=== PATIENT | female | born 1970 | race Caucasian/White ===

== ENCOUNTER → 2017-02-03 | Outpatient (CLI) | payer BC ==
--- NOTE | 2017-02-03 12:14 | XR ---
EXAMINATION TYPE: XR wrist complete RT DATE OF EXAM: 02/03/2017 12:10 PM COMPARISON: NONE HISTORY: Pain TECHNIQUE: Four views submitted. FINDINGS: The osseous structures are intact. Arthropathy of the first carpal metacarpal and first MCP joints no marianna.. IMPRESSION: 1. No definite acute fracture or dislocation if symptoms persist, follow-up study in 7 to 10 days wo uld be suggested. 2. Arthropathy as discussed above.
== END | disposition home or self-care (01) ==
LOC: RADXRMAIN 11:49
PROVIDERS: ATTEND Family Medicine
DX: M12.89 Other specific arthropathies, not elsewhere classified, multiple sites (principal)

== ENCOUNTER → 2017-02-03 | Outpatient (CLI) | payer BC ==
--- NOTE | 2017-02-03 08:19 | CT ---
EXAMINATION TYPE: CT brain wo con DATE OF EXAM: 02/03/2017 7:47 AM COMPARISON: NONE INDICATION: confusion and change of memory DLP: 1076 mGycm, Automated exposure control for dose reduction was used. CONTRAST: None CT of the brain is performed utilizing 3 mm thick sections through the posterior fossa and 3 mm thick sections through the remaining calvarium. Study is performed within 24 hours of arrival to the hosp [facility]. No abnormal hyperdensity is present to suggest an acute intracranial hemorrhage. No mass lesion is evident. No acute infarcts are evident. Ventricles and sulci are appropriate for the patient age. Paranasal sinuses and mastoid air cells within the [id number] are clear. IMPRESSIONS: 1. Normal CT Brain
== END | disposition home or self-care (01) ==
LOC: RADCTMAIN 07:24
PROVIDERS: ATTEND Family Medicine
DX: R41.3 Other amnesia (principal)
CPT/HCPCS: 70450

== ENCOUNTER → 2017-09-20 | Outpatient (CLI) | payer BC ==
--- NOTE | 2017-09-21 08:48 | MM ---
Reason for exam: additional evaluation requested from prior study. Last mammogram was performed 1 year and 1 month ago. History: Patient is postmenopausal. Family history of breast cancer in maternal grandmother at age 35. Benign US RT VAD breast biopsy of the right breast, January 16, 2014. Benign US LT VAD breast biopsy of the left breast, January 16, 2014. Benign US LT VAD breast biopsy of the left breast, January 16, 2014. Benign left US cyst aspiration of the left breast, September 15, 2005. Benign US left CoreBiopsy of the left breast, September 15, 2005. Benign stereotactic core biopsy of the right breast, January 22, 2000. Benign ultrasound-guided core biopsy of the right breast, January 18, 2000. Excisional biopsy of the left breast, 1997. Excisional biopsy of the right breast. Took hormonal contraceptives for 3 years. Taking estrogen for 8 years beginning at age 31. Took unspecified hormones for 38 years. Physical Findings: Nurse did not find any significant physical abnormalities on exam. MG 3D Diag Mammo W/Cad LOLLY Bilateral CC and MLO view(s) were taken. Prior study comparison: August 26, 2016, bilateral MG 3d diag mammo w/cad LOLLY. February 23, 2016, bilateral MG 3d diag mammo w/cad LOLLY. The breast tissue is heterogeneously dense. This may lower the sensitivity of mammography. Stable benign calcifications. There is chronic nodularity bilaterally. There is no dominant lesion. No significant new findings when compared with previous films. These results were verbally communicated with the patient and result sheet given to the patient on 09/20/17. ASSESSMENT: Incomplete: need additional imaging evaluation, BI-RAD 0 RECOMMENDATION: Ultrasound of the right breast.
--- NOTE | 2017-09-21 08:50 | USB ---
Reason for exam: additional evaluation requested from abnormal screening. History: Patient is postmenopausal. Family history of breast cancer in maternal grandmother at age 35. Benign US RT VAD breast biopsy of the right breast, January 16, 2014. Benign US LT VAD breast biopsy of the left breast, January 16, 2014. Benign US LT VAD breast biopsy of the left breast, January 16, 2014. Benign left US cyst aspiration of the left breast, September 15, 2005. Benign US left CoreBiopsy of the left breast, September 15, 2005. Benign stereotactic core biopsy of the right breast, January 22, 2000. Benign ultrasound-guided core biopsy of the right breast, January 18, 2000. Excisional biopsy of the left breast, 1997. Excisional biopsy of the right breast. Took hormonal contraceptives for 3 years. Taking estrogen for 8 years beginning at age 31. Took unspecified hormones for 38 years. US Breast RT Right breast ultrasound includes all four quadrants, the retroareolar region and axilla. Finding demonstrates a 0.4 x 0.3cm cystic lesion at 2 o'clock versus calcification, a 0.4cm calcification at 7 o'clock and a 0.8 x 0.8 x 0.5cm cystic lesion at 9 o'clock. These results were verbally communicated with the patient and result sheet given to the patient on 09/20/17. ASSESSMENT: Benign, BI-RAD 2 RECOMMENDATION: Routine screening mammogram of both breasts in 1 year.
== END | disposition home or self-care (01) ==
LOC: RADMAMWWP 14:44
PROVIDERS: ATTEND Family Medicine
DX: R92.8 Other abnormal and inconclusive findings on diagnostic imaging of breast (principal)
CPT/HCPCS: 76641; G0204; G0279

== ENCOUNTER 2018-01-27 17:01 | Inpatient (IN) | payer BC ==
[2018-01-27] MEDS ORDERED: methylPREDNISolone SOD SUCCI 125 MG/2 ML VIAL IV STA (17:22)
[2018-01-27] MEDS ORDERED: IPRATROPIUM-ALBUTEROL 3 ML NEB INHALATION STA (17:22)
[2018-01-27] MEDS ORDERED: SODIUM CHLORIDE 0.9% 500 ML IV STA (17:22)
--- NOTE | 2018-01-27 17:28 | ED ---
SOB HPI - General Chief Complaint: Shortness of Breath Stated Complaint: Difficulty Breathing Time Seen by Provider: 01/27/18 17:16 Source: patient, RN notes reviewed Mode of arrival: ambulatory Limitations: no limitations - History of Present Illness Initial Comments: 48-year-old female presents emergency Department chief complaint shortness of breath. Patient states she's been sick for over the last week did see Dr. Chau her primary care physician on Tuesday who gave her breathing treatment, as shot of steroids and Levaquin. She states that she's getting worse she's having difficult breathing and noticed increased wheezing. She has no history of asthma or COPD. Patient states that she was now placed on steroids because she has a diabetic on an insulin pump. Patient states she is a nonsmoker. She does have a history of A. fib/POTS. Patient denies any nausea vomiting. Patient states she's had subjective fevers. - Related Data Home Medications Medication Instructions Recorded Confirmed ALPRAZolam [Xanax] 0.25 mg PO BID 01/27/18 01/27/18 Acyclovir 400 mg PO DAILY 01/27/18 01/27/18 Amitriptyline HCl [Elavil] 75 mg PO HS 01/27/18 01/27/18 Cyclobenzaprine [Flexeril] 10 mg PO HS 01/27/18 01/27/18 Digoxin [Lanoxin] 250 mcg PO DAILY 01/27/18 01/27/18 Estrogens, Conjugated [Premarin] 0.625 mg PO DAILY 01/27/18 01/27/18 Fenofibrate [Lofibra] 160 mg PO DAILY 01/27/18 01/27/18 Gabapentin [Neurontin] 400 mg PO TID 01/27/18 01/27/18 Hyoscyamine Sulfate [Levbid] 0.375 mg PO BID 01/27/18 01/27/18 Insulin Aspart (For Pump) [NovoLOG 0.01 unit SQ-PUMP CONTINUOUS 01/27/18 (For Pump)] Levofloxacin [Levaquin] 500 mg PO DAILY 01/27/18 01/27/18 Levothyroxine Sodium [Synthroid] 50 mcg PO Q48H 01/27/18 01/27/18 Levothyroxine Sodium [Synthroid] 75 mcg PO Q48H 01/27/18 01/27/18 Lisinopril [Zestril] 5 mg PO DAILY 01/27/18 01/27/18 Nadolol 40 mg PO DAILY 01/27/18 01/27/18 Pravastatin Sodium [Pravachol] 80 mg PO HS 01/27/18 01/27/18 Sertraline [Zoloft] 50 mg PO TID 01/27/18 01/27/18 traZODone HCL 100 mg PO HS 01/27/18 01/27/18 Allergies Allergy/AdvReac Type Severity Reaction Status Date / Time No Known Allergies Allergy Verified 01/27/18 17:56 Review of Systems ROS Statement: Those systems with pertinent positive or pertinent negative responses have been documented in the HPI. ROS Other: All systems not noted in ROS Statement are negative. Past Medical History Past Medical History: Chest Pain / Angina, Diabetes Mellitus, Hypertension, Thyroid Disorder History of Any Multi-Drug Resistant Organisms: None Reported Past Surgical History: No Surgical Hx Reported Past Psychological History: No Psychological Hx Reported Smoking Status: Never smoker Past Alcohol Use History: None Reported Past Drug Use History: None Reported General Exam Limitations: no limitations General appearance: alert, in no apparent distress Head exam: Present: atraumatic, normocephalic, normal inspection Eye exam: Present: normal appearance, PERRL, EOMI. Absent: scleral icterus, conjunctival injection, periorbital swelling ENT exam: Present: normal exam, normal oropharynx, mucous membranes moist Neck exam: Present: normal inspection. Absent: tenderness, meningismus, lymphadenopathy Respiratory exam: Present: respiratory distress (mild to moderate), wheezes. Absent: normal lung sounds bilaterally, rales, rhonchi, stridor Cardiovascular Exam: Present: regular rate, normal rhythm, normal heart sounds. Absent: systolic murmur, diastolic murmur, rubs, gallop, clicks GI/Abdominal exam: Present: soft, normal bowel sounds. Absent: distended, tenderness, guarding, rebound, rigid Skin exam: Present: warm, dry, intact, normal color. Absent: rash Course Vital Signs 01/27/18 01/27/18 01/27/18 17:03 17:31 17:41 Temperature 97.4 F L Pulse Rate 84 82 84 Respiratory 26 H 20 20 Rate Blood Pressure 189/80 O2 Sat by Pulse 97 Oximetry 01/27/18 19:46 Temperature Pulse Rate 75 Respiratory 20 Rate Blood Pressure 139/63 O2 Sat by Pulse 91 L Oximetry Medical Decision Making - Lab Data Result diagrams: 01/27/18 18:00 01/27/18 18:00 Lab Results 01/27/18 01/27/18 01/27/18 Range/Units 18:00 18:00 18:00 WBC 8.7 (3.8-10.6) k/uL RBC 3.88 (3.80-5.40) m/uL Hgb 11.0 L (11.4-16.0) gm/dL Hct 32.5 L (34.0-46.0) % MCV 83.7 (80.0-100.0) fL MCH 28.2 (25.0-35.0) pg MCHC 33.7 (31.0-37.0) g/dL RDW 13.9 (11.5-15.5) % Plt Count 270 (150-450) k/uL Neutrophils % 70 % Lymphocytes % 24 % Monocytes % 3 % Eosinophils % 2 % Basophils % 1 % Neutrophils # 6.1 (1.3-7.7) k/uL Lymphocytes # 2.1 (1.0-4.8) k/uL Monocytes # 0.3 (0-1.0) k/uL Eosinophils # 0.1 (0-0.7) k/uL Basophils # 0.0 (0-0.2) k/uL PT (9.0-12.0) sec INR (<1.2) APTT (22.0-30.0) sec Sodium 141 (137-145) mmol/L Potassium 3.9 (3.5-5.1) mmol/L Chloride 105 (98-107) mmol/L Carbon Dioxide 25 (22-30) mmol/L Anion Gap 11 mmol/L BUN 11 (7-17) mg/dL Creatinine 0.59 (0.52-1.04) mg/dL Est GFR (CKD-EPI)AfAm >90 (>60 ml/min/1.73 sqM) Est GFR (CKD-EPI)NonAf >90 (>60 ml/min/1.73 sqM) Glucose 124 H (74-99) mg/dL POC Glucose (mg/dL) (75-99) mg/dL POC Glu Metal Stamper ID Calcium 9.2 (8.4-10.2) mg/dL Magnesium 1.5 L (1.6-2.3) mg/dL Total Bilirubin 0.4 (0.2-1.3) mg/dL AST 60 H (14-36) U/L ALT 45 (9-52) U/L Alkaline Phosphatase 82 (38-126) U/L Total Creatine Kinase 127 (30-135) U/L CK-MB (CK-2) 0.6 (0.0-2.4) ng/mL CK-MB (CK-2) Rel Index 0.5 Troponin I <0.012 (0.000-0.034) ng/mL NT-Pro-B Natriuret Pep pg/mL Total Protein 6.3 (6.3-8.2) g/dL Albumin 3.2 L (3.5-5.0) g/dL Influenza Type A RNA (Not Detectd) Influenza Type B (PCR) (Not Detectd) 01/27/18 01/27/18 01/27/18 Range/Units 18:00 18:00 18:00 WBC (3.8-10.6) k/uL RBC (3.80-5.40) m/uL Hgb (11.4-16.0) gm/dL Hct (34.0-46.0) % MCV (80.0-100.0) fL MCH (25.0-35.0) pg MCHC (31.0-37.0) g/dL RDW (11.5-15.5) % Plt Count (150-450) k/uL Neutrophils % % Lymphocytes % % Monocytes % % Eosinophils % % Basophils % % Neutrophils # (1.3-7.7) k/uL Lymphocytes # (1.0-4.8) k/uL Monocytes # (0-1.0) k/uL Eosinophils # (0-0.7) k/uL Basophils # (0-0.2) k/uL PT 13.6 H (9.0-12.0) sec INR 1.5 H (<1.2) APTT 22.4 (22.0-30.0) sec Sodium (137-145) mmol/L Potassium (3.5-5.1) mmol/L Chloride (98-107) mmol/L Carbon Dioxide (22-30) mmol/L Anion Gap mmol/L BUN (7-17) mg/dL Creatinine (0.52-1.04) mg/dL Est GFR (CKD-EPI)AfAm (>60 ml/min/1.73 sqM) Est GFR (CKD-EPI)NonAf (>60 ml/min/1.73 sqM) Glucose (74-99) mg/dL POC Glucose (mg/dL) (75-99) mg/dL POC Glu Metal Stamper ID Calcium (8.4-10.2) mg/dL Magnesium (1.6-2.3) mg/dL Total Bilirubin (0.2-1.3) mg/dL AST (14-36) U/L ALT (9-52) U/L Alkaline Phosphatase (38-126) U/L Total Creatine Kinase (30-135) U/L CK-MB (CK-2) (0.0-2.4) ng/mL CK-MB (CK-2) Rel Index Troponin I (0.000-0.034) ng/mL NT-Pro-B Natriuret Pep 159 pg/mL Total Protein (6.3-8.2) g/dL Albumin (3.5-5.0) g/dL Influenza Type A RNA Not Detected (Not Detectd) Influenza Type B (PCR) Not Detected (Not Detectd) 01/27/18 Range/Units 19:44 WBC (3.8-10.6) k/uL RBC (3.80-5.40) m/uL Hgb (11.4-16.0) gm/dL Hct (34.0-46.0) % MCV (80.0-100.0) fL MCH (25.0-35.0) pg MCHC (31.0-37.0) g/dL RDW (11.5-15.5) % Plt Count (150-450) k/uL Neutrophils % % Lymphocytes % % Monocytes % % Eosinophils % % Basophils % % Neutrophils # (1.3-7.7) k/uL Lymphocytes # (1.0-4.8) k/uL Monocytes # (0-1.0) k/uL Eosinophils # (0-0.7) k/uL Basophils # (0-0.2) k/uL PT (9.0-12.0) sec INR (<1.2) APTT (22.0-30.0) sec Sodium (137-145) mmol/L Potassium (3.5-5.1) mmol/L Chloride (98-107) mmol/L Carbon Dioxide (22-30) mmol/L Anion Gap mmol/L BUN (7-17) mg/dL Creatinine (0.52-1.04) mg/dL Est GFR (CKD-EPI)AfAm (>60 ml/min/1.73 sqM) Est GFR (CKD-EPI)NonAf (>60 ml/min/1.73 sqM) Glucose (74-99) mg/dL POC Glucose (mg/dL) 104 H (75-99) mg/dL POC Glu Metal Stamper ID Kiana Tejeda Calcium (8.4-10.2) mg/dL Magnesium (1.6-2.3) mg/dL Total Bilirubin (0.2-1.3) mg/dL AST (14-36) U/L ALT (9-52) U/L Alkaline Phosphatase (38-126) U/L Total Creatine Kinase (30-135) U/L CK-MB (CK-2) (0.0-2.4) ng/mL CK-MB (CK-2) Rel Index Troponin I (0.000-0.034) ng/mL NT-Pro-B Natriuret Pep pg/mL Total Protein (6.3-8.2) g/dL Albumin (3.5-5.0) g/dL Influenza Type A RNA (Not Detectd) Influenza Type B (PCR) (Not Detectd) Disposition Clinical Impression: Pulmonary edema, Hypoxic, Dyspnea Disposition: ADMITTED IP TO THIS HOSP Condition: Fair Referrals: Alber Chau MD [Primary Care Provider] - 1-2 days
[2018-01-27] MEDS ORDERED: LORazepam 2 MG/ML INJ IV STA (17:50)
[2018-01-27 18:17] LABS: Basophils % (A) 1 %; Eosinophils # (A) 0.1 k/uL (0-0.7); Eosinophils % (A) 2 %; HCT 32.5 % (34.0-46.0); Lymphocytes # (A) 2.1 k/uL (1.0-4.8); Lymphocytes % (A) 24 %; MCH 28.2 pg (25.0-35.0); MCHC 33.7 g/dL (31.0-37.0); MCV 83.7 fL (80.0-100.0); Mean Platelet Volume 7.5; Monocytes # (A) 0.3 k/uL (0-1.0); Monocytes % (A) 3 %; Neutrophils # (A) 6.1 k/uL (1.3-7.7); Neutrophils % (A) 70 %; Platelet Count 270 k/uL (150-450); RBC 3.88 m/uL (3.80-5.40); RDW 13.9 % (11.5-15.5); WBC 8.7 k/uL (3.8-10.6)
[2018-01-27 18:22] LABS: INR 1.5 (<1.2); Partial Thromboplastin Time 22.4 sec (22.0-30.0); Prothrombin Time 13.6 sec (9.0-12.0)
[2018-01-27 18:28] LABS: ALT 45 U/L (9-52); AST 60 U/L (14-36); Albumin 3.2 g/dL (3.5-5.0); Alkaline Phosphatase 82 U/L (38-126); Anion Gap 11 mmol/L; Blood Urea Nitrogen 11 mg/dL (7-17); Calcium 9.2 mg/dL (8.4-10.2); Carbon Dioxide 25 mmol/L (22-30); Chloride 105 mmol/L (98-107); Glucose 124 mg/dL (74-99); Magnesium 1.5 mg/dL (1.6-2.3); Potassium 3.9 mmol/L (3.5-5.1); Sodium 141 mmol/L (137-145); Total Bilirubin 0.4 mg/dL (0.2-1.3); Total Protein 6.3 g/dL (6.3-8.2)
[2018-01-27 18:32] LABS: Creatine Kinase 127 U/L (30-135)
--- NOTE | 2018-01-27 18:42 | XR ---
EXAMINATION: XR chest 2V DATE AND TIME: 01/27/2018 6:30 PM ORDERING PROVIDER: Coleman Harry CLINICAL INDICATION: difficulty breathing TECHNIQUE: PA and lateral COMPARISON: None. DESCRIPTION: There is a fine reticular pattern of increased density throughout the lungs bilaterally and symmetrically with several septal lines seen at the periphery bilaterally. This pattern markedly silhouettes of the pulmonary vasculature arborization bilaterally. Pleural spaces are negative. Cardiac silhouette is unremarkable, as are the bones and soft tissues.. IMPRESSION: ADVANCED INTERSTITIAL PHASE PULMONARY EDEMA PATTERN, WITH CARDIOGENIC VERSUS NONCARDIOGENIC ETIOLOGY INDETERMINATE RADIOGRAPHICALLY.
[2018-01-27 18:45] LABS: Creatine Kinase MB 0.6 ng/mL (0.0-2.4); Troponin I <0.012 ng/mL (0.000-0.034)
[2018-01-27 19:49] LABS: Glucose,Whole Blood 104 mg/dL (75-99)
[2018-01-27] MEDS ORDERED: HYDROcodone/APAP 5-325MG 1 EACH TAB PO STA (19:55)
[2018-01-27] MEDS ORDERED: FUROSEMIDE 10 MG/ML 2 ML VIAL IV STA (19:55)
[2018-01-27] MEDS ORDERED: ONDANSETRON 4 MG/2 ML VIAL IVP PRN (19:56)
[2018-01-27] MEDS ORDERED: Insulin Aspart (For Pump) 100 UNIT/ML VIAL SQ-PUMP SCH (20:00)
[2018-01-27 21:06] LABS: Glucose,Whole Blood 143 mg/dL (75-99)
[2018-01-27 21:23] VITALS: BMI 34.3
[2018-01-27] MEDS: SERTRALINE 100 MG TAB PO SCH (21:55)
[2018-01-27] MEDS: GABAPENTIN 400 MG CAP PO SCH (21:55)
[2018-01-27] MEDS: PRAVASTATIN SODIUM 80 MG TAB PO SCH (21:55)
[2018-01-27] MEDS: ALPRAZolam 0.25 MG TAB PO SCH (21:55)
[2018-01-27] MEDS: traZODone HCL 100 MG TAB PO SCH (21:56)
[2018-01-27] MEDS: CYCLOBENZAPRINE 10 MG TAB PO SCH (21:56)
[2018-01-27] MEDS: AMITRIPTYLINE HCL 25 MG TAB PO SCH (21:56)
[2018-01-27] MEDS: HYOSCYAMINE SULFATE 0.375 MG TAB.ER.12H PO SCH (21:58)
[2018-01-27] MEDS ORDERED: GABAPENTIN 400 MG CAP PO SCH (22:00)
[2018-01-27] MEDS ORDERED: SERTRALINE 50 MG TAB PO SCH (22:00)
[2018-01-27] MEDS ORDERED: INSULIN PUMP BASAL RATES 1 EACH MISC MISCELLANE PRN (22:04)
[2018-01-28 05:01] LABS: Glucose,Whole Blood 275 mg/dL (75-99)
[2018-01-28] MEDS ORDERED: Magnesium Replacement Protocol 1 EACH MISC MISCELLANE PRN (06:18)
[2018-01-28 06:36] LABS: Glucose,Whole Blood 248 mg/dL (75-99)
[2018-01-28] MEDS: INSPUCOR MISCELLANE PRN ×2 (06:46→20:42)
[2018-01-28] MEDS: MAGNESIUM SULFATE-D5W PMX 1 GM in DEXTROSE/WATER 1 100ML.BAG IVPB SCH ×2 (07:05→08:15)
[2018-01-28] MEDS: INSULIN PUMP MEAL BOLUS 1 UNIT MISC MISCELLANE SCH ×6 (07:42→20:40)
[2018-01-28] MEDS: ESTROGENS, CONJUGATED 0.625 MG TAB PO SCH (07:47)
[2018-01-28] MEDS: LEVOFLOXACIN 500 MG TAB PO SCH (07:47)
[2018-01-28] MEDS: NADOLOL 20 MG TAB PO SCH (07:47)
[2018-01-28] MEDS: LEVOTHYROXINE 75 MCG TAB PO SCH (07:48)
[2018-01-28] MEDS: LISINOPRIL 5 MG TAB PO SCH (07:48)
[2018-01-28] MEDS: DIGOXIN 250 MCG TAB PO SCH ×2 (07:48→07:57)
[2018-01-28] MEDS: HYOSCYAMINE SULFATE 0.375 MG TAB.ER.12H PO SCH ×2 (07:49→20:36)
[2018-01-28] MEDS: LEVOTHYROXINE 50 MCG TAB PO SCH (07:51)
[2018-01-28] MEDS: FENOFIBRATE 160 MG TAB PO SCH (07:51)
[2018-01-28] MEDS: ACYCLOVIR 200 MG CAP PO SCH (07:51)
[2018-01-28] MEDS: ALPRAZolam 0.25 MG TAB PO SCH ×2 (07:52→20:35)
[2018-01-28] MEDS: SERTRALINE 50 MG TAB PO SCH (07:52)
[2018-01-28] MEDS: GABAPENTIN 400 MG CAP PO SCH ×2 (07:52→20:36)
--- NOTE | 2018-01-28 08:24 | P.CRDCN ---
History of Present Illness Consult date: 01/28/18 Chief complaint: Shortness of breath History of present illness: This is a pleasant 48-year-old female patient with a past medical history significant for diabetes currently she is on insulin, hypertension, dyslipidemia, and possibly chronic lung disease, presented to the hospital complaining of shortness of breath. The patient initially presented to Dr. Chau office and she was not feeling well and she was having some shortness of breath. In his office, she was given a breathing treatment and she felt slightly better for the following 2 days. On the third day she started experiencing shortness of breath Which was getting worse and it was associated with cough seems to be dry and without any sputum. She felt low-grade temperature and she stated that she did have some chills. Beside the exertional dyspnea she was experiencing she was having also some orthopnea and bilateral lower extremities edema. The chest x-ray showed findings consistent with pulmonary vascular congestion. The BNP came in to be within normal limits. The EKG showed sinus rhythm without any significant ST or T-wave abnormalities. One set of troponin came in to be unremarkable. The d-dimer came in to be slightly abnormal. The patient is not aware of any prior history of coronary artery disease nor congestive heart failure nor any cardiac arrhythmia. Currently she is on antibiotic as well as she is on steroids. She received a dose of Lasix in the emergency room and she felt better after that. On physical examination she does have diminished breathing sounds but I could not hear any crackles and also she does have mild bilateral pedal edema. Past Medical History Past Medical History: Chest Pain / Angina, Diabetes Mellitus, Hyperlipidemia, Hypertension, Thyroid Disorder Additional Past Medical History / Comment(s): Postural orthostatic tachycardia, gastroparesis, neuropathy History of Any Multi-Drug Resistant Organisms: None Reported Past Surgical History: Appendectomy, Section, Cholecystectomy, Hysterectomy Additional Past Surgical History / Comment(s): left elbow repair, benign adenoma left breast, breast biopsies Past Anesthesia/Blood Transfusion Reactions: Previous Problems w/ Anesthesia, Postoperative Nausea & Vomiting (PONV) Past Psychological History: Anxiety, Depression Smoking Status: Former smoker Past Alcohol Use History: None Reported Additional Past Alcohol Use History / Comment(s): quit years ago Past Drug Use History: None Reported - Past Family History Father Family Medical History: Cancer, CVA/TIA, Hypertension Mother Family Medical History: Congestive Heart Failure (CHF), Myocardial Infarction ( [place]) Additional Family Medical History / Comment(s): from [place] Brother(s) Family Medical History: Congestive Heart Failure (CHF) Additional Family Medical History / Comment(s): brother from CHF Medications and Allergies Home Medications Medication Instructions Recorded Confirmed Type ALPRAZolam [Xanax] 0.25 mg PO BID 01/27/18 01/27/18 History Acyclovir 400 mg PO DAILY 01/27/18 01/27/18 History Amitriptyline HCl [Elavil] 75 mg PO HS 01/27/18 01/27/18 History Cyclobenzaprine [Flexeril] 10 mg PO HS 01/27/18 01/27/18 History Digoxin [Lanoxin] 250 mcg PO DAILY 01/27/18 01/27/18 History Estrogens, Conjugated [Premarin] 0.625 mg PO DAILY 01/27/18 01/27/18 History Fenofibrate [Lofibra] 160 mg PO DAILY 01/27/18 01/27/18 History Gabapentin [Neurontin] 400 mg PO DAILY 01/27/18 01/27/18 History Gabapentin [Neurontin] 800 mg PO HS 01/27/18 01/27/18 History Hyoscyamine Sulfate [Levbid] 0.375 mg PO BID 01/27/18 01/27/18 History Insulin Aspart (For Pump) [NovoLOG 0.01 unit SQ-PUMP CONTINUOUS 01/27/18 History (For Pump)] Levofloxacin [Levaquin] 500 mg PO DAILY 01/27/18 01/27/18 History Levothyroxine Sodium [Synthroid] 50 mcg PO Q48H 01/27/18 01/27/18 History Levothyroxine Sodium [Synthroid] 75 mcg PO Q48H 01/27/18 01/27/18 History Lisinopril [Zestril] 5 mg PO DAILY 01/27/18 01/27/18 History Nadolol 40 mg PO DAILY 01/27/18 01/27/18 History Pravastatin Sodium [Pravachol] 80 mg PO HS 01/27/18 01/27/18 History Sertraline [Zoloft] 50 mg PO DAILY 01/27/18 01/27/18 History Sertraline [Zoloft] 100 mg PO HS 01/27/18 01/27/18 History traZODone HCL 100 mg PO HS 01/27/18 01/27/18 History Allergies Allergy/AdvReac Type Severity Reaction Status Date / Time No Known Allergies Allergy Verified 01/27/18 17:56 Physical Exam Vitals: Vital Signs Temp Pulse Pulse Resp BP BP Pulse Ox 01/28/18 04:00 97.1 F L 88 18 136/67 93 L 01/27/18 22:00 89 22 139/66 91 L 01/27/18 20:57 97.0 F L 80 20 139/89 91 L 01/27/18 20:18 97.6 F 85 20 149/68 91 L 01/27/18 19:46 75 20 139/63 91 L 01/27/18 17:41 84 20 01/27/18 17:31 82 20 01/27/18 17:03 97.4 F L 84 26 H 189/80 97 Intake and Output 01/27/18 01/28/18 01/28/18 22:59 06:59 14:59 Other: Voiding Method Toilet # Voids 2 Weight 90.7 kg 91.2 kg - Constitutional General appearance: no acute distress - Respiratory Respiratory: bilateral: diminished - Cardiovascular Rhythm: regular Heart sounds: normal: S1, S2 Results 01/27/18 18:00 01/27/18 18:00 Cardiac Enzymes 01/27/18 01/27/18 Range/Units 18:00 18:00 AST 60 H (14-36) U/L CK-MB (CK-2) 0.6 (0.0-2.4) ng/mL Troponin I <0.012 (0.000-0.034) ng/mL Coagulation 01/27/18 Range/Units 18:00 PT 13.6 H (9.0-12.0) sec APTT 22.4 (22.0-30.0) sec CBC 01/27/18 Range/Units 18:00 WBC 8.7 (3.8-10.6) k/uL RBC 3.88 (3.80-5.40) m/uL Hgb 11.0 L (11.4-16.0) gm/dL Hct 32.5 L (34.0-46.0) % Plt Count 270 (150-450) k/uL Comprehensive Metabolic Panel 01/27/18 Range/Units 18:00 Sodium 141 (137-145) mmol/L Potassium 3.9 (3.5-5.1) mmol/L Chloride 105 (98-107) mmol/L Carbon Dioxide 25 (22-30) mmol/L BUN 11 (7-17) mg/dL Creatinine 0.59 (0.52-1.04) mg/dL Glucose 124 H (74-99) mg/dL Calcium 9.2 (8.4-10.2) mg/dL AST 60 H (14-36) U/L ALT 45 (9-52) U/L Alkaline Phosphatase 82 (38-126) U/L Total Protein 6.3 (6.3-8.2) g/dL Albumin 3.2 L (3.5-5.0) g/dL Current Medications Generic Name Dose Route Start Last Admin Trade Name Freq PRN Reason Stop Dose Admin Acyclovir 400 mg 01/28/18 09:00 01/28/18 07:51 Zovirax PO 400 mg DAILY BROOKE Administration Albuterol/Ipratropium 3 ml 01/27/18 19:57 Duoneb 0.5 Mg-3 Mg/3 Ml Soln INHALATION RT-QID PRN Shortness Of Breath Or Wheezing Alprazolam 0.25 mg 01/27/18 21:00 01/28/18 07:52 Xanax PO 0.25 mg BID BROOKE Administration Amitriptyline HCl 75 mg 01/27/18 21:00 01/27/18 21:56 Elavil PO 75 mg HS BROOKE Administration Cyclobenzaprine HCl 10 mg 01/27/18 21:00 01/27/18 21:56 Flexeril PO 10 mg HS BROOKE Administration Digoxin 250 mcg 01/28/18 09:00 01/28/18 07:57 Lanoxin PO Not Given DAILY BROOKE Estrogens Conjugated 0.625 mg 01/28/18 09:00 01/28/18 07:47 Premarin PO 0.625 mg DAILY BROOKE Administration Fenofibrate 160 mg 01/28/18 09:00 01/28/18 07:51 Lofibra PO 160 mg DAILY BROOKE Administration Gabapentin 800 mg 01/27/18 21:30 01/27/18 21:55 Neurontin PO 800 mg HS BROOKE Administration Gabapentin 400 mg 01/28/18 09:00 01/28/18 07:52 Neurontin PO 400 mg DAILY BROOKE Administration Hyoscyamine 0.375 mg 01/27/18 21:00 01/28/18 07:49 Levbid PO 0.375 mg BID BROOKE Administration Magnesium Sulfate/Dextrose 1 100 mls @ 100 mls/hr 01/28/18 06:30 01/28/18 08: 15 gm/ IV Solution IVPB 01/28/18 08:29 100 mls/hr Q1H BROOKE Administration Levofloxacin 500 mg 01/28/18 09:00 01/28/18 07:47 Levaquin PO 01/29/18 23:59 500 mg DAILY BROOKE Administration Levothyroxine Sodium 50 mcg 01/28/18 06:30 01/28/18 07:51 Synthroid PO 50 mcg Q48H BROOKE Administration Levothyroxine Sodium 75 mcg 01/29/18 06:30 Synthroid PO Q48H BROOKE Lisinopril 5 mg 01/28/18 09:00 01/28/18 07:48 Zestril PO 5 mg DAILY BROOKE Administration Miscellaneous Information 1 each 01/27/18 22:04 Insulin Pump Basal Rates MISCELLANE Q6HR PRN Blood Sugar - High Protocol Miscellaneous Information 0 unit 01/27/18 22:04 01/28/18 06:46 Insulin Pump Correction Bolus MISCELLANE 2.7 unit ACHS PRN Administration Blood Sugar - High Protocol Miscellaneous Information 0 unit 01/28/18 07:30 01/28/18 07:42 Insulin Pump Meal Bolus MISCELLANE 2.7 unit ACHS BROOKE Administration Protocol Miscellaneous Information 1 each 01/28/18 06:18 Magnesium Per Protocol MISCELLANE DAILY PRN Per Protocol Protocol Nadolol 40 mg 01/28/18 09:00 01/28/18 07:47 Corgard PO 40 mg DAILY BROOKE Administration Ondansetron HCl 4 mg 01/27/18 19:56 Zofran IVP Q8HR PRN Nausea And Vomiting Pravastatin Sodium 80 mg 01/27/18 21:00 01/27/18 21:55 Pravachol PO 80 mg HS BROOKE Administration Sertraline HCl 50 mg 01/28/18 09:00 01/28/18 07:52 Zoloft PO 50 mg DAILY BROOKE Administration Sertraline HCl 100 mg 01/27/18 21:30 01/27/18 21:55 Zoloft PO 100 mg HS BROOKE Administration Trazodone HCl 100 mg 01/27/18 21:00 01/27/18 21:56 Desyrel PO 100 mg HS BROOKE Administration Intake and Output 01/27/18 01/28/18 01/28/18 22:59 06:59 14:59 Other: Voiding Method Toilet # Voids 2 Weight 90.7 kg 91.2 kg 01/27/18 18:00 01/27/18 18:00 Assessment and Plan Assessment: Assessment #1 acute respiratory failure. The etiology is cardiac versus noncardiac. #2 possible bronchitis/pneumonia #3 mild congestive heart failure exacerbation. And known if it's too to systolic or diastole dysfunction #4 diabetes currently on insulin #5 hypertension #6 dyslipidemia Plan #1 currently the patient is getting treated for chronic lung disease as well as pneumonia #2 I am going to add Lasix to the current medical treatment with continue monitor the kidney function and electrolytes #3 obtain an echocardiogram was Doppler to assess the LV function #4 rule out acute coronary event. I will obtain 2 more sets of serial cardiac enzymes #5 follow-up with the patient. Thank you for allowing us participate in her care and we'll continue following up with the patient
[2018-01-28] MEDS: IPRATROPIUM-ALBUTEROL 3 ML NEB INHALATION PRN ×2 (08:46→12:06)
[2018-01-28] MEDS ORDERED: FUROSEMIDE 10 MG/ML 4 ML VIAL IV SCH (09:00)
[2018-01-28] MEDS: KETOROLAC 30 MG/ML 1 ML VIAL IVP SCH ×3 (10:22→23:49)
[2018-01-28] MEDS ORDERED: RX INFO: IV CONTRAST WAS GIVEN 1 EACH MISC MISCELLANE PRN (12:04)
[2018-01-28 12:19] LABS: Glucose,Whole Blood 331 mg/dL (75-99)
[2018-01-28 12:33] LABS: Anion Gap 15 mmol/L; Blood Urea Nitrogen 11 mg/dL (7-17); Calcium 9.4 mg/dL (8.4-10.2); Carbon Dioxide 23 mmol/L (22-30); Chloride 103 mmol/L (98-107); Glucose 322 mg/dL (74-99); Potassium 4.5 mmol/L (3.5-5.1); Sodium 141 mmol/L (137-145)
--- NOTE | 2018-01-28 12:33 | P.CNPUL ---
History of Present Illness Consult date: 01/28/18 Requesting physician: Sosa Perez Reason for consult: dyspnea, abnormal CXR/CT Chief complaint: Shortness of breath, cough, congestion History of present illness: This is a very pleasant 48-year-old female patient who follows with Dr. Chau as her primary care physician. She has a history of obesity, diabetes mellitus , hypertension, hypothyroidism, anxiety/depression, hyperlipidemia, gastroesophageal reflux disease. She does have a 20 year pack per day smoking history however quit several years ago. No previous history of asthma, emphysema, pneumonias. Approximately 9 days ago the patient developed increasing shortness of breath, cough and congestion. She was seen by her PCP who started her on antibiotics and steroids. She really did not improve much. Yesterday she developed chest tightness increasing shortness of breath with minimal exertion and presented here to the emergency room for the same. Her chest x-ray showed fine reticular pattern of increased density throughout the lungs bilaterally suspicious for advanced interstitial pulmonary edema. Cardiac versus noncardiogenic. Did have trace peripheral edema. BNP within normal limits. Troponins negative. Echocardiogram pending. Influenza screen negative. No leukocytosis. No fever since admission. She is found to be hypoxic requiring 2 L/m per nasal cannula to maintain O2 saturations in the 90s. She drops into the 80s on 3 L. She does have some chest wall tenderness. Rib pain from coughing. Her cough has been mainly nonproductive. No hemoptysis. White count 8.7. Hemoglobin 11.0. Creatinine 0.59. Review of Systems Constitutional: Reports fatigue, Reports weakness Eyes: denies blurred vision, denies decreased vision Ears: deny: decreased hearing Ears, nose, mouth and throat: Reports nasal congestion, Reports sinus pressure Cardiovascular: Reports chest pain, Reports dyspnea on exertion, Reports orthopnea, Reports shortness of breath Respiratory: Reports congestion, Reports cough, Reports dyspnea, Reports respiratory infections, Reports wheezing Gastrointestinal: Reports heartburn Genitourinary: Denies dysuria, Denies hematuria Musculoskeletal: Denies myalgias Integumentary: Denies pruritus, Denies rash Neurological: Denies numbness, Denies weakness Psychiatric: Reports anxiety Endocrine: Denies fatigue, Denies weight change Past Medical History Past Medical History: Chest Pain / Angina, Diabetes Mellitus, Hyperlipidemia, Hypertension, Thyroid Disorder Additional Past Medical History / Comment(s): Postural orthostatic tachycardia, gastroparesis, neuropathy History of Any Multi-Drug Resistant Organisms: None Reported Past Surgical History: Appendectomy, Section, Cholecystectomy, Hysterectomy Additional Past Surgical History / Comment(s): left elbow repair, benign adenoma left breast, breast biopsies Past Anesthesia/Blood Transfusion Reactions: Previous Problems w/ Anesthesia, Postoperative Nausea & Vomiting (PONV) Past Psychological History: Anxiety, Depression Smoking Status: Former smoker Past Alcohol Use History: None Reported Additional Past Alcohol Use History / Comment(s): quit years ago Past Drug Use History: None Reported - Past Family History Father Family Medical History: Cancer, CVA/TIA, Hypertension Mother Family Medical History: Congestive Heart Failure (CHF), Myocardial Infarction ( [place]) Additional Family Medical History / Comment(s): from [place] Brother(s) Family Medical History: Congestive Heart Failure (CHF) Additional Family Medical History / Comment(s): brother from [place] Medications and Allergies Home Medications Medication Instructions Recorded Confirmed Type ALPRAZolam [Xanax] 0.25 mg PO BID 01/27/18 01/27/18 History Acyclovir 400 mg PO DAILY 01/27/18 01/27/18 History Amitriptyline HCl [Elavil] 75 mg PO HS 01/27/18 01/27/18 History Cyclobenzaprine [Flexeril] 10 mg PO HS 01/27/18 01/27/18 History Digoxin [Lanoxin] 250 mcg PO DAILY 01/27/18 01/27/18 History Estrogens, Conjugated [Premarin] 0.625 mg PO DAILY 01/27/18 01/27/18 History Fenofibrate [Lofibra] 160 mg PO DAILY 01/27/18 01/27/18 History Gabapentin [Neurontin] 400 mg PO DAILY 01/27/18 01/27/18 History Gabapentin [Neurontin] 800 mg PO HS 01/27/18 01/27/18 History Hyoscyamine Sulfate [Levbid] 0.375 mg PO BID 01/27/18 01/27/18 History Insulin Aspart (For Pump) [NovoLOG 0.01 unit SQ-PUMP CONTINUOUS 01/27/18 History (For Pump)] Levofloxacin [Levaquin] 500 mg PO DAILY 01/27/18 01/27/18 History Levothyroxine Sodium [Synthroid] 50 mcg PO Q48H 01/27/18 01/27/18 History Levothyroxine Sodium [Synthroid] 75 mcg PO Q48H 01/27/18 01/27/18 History Lisinopril [Zestril] 5 mg PO DAILY 01/27/18 01/27/18 History Nadolol 40 mg PO DAILY 01/27/18 01/27/18 History Pravastatin Sodium [Pravachol] 80 mg PO HS 01/27/18 01/27/18 History Sertraline [Zoloft] 50 mg PO DAILY 01/27/18 01/27/18 History Sertraline [Zoloft] 100 mg PO HS 01/27/18 01/27/18 History traZODone HCL 100 mg PO HS 01/27/18 01/27/18 History Allergies Allergy/AdvReac Type Severity Reaction Status Date / Time No Known Allergies Allergy Verified 01/27/18 17:56 Physical Exam Vitals: Vital Signs Temp Pulse Pulse Resp BP BP Pulse Ox 01/28/18 12:15 88 01/28/18 12:08 92 01/28/18 09:02 86 01/28/18 08:50 88 95 01/28/18 08:00 97.1 F L 90 20 124/61 91 L 01/28/18 04:00 97.1 F L 88 18 136/67 93 L 01/27/18 22:00 89 22 139/66 91 L 01/27/18 20:57 97.0 F L 80 20 139/89 91 L 01/27/18 20:18 97.6 F 85 20 149/68 91 L 01/27/18 19:46 75 20 139/63 91 L 01/27/18 17:41 84 20 01/27/18 17:31 82 20 01/27/18 17:03 97.4 F L 84 26 H 189/80 97 Intake and Output 01/27/18 01/28/18 01/28/18 22:59 06:59 14:59 Intake Total 440 Output Total 300 Balance 140 Intake: Intake, IV Titration 200 Amount Magnesium Sulfate-D5w Pmx 200 1 gm In Dextrose/Water 1 100ml.bag @ 100 mls/hr IVPB Q1H [facility] Rx#: [id number] Oral 240 Output: Urine 300 Other: Voiding Method Toilet # Voids 2 1 Weight 90.7 kg 91.2 kg GENERAL EXAM: Obese. Anxious. HEAD: Normocephalic. EYES: Normal reaction of pupils, equal size. NOSE: Clear with pink turbinates. THROAT: No erythema or exudates. NECK: No masses, no JVD. CHEST: No chest wall deformity. LUNGS: Equal air entry with faint end expiratory wheeze. Few scattered rhonchi. CVS: S1 and S2 normal with no audible murmur, regular rhythm. ABDOMEN: No hepatosplenomegaly, normal bowel sounds, no guarding or rigidity. SPINE: No scoliosis or deformity SKIN: No rashes CENTRAL NERVOUS SYSTEM: No focal deficits, tone is normal in all 4 extremities. EXTREMITIES: There is trace peripheral edema. No clubbing, no cyanosis. Peripheral pulses are intact. Results - Laboratory Findings CBC and BMP: 01/27/18 18:00 01/27/18 18:00 PT/INR, D-dimer PT 13.6 sec (9.0-12.0) H 01/27/18 18:00 INR 1.5 (<1.2) H 01/27/18 18:00 D-Dimer 0.86 mg/L FEU (<0.60) H 01/27/18 23:15 Abnormal lab findings: Abnormal Labs 01/27/18 01/27/18 01/27/18 18:00 18:00 18:00 Hgb 11.0 L Hct 32.5 L PT 13.6 H INR 1.5 H D-Dimer Glucose 124 H POC Glucose (mg/dL) Magnesium 1.5 L AST 60 H Albumin 3.2 L 01/27/18 01/27/18 01/27/18 19:44 21:04 23:15 Hgb Hct PT INR D-Dimer 0.86 H Glucose POC Glucose (mg/dL) 104 H 143 H Magnesium AST Albumin 01/28/18 01/28/18 04:49 06:35 Hgb Hct PT INR D-Dimer Glucose POC Glucose (mg/dL) 275 H 248 H Magnesium AST Albumin - Diagnostic Findings Chest x-ray: image reviewed Assessment and Plan Assessment: Impression: #1 Acute hypoxic respiratory failure secondary to suspected acute exacerbation of chronic obstructive pulmonary disease, acute upper respiratory infection with tracheobronchitis, less likely fluid volume overload or CHF. Failed outpatient treatment. We will obtain a CT angiogram of the chest to rule out pulmonary embolism or other multifocal areas of edema/infiltrate. #2 20+ years pack per day smoking history however quit several years ago. #3 History esophageal reflux disease requiring daily PPIs. #4 Diabetes Nick, type II. #5 Obesity. #6 Hypothyroidism. #7 Anxiety/depression. #8 Hypertension. #9 Hyperlipidemia. Plan: The patient was seen and evaluated by Dr. May. Chest x-ray and labs were reviewed. We'll go ahead and treat her for suspected COPD exacerbation, complicated by purulent tracheobronchitis. DuoNeb inhalations 4 times a day and when necessary, Pulmicort inhalations twice a day, IV Solu-Medrol, antibiotics in the form of Levaquin. We'll obtain a CT angiogram to rule out pulmonary embolism and to further investigate the interstitial findings on x- ray. We will continue to follow and make further recommendations based on her clinical status. I, the cosigning physician, performed a history & physical examination of the patient. Lungs sounds with bilateral wheezing, scattered rhonchi.. Maintaining good O2 saturations in the 90s on 4 L/m per nasal cannula. I discussed the assessment and plan of care with my nurse practitioner, Racheal Hunter. I attest to the above note as dictated by her. Time with Patient: Greater than 30
[2018-01-28] MEDS ORDERED: IPRATROPIUM-ALBUTEROL 3 ML NEB INHALATION PRN (12:35)
--- NOTE | 2018-01-28 12:41 | P.HPIM ---
History of Present Illness 48-year-old female patient who follows with Dr. Chau as her primary care physician. She has a history of obesity, diabetes mellitus, hypertension, hypothyroidism, anxiety/depression, hyperlipidemia, gastroesophageal reflux disease. She does have a 20 year pack per day smoking history however quit several years ago. No previous history of asthma, emphysema, pneumonias. Approximately 9 days ago the patient developed increasing shortness of breath, cough and congestion. She was seen by her PCP who started her on antibiotics and steroids. She really did not improve much. Yesterday she developed chest tightness increasing shortness of breath with minimal exertion and presented here to the emergency room for the same. Her chest x-ray showed fine reticular pattern of increased density throughout the lungs bilaterally suspicious for advanced interstitial pulmonary edema. BNP is within normal limits patient does not have any JVD patient in for response and presently patient is not wheezing patient may have had COPD which improved and the exacerbation may have improved by now because of which we are not hearing any wheezing is of that reason I'll try to get rid of oxygen via not able to get up eyes and it's reasonable to get a CAT scan of the chest rule out any pulmonary embolism along with the looking for some interstitial lung disease along with ABG . Patient is also complaining of chest pressure-like sensation and left sided rib cage pain whenever she coughs Review of Systems REVIEW OF SYSTEMS: CONSTITUTIONAL: No fever, no malaise, no fatigue. HEENT: No recent visual problems or hearing problems. Denied any sore throat. CARDIOVASCULAR: No chest pain, orthopnea, PND, no palpitations, no syncope. PULMONARY: As mentioned in HPI GASTROINTESTINAL: No diarrhea, no nausea, no vomiting, no abdominal pain. Normoactive bowel sounds. NEUROLOGICAL: No headaches, no weakness, no numbness. HEMATOLOGICAL: Denies any bleeding or petechiae. GENITOURINARY: Denies any burning micturition, frequency, or urgency. MUSCULOSKELETAL/RHEUMATOLOGICAL: Denies any joint pain, swelling, or any muscle pain. ENDOCRINE: Denies any polyuria or polydipsia. The rest of the 14-point review of systems is negative. Past Medical History Past Medical History: Chest Pain / Angina, Diabetes Mellitus, Hyperlipidemia, Hypertension, Thyroid Disorder Additional Past Medical History / Comment(s): Postural orthostatic tachycardia, gastroparesis, neuropathy History of Any Multi-Drug Resistant Organisms: None Reported Past Surgical History: Appendectomy, Section, Cholecystectomy, Hysterectomy Additional Past Surgical History / Comment(s): left elbow repair, benign adenoma left breast, breast biopsies Past Anesthesia/Blood Transfusion Reactions: Previous Problems w/ Anesthesia, Postoperative Nausea & Vomiting (PONV) Past Psychological History: Anxiety, Depression Smoking Status: Former smoker Past Alcohol Use History: None Reported Additional Past Alcohol Use History / Comment(s): quit years ago Past Drug Use History: None Reported - Past Family History Father Family Medical History: Cancer, CVA/TIA, Hypertension Mother Family Medical History: Congestive Heart Failure (CHF), Myocardial Infarction ( [place]) Additional Family Medical History / Comment(s): from [place] Brother(s) Family Medical History: Congestive Heart Failure (CHF) Additional Family Medical History / Comment(s): brother from [place] Medications and Allergies Home Medications Medication Instructions Recorded Confirmed Type ALPRAZolam [Xanax] 0.25 mg PO BID 01/27/18 01/27/18 History Acyclovir 400 mg PO DAILY 01/27/18 01/27/18 History Amitriptyline HCl [Elavil] 75 mg PO HS 01/27/18 01/27/18 History Cyclobenzaprine [Flexeril] 10 mg PO HS 01/27/18 01/27/18 History Digoxin [Lanoxin] 250 mcg PO DAILY 01/27/18 01/27/18 History Estrogens, Conjugated [Premarin] 0.625 mg PO DAILY 01/27/18 01/27/18 History Fenofibrate [Lofibra] 160 mg PO DAILY 01/27/18 01/27/18 History Gabapentin [Neurontin] 400 mg PO DAILY 01/27/18 01/27/18 History Gabapentin [Neurontin] 800 mg PO HS 01/27/18 01/27/18 History Hyoscyamine Sulfate [Levbid] 0.375 mg PO BID 01/27/18 01/27/18 History Insulin Aspart (For Pump) [NovoLOG 0.01 unit SQ-PUMP CONTINUOUS 01/27/18 History (For Pump)] Levofloxacin [Levaquin] 500 mg PO DAILY 01/27/18 01/27/18 History Levothyroxine Sodium [Synthroid] 50 mcg PO Q48H 01/27/18 01/27/18 History Levothyroxine Sodium [Synthroid] 75 mcg PO Q48H 01/27/18 01/27/18 History Lisinopril [Zestril] 5 mg PO DAILY 01/27/18 01/27/18 History Nadolol 40 mg PO DAILY 01/27/18 01/27/18 History Pravastatin Sodium [Pravachol] 80 mg PO HS 01/27/18 01/27/18 History Sertraline [Zoloft] 50 mg PO DAILY 01/27/18 01/27/18 History Sertraline [Zoloft] 100 mg PO HS 01/27/18 01/27/18 History traZODone HCL 100 mg PO HS 01/27/18 01/27/18 History Allergies Allergy/AdvReac Type Severity Reaction Status Date / Time No Known Allergies Allergy Verified 01/27/18 17:56 Physical Exam Vitals: Vital Signs Temp Pulse Pulse Resp BP BP Pulse Ox 01/28/18 12:15 88 01/28/18 12:08 92 01/28/18 12:00 97.8 F 88 20 132/62 92 L 01/28/18 09:02 86 01/28/18 08:50 88 95 01/28/18 08:00 97.1 F L 90 20 124/61 91 L 01/28/18 04:00 97.1 F L 88 18 136/67 93 L 01/27/18 22:00 89 22 139/66 91 L 01/27/18 20:57 97.0 F L 80 20 139/89 91 L 01/27/18 20:18 97.6 F 85 20 149/68 91 L 01/27/18 19:46 75 20 139/63 91 L 01/27/18 17:41 84 20 01/27/18 17:31 82 20 01/27/18 17:03 97.4 F L 84 26 H 189/80 97 Intake and Output 01/27/18 01/28/18 01/28/18 22:59 06:59 14:59 Intake Total 440 Output Total 300 Balance 140 Intake: Intake, IV Titration 200 Amount Magnesium Sulfate-D5w Pmx 200 1 gm In Dextrose/Water 1 100ml.bag @ 100 mls/hr IVPB Q1H [facility] Rx#: [id number] Oral 240 Output: Urine 300 Other: Voiding Method Toilet # Voids 2 1 Weight 90.7 kg 91.2 kg PHYSICAL EXAMINATION: GENERAL: The patient is alert and oriented x3, not in any acute distress. Well developed, well nourished. HEENT: Pupils are round and equally reacting to light. EOMI. No scleral icterus. No conjunctival pallor. Normocephalic, atraumatic. No pharyngeal erythema. No thyromegaly. Appears to have some Bernadette condition CARDIOVASCULAR: S1 and S2 present. No murmurs, rubs, or gallops. PULMONARY: Chest is clear to auscultation, no wheezing or crackles. ABDOMEN: Soft, nontender, nondistended, normoactive bowel sounds. No palpable organomegaly. MUSCULOSKELETAL: No joint swelling or deformity. EXTREMITIES: No cyanosis, clubbing, or pedal edema. NEUROLOGICAL: Gross neurological examination did not reveal any focal deficits. SKIN: No rashes. Results CBC & Chem 7: 01/27/18 18:00 01/28/18 09:52 Labs: Abnormal Lab Results - Last 24 Hours (Table) 01/27/18 01/27/18 01/27/18 Range/Units 18:00 18:00 18:00 Hgb 11.0 L (11.4-16.0) gm/dL Hct 32.5 L (34.0-46.0) % PT 13.6 H (9.0-12.0) sec INR 1.5 H (<1.2) D-Dimer (<0.60) mg/L FEU Glucose 124 H (74-99) mg/dL POC Glucose (mg/dL) (75-99) mg/dL Magnesium 1.5 L (1.6-2.3) mg/dL AST 60 H (14-36) U/L Albumin 3.2 L (3.5-5.0) g/dL 01/27/18 01/27/18 01/27/18 Range/Units 19:44 21:04 23:15 Hgb (11.4-16.0) gm/dL Hct (34.0-46.0) % PT (9.0-12.0) sec INR (<1.2) D-Dimer 0.86 H (<0.60) mg/L FEU Glucose (74-99) mg/dL POC Glucose (mg/dL) 104 H 143 H (75-99) mg/dL Magnesium (1.6-2.3) mg/dL AST (14-36) U/L Albumin (3.5-5.0) g/dL 01/28/18 01/28/18 01/28/18 Range/Units 04:49 06:35 09:52 Hgb (11.4-16.0) gm/dL Hct (34.0-46.0) % PT (9.0-12.0) sec INR (<1.2) D-Dimer (<0.60) mg/L FEU Glucose 322 H (74-99) mg/dL POC Glucose (mg/dL) 275 H 248 H (75-99) mg/dL Magnesium (1.6-2.3) mg/dL AST (14-36) U/L Albumin (3.5-5.0) g/dL 01/28/18 Range/Units 11:37 Hgb (11.4-16.0) gm/dL Hct (34.0-46.0) % PT (9.0-12.0) sec INR (<1.2) D-Dimer (<0.60) mg/L FEU Glucose (74-99) mg/dL POC Glucose (mg/dL) 331 H (75-99) mg/dL Magnesium (1.6-2.3) mg/dL AST (14-36) U/L Albumin (3.5-5.0) g/dL Thrombosis Risk Factor Assmnt - Choose All That Apply Any of the Below Risk Factors Present?: Yes Each Factor Represents 1 point: Age 41-60 years, Obesity (BMI >25) Thrombosis Risk Factor Assessment Total Risk Factor Score: 2 Thrombosis Risk Factor Assessment Level: Low Risk Assessment and Plan Plan: Shortness of breath and possible hypoxic respiratory failure: Patient may have had COPD exacerbation which improved now. Patient is still in hypoxic respiratory failure, etiology is unclear patient may need a CT angios the chest rule out pulmonary embolism and also looking for some interstitial lung disease. Patient is presently on systemic steroids as well as IV Lasix as ordered by pulmonology and cardiology respectively -Gastroesophageal reflux disease Type 2 diabetes mellitus -Hypothyroidism -Obesity -Hyperlipidemia -Hypertension For above-mentioned chronic problems patient will be resumed and continued on appropriate home medications.
--- NOTE | 2018-01-28 13:01 | ECHOF ---
Referral Reason:chf MEASUREMENTS -------- HEIGHT: 162.6 cm WEIGHT: 91.2 kg BP: 136/67 RVIDd: 2.5 cm (< 3.3) IVSd: 0.9 cm (0.6 - 1.1) LVIDd: 4.7 cm (3.9 - 5.3) LVPWd: 1.0 cm (0.6 - 1.1) IVSs: 1.3 cm LVIDs: 3.2 cm LVPWs: 1.4 cm Ao Diam: 2.6 cm (2.0 - 3.7) AV Cusp: 1.6 cm (1.5 - 2.6) LA Diam: 3.1 cm (2.7 - 3.8) MV EXCURSION: 12.842 mm (> 18.000) MV EF SLOPE: 53 mm/s (70 - 150) EPSS: 0.7 cm MV E Jose Angel: 1.23 m/s MV DecT: 234 ms MV A Jose Angel: 0.98 m/s MV E/A Ratio: 1.25 RAP: 5.00 mmHg RVSP: 26.47 mmHg FINDINGS -------- Sinus rhythm. This was a technically good study. The left ventricular size is normal. Left ventricular wall thickness is normal. Overall left vent ricular systolic function is normal with, an EF between 55 - 60 %. The right ventricle is normal in size and function. The left atrium is normal in size. The right atrium is normal in size. The aortic valve is trileaflet, and appears structurally normal. No aortic stenosis or regurgitation. The mitral valve leaflets are mildly thickened. There is trace mitral regurgitation. Trace tricuspid regurgitation present. The right ventricular systolic pressure, as measured by Dopp ler, is 26.47mmHg. The pulmonic valve is normal. The aortic root size is normal. Normal inferior vena cava with normal inspiratory collapse consistent with estimated right atrial pre ssure of 5 mmHg. There is a trivial pericardial effusion present. CONCLUSIONS -------- 1. Sinus rhythm. 2. This was a technically good study. 3. The left ventricular size is normal. 4. Left ventricular wall thickness is normal. 5. Overall left ventricular systolic function is normal with, an EF between 55 - 60 %. 6. The right ventricle is normal in size and function. 7. The left atrium is normal in size. 8. The right atrium is normal in size. 9. The aortic valve is trileaflet, and appears structurally normal. No aortic stenosis or regurgitati on. 10. The mitral valve leaflets are mildly thickened. 11. There is trace mitral regurgitation. 12. Trace tricuspid regurgitation present. 13. The right ventricular systolic pressure, as measured by Doppler, is 26.47mmHg. 14. The pulmonic valve is normal. 15. The aortic root size is normal. 16. Normal inferior vena cava with normal inspiratory collapse consistent with estimated right atrial pressure of 5 mmHg. 17. There is a trivial pericardial effusion present. SECTION CUTTER: Shakira Mcneill RDCS
--- NOTE | 2018-01-28 13:56 | CT ---
EXAMINATION TYPE: CT angio chest DATE OF EXAM: 01/28/2018 1:43 PM COMPARISON: NONE HISTORY: Difficulty breathing, cough CT DLP: 534.4 mGycm Automated exposure control for dose reduction was used. CONTRAST: CTA scan of the thorax is performed with IV Contrast, patient injected with 100 mL of Isovue 370, pul monary embolism protocol. . FINDINGS: There are patchy groundglass opacities throughout both lungs. There is more confluent conso lidation at the lung bases bilaterally. There is no significant axillary or internal mammary adenopathy. There is some shotty mediastinal and right hilar adenopathy. The contrast bolus is suboptimal. There are no large pulmonary emboli. The aorta is normal in caliber without dissection. There is no pleural or pericardial fluid. The heart is upper limits of normal in size. Within the abdomen, there is a splenule within the splenic hilum and a second splenule near the poste rior tip of the spleen. The gallbladder has been removed. There is mild hypertrophic spondylosis within the spine. IMPRESSION: 1. THIS EXAMINATION IS NEGATIVE FOR PULMONARY EMBOLUS. 2. PATCHY GROUNDGLASS OPACITIES THROUGHOUT BOTH LUNGS LIKELY REFLECT ALVEOLITIS OR EARLY PNEUMONITIS. MORE CONFLUENT OPACIFICATION OF THE LUNG BASES MAY REFLECT ATELECTASIS OR DEVELOPING PNEUMONIA. 3. SHOTTY MEDIASTINAL AND RIGHT HILAR ADENOPATHY.
[2018-01-28] MEDS: methylPREDNISolone SOD SUCCI 125 MG/2 ML VIAL IV SCH ×3 (14:19→23:49)
[2018-01-28] MEDS ORDERED: HYDROcodone/APAP 5-325MG 1 EACH TAB PO PRN (14:35)
[2018-01-28] MEDS: IPRATROPIUM-ALBUTEROL 3 ML NEB INHALATION SCH ×2 (15:30→20:08)
[2018-01-28 17:05] LABS: Glucose,Whole Blood 280 mg/dL (75-99)
[2018-01-28] MEDS: BUDESONIDE 1 MG/2 ML NEBU INHALATION SCH (20:06)
[2018-01-28] MEDS: FORMOTEROL FUMARATE 20 MCG/2 ML NEBU INHALATION SCH (20:06)
[2018-01-28] MEDS: PRAVASTATIN SODIUM 80 MG TAB PO SCH (20:35)
[2018-01-28] MEDS: AMITRIPTYLINE HCL 25 MG TAB PO SCH (20:36)
[2018-01-28] MEDS: CYCLOBENZAPRINE 10 MG TAB PO SCH (20:36)
[2018-01-28] MEDS: traZODone HCL 100 MG TAB PO SCH (20:36)
[2018-01-28] MEDS: SERTRALINE 100 MG TAB PO SCH (20:36)
[2018-01-28 20:41] LABS: Glucose,Whole Blood 361 mg/dL (75-99)
[2018-01-29 06:13] LABS: Glucose,Whole Blood 294 mg/dL (75-99)
[2018-01-29] MEDS: KETOROLAC 30 MG/ML 1 ML VIAL IVP SCH ×4 (06:46→23:33)
[2018-01-29] MEDS: methylPREDNISolone SOD SUCCI 125 MG/2 ML VIAL IV SCH ×4 (06:47→23:33)
[2018-01-29] MEDS: INSPUCOR MISCELLANE PRN ×2 (06:48→21:22)
[2018-01-29 07:05] LABS: HCT 32.2 % (34.0-46.0); HGB 10.9 gm/dL (11.4-16.0); MCHC 33.8 g/dL (31.0-37.0); MCV 85.6 fL (80.0-100.0); Mean Platelet Volume 7.2; Platelet Count 316 k/uL (150-450); RBC 3.76 m/uL (3.80-5.40); RDW 13.8 % (11.5-15.5); WBC 13.8 k/uL (3.8-10.6)
[2018-01-29 07:14] LABS: Anion Gap 10 mmol/L; Blood Urea Nitrogen 24 mg/dL (7-17); Calcium 9.2 mg/dL (8.4-10.2); Carbon Dioxide 25 mmol/L (22-30); Chloride 104 mmol/L (98-107); Glucose 288 mg/dL (74-99); Magnesium 2.2 mg/dL (1.6-2.3); Potassium 4.7 mmol/L (3.5-5.1); Sodium 139 mmol/L (137-145)
[2018-01-29] MEDS: FORMOTEROL FUMARATE 20 MCG/2 ML NEBU INHALATION SCH ×2 (08:06→19:41)
[2018-01-29] MEDS: BUDESONIDE 1 MG/2 ML NEBU INHALATION SCH ×2 (08:06→19:41)
[2018-01-29] MEDS: IPRATROPIUM-ALBUTEROL 3 ML NEB INHALATION SCH ×4 (08:06→19:41)
[2018-01-29] MEDS: ESTROGENS, CONJUGATED 0.625 MG TAB PO SCH (08:12)
[2018-01-29] MEDS: ACYCLOVIR 200 MG CAP PO SCH (08:12)
[2018-01-29] MEDS: GABAPENTIN 400 MG CAP PO SCH ×2 (08:13→21:20)
[2018-01-29] MEDS: ALPRAZolam 0.25 MG TAB PO SCH ×2 (08:13→21:19)
[2018-01-29] MEDS: FENOFIBRATE 160 MG TAB PO SCH (08:13)
[2018-01-29] MEDS: FUROSEMIDE 10 MG/ML 4 ML VIAL IV SCH (08:13)
[2018-01-29] MEDS: HYOSCYAMINE SULFATE 0.375 MG TAB.ER.12H PO SCH ×2 (08:14→21:20)
[2018-01-29] MEDS: LEVOTHYROXINE 75 MCG TAB PO SCH (08:15)
[2018-01-29] MEDS: LEVOFLOXACIN 500 MG TAB PO SCH (08:15)
[2018-01-29] MEDS: LISINOPRIL 5 MG TAB PO SCH (08:15)
[2018-01-29] MEDS: NADOLOL 20 MG TAB PO SCH (08:16)
[2018-01-29] MEDS: SERTRALINE 50 MG TAB PO SCH (08:16)
[2018-01-29] MEDS: DIGOXIN 250 MCG TAB PO SCH (08:45)
[2018-01-29] MEDS: INSULIN PUMP MEAL BOLUS 1 UNIT MISC MISCELLANE SCH ×6 (09:05→23:40)
[2018-01-29 11:22] LABS: Glucose,Whole Blood 413 mg/dL (75-99)
--- NOTE | 2018-01-29 11:47 | P.PN ---
Subjective Progress Note Date: 01/29/18 Principal diagnosis: Acute community-acquired pneumonia This is a very pleasant 48-year-old female patient who follows with Dr. Chau as her primary care physician. She has a history of obesity, diabetes mellitus , hypertension, hypothyroidism, anxiety/depression, hyperlipidemia, gastroesophageal reflux disease. She does have a 20 year pack per day smoking history however quit several years ago. No previous history of asthma, emphysema, pneumonias. Approximately 9 days ago the patient developed increasing shortness of breath, cough and congestion. She was seen by her PCP who started her on antibiotics and steroids. She really did not improve much. Yesterday she developed chest tightness increasing shortness of breath with minimal exertion and presented here to the emergency room for the same. Her chest x-ray showed fine reticular pattern of increased density throughout the lungs bilaterally suspicious for advanced interstitial pulmonary edema. Cardiac versus noncardiogenic. Did have trace peripheral edema. BNP within normal limits. Troponins negative. Echocardiogram pending. Influenza screen negative. No leukocytosis. No fever since admission. She is found to be hypoxic requiring 2 L/m per nasal cannula to maintain O2 saturations in the 90s. She drops into the 80s on 3 L. She does have some chest wall tenderness. Rib pain from coughing. Her cough has been mainly nonproductive. No hemoptysis. White count 8.7. Hemoglobin 11.0. Creatinine 0.59. Patient was reevaluated today on 01/29/2018, feeling much better, breathing a lot easier. CT angiogram of the chest showed no evidence of pulmonary embolism, it did show however patchy groundglass opacities in both lungs reflecting pneumonia /alveolitis. Patient is feeling clinically much better today, breathing a lot easier, hardly any cough, no wheezing, no fever, no chills, no hemoptysis, no chest pain. Her blood sugar keeps running high, however the rest of the labs were unremarkable. WBC count is 13.8 renal profile is normal. Objective - Vital Signs Vital signs: Vital Signs Temp 98.2 F 01/29/18 11:35 Pulse 84 01/29/18 11:35 Resp 18 01/29/18 11:35 BP 133/62 01/29/18 11:35 Pulse Ox 92 L 01/29/18 11:35 Intake & Output 01/28/18 01/29/18 01/29/18 18:59 06:59 18:59 Intake Total 900 360 Output Total 800 350 Balance 100 10 Weight 91 kg Intake: Intake, IV Titration 200 Amount Magnesium Sulfate-D5w Pmx 200 1 gm In Dextrose/Water 1 100ml.bag @ 100 mls/hr IVPB Q1H [facility] Rx#: [id number] Oral 700 360 Output: Urine 800 350 Other: # Voids 1 1 1 - Exam GENERAL EXAM: Obese. Anxious. HEAD: Normocephalic. EYES: Normal reaction of pupils, equal size. NOSE: Clear with pink turbinates. THROAT: No erythema or exudates. NECK: No masses, no JVD. CHEST: No chest wall deformity. LUNGS: Equal air entry, no crackles or rhonchi or wheezes noted today. CVS: S1 and S2 normal with no audible murmur, regular rhythm. ABDOMEN: No hepatosplenomegaly, normal bowel sounds, no guarding or rigidity. SPINE: No scoliosis or deformity SKIN: No rashes CENTRAL NERVOUS SYSTEM: No focal deficits, tone is normal in all 4 extremities. EXTREMITIES: There is trace peripheral edema. No clubbing, no cyanosis. Peripheral pulses are intact. - Labs CBC & Chem 7: 01/29/18 06:16 01/29/18 06:16 Labs: Abnormal Lab Results - Last 24 Hours (Table) 01/28/18 01/28/18 01/28/18 Range/Units 09:52 11:37 16:38 WBC (3.8-10.6) k/uL RBC (3.80-5.40) m/uL Hgb (11.4-16.0) gm/dL Hct (34.0-46.0) % BUN (7-17) mg/dL Glucose 322 H (74-99) mg/dL POC Glucose (mg/dL) 331 H 280 H (75-99) mg/dL 01/28/18 01/29/18 01/29/18 Range/Units 20:40 06:12 06:16 WBC (3.8-10.6) k/uL RBC (3.80-5.40) m/uL Hgb (11.4-16.0) gm/dL Hct (34.0-46.0) % BUN 24 H (7-17) mg/dL Glucose 288 H (74-99) mg/dL POC Glucose (mg/dL) 361 H 294 H (75-99) mg/dL 01/29/18 01/29/18 Range/Units 06:16 11:18 WBC 13.8 H (3.8-10.6) k/uL RBC 3.76 L (3.80-5.40) m/uL Hgb 10.9 L (11.4-16.0) gm/dL Hct 32.2 L (34.0-46.0) % BUN (7-17) mg/dL Glucose (74-99) mg/dL POC Glucose (mg/dL) 413 H (75-99) mg/dL Microbiology - Last 24 Hours (Table) 01/28/18 13:50 Gram Stain - Preliminary Sputum Assessment and Plan Assessment: #1 Acute hypoxic respiratory failure secondary to suspected acute exacerbation of chronic obstructive pulmonary disease, and acute community-acquired pneumonia as noted on the CT of the chest. #2 20+ years pack per day smoking history however quit several years ago. #3 History esophageal reflux disease requiring daily PPIs. #4 Diabetes Nick, type II. #5 Obesity. #6 Hypothyroidism. #7 Anxiety/depression. #8 Hypertension. #9 Hyperlipidemia. Recommendation: Continue present course of antibiotics, bronchodilators, steroids, repeat chest x-ray in a.m., consider discharge planning in the next 24 -48 hours. Time with Patient: Less than 30
--- NOTE | 2018-01-29 12:16 | P.PN ---
Subjective Progress Note Date: 01/29/18 Principal diagnosis: Shortness of breath This is a pleasant 48-year-old female with history of diabetes, hypertension, hyperlipidemia, obesity, who presented to the hospital with symptoms of shortness of breath. Initial chest x-ray revealed findings consistent with pulmonary vascular congestion. BNP came back normal. EKG showed sinus rhythm without any significant ST-T wave abnormalities. D-dimer came back to be slightly abnormal. CT of the chest did not reveal any evidence of a pulmonary embolism, suggested possible pneumonitis with patchy groundglass a pacer disease noted throughout. Patient diuresed well through the night on IV Lasix, her weight is down today. Echocardiogram with Doppler study was performed which revealed an ejection fraction of 55-60%. White blood cell count 13.8, hemoglobin 10.9, platelet count 316. Sodium 139, potassium 4.7, BUN 24, creatinine 0.6, magnesium 2.2. The patient continues to be on IV Lasix which we will continue for another 24 hours. Objective - Vital Signs Vital signs: Vital Signs Temp 98.2 F 01/29/18 11:35 Pulse 84 01/29/18 12:08 Resp 18 01/29/18 11:35 BP 133/62 01/29/18 11:35 Pulse Ox 92 L 01/29/18 11:35 Intake & Output 01/28/18 01/29/18 01/29/18 18:59 06:59 18:59 Intake Total 900 360 Output Total 800 350 Balance 100 10 Weight 91 kg Intake: Intake, IV Titration 200 Amount Magnesium Sulfate-D5w Pmx 200 1 gm In Dextrose/Water 1 100ml.bag @ 100 mls/hr IVPB Q1H [facility] Rx#: [id number] Oral 700 360 Output: Urine 800 350 Other: # Voids 1 1 1 - Exam PHYSICAL EXAMINATION: HEENT: Head is atraumatic, normocephalic. Pupils equal, round. Neck is supple. There is no elevated jugular venous pressure. HEART EXAMINATION: Heart S1, S2 normal. No murmur or gallop heard. CHEST EXAMINATION: Lungs reveal mild decrease in air exchange, no audible wheezes or rales ABDOMEN: Soft, nontender. Bowel sounds are heard. No organomegaly noted. EXTREMITIES: 2+ peripheral pulses with no evidence of peripheral edema and no calf tenderness noted. NEUROLOGIC patient is awake, alert and oriented -3. . - Labs CBC & Chem 7: 01/29/18 06:16 01/29/18 06:16 Labs: Abnormal Lab Results - Last 24 Hours (Table) 01/28/18 01/28/18 01/28/18 Range/Units 09:52 11:37 16:38 WBC (3.8-10.6) k/uL RBC (3.80-5.40) m/uL Hgb (11.4-16.0) gm/dL Hct (34.0-46.0) % BUN (7-17) mg/dL Glucose 322 H (74-99) mg/dL POC Glucose (mg/dL) 331 H 280 H (75-99) mg/dL 01/28/18 01/29/18 01/29/18 Range/Units 20:40 06:12 06:16 WBC (3.8-10.6) k/uL RBC (3.80-5.40) m/uL Hgb (11.4-16.0) gm/dL Hct (34.0-46.0) % BUN 24 H (7-17) mg/dL Glucose 288 H (74-99) mg/dL POC Glucose (mg/dL) 361 H 294 H (75-99) mg/dL 01/29/18 01/29/18 Range/Units 06:16 11:18 WBC 13.8 H (3.8-10.6) k/uL RBC 3.76 L (3.80-5.40) m/uL Hgb 10.9 L (11.4-16.0) gm/dL Hct 32.2 L (34.0-46.0) % BUN (7-17) mg/dL Glucose (74-99) mg/dL POC Glucose (mg/dL) 413 H (75-99) mg/dL Microbiology - Last 24 Hours (Table) 01/28/18 13:50 Gram Stain - Preliminary Sputum Assessment and Plan Plan: Assessment and plan #1 acute hypoxic respiratory failure secondary to possible COPD, possible pneumonia. PE ruled out by CT. Mild congestive cardiac failure, diastolic, acute on chronic. #2 prior history of smoking #3 diabetes #4 hypertension # 5 hyperlipidemia #6 obesity #7 anxiety and depression Plan Cardiology's perspective we will continue IV Lasix for 24 hours, discontinue in the morning. Plan for possible discharge home in 24-48 hours if stable. DNP note has been reviewed, I agree with a documented findings and plan of care. Patient was seen and examined.
[2018-01-29] MEDS: HYDROcodone/APAP 5-325MG 1 EACH TAB PO PRN (13:46)
--- NOTE | 2018-01-29 15:01 | P.PN ---
Subjective Patient given his shortness of breath underwent extensive evaluation as etiology of shortness of breath was not clear patient appears to have pneumonia may be atypical and resulting inflammatory noncardiac pulmonary edema. Patient is presently on Lasix as well as systemic steroids for inflammation and antibiotics for possible pneumonia. She had diffuse ground glass of pastries. Patient is presently on 2 L of oxygen which is being tapered down patient may have a competent of COPD exacerbation as well. Patient is feeling much better today Constitutional: Denied any fatigue denied any fever. Cardio vascular: denied any chest pain, palpitations Gastrointestinal denied any nausea vomiting Pulmonary: As mentioned in HPI Neurologic denied any new focal deficits Objective - Vital Signs Vital signs: Vital Signs Temp 98.2 F 01/29/18 11:35 Pulse 84 01/29/18 12:23 Resp 18 01/29/18 11:35 BP 133/62 01/29/18 11:35 Pulse Ox 92 L 01/29/18 11:35 Intake & Output 01/28/18 01/29/18 01/29/18 18:59 06:59 18:59 Intake Total 900 582 Output Total 800 350 Balance 100 232 Weight 91 kg Intake: Intake, IV Titration 200 Amount Magnesium Sulfate-D5w Pmx 200 1 gm In Dextrose/Water 1 100ml.bag @ 100 mls/hr IVPB Q1H [facility] Rx#: [id number] Oral 700 582 Output: Urine 800 350 Other: # Voids 1 1 1 - Exam PHYSICAL EXAMINATION: GENERAL: The patient is alert and oriented x3, not in any acute distress. Well developed, well nourished. HEENT: Pupils are round and equally reacting to light. EOMI. No scleral icterus. No conjunctival pallor. Normocephalic, atraumatic. No pharyngeal erythema. No thyromegaly. CARDIOVASCULAR: S1 and S2 present. No murmurs, rubs, or gallops. PULMONARY: Chest is clear to auscultation, no wheezing or crackles. ABDOMEN: Soft, nontender, nondistended, normoactive bowel sounds. No palpable organomegaly. MUSCULOSKELETAL: No joint swelling or deformity. EXTREMITIES: No cyanosis, clubbing, or pedal edema. NEUROLOGICAL: Gross neurological examination did not reveal any focal deficits. SKIN: No rashes. - Labs CBC & Chem 7: 01/29/18 06:16 01/29/18 06:16 Labs: Abnormal Lab Results - Last 24 Hours (Table) 01/28/18 01/28/18 01/29/18 Range/Units 16:38 20:40 06:12 WBC (3.8-10.6) k/uL RBC (3.80-5.40) m/uL Hgb (11.4-16.0) gm/dL Hct (34.0-46.0) % BUN (7-17) mg/dL Glucose (74-99) mg/dL POC Glucose (mg/dL) 280 H 361 H 294 H (75-99) mg/dL 01/29/18 01/29/18 01/29/18 Range/Units 06:16 06:16 11:18 WBC 13.8 H (3.8-10.6) k/uL RBC 3.76 L (3.80-5.40) m/uL Hgb 10.9 L (11.4-16.0) gm/dL Hct 32.2 L (34.0-46.0) % BUN 24 H (7-17) mg/dL Glucose 288 H (74-99) mg/dL POC Glucose (mg/dL) 413 H (75-99) mg/dL Microbiology - Last 24 Hours (Table) 01/28/18 13:50 Gram Stain - Preliminary Sputum Assessment and Plan Plan: Shortness of breath and acute hypoxic respiratory failure: Groundglass appearance disease on the CAT scan probably related to noncardiogenic pulmonary edema from inflammation post pneumonia patient may have atypical pneumonia as well along with some COPD exacerbation -Gastroesophageal reflux disease Type 2 diabetes mellitus -Hypothyroidism -Obesity -Hyperlipidemia -Hypertension For above-mentioned chronic problems patient will be resumed and continued on appropriate home medications.
[2018-01-29 16:24] LABS: Glucose,Whole Blood 341 mg/dL (75-99)
[2018-01-29 21:05] LABS: Glucose,Whole Blood 300 mg/dL (75-99)
[2018-01-29] MEDS: INSULIN DETEMIR 100 UNIT/ML 10 ML VIAL SQ SCH (21:19)
[2018-01-29] MEDS: SERTRALINE 100 MG TAB PO SCH (21:20)
[2018-01-29] MEDS: AMITRIPTYLINE HCL 25 MG TAB PO SCH (21:20)
[2018-01-29] MEDS: PRAVASTATIN SODIUM 80 MG TAB PO SCH (21:20)
[2018-01-29] MEDS: CYCLOBENZAPRINE 10 MG TAB PO SCH (21:21)
[2018-01-29] MEDS: traZODone HCL 100 MG TAB PO SCH (21:21)
[2018-01-30 04:24] LABS: Glucose,Whole Blood 250 mg/dL (75-99)
[2018-01-30 06:01] LABS: Glucose,Whole Blood 207 mg/dL (75-99)
[2018-01-30] MEDS: methylPREDNISolone SOD SUCCI 125 MG/2 ML VIAL IV SCH ×2 (06:31→12:10)
[2018-01-30] MEDS: KETOROLAC 30 MG/ML 1 ML VIAL IVP SCH ×4 (06:32→23:19)
[2018-01-30] MEDS: INSPUCOR MISCELLANE PRN (06:32)
--- NOTE | 2018-01-30 07:39 | P.PN ---
Subjective Progress Note Date: 01/30/18 Principal diagnosis: Continuing care/pulmonary edema. This is a continue present 48-year-old white female essentially admitted for pneumonia with pulmonary edema. IV Lasix has been improving her situation. However, she says tends to be oxygen dependent. She is nonsmoker. No voiding symptoms. Appreciate pulmonology and cardiology input. Objective - Vital Signs Vital signs: Vital Signs Temp 97.3 F L 01/30/18 04:00 Pulse 78 01/30/18 04:00 Resp 18 01/30/18 04:00 BP 134/68 01/30/18 04:00 Pulse Ox 95 01/30/18 04:00 Intake & Output 01/29/18 01/30/18 01/30/18 18:59 06:59 18:59 Intake Total 924 Output Total 700 Balance 224 Weight 91.6 kg Intake: Oral 924 Output: Urine 700 Other: # Voids 1 1 - Constitutional General appearance: Present: obese - EENT Eyes: Absent: abnormal pupil - Respiratory Respiratory: bilateral: diminished - Cardiovascular Rhythm: regular Heart sounds: normal: S1, S2 Abnormal Heart Sounds: Absent: S3 Gallop - Gastrointestinal General gastrointestinal: Present: soft. Absent: tenderness - Integumentary Integumentary: Present: rash - Neurologic Neurologic: Present: CNII-XII intact. Absent: focal deficits - Labs CBC & Chem 7: 01/29/18 06:16 01/29/18 06:16 Labs: Abnormal Lab Results - Last 24 Hours (Table) 01/29/18 01/29/18 01/29/18 Range/Units 11:18 16:15 21:03 POC Glucose (mg/dL) 413 H 341 H 300 H (75-99) mg/dL 01/30/18 01/30/18 Range/Units 04:12 05:59 POC Glucose (mg/dL) 250 H 207 H (75-99) mg/dL Assessment and Plan (1) Uncontrolled diabetes mellitus Current Visit: Yes Status: Acute Code(s): E11.65 - TYPE 2 DIABETES MELLITUS WITH HYPERGLYCEMIA SNOMED Code(s): 695665114 (2) Dyspnea Current Visit: Yes Status: Acute Code(s): R06.00 - DYSPNEA, UNSPECIFIED SNOMED Code(s): 403265133 (3) Pulmonary edema Current Visit: Yes Status: Acute Code(s): J81.1 - CHRONIC PULMONARY EDEMA SNOMED Code(s): 18006822 Plan: Continue current regimen of diuresis. Check CMP in a.m. I would like to see her off oxygen before she goes home to have appropriate saturation. Continue pulmonary toilet. See orders otherwise. Anticipate discharge in next 24-48 hours. Time with Patient: Less than 30
[2018-01-30 08:11] LABS: Basophils % (A) 0 %; Eosinophils % (A) 0 %; HGB 10.5 gm/dL (11.4-16.0); Lymphocytes # (A) 0.9 k/uL (1.0-4.8); Lymphocytes % (A) 7 %; MCH 28.3 pg (25.0-35.0); MCV 85.8 fL (80.0-100.0); Mean Platelet Volume 7.4; Monocytes # (A) 0.4 k/uL (0-1.0); Monocytes % (A) 3 %; Neutrophils # (A) 10.9 k/uL (1.3-7.7); Neutrophils % (A) 90 %; Platelet Count 286 k/uL (150-450); RBC 3.73 m/uL (3.80-5.40); RDW 13.9 % (11.5-15.5); WBC 12.2 k/uL (3.8-10.6)
[2018-01-30] MEDS: LEVOTHYROXINE 50 MCG TAB PO SCH (08:31)
[2018-01-30] MEDS: HYOSCYAMINE SULFATE 0.375 MG TAB.ER.12H PO SCH ×2 (08:38→21:19)
[2018-01-30] MEDS: SERTRALINE 50 MG TAB PO SCH (08:38)
[2018-01-30] MEDS: FENOFIBRATE 160 MG TAB PO SCH (08:38)
[2018-01-30] MEDS: FUROSEMIDE 10 MG/ML 4 ML VIAL IV SCH (08:38)
[2018-01-30] MEDS: GABAPENTIN 400 MG CAP PO SCH ×2 (08:38→21:19)
[2018-01-30] MEDS: IPRATROPIUM-ALBUTEROL 3 ML NEB INHALATION SCH ×4 (08:39→20:38)
[2018-01-30] MEDS: NADOLOL 20 MG TAB PO SCH (08:39)
[2018-01-30] MEDS: BUDESONIDE 1 MG/2 ML NEBU INHALATION SCH ×2 (08:39→20:38)
[2018-01-30] MEDS: FORMOTEROL FUMARATE 20 MCG/2 ML NEBU INHALATION SCH ×2 (08:39→20:38)
[2018-01-30] MEDS: ACYCLOVIR 200 MG CAP PO SCH (08:39)
[2018-01-30] MEDS: DIGOXIN 250 MCG TAB PO SCH (08:39)
[2018-01-30] MEDS: LISINOPRIL 5 MG TAB PO SCH (08:39)
[2018-01-30] MEDS: ESTROGENS, CONJUGATED 0.625 MG TAB PO SCH (08:40)
[2018-01-30] MEDS: INSULIN PUMP MEAL BOLUS 1 UNIT MISC MISCELLANE SCH ×4 (08:43→21:20)
[2018-01-30] MEDS: ALPRAZolam 0.25 MG TAB PO SCH ×2 (08:43→21:19)
--- NOTE | 2018-01-30 08:48 | XR ---
EXAMINATION TYPE: XR chest 2V DATE OF EXAM: 01/30/2018 COMPARISON: 01/28/2018 TECHNIQUE: PA and lateral views submitted. HISTORY: Shortness of breath FINDINGS: Interstitial pattern seen with bilateral infiltrate and small effusion. There is a nodule measuring 1 cm in the right upper lobe. Heart size is stable. No pneumothorax. IMPRESSION: 1. Bilateral infiltrate and small effusion correlate for mild CHF. 2. There is a 1 cm right upper lobe pulmonary nodule
[2018-01-30] MEDS ORDERED: INSULIN PUMP TARGET GLUCOSE 1 EACH MISC MISCELLANE PRN (09:50)
[2018-01-30] MEDS ORDERED: INSULIN ASPART 100 UNIT/ML 1 ML 10 ML VIAL SQ PRN (09:50)
[2018-01-30] MEDS ORDERED: INSULIN PUMP ACTIVE INSULIN 1 EACH MISC MISCELLANE PRN (09:50)
[2018-01-30 10:35] LABS: Anion Gap 11 mmol/L; Blood Urea Nitrogen 30 mg/dL (7-17); Calcium 9.1 mg/dL (8.4-10.2); Carbon Dioxide 29 mmol/L (22-30); Chloride 100 mmol/L (98-107); Glucose 233 mg/dL (74-99); Potassium 4.6 mmol/L (3.5-5.1); Sodium 140 mmol/L (137-145)
[2018-01-30 11:45] LABS: Glucose,Whole Blood 243 mg/dL (75-99)
--- NOTE | 2018-01-30 12:28 | P.PN ---
Subjective Progress Note Date: 01/30/18 Principal diagnosis: Shortness of breath This is a pleasant 48-year-old female with history of diabetes, hypertension, hyperlipidemia, obesity, who presented to the hospital with symptoms of shortness of breath. Initial chest x-ray revealed findings consistent with pulmonary vascular congestion. BNP came back normal. EKG showed sinus rhythm without any significant ST-T wave abnormalities. D-dimer came back to be slightly abnormal. CT of the chest did not reveal any evidence of a pulmonary embolism, suggested possible pneumonitis with patchy groundglass a pacer disease noted throughout. Patient diuresed well through the night on IV Lasix, her weight is down today. Echocardiogram with Doppler study was performed which revealed an ejection fraction of 55-60%. White blood cell count 13.8, hemoglobin 10.9, platelet count 316. Sodium 139, potassium 4.7, BUN 24, creatinine 0.6, magnesium 2.2. The patient continues to be on IV Lasix which we will continue for another 24 hours. 01/30/2018 Patient seen and examined this morning, complaining of some shortness of breath , she states she feels a little worse than yesterday, she is coughing up dark today, yesterday it was green in color. Temperature 97.8. Blood pressure 117/ 60, heart rate in the 70s. Repeat chest x-ray performed today revealed bilateral infiltrates and small effusions. 1 cm right upper lobe pulmonary nodule. Objective - Vital Signs Vital signs: Vital Signs Temp 97.4 F L 01/30/18 07:59 Pulse 88 01/30/18 09:00 Resp 18 01/30/18 07:59 BP 134/61 01/30/18 07:59 Pulse Ox 93 L 01/30/18 07:59 Intake & Output 01/29/18 01/30/18 01/30/18 18:59 06:59 18:59 Intake Total 924 240 Output Total 700 Balance 224 240 Weight 91.6 kg Intake: Oral 924 240 Output: Urine 700 Other: Voiding Method Toilet # Voids 1 1 2 - Exam PHYSICAL EXAMINATION: HEENT: Head is atraumatic, normocephalic. Pupils equal, round. Neck is supple. There is no elevated jugular venous pressure. HEART EXAMINATION: Heart S1, S2 normal. No murmur or gallop heard. CHEST EXAMINATION: Lungs reveal mild decrease in air exchange, no audible wheezes or rales ABDOMEN: Soft, nontender. Bowel sounds are heard. No organomegaly noted. EXTREMITIES: 2+ peripheral pulses with no evidence of peripheral edema and no calf tenderness noted. NEUROLOGIC patient is awake, alert and oriented -3. . - Labs CBC & Chem 7: 01/30/18 07:48 01/30/18 07:48 Labs: Abnormal Lab Results - Last 24 Hours (Table) 01/29/18 01/29/18 01/30/18 Range/Units 16:15 21:03 04:12 WBC (3.8-10.6) k/uL RBC (3.80-5.40) m/uL Hgb (11.4-16.0) gm/dL Hct (34.0-46.0) % Neutrophils # (1.3-7.7) k/uL Lymphocytes # (1.0-4.8) k/uL BUN (7-17) mg/dL Glucose (74-99) mg/dL POC Glucose (mg/dL) 341 H 300 H 250 H (75-99) mg/dL 01/30/18 01/30/18 01/30/18 Range/Units 05:59 07:48 07:48 WBC 12.2 H (3.8-10.6) k/uL RBC 3.73 L (3.80-5.40) m/uL Hgb 10.5 L (11.4-16.0) gm/dL Hct 32.0 L (34.0-46.0) % Neutrophils # 10.9 H (1.3-7.7) k/uL Lymphocytes # 0.9 L (1.0-4.8) k/uL BUN 30 H (7-17) mg/dL Glucose 233 H (74-99) mg/dL POC Glucose (mg/dL) 207 H (75-99) mg/dL 01/30/18 Range/Units 11:36 WBC (3.8-10.6) k/uL RBC (3.80-5.40) m/uL Hgb (11.4-16.0) gm/dL Hct (34.0-46.0) % Neutrophils # (1.3-7.7) k/uL Lymphocytes # (1.0-4.8) k/uL BUN (7-17) mg/dL Glucose (74-99) mg/dL POC Glucose (mg/dL) 243 H (75-99) mg/dL Microbiology - Last 24 Hours (Table) 01/28/18 13:50 Gram Stain - Final Sputum Sputum Culture - Final Assessment and Plan Plan: Assessment and plan #1 acute hypoxic respiratory failure secondary to possible COPD/ pneumonia. PE ruled out by CT. Mild congestive cardiac failure, diastolic, acute on chronic. #2 prior history of smoking #3 diabetes #4 hypertension # 5 hyperlipidemia #6 obesity #7 anxiety and depression Plan Cardiology's perspective we will discontinue IV Lasix . Plan for possible discharge home in 24-48 hours if stable. DNP note has been reviewed, I agree with a documented findings and plan of care. Patient was seen and examined.
[2018-01-30] MEDS: HYDROcodone/APAP 5-325MG 1 EACH TAB PO PRN ×2 (12:57→20:16)
--- NOTE | 2018-01-30 14:53 | P.PN ---
Subjective Progress Note Date: 01/30/18 Principal diagnosis: Acute community acquired pneumonia This is a very pleasant 48-year-old female patient who follows with Dr. Chau as her primary care physician. She has a history of obesity, diabetes mellitus , hypertension, hypothyroidism, anxiety/depression, hyperlipidemia, gastroesophageal reflux disease. She does have a 20 year pack per day smoking history however quit several years ago. No previous history of asthma, emphysema, pneumonias. Approximately 9 days ago the patient developed increasing shortness of breath, cough and congestion. She was seen by her PCP who started her on antibiotics and steroids. She really did not improve much. Yesterday she developed chest tightness increasing shortness of breath with minimal exertion and presented here to the emergency room for the same. Her chest x-ray showed fine reticular pattern of increased density throughout the lungs bilaterally suspicious for advanced interstitial pulmonary edema. Cardiac versus noncardiogenic. Did have trace peripheral edema. BNP within normal limits. Troponins negative. Echocardiogram pending. Influenza screen negative. No leukocytosis. No fever since admission. She is found to be hypoxic requiring 2 L/m per nasal cannula to maintain O2 saturations in the 90s. She drops into the 80s on 3 L. She does have some chest wall tenderness. Rib pain from coughing. Her cough has been mainly nonproductive. No hemoptysis. White count 8.7. Hemoglobin 11.0. Creatinine 0.59. Patient was reevaluated today on 01/29/2018, feeling much better, breathing a lot easier. CT angiogram of the chest showed no evidence of pulmonary embolism, it did show however patchy groundglass opacities in both lungs reflecting pneumonia /alveolitis. Patient is feeling clinically much better today, breathing a lot easier, hardly any cough, no wheezing, no fever, no chills, no hemoptysis, no chest pain. Her blood sugar keeps running high, however the rest of the labs were unremarkable. WBC count is 13.8 renal profile is normal. On 01/30/2018 patient is seen in follow-up. States she is feeling better today , less chest tightness, less dyspnea. Chest x-ray shows bilateral infiltrates and small effusion, a small 1 cm nodule in the right upper lobe. Today's blood work shows WBC of 12.2, hemoglobin of 10.5, electrodes are within normal limits , BUN is 30, creatinine is 0.69. Patient is afebrile, remains on 1 L per nasal cannula with O2 sat at 93%. Hemodynamically stable. Lung sounds are very diminished sounds at bilateral bases, no rhonchi, no wheezes or rales noted. Sputum culture is negative to date. Objective - Vital Signs Vital signs: Vital Signs Temp 97.8 F 01/30/18 12:00 Pulse 90 01/30/18 13:14 Resp 17 01/30/18 12:00 BP 117/61 01/30/18 12:00 Pulse Ox 93 L 01/30/18 12:00 Intake & Output 01/29/18 01/30/18 01/30/18 18:59 06:59 18:59 Intake Total 924 360 Output Total 700 Balance 224 360 Weight 91.6 kg Intake: Oral 924 360 Output: Urine 700 Other: Voiding Method Toilet # Voids 1 1 1 - Exam GENERAL EXAM: Obese. Anxious. HEAD: Normocephalic. EYES: Normal reaction of pupils, equal size. NOSE: Clear with pink turbinates. THROAT: No erythema or exudates. NECK: No masses, no JVD. CHEST: No chest wall deformity. LUNGS: Equal air entry, no crackles or rhonchi or wheezes noted today. CVS: S1 and S2 normal with no audible murmur, regular rhythm. ABDOMEN: No hepatosplenomegaly, normal bowel sounds, no guarding or rigidity. SPINE: No scoliosis or deformity SKIN: No rashes CENTRAL NERVOUS SYSTEM: No focal deficits, tone is normal in all 4 extremities. EXTREMITIES: There is trace peripheral edema. No clubbing, no cyanosis. Peripheral pulses are intact. - Labs CBC & Chem 7: 01/30/18 07:48 01/30/18 07:48 Labs: Abnormal Lab Results - Last 24 Hours (Table) 01/29/18 01/29/18 01/30/18 Range/Units 16:15 21:03 04:12 WBC (3.8-10.6) k/uL RBC (3.80-5.40) m/uL Hgb (11.4-16.0) gm/dL Hct (34.0-46.0) % Neutrophils # (1.3-7.7) k/uL Lymphocytes # (1.0-4.8) k/uL BUN (7-17) mg/dL Glucose (74-99) mg/dL POC Glucose (mg/dL) 341 H 300 H 250 H (75-99) mg/dL 01/30/18 01/30/18 01/30/18 Range/Units 05:59 07:48 07:48 WBC 12.2 H (3.8-10.6) k/uL RBC 3.73 L (3.80-5.40) m/uL Hgb 10.5 L (11.4-16.0) gm/dL Hct 32.0 L (34.0-46.0) % Neutrophils # 10.9 H (1.3-7.7) k/uL Lymphocytes # 0.9 L (1.0-4.8) k/uL BUN 30 H (7-17) mg/dL Glucose 233 H (74-99) mg/dL POC Glucose (mg/dL) 207 H (75-99) mg/dL 01/30/18 Range/Units 11:36 WBC (3.8-10.6) k/uL RBC (3.80-5.40) m/uL Hgb (11.4-16.0) gm/dL Hct (34.0-46.0) % Neutrophils # (1.3-7.7) k/uL Lymphocytes # (1.0-4.8) k/uL BUN (7-17) mg/dL Glucose (74-99) mg/dL POC Glucose (mg/dL) 243 H (75-99) mg/dL Microbiology - Last 24 Hours (Table) 01/28/18 13:50 Gram Stain - Final Sputum Sputum Culture - Final Assessment and Plan Plan: Assessment: #1 Acute hypoxic respiratory failure secondary to suspected acute exacerbation of chronic obstructive pulmonary disease, and acute community-acquired pneumonia as noted on the CT of the chest. #2 20+ years pack per day smoking history however quit several years ago. #3 History esophageal reflux disease requiring daily PPIs. #4 Diabetes Nick, type II. #5 Obesity. #6 Hypothyroidism. #7 Anxiety/depression. #8 Hypertension. #9 Hyperlipidemia. Plan: Continue with current antibiotic coverage, Levaquin 500 mg daily, we will decrease the Solu-Medrol down to 40 mg every 8 hours continue with nebulized treatments. Sputum culture remains negative to date. Weaning FiO2, increase activity as tolerated. I performed a history & physical examination of the patient and discussed their management with my nurse practitioner, Vanda Bettencourt. I reviewed the nurse practitioner's note and agree with the documented findings and plan of care. Lung sounds are diminished breath sounds bilaterally, no rhonchi, no wheezes or rales noted. The findings and the impression was discussed with the patient. I attest to the documentation by the nurse practitioner. Time with Patient: Less than 30
[2018-01-30] MEDS ORDERED: LEVOFLOXACIN 500 MG TAB PO SCH (15:00)
[2018-01-30 16:49] LABS: Glucose,Whole Blood 364 mg/dL (75-99)
[2018-01-30 20:55] LABS: Glucose,Whole Blood 322 mg/dL (75-99)
[2018-01-30] MEDS: methylPREDNISolone SOD SUCCI 40 MG/ML 1 ML VIAL IV SCH (21:18)
[2018-01-30] MEDS: CYCLOBENZAPRINE 10 MG TAB PO SCH (21:19)
[2018-01-30] MEDS: AMITRIPTYLINE HCL 25 MG TAB PO SCH (21:19)
[2018-01-30] MEDS: INSULIN DETEMIR 100 UNIT/ML 10 ML VIAL SQ SCH (21:19)
[2018-01-30] MEDS: PRAVASTATIN SODIUM 80 MG TAB PO SCH (21:20)
[2018-01-30] MEDS: SERTRALINE 100 MG TAB PO SCH (21:21)
[2018-01-30] MEDS: traZODone HCL 100 MG TAB PO SCH (21:21)
[2018-01-31] MEDS: methylPREDNISolone SOD SUCCI 40 MG/ML 1 ML VIAL IV SCH ×2 (05:44→11:13)
[2018-01-31] MEDS: LEVOTHYROXINE 75 MCG TAB PO SCH (05:46)
[2018-01-31] MEDS: KETOROLAC 30 MG/ML 1 ML VIAL IVP SCH ×2 (05:47→11:14)
[2018-01-31 05:59] LABS: Anion Gap 9 mmol/L; Blood Urea Nitrogen 37 mg/dL (7-17); Calcium 9.1 mg/dL (8.4-10.2); Carbon Dioxide 29 mmol/L (22-30); Chloride 101 mmol/L (98-107); Glucose 202 mg/dL (74-99); Potassium 4.5 mmol/L (3.5-5.1); Sodium 139 mmol/L (137-145)
[2018-01-31 06:12] LABS: Glucose,Whole Blood 199 mg/dL (75-99)
[2018-01-31] MEDS: INSULIN PUMP MEAL BOLUS 1 UNIT MISC MISCELLANE SCH (06:26)
[2018-01-31 06:30] LABS: Basophils % (A) 0 %; Eosinophils % (A) 0 %; HCT 32.4 % (34.0-46.0); HGB 10.6 gm/dL (11.4-16.0); Lymphocytes % (A) 8 %; MCH 27.9 pg (25.0-35.0); MCHC 32.7 g/dL (31.0-37.0); MCV 85.6 fL (80.0-100.0); Mean Platelet Volume 7.7; Monocytes # (A) 0.6 k/uL (0-1.0); Monocytes % (A) 5 %; Neutrophils % (A) 86 %; Platelet Count 283 k/uL (150-450); RBC 3.79 m/uL (3.80-5.40); RDW 13.5 % (11.5-15.5); WBC 11.6 k/uL (3.8-10.6)
[2018-01-31 07:58] VITALS: BP 146/77; RESP 18; TEMP 97.5
[2018-01-31] MEDS: FENOFIBRATE 160 MG TAB PO SCH (08:00)
[2018-01-31] MEDS: ACYCLOVIR 200 MG CAP PO SCH (08:00)
[2018-01-31] MEDS: DIGOXIN 250 MCG TAB PO SCH (08:00)
[2018-01-31] MEDS: HYOSCYAMINE SULFATE 0.375 MG TAB.ER.12H PO SCH (08:01)
[2018-01-31] MEDS: ESTROGENS, CONJUGATED 0.625 MG TAB PO SCH (08:01)
[2018-01-31] MEDS: GABAPENTIN 400 MG CAP PO SCH (08:01)
[2018-01-31] MEDS: LISINOPRIL 5 MG TAB PO SCH (08:02)
[2018-01-31] MEDS: SERTRALINE 50 MG TAB PO SCH (08:02)
[2018-01-31] MEDS: NADOLOL 20 MG TAB PO SCH (08:02)
[2018-01-31] MEDS: ALPRAZolam 0.25 MG TAB PO SCH (08:03)
[2018-01-31] MEDS: FORMOTEROL FUMARATE 20 MCG/2 ML NEBU INHALATION SCH (08:40)
[2018-01-31] MEDS: BUDESONIDE 1 MG/2 ML NEBU INHALATION SCH (08:40)
[2018-01-31] MEDS: IPRATROPIUM-ALBUTEROL 3 ML NEB INHALATION SCH ×2 (08:40→11:47)
[2018-01-31 09:01] VITALS: PULSE 96
[2018-01-31] MEDS: HYDROcodone/APAP 5-325MG 1 EACH TAB PO PRN (10:14)
[2018-01-31 12:04] LABS: Glucose,Whole Blood 330 mg/dL (75-99)
--- NOTE | 2018-01-31 12:09 | P.PN ---
Subjective Progress Note Date: 01/31/18 Principal diagnosis: Shortness of breath This is a pleasant 48-year-old female with history of diabetes, hypertension, hyperlipidemia, obesity, who presented to the hospital with symptoms of shortness of breath. Initial chest x-ray revealed findings consistent with pulmonary vascular congestion. BNP came back normal. EKG showed sinus rhythm without any significant ST-T wave abnormalities. D-dimer came back to be slightly abnormal. CT of the chest did not reveal any evidence of a pulmonary embolism, suggested possible pneumonitis with patchy groundglass a pacer disease noted throughout. Patient diuresed well through the night on IV Lasix, her weight is down today. Echocardiogram with Doppler study was performed which revealed an ejection fraction of 55-60%. White blood cell count 13.8, hemoglobin 10.9, platelet count 316. Sodium 139, potassium 4.7, BUN 24, creatinine 0.6, magnesium 2.2. The patient continues to be on IV Lasix which we will continue for another 24 hours. 01/30/2018 Patient seen and examined this morning, complaining of some shortness of breath , she states she feels a little worse than yesterday, she is coughing up dark today, yesterday it was green in color. Temperature 97.8. Blood pressure 117/ 60, heart rate in the 70s. Repeat chest x-ray performed today revealed bilateral infiltrates and small effusions. 1 cm right upper lobe pulmonary nodule. 01/31/2018 Patient seen and examined this morning, overall breathing significantly better today. Continues to have mild wheezing. Hemodynamically stable. Objective - Vital Signs Vital signs: Vital Signs Temp 97.5 F L 01/31/18 07:55 Pulse 96 01/31/18 12:04 Resp 18 01/31/18 11:51 BP 146/77 01/31/18 07:55 Pulse Ox 96 01/31/18 08:40 Intake & Output 01/30/18 01/31/18 01/31/18 18:59 06:59 18:59 Intake Total 1080 20 240 Balance 1080 20 240 Weight 91 kg Intake: IV 20 0.9 20 Oral 1080 240 Other: Voiding Method Toilet # Voids 1 1 - Exam PHYSICAL EXAMINATION: HEENT: Head is atraumatic, normocephalic. Pupils equal, round. Neck is supple. There is no elevated jugular venous pressure. HEART EXAMINATION: Heart S1, S2 normal. No murmur or gallop heard. CHEST EXAMINATION: Lungs reveal mild decrease in air exchange, fine scattered wheezes ABDOMEN: Soft, nontender. Bowel sounds are heard. No organomegaly noted. EXTREMITIES: 2+ peripheral pulses with no evidence of peripheral edema and no calf tenderness noted. NEUROLOGIC patient is awake, alert and oriented -3. . - Labs CBC & Chem 7: 01/31/18 03:56 01/31/18 03:56 Labs: Abnormal Lab Results - Last 24 Hours (Table) 01/30/18 01/30/18 01/31/18 Range/Units 16:40 20:54 03:56 WBC (3.8-10.6) k/uL RBC (3.80-5.40) m/uL Hgb (11.4-16.0) gm/dL Hct (34.0-46.0) % Neutrophils # (1.3-7.7) k/uL BUN 37 H (7-17) mg/dL Glucose 202 H (74-99) mg/dL POC Glucose (mg/dL) 364 H 322 H (75-99) mg/dL 01/31/18 01/31/18 01/31/18 Range/Units 03:56 06:11 11:44 WBC 11.6 H (3.8-10.6) k/uL RBC 3.79 L (3.80-5.40) m/uL Hgb 10.6 L (11.4-16.0) gm/dL Hct 32.4 L (34.0-46.0) % Neutrophils # 10.0 H (1.3-7.7) k/uL BUN (7-17) mg/dL Glucose (74-99) mg/dL POC Glucose (mg/dL) 199 H 330 H (75-99) mg/dL Microbiology - Last 24 Hours (Table) 01/28/18 13:50 Gram Stain - Final Sputum Sputum Culture - Final Assessment and Plan Plan: Assessment and plan #1 acute hypoxic respiratory failure secondary to possible COPD/ pneumonia. PE ruled out by CT. Mild congestive cardiac failure, diastolic, acute on chronic. #2 prior history of smoking #3 diabetes #4 hypertension # 5 hyperlipidemia #6 obesity #7 anxiety and depression #8 pots syndrome Plan Cardiology's perspective would recommend to continue the patient on her current medications. She may be able to be discharged once cleared by pulmonary and primary. We will make her a follow-up appointment to see Dr. Ignacio in the office post discharge. DNP note has been reviewed, I agree with a documented findings and plan of care. Patient was seen and examined.
--- NOTE | 2018-01-31 13:28 | P.PN ---
Subjective Progress Note Date: 01/31/18 Principal diagnosis: Acute exacerbation of chronic obstructive pulmonary disease, complicated by acute community-acquired pneumonia. This is a very pleasant 48-year-old female patient who follows with Dr. Chau as her primary care physician. She has a history of obesity, diabetes mellitus , hypertension, hypothyroidism, anxiety/depression, hyperlipidemia, gastroesophageal reflux disease. She does have a 20 year pack per day smoking history however quit several years ago. No previous history of asthma, emphysema, pneumonias. Approximately 9 days ago the patient developed increasing shortness of breath, cough and congestion. She was seen by her PCP who started her on antibiotics and steroids. She really did not improve much. Yesterday she developed chest tightness increasing shortness of breath with minimal exertion and presented here to the emergency room for the same. Her chest x-ray showed fine reticular pattern of increased density throughout the lungs bilaterally suspicious for advanced interstitial pulmonary edema. Cardiac versus noncardiogenic. Did have trace peripheral edema. BNP within normal limits. Troponins negative. Echocardiogram pending. Influenza screen negative. No leukocytosis. No fever since admission. She is found to be hypoxic requiring 2 L/m per nasal cannula to maintain O2 saturations in the 90s. She drops into the 80s on 3 L. She does have some chest wall tenderness. Rib pain from coughing. Her cough has been mainly nonproductive. No hemoptysis. White count 8.7. Hemoglobin 11.0. Creatinine 0.59. Patient was reevaluated today on 01/29/2018, feeling much better, breathing a lot easier. CT angiogram of the chest showed no evidence of pulmonary embolism, it did show however patchy groundglass opacities in both lungs reflecting pneumonia /alveolitis. Patient is feeling clinically much better today, breathing a lot easier, hardly any cough, no wheezing, no fever, no chills, no hemoptysis, no chest pain. Her blood sugar keeps running high, however the rest of the labs were unremarkable. WBC count is 13.8 renal profile is normal. On 01/30/2018 patient is seen in follow-up. States she is feeling better today , less chest tightness, less dyspnea. Chest x-ray shows bilateral infiltrates and small effusion, a small 1 cm nodule in the right upper lobe. Today's blood work shows WBC of 12.2, hemoglobin of 10.5, electrodes are within normal limits , BUN is 30, creatinine is 0.69. Patient is afebrile, remains on 1 L per nasal cannula with O2 sat at 93%. Hemodynamically stable. Lung sounds are very diminished sounds at bilateral bases, no rhonchi, no wheezes or rales noted. Sputum culture is negative to date. The patient is seen again today 01/31/2018 in follow-up on the selective care unit. She is currently maintaining good O2 saturations in the 90s on 2 L/m per nasal cannula. She does qualify for home oxygen. White count 11.6. Hemoglobin 10.6. Creatinine 0.72. Sputum culture revealed no significant findings. Objective - Vital Signs Vital signs: Vital Signs Temp 97.5 F L 01/31/18 07:55 Pulse 96 01/31/18 12:04 Resp 18 01/31/18 11:51 BP 146/77 01/31/18 07:55 Pulse Ox 96 01/31/18 08:40 Intake & Output 01/30/18 01/31/18 01/31/18 18:59 06:59 18:59 Intake Total 1080 20 240 Balance 1080 20 240 Weight 91 kg Intake: IV 20 0.9 20 Oral 1080 240 Other: Voiding Method Toilet # Voids 1 1 - Exam GENERAL EXAM: Obese. Anxious. HEAD: Normocephalic. EYES: Normal reaction of pupils, equal size. NOSE: Clear with pink turbinates. THROAT: No erythema or exudates. NECK: No masses, no JVD. CHEST: No chest wall deformity. LUNGS: Equal air entry with faint end expiratory wheeze. Few scattered rhonchi. CVS: S1 and S2 normal with no audible murmur, regular rhythm. ABDOMEN: No hepatosplenomegaly, normal bowel sounds, no guarding or rigidity. SPINE: No scoliosis or deformity SKIN: No rashes CENTRAL NERVOUS SYSTEM: No focal deficits, tone is normal in all 4 extremities. EXTREMITIES: There is trace peripheral edema. No clubbing, no cyanosis. Peripheral pulses are intact. - Labs CBC & Chem 7: 01/31/18 03:56 01/31/18 03:56 Labs: Abnormal Lab Results - Last 24 Hours (Table) 01/30/18 01/30/18 01/31/18 Range/Units 16:40 20:54 03:56 WBC (3.8-10.6) k/uL RBC (3.80-5.40) m/uL Hgb (11.4-16.0) gm/dL Hct (34.0-46.0) % Neutrophils # (1.3-7.7) k/uL BUN 37 H (7-17) mg/dL Glucose 202 H (74-99) mg/dL POC Glucose (mg/dL) 364 H 322 H (75-99) mg/dL 01/31/18 01/31/18 01/31/18 Range/Units 03:56 06:11 11:44 WBC 11.6 H (3.8-10.6) k/uL RBC 3.79 L (3.80-5.40) m/uL Hgb 10.6 L (11.4-16.0) gm/dL Hct 32.4 L (34.0-46.0) % Neutrophils # 10.0 H (1.3-7.7) k/uL BUN (7-17) mg/dL Glucose (74-99) mg/dL POC Glucose (mg/dL) 199 H 330 H (75-99) mg/dL Microbiology - Last 24 Hours (Table) 01/28/18 13:50 Gram Stain - Final Sputum Sputum Culture - Final Assessment and Plan Assessment: Impression: #1 Acute hypoxic respiratory failure secondary to suspected acute exacerbation of chronic obstructive pulmonary disease, acute upper respiratory infection with tracheobronchitis, less likely fluid volume overload or CHF. Failed outpatient treatment. We will obtain a CT angiogram of the chest to rule out pulmonary embolism or other multifocal areas of edema/infiltrate. #2 20+ years pack per day smoking history however quit several years ago. #3 History esophageal reflux disease requiring daily PPIs. #4 Diabetes Nick, type II. #5 Obesity. #6 Hypothyroidism. #7 Anxiety/depression. #8 Hypertension. #9 Hyperlipidemia. Plan: The patient was seen and evaluated by Dr. Bazan. She is cleared for discharge from the pulmonary standpoint. Continue with DuoNeb inhalations. Continue prednisone taper. Continue antibiotics. Follow-up in our office in 1 week. She may require home oxygen. She'll be set up for nebulizer. She and her are both encouraged to call sooner with any recurrence of symptoms or other questions or concerns. I, the cosigning physician, performed a history & physical examination of the patient. Lungs sounds with bilateral wheezing, scattered rhonchi.. Maintaining good O2 saturations in the 90s on 1 L/m per nasal cannula. I discussed the assessment and plan of care with my nurse practitioner, Racheal Hunter. I attest to the above note as dictated by her.
--- NOTE | 2018-02-01 21:27 | CDI ---
Last Revision, September 2017 Documentation Clarification Form Date: 02/01/18 From: Jayne Renae Phone: If you have a question regarding this query, please contact Amrita Taylor at [phone] between 8am and 5pm Admit Date: 01/27/2018 7:49:00 PM Patient Name: Kait Castillo Visit Number: [id number] Discharge Date: 01/31/18 ATTENTION: The Clinical Documentation Specialists (CDI) and [facility] Coding Staff appreciate your assistance in clarifying documentation. Please respond to the clarification below the line at the bottom and electronically sign. The CDI & [facility] Coding staff will review the response and follow-up if needed. Please note: Queries are made part of the Legal Health Record. If you have any questions, please contact the author of this message via ITS. Dr. Alber Chau The patient has type II diabetes that is uncontrolled as indicated in your progress note. History/Risk Factors: Patient has a history of diabetic gastroparesis, diabetic neuropathy and is on an insulin pump. Clinical Indicators: Glucose levels: 01/27 124, 01/28 322, 01/29 288, 01/30 233 and 202 POC glucose levels ran from 104 to 364 Treatment: Levemir 20 units SQ, Insulin pum meal bolus and insulin pump correction bolus In order to capture the severity of Illness and necessary documentation specificity, please clarify how the diabetes was uncontrolled: Hyperglycemia Hypoglycemia Other, please specify Unable to Determine MTDD
--- NOTE | 2018-02-26 21:12 | P.PN ---
Subjective Progress Note Date: 01/31/18 Principal diagnosis: Continuing care/pulmonary edema. This is a continue present 48-year-old white female essentially admitted for pneumonia with pulmonary edema. IV Lasix has been improving her situation. However, she says tends to be oxygen dependent. She is nonsmoker. No voiding symptoms. Appreciate pulmonology and cardiology input. Objective - Vital Signs Vital signs: Vital Signs Temp 97.5 F L 01/31/18 07:55 Pulse 96 01/31/18 12:04 Resp 18 01/31/18 11:51 BP 146/77 01/31/18 07:55 Pulse Ox 96 01/31/18 08:40 - Constitutional General appearance: Present: obese - EENT Eyes: Absent: abnormal pupil - Respiratory Respiratory: bilateral: diminished, rhonchi - Cardiovascular Rhythm: regular Heart sounds: normal: S1, S2 Abnormal Heart Sounds: Absent: S3 Gallop - Gastrointestinal General gastrointestinal: Present: soft. Absent: tenderness - Labs CBC & Chem 7: 01/31/18 03:56 01/31/18 03:56 Assessment and Plan (1) Uncontrolled diabetes mellitus Status: Acute Code(s): E11.65 - TYPE 2 DIABETES MELLITUS WITH HYPERGLYCEMIA SNOMED Code(s): 819440768 (2) Dyspnea Status: Acute Code(s): R06.00 - DYSPNEA, UNSPECIFIED SNOMED Code(s): 502976089 (3) Pulmonary edema Status: Acute Code(s): J81.1 - CHRONIC PULMONARY EDEMA SNOMED Code(s): 39004032 Plan: Continue current regimen of treatment. The patient is slowly improving but still has significant dyspnea on exertion. I will defer to pulmonology. Check CBC and CMP in a.m. Prognosis is improving.
--- NOTE | 2018-02-26 21:14 | P.DS ---
Providers Date of admission: 01/27/18 19:49 Expected date of discharge: 02/01/18 Attending physician: Sosa Perez Consults: 01/27/18 19:56 Consult Physician Stat Consulting Provider: Pantera May Consult Reason/Comments: Pulmonary edema, dyspnea Do you want consulting provider notified?: Yes Consult Physician Urgent Consulting Provider: [facility] Consult Reason/Comments: Pulmonary edema Do you want consulting provider notified?: Yes Primary care physician: Alber Chau - Discharge Diagnosis(es) (1) Uncontrolled diabetes mellitus Status: Acute (2) Dyspnea Status: Acute (3) Pulmonary edema Status: Acute Hospital Course: The patient was admitted secondary to significant shortness of breath and AUBREY. Cardiopulmonary status was evaluated by appropriate cardiology and pulmonology. The patient after breathing treatments and appropriate treatment From the medical team including cardiology. She has an underlying multiplecomorbid conditions with insulin dependent diabetic immune dysfunction. The patient was sdication and after tolerating diet and ambulating appropriately was discharged with oxygen dependency. The patient is to follow- up with me in 7 days. Patient Condition at Discharge: Stable Plan - Discharge Summary Discharge Rx Participant: Yes New Discharge Prescriptions: New Gabapentin [Neurontin] 400 mg PO DAILY cap predniSONE 40 mg PO DIRECTED #15 tab Ipratropium-Albuterol Nebulize [Duoneb 0.5 mg-3 mg/3 ml Soln] 3 ml INHALATION QID PRN #120 neb PRN Reason: Shortness Of Breath Levofloxacin [Levaquin] 500 mg PO DAILY #5 tab Continue Insulin Aspart (For Pump) [NovoLOG (For Pump)] 0.01 unit SQ-PUMP CONTINUOUS traZODone HCL 100 mg PO HS Pravastatin Sodium [Pravachol] 80 mg PO HS Estrogens, Conjugated [Premarin] 0.625 mg PO DAILY Cyclobenzaprine [Flexeril] 10 mg PO HS Amitriptyline HCl [Elavil] 75 mg PO HS ALPRAZolam [Xanax] 0.25 mg PO BID Nadolol 40 mg PO DAILY Hyoscyamine Sulfate [Levbid] 0.375 mg PO BID Gabapentin [Neurontin] 400 mg PO DAILY Fenofibrate [Lofibra] 160 mg PO DAILY Sertraline [Zoloft] 50 mg PO DAILY Digoxin [Lanoxin] 250 mcg PO DAILY Acyclovir 400 mg PO DAILY Lisinopril [Zestril] 5 mg PO DAILY Levothyroxine Sodium [Synthroid] 50 mcg PO Q48H Levothyroxine Sodium [Synthroid] 75 mcg PO Q48H Levofloxacin [Levaquin] 500 mg PO DAILY Sertraline [Zoloft] 100 mg PO HS Gabapentin [Neurontin] 800 mg PO HS No Action Cephalexin [Keflex] 500 mg PO Q12HR #19 cap Discharge Medication List ALPRAZolam [Xanax] 0.25 mg PO BID 01/27/18 [History] Acyclovir 400 mg PO DAILY 01/27/18 [History] Amitriptyline HCl [Elavil] 75 mg PO HS 01/27/18 [History] Cyclobenzaprine [Flexeril] 10 mg PO HS 01/27/18 [History] Digoxin [Lanoxin] 250 mcg PO DAILY 01/27/18 [History] Estrogens, Conjugated [Premarin] 0.625 mg PO DAILY 01/27/18 [History] Fenofibrate [Lofibra] 160 mg PO DAILY 01/27/18 [History] Gabapentin [Neurontin] 400 mg PO DAILY 01/27/18 [History] Gabapentin [Neurontin] 800 mg PO HS 01/27/18 [History] Hyoscyamine Sulfate [Levbid] 0.375 mg PO BID 01/27/18 [History] Insulin Aspart (For Pump) [NovoLOG (For Pump)] 0.01 unit SQ-PUMP CONTINUOUS 04/10 [History] Levofloxacin [Levaquin] 500 mg PO DAILY 01/27/18 [History] Levothyroxine Sodium [Synthroid] 50 mcg PO Q48H 01/27/18 [History] Levothyroxine Sodium [Synthroid] 75 mcg PO Q48H 01/27/18 [History] Lisinopril [Zestril] 5 mg PO DAILY 01/27/18 [History] Nadolol 40 mg PO DAILY 01/27/18 [History] Pravastatin Sodium [Pravachol] 80 mg PO HS 01/27/18 [History] Sertraline [Zoloft] 50 mg PO DAILY 01/27/18 [History] Sertraline [Zoloft] 100 mg PO HS 01/27/18 [History] traZODone HCL 100 mg PO HS 01/27/18 [History] Gabapentin [Neurontin] 400 mg PO DAILY cap 01/31/18 [Rx] Ipratropium-Albuterol Nebulize [Duoneb 0.5 mg-3 mg/3 ml Soln] 3 ml INHALATION QID PRN #120 neb 01/31/18 [Rx] Levofloxacin [Levaquin] 500 mg PO DAILY #5 tab 01/31/18 [Rx] predniSONE 40 mg PO DIRECTED #15 tab 01/31/18 [Rx] Cephalexin [Keflex] 500 mg PO Q12HR #19 cap 02/23/18 [Rx] Follow up Appointment(s)/Referral(s): Pantera May MD [STAFF PHYSICIAN] - 02/08/18 9:30 am (Pulmonary function test to follow on later appointment. Respiratory therapist out of office at this time.) Collins Ignacio MD [STAFF PHYSICIAN] - 1 Week (Office will call with follow up appointment.) Alber Chau MD [Primary Care Provider] - 02/06/18 10:00 am Patient Instructions/Handouts: Pulmonary Edema (DC), How to Stop Smoking (DC), Pneumonia (DC) Activity/Diet/Wound Care/Special Instructions: Oxygen and nebulizer ordered through [facility]: #[phone] Duo-neb solution sent to pharmacy. Discharge Disposition: HOME SELF-CARE
== END 2018-01-31 13:50 | disposition home or self-care (01) | DRG 190 ==
LOC: EC 17:01 → 6SEL 19:49
PROVIDERS: ADMIT Internal Medicine; ATTEND Internal Medicine
DX: J44.1 Chronic obstructive pulmonary disease with (acute) exacerbation (principal); J96.01 Acute respiratory failure with hypoxia; I50.33 Acute on chronic diastolic (congestive) heart failure; J18.9 Pneumonia, unspecified organism; E03.9 Hypothyroidism, unspecified; J44.0 Chronic obstructive pulmonary disease with (acute) lower respiratory infection; K31.84 Gastroparesis; E11.40 Type 2 diabetes mellitus with diabetic neuropathy, unspecified; E11.43 Type 2 diabetes mellitus with diabetic autonomic (poly)neuropathy; E66.9 Obesity, unspecified; E78.5 Hyperlipidemia, unspecified; F32.9 Major depressive disorder, single episode, unspecified; F41.9 Anxiety disorder, unspecified; K21.9 Gastro-esophageal reflux disease without esophagitis; R91.1 Solitary pulmonary nodule; I11.0 Hypertensive heart disease with heart failure; I95.1 Orthostatic hypotension; Z96.41 Presence of insulin pump (external) (internal); Z79.4 Long term (current) use of insulin; Z79.899 Other long term (current) drug therapy; Z90.710 Acquired absence of both cervix and uterus; Z90.49 Acquired absence of other specified parts of digestive tract; Z82.49 Family history of ischemic heart disease and other diseases of the circulatory system; Z80.9 Family history of malignant neoplasm, unspecified; Z82.3 Family history of stroke; Z68.34 Body mass index [BMI] 34.0-34.9, adult; E11.65 Type 2 diabetes mellitus with hyperglycemia; Z99.81 Dependence on supplemental oxygen
CPT/HCPCS: 36415; 71046; 71275; 80048; 80053; 82550; 82553; 83735; 83880; 84484; 85025; 85027; 85379; 85610; 85730; 87070; 87205; 87502; 93005; 93306; 94640; 94760; 96361; 96374; 96375; 99285

== ENCOUNTER 2018-02-23 19:39 | Emergency (ER) | payer BC ==
[2018-02-23 19:46] VITALS: BP 127/62; PULSE 101; RESP 20; TEMP 97.6
--- NOTE | 2018-02-23 20:25 | ED ---
Extremity Problem HPI - General Chief complaint: Extremity Problem,Nontraumatic Stated complaint: foot pain/swelling Time Seen by Provider: 02/23/18 20:14 Source: patient, family, RN notes reviewed Mode of arrival: wheelchair - History of Present Illness Initial comments: This is a 48-year-old female who presents to the emergency department with chief complaint of left foot pain and swelling. Patient states that one week ago she developed redness and bruising to the top of her left foot. She denies any specific injuries or trauma. She states that since that time her whole left foot has become swollen and she has pain with ambulation. She states that prior to arrival there was a red patch that she was concerned was cellulitis but this has since dissipated. Patient states that she was hospitalized at the beginning of last month with pneumonia and does take oral hormone replacement. She denies calf pain, fevers or chills, chest pain or shortness of breath, abdominal pain, nausea or vomiting. - Related Data Home Medications Medication Instructions Recorded Confirmed ALPRAZolam [Xanax] 0.25 mg PO BID 01/27/18 01/27/18 Acyclovir 400 mg PO DAILY 01/27/18 01/27/18 Amitriptyline HCl [Elavil] 75 mg PO HS 01/27/18 01/27/18 Cyclobenzaprine [Flexeril] 10 mg PO HS 01/27/18 01/27/18 Digoxin [Lanoxin] 250 mcg PO DAILY 01/27/18 01/27/18 Estrogens, Conjugated [Premarin] 0.625 mg PO DAILY 01/27/18 01/27/18 Fenofibrate [Lofibra] 160 mg PO DAILY 01/27/18 01/27/18 Gabapentin [Neurontin] 400 mg PO DAILY 01/27/18 01/27/18 Gabapentin [Neurontin] 800 mg PO HS 01/27/18 01/27/18 Hyoscyamine Sulfate [Levbid] 0.375 mg PO BID 01/27/18 01/27/18 Insulin Aspart (For Pump) [NovoLOG 0.01 unit SQ-PUMP CONTINUOUS 01/27/18 (For Pump)] Levofloxacin [Levaquin] 500 mg PO DAILY 01/27/18 01/27/18 Levothyroxine Sodium [Synthroid] 50 mcg PO Q48H 01/27/18 01/27/18 Levothyroxine Sodium [Synthroid] 75 mcg PO Q48H 01/27/18 01/27/18 Lisinopril [Zestril] 5 mg PO DAILY 01/27/18 01/27/18 Nadolol 40 mg PO DAILY 01/27/18 01/27/18 Pravastatin Sodium [Pravachol] 80 mg PO HS 01/27/18 01/27/18 Sertraline [Zoloft] 50 mg PO DAILY 01/27/18 01/27/18 Sertraline [Zoloft] 100 mg PO HS 01/27/18 01/27/18 traZODone HCL 100 mg PO HS 01/27/18 01/27/18 Previous Rx's Medication Instructions Recorded Gabapentin [Neurontin] 400 mg PO DAILY cap 01/31/18 Ipratropium-Albuterol Nebulize 3 ml INHALATION QID PRN #120 neb 01/31/18 [Duoneb 0.5 mg-3 mg/3 ml Soln] Levofloxacin [Levaquin] 500 mg PO DAILY #5 tab 01/31/18 predniSONE 40 mg PO DIRECTED #15 tab 01/31/18 Cephalexin [Keflex] 500 mg PO Q12HR #19 cap 02/23/18 Allergies Allergy/AdvReac Type Severity Reaction Status Date / Time adhesive tape Allergy Rash/Hives Verified 02/23/18 19:46 Review of Systems ROS Statement: Those systems with pertinent positive or pertinent negative responses have been documented in the HPI. ROS Other: All systems not noted in ROS Statement are negative. Past Medical History Past Medical History: Asthma, Chest Pain / Angina, COPD, Diabetes Mellitus, Hyperlipidemia, Hypertension, Thyroid Disorder Additional Past Medical History / Comment(s): Postural orthostatic tachycardia, gastroparesis, neuropathy History of Any Multi-Drug Resistant Organisms: None Reported Past Surgical History: Appendectomy, Section, Cholecystectomy, Hysterectomy Additional Past Surgical History / Comment(s): left elbow repair, benign adenoma left breast, breast biopsies Past Anesthesia/Blood Transfusion Reactions: Previous Problems w/ Anesthesia, Postoperative Nausea & Vomiting (PONV) Past Psychological History: Anxiety, Depression Smoking Status: Former smoker Past Alcohol Use History: None Reported Past Drug Use History: None Reported - Past Family History Father Family Medical History: Cancer, CVA/TIA, Hypertension Mother Family Medical History: Congestive Heart Failure (CHF), Myocardial Infarction ( ID) Additional Family Medical History / Comment(s): from ID Brother(s) Family Medical History: Congestive Heart Failure (CHF) Additional Family Medical History / Comment(s): brother from CHF General Exam - General Exam Comments Initial Comments: General: Awake and alert, well-developed; in no apparent distress. is at bedside. HEENT: Head atraumatic, normocephalic. Pupils are equal, round and reactive to light. Extraocular movements intact. Oropharynx moist without erythema or exudate. Neck: Supple. Normal ROM. Cardiovascular: Regular rate and rhythm. No murmurs, rubs or gallops. Chest symmetrical. Respiratory: Lungs clear to auscultation bilaterally. No wheezes, rales or rhonchi. Normal respiratory effort with no use of accessory muscles. Musculoskeletal: Normal ROM of the left ankle and foot. There is generalized tenderness, erythema and 1+ pitting edema of the left foot. Sensation is intact. Pedal pulses are 2+ equal and palpable bilaterally. No calf tenderness. Skin: [place], warm and dry without rashes or lesions. Neurological: Alert and oriented x3. CN II-XII grossly intact. Speech is fluent and answers are appropriate. No focal neuro deficits. Psychiatric: Normal mood and affect. No overt signs of depression or anxiety noted. Course Vital Signs 02/23/18 19:42 Temperature 97.6 F Pulse Rate 101 H Respiratory 20 Rate Blood Pressure 127/62 O2 Sat by Pulse 97 Oximetry Medical Decision Making - Medical Decision Making This is a 48-year-old female who presents to the emergency department with chief complaint of left foot swelling and pain. Patient states this developed one week ago. On physical examination, there is generalized pitting edema and tenderness to the dorsal aspect of the left foot. Pedal pulses are palpable. Patient denied any specific injury or trauma, but did state she was concerned because she did have a stress fracture in the left foot years ago. An x-ray was obtained and was negative for any acute fractures or dislocations. According to Well's criteria, patient is high risk for DVT. She was hospitalized and bedridden within the last 4 weeks and does have pitting edema to the left lower extremity. Ultrasound venous Doppler was obtained. This revealed no evidence for a DVT in the left lower extremity. Patient was concerned for cellulitis because prior to arrival she noticed a patchy area of redness where the foot was most tender. Patient did show me a photograph of her foot and there was an obvious marked erythematous area. This no longer is present but there is mild generalized erythema of the foot. Patient denies any fevers or chills. She will be started on Keflex to cover possible infectious process. She is to follow-up with her primary care provider within 1-2 days. Return parameters were discussed. She is in no acute distress and will be discharged home at this time. All questions answered. - Radiology Data Radiology results: report reviewed X-ray left foot impression: There is no acute fracture or dislocation the left foot. Ultrasound venous Doppler duplex left lower extremity impression: No sonographic evidence of deep venous thrombosis within the left lower extremity. Disposition Clinical Impression: Lower extremity edema Disposition: HOME SELF-CARE Condition: Good Instructions: Swollen Joint (ED) Additional Instructions: Please take medications as prescribed. Please follow up with primary care provider within 1-2 days. Return to emergency department if symptoms should worsen or any concerns arise. Prescriptions: Cephalexin [Keflex] 500 mg PO Q12HR #19 cap Is patient prescribed a controlled substance at d/c from ED?: No Referrals: Alber Chau MD [Primary Care Provider] - 1-2 days Time of Disposition: 22:20
[2018-02-23] MEDS ORDERED: KETOROLAC 30 MG/ML 1 ML VIAL IM STA (20:54)
--- NOTE | 2018-02-23 20:55 | XR ---
EXAMINATION TYPE: XR foot complete LT DATE OF EXAM: 02/23/2018 CLINICAL HISTORY: Third through fifth metatarsal injury with left foot pain and bruising. TECHNIQUE: Frontal, lateral, and oblique images of the left foot are obtained. COMPARISON: 06/17/2013 FINDINGS: There is no acute fracture/dislocation evident in the left foot. The joint spaces in the left foot appear within normal limits. Small Achilles enthesophyte is identified. Mild degenerative c hanges of the talonavicular joint are seen. The overlying soft tissue appears unremarkable. IMPRESSION: There is no acute fracture or dislocation in the left foot.
--- NOTE | 2018-02-23 22:02 | US ---
EXAMINATION TYPE: US venous doppler duplex LE LT DATE OF EXAM: 02/23/2018 9:56 PM COMPARISON: NONE CLINICAL HISTORY: Pain and swelling. Redness SIDE PERFORMED: Left TECHNIQUE: The lower extremity deep venous system is examined utilizing real time linear array sonog kiel with graded compression, doppler sonography and color-flow sonography. VESSELS IMAGED: External Iliac Vein (EIV) Common Femoral Vein Deep Femoral Vein Greater Saphenous Vein * Femoral Vein Popliteal Vein Small Saphenous Vein * Proximal Calf Veins (* superficial vessels) Grayscale, color doppler, spectral doppler imaging performed of the deep veins of the left lower extr emity. There is normal flow, compressibility, vascular waveforms. Left Leg: Negative for DVT No evidence of DVT left leg. IMPRESSION: No sonographic evidence of deep venous thrombosis within the left lower extremity.
[2018-02-23] MEDS ORDERED: CEPHALEXIN 500 MG CAP PO STA (22:19)
== END 2018-02-23 22:26 | disposition home or self-care (01) ==
LOC: EC 19:39
DX: R60.0 Localized edema (principal); E78.5 Hyperlipidemia, unspecified; I10 Essential (primary) hypertension; E07.9 Disorder of thyroid, unspecified; E11.40 Type 2 diabetes mellitus with diabetic neuropathy, unspecified; F32.9 Major depressive disorder, single episode, unspecified; F41.9 Anxiety disorder, unspecified; Z87.891 Personal history of nicotine dependence; Z79.4 Long term (current) use of insulin; Z79.899 Other long term (current) drug therapy; Z91.048 Other nonmedicinal substance allergy status
CPT/HCPCS: 73630; 93971; 99284; 96372; J1885

== ENCOUNTER → 2018-04-21 | Outpatient (CLI) | payer BC ==
[2018-04-21 09:20] LABS: T4, Free (Free Thyroxine) 1.37 ng/dL (0.78-2.19)
[2018-04-21 19:30] LABS: Hemoglobin A1C 7.5 % (4.0-6.0)
== END | disposition home or self-care (01) ==
LOC: LABWHC1 07:38
PROVIDERS: ATTEND Internal Medicine
DX: E11.65 Type 2 diabetes mellitus with hyperglycemia (principal); E03.9 Hypothyroidism, unspecified
CPT/HCPCS: 36415; 80061; 82043; 82570; 83036; 84439; 84443

== ENCOUNTER → 2018-05-15 | Outpatient (CLI) | payer BC ==
--- NOTE | 2018-05-15 12:24 | US ---
EXAMINATION TYPE: US thyroid st tissue head/neck DATE OF EXAM: 05/15/2018 COMPARISON: NONE CLINICAL HISTORY: 48-year-old female hypothyroidism E03.9. TECHNIQUE: Multiple sonographic images of the thyroid gland are obtained. FINDINGS: GLAND SIZE: Right Lobe: 5.1 x 1.2 x 1.9 cm Overall Parenchyma: homogenous Left Lobe: 5.2 x 1.3 x 1.6 cm Overall Parenchyma: homogeneous Isthmus Thickness: 0.3 cm NODULES RIGHT: # of nodules measured on right: 1 1. 1.2 X 0.7 x 1.0 cm hypoechoic solid nodule at the mid pole with well-defined margins; . This no dule is wider than tall and shows intranodular vascularity. Prior size: no prior imaging. LEFT: # of nodules measured on left: 0 ISTHMUS: # of nodules measured in the isthmus: 0 Bilateral neck scanned, no evidence of lymphadenopathy. Radiation Therapist notes: Solitary nodule as described. IMPRESSION: Borderline thyromegaly with a solitary 1.2 cm right midpole nodule. Consideration can be given to FNA .
== END | disposition home or self-care (01) ==
LOC: RADUSWWP 07:46
PROVIDERS: ATTEND Internal Medicine
DX: E04.1 Nontoxic single thyroid nodule (principal); E03.9 Hypothyroidism, unspecified
CPT/HCPCS: 76536

== ENCOUNTER → 2018-05-29 | Outpatient (CLI) | payer BC ==
[2018-05-29 16:29] LABS: T4, Free (Free Thyroxine) 1.4 ng/dL (0.78-2.19)
== END | disposition home or self-care (01) ==
LOC: LABWHC1 15:05
PROVIDERS: ATTEND Internal Medicine
DX: E03.9 Hypothyroidism, unspecified (principal)
CPT/HCPCS: 36415; 84439; 84443

== ENCOUNTER → 2018-06-07 | Outpatient (CLI) | payer BC ==
[2018-06-07 13:18] LABS: HCT 36.5 % (34.0-46.0); HGB 12.3 gm/dL (11.4-16.0); MCH 28.7 pg (25.0-35.0); MCHC 33.8 g/dL (31.0-37.0); MCV 84.9 fL (80.0-100.0); Mean Platelet Volume 7.2; Platelet Count 350 k/uL (150-450); RBC 4.31 m/uL (3.80-5.40); RDW 13.5 % (11.5-15.5); WBC 11.7 k/uL (3.8-10.6)
[2018-06-07 13:26] LABS: Anion Gap 9 mmol/L; Blood Urea Nitrogen 9 mg/dL (7-17); Carbon Dioxide 29 mmol/L (22-30); Chloride 99 mmol/L (98-107); Potassium 4.5 mmol/L (3.5-5.1); Sodium 137 mmol/L (137-145)
== END | disposition home or self-care (01) ==
LOC: LABPAT 12:43
PROVIDERS: ATTEND Internal Medicine Cardiovascular Disease
DX: Z01.812 Encounter for preprocedural laboratory examination (principal); R94.39 Abnormal result of other cardiovascular function study
CPT/HCPCS: 36415; 80051; 82565; 84520; 85027

== ENCOUNTER 2018-06-14 06:03 | Day surgery (SDC) | payer BC ==
[2018-06-13 13:38] VITALS: BMI 33.3
[~2018-06-14 06:03] MED LIST: ALPRAZolam 0.25 MG TAB PO PRN; ASPIRIN 325 MG TAB PO ONE; NITROGLYCERIN SL TABS 0.4 MG TAB SUBLINGUAL PRN; SODIUM CHLORIDE 0.9% 1,000 ML in EMPTY BAG 1 BAG IV ONE
[2018-06-14 07:15] VITALS: RESP 16; TEMP 98.4
[2018-06-14] MEDS ORDERED: VERAPAMIL 2.5 MG/ML 2 ML AMP ONE ×2 (07:45→07:48)
[2018-06-14] MEDS ORDERED: fentaNYL (PF) 50 MCG/ML 2 ML AMP ONE (07:45)
[2018-06-14] MEDS ORDERED: MIDAZOLAM 2 MG/2 ML VIAL ONE (07:45)
[2018-06-14] MEDS ORDERED: fentaNYL (PF) 50 MCG/ML 2 ML AMP IV ONE (07:46)
[2018-06-14] MEDS ORDERED: MIDAZOLAM 2 MG/2 ML VIAL IV ONE (07:47)
[2018-06-14] MEDS ORDERED: LIDOCAINE 2% INJ 20 MG/ML SQ ONE (07:48)
[2018-06-14] MEDS ORDERED: HEPARIN SODIUM 1,000 UN/ML (10ML VL) ONE (07:52)
[2018-06-14] MEDS ORDERED: HEPARIN SODIUM 1,000 UN/ML (10ML VL) IV ONE (07:55)
[2018-06-14] MEDS ORDERED: VERAPAMIL SYRINGE (5 MG/10 ML) INTRAARTER ONE (07:55)
[2018-06-14] MEDS ORDERED: IOPAMIDOL-370 125ML BTL INJ ONE (08:10)
[2018-06-14] MEDS ORDERED: RX INFO: IV CONTRAST WAS GIVEN 1 EACH MISC MISCELLANE PRN (08:28)
[2018-06-14] MEDS ORDERED: SODIUM CHLORIDE 0.9% 1,000 ML IV SCH (08:30)
--- NOTE | 2018-06-14 08:37 | P.CARDCATH ---
Date of Procedure: 06/14/18 Preoperative Diagnosis: Abnormal stress echo. Rule out coronary artery disease Postoperative Diagnosis: Normal coronary arteries. Mildly elevated end-diastolic pressure Procedure(s) Performed: Left heart catheterization without left ventriculography Description of Procedure: HISTORY: This is a 48-year-old female with history of hypertension, diabetes and hyperlipidemia who had a stress echocardiogram prior to upcoming surgery. This was reported as showing possible ischemia involving the inferior wall. Patient is advised to have cardiac catheterization for definitive diagnosis. CONSENT:I have discussed the risks, benefits and alternative therapies for the above-mentioned procedure and for both sedation/analgesia as well as necessary blood product administration, if indicated, as they pertain to this patient. The patient has indicated understanding and acceptance of the risks and procedures discussed. PROCEDURE: Patient was brought to the lab in a fasting state. Patient was given some IV sedation. The right wrist is infiltrated with lidocaine and right radial artery was entered using Seldinger technique. A 6-Chinese catheter was left in place and selective coronary arteriography was performed. Patient tolerated the procedure well. TR band was applied for hemostasis No immediate complications were noted and patient was transferred to [facility] in a stable condition Conscious Sedation: Versed 1mg Fentanyl 25 g Duration 29 minutes HEMODYNAMICS: The aortic pressure is about 100/70. Left ankle end-diastolic pressure is about 10-15 SELECTIVE CORONARY ARTERIOGRAPHY: LEFT MAIN: Normal length and free of any occlusive disease THE LEFT ANTERIOR DESCENDING CORONARY ARTERY:. Good caliber vessel giving rise to small septal and good-sized diagonal branch. Free of any significant occlusive disease THE LEFT CIRCUMFLEX AND IS CORONARY ARTERY:. This is a moderate caliber vessel free of any occlusive disease THE RIGHT CORONARY ARTERY: Dominant vessel giving rise good-sized PDA and PLV. Free of any obstructive disease LEFT VENTRICULOGRAPHY: Not performed FINAL IMPRESSION : Normal coronary arteries. Mildly elevated end-diastolic pressure PLAN:. Continue medical therapy and risk factor modification PROGNOSIS: Fair
[2018-06-14 11:45] VITALS: BP 113/72; PULSE 72
== END 2018-06-14 13:13 | disposition home or self-care (01) ==
LOC: CATHCVL 06:03
PROVIDERS: ATTEND Internal Medicine Cardiovascular Disease
DX: R94.31 Abnormal electrocardiogram [ECG] [EKG] (principal); R06.02 Shortness of breath; I10 Essential (primary) hypertension; E78.5 Hyperlipidemia, unspecified; Z79.82 Long term (current) use of aspirin; E78.00 Pure hypercholesterolemia, unspecified; E10.8 Type 1 diabetes mellitus with unspecified complications; Z79.899 Other long term (current) drug therapy; Z88.5 Allergy status to narcotic agent; Z91.09 Other allergy status, other than to drugs and biological substances; Z79.890 Hormone replacement therapy; Z79.4 Long term (current) use of insulin; Z79.51 Long term (current) use of inhaled steroids
CPT/HCPCS: 93458; C1894; C1769; J2001; J2250; J3010; J1644; Q9967

== ENCOUNTER → 2018-07-11 | Outpatient (CLI) | payer BC ==
[2018-07-11 10:54] LABS: T4, Free (Free Thyroxine) 1.36 ng/dL (0.78-2.19)
[2018-07-11 19:57] LABS: Hemoglobin A1C 8.1 % (4.0-6.0)
== END | disposition home or self-care (01) ==
LOC: LABWHC1 09:17
PROVIDERS: ATTEND Internal Medicine
DX: E03.9 Hypothyroidism, unspecified (principal); E11.65 Type 2 diabetes mellitus with hyperglycemia
CPT/HCPCS: 36415; 83036; 84439; 84443

== ENCOUNTER → 2018-11-04 | Outpatient (CLI) | payer BC ==
[2018-11-04 17:18] LABS: T4, Free (Free Thyroxine) 1.4 ng/dL (0.80-1.80)
[2018-11-04 19:56] LABS: Hemoglobin A1C 7.6 % (4.0-6.0)
== END ==
LOC: LABWHC1 10:48
PROVIDERS: ATTEND Internal Medicine
DX: E03.9 Hypothyroidism, unspecified (principal); E11.65 Type 2 diabetes mellitus with hyperglycemia
CPT/HCPCS: 36415; 82043; 82570; 83036; 84439; 84443

== ENCOUNTER 2019-02-08 00:49 | Observation (INO) | payer BC ==
[2019-02-08] MEDS ORDERED: ASPIRIN 81 MG PO STA (01:11)
[2019-02-08] MEDS ORDERED: NITROGLYCERIN SL TABS 0.4 MG TAB SUBLINGUAL STA (01:12)
--- NOTE | 2019-02-08 01:16 | ED ---
General Adult HPI - General Source: patient, RN notes reviewed Mode of arrival: wheelchair Limitations: no limitations <Coleman Harry - Last Filed: 02/08/19 02:48> <Ramo Rees - Last Filed: 02/08/19 03:54> - General Chief complaint: Shortness of Breath Stated complaint: AUBREY Time Seen by Provider: 02/08/19 00:56 - History of Present Illness Initial comments: This a 49-year-old female presents emergency Department chief complaint shortness breath, chest pressure. Patient states started for 24 hours ago. Roscoe ochoa states that she feels pressure in her anterior chest that radiates from her back. Patient states that it hurts when she takes deep breath. Patient states that she has a history of asthma, COPD. Patient states she tried inhalers with no relief. Patient has had a cardiac cath in the past was no acute findings though she states that they feel that something cardiac is wrong. Patient has no history of PE or DVT. Patient does have a history of CHF had slight weight gain including 4 pounds, mild leg swelling. Patient denies fever, chills or productive cough. (Coleman Harry) - Related Data Home Medications Medication Instructions Recorded Confirmed ALPRAZolam [Xanax] 0.25 mg PO BID 01/27/18 06/14/18 Acyclovir 400 mg PO DAILY 01/27/18 06/14/18 Amitriptyline HCl [Elavil] 75 mg PO HS 01/27/18 06/14/18 Cyclobenzaprine [Flexeril] 10 mg PO HS 01/27/18 06/14/18 Estrogens, Conjugated [Premarin] 0.625 mg PO DAILY 01/27/18 06/14/18 Fenofibrate [Lofibra] 160 mg PO DAILY 01/27/18 06/14/18 Gabapentin [Neurontin] 400 mg PO TID 01/27/18 06/14/18 Hyoscyamine Sulfate [Levbid] 0.375 mg PO BID 01/27/18 06/14/18 Insulin Aspart (For Pump) [NovoLOG 0.01 unit SQ-PUMP CONTINUOUS 01/27/18 06/14/18 (For Pump)] Lisinopril [Zestril] 5 mg PO DAILY 01/27/18 06/14/18 Nadolol 40 mg PO DAILY 01/27/18 06/14/18 Pravastatin Sodium [Pravachol] 80 mg PO HS 01/27/18 06/14/18 Sertraline [Zoloft] 50 mg PO TID 01/27/18 06/14/18 Albuterol Inhaler [Ventolin Hfa 1 - 2 puff INHALATION RT-Q6H PRN 06/13/18 06/13/18 Inhaler] Fluticasone/Vilanterol [Breo 1 inhalation PO Q24HR 06/13/18 06/14/18 Ellipta 100-25 Mcg Inhaler] Lipitor(Unknown Dose) 1 tab PO DAILY 06/13/18 metFORMIN HCL [Glucophage] 1,000 mg PO BID 06/13/18 06/13/18 Previous Rx's Medication Instructions Recorded Ipratropium-Albuterol Nebulize 3 ml INHALATION QID PRN #120 neb 01/31/18 [Duoneb 0.5 mg-3 mg/3 ml Soln] Allergies Allergy/AdvReac Type Severity Reaction Status Date / Time adhesive tape Allergy blisters Verified 02/08/19 00:54 skin Review of Systems ROS Other: All systems not noted in ROS Statement are negative. <Coleman Harry - Last Filed: 02/08/19 02:48> ROS Other: All systems not noted in ROS Statement are negative. <Ramo Rees - Last Filed: 02/08/19 03:54> ROS Statement: Those systems with pertinent positive or pertinent negative responses have been documented in the HPI. Past Medical History Past Medical History: Asthma, Chest Pain / Angina, COPD, Diabetes Mellitus, Hyperlipidemia, Hypertension, Thyroid Disorder Additional Past Medical History / Comment(s): Postural orthostatic tachycardia, gastroparesis, neuropathy History of Any Multi-Drug Resistant Organisms: None Reported Past Surgical History: Appendectomy, Section, Cholecystectomy, Hysterectomy Additional Past Surgical History / Comment(s): left elbow repair, benign adenoma left breast, breast biopsies Past Anesthesia/Blood Transfusion Reactions: Previous Problems w/ Anesthesia, Postoperative Nausea & Vomiting (PONV) Past Psychological History: Anxiety, Depression Smoking Status: Former smoker Past Alcohol Use History: None Reported Past Drug Use History: None Reported - Past Family History Father Family Medical History: Cancer, CVA/TIA, Hypertension Mother Family Medical History: Congestive Heart Failure (CHF), Myocardial Infarction ([place]) Additional Family Medical History / Comment(s): from [place] Brother(s) Family Medical History: Congestive Heart Failure (CHF) Additional Family Medical History / Comment(s): brother from CHF <ShanColeman peacock M - Last Filed: 02/08/19 02:48> General Exam Limitations: no limitations General appearance: alert, in no apparent distress Head exam: Present: atraumatic, normocephalic, normal inspection Eye exam: Present: normal appearance, PERRL, EOMI. Absent: scleral icterus, conjunctival injection, periorbital swelling ENT exam: Present: normal exam, normal oropharynx, mucous membranes moist Neck exam: Present: normal inspection, full ROM. Absent: tenderness, meningismus, lymphadenopathy Respiratory exam: Present: normal lung sounds bilaterally. Absent: respiratory distress, wheezes, rales, rhonchi, stridor Cardiovascular Exam: Present: regular rate, normal rhythm, normal heart sounds. Absent: systolic murmur, diastolic murmur, rubs, gallop, clicks GI/Abdominal exam: Present: soft, normal bowel sounds. Absent: distended, tenderness, guarding, rebound, rigid Neurological exam: Present: alert Skin exam: Present: warm, dry, intact, normal color. Absent: rash <KamrynColeman M - Last Filed: 02/08/19 02:48> Course Vital Signs 02/08/19 02/08/19 02/08/19 00:50 01:17 01:20 Temperature 97.5 F L Pulse Rate 92 89 91 Respiratory 18 Rate Blood Pressure 136/76 141/76 O2 Sat by Pulse 99 96 95 Oximetry 02/08/19 02/08/19 02/08/19 02:21 02:40 03:00 Temperature Pulse Rate 86 88 87 Respiratory Rate Blood Pressure 115/64 122/68 122/68 O2 Sat by Pulse 97 96 99 Oximetry 02/08/19 02/08/19 02/08/19 03:10 03:30 03:40 Temperature Pulse Rate 84 85 Respiratory 16 Rate Blood Pressure 119/64 130/71 119/60 O2 Sat by Pulse 95 96 Oximetry 02/08/19 03:51 Temperature 97.8 F Pulse Rate Respiratory Rate Blood Pressure O2 Sat by Pulse Oximetry EKG Findings - EKG Comments: EKG Findings:: EKG performed at 1:113 normal sinus rhythm rate of 86 [place] 164 QRS 88 QT/QTC 38/464 <Coleman Harry - Last Filed: 02/08/19 02:48> Medical Decision Making - Lab Data Result diagrams: 02/08/19 01:31 02/08/19 01:31 <Coleman Harry - Last Filed: 02/08/19 02:48> - Lab Data Result diagrams: 02/08/19 01:31 02/08/19 01:31 <Ramo Rees - Last Filed: 02/08/19 03:54> - Medical Decision Making 49-year-old female presented to the ER for chest pain, chest pressure or shortn ess of breath. Patient labwork EKG, chest x-ray chest x-ray shows evidence of pulmonary edema, BNP is mildly elevated from her baseline in which she has been told she has CHF in the past. Patient be admitted for chest pain rule out, CHF. (Coleman Harry) I saw this patient in conjunction with the physician escrow assistant. I performed independent history and physical exam. Agree with case management. (Ramo Rees) - Lab Data Lab Results 02/08/19 02/08/19 02/08/19 Range/Units 01:31 01:31 01:31 WBC 9.9 (3.8-10.6) k/uL RBC 4.06 (3.80-5.40) m/uL Hgb 11.1 L (11.4-16.0) gm/dL Hct 34.0 (34.0-46.0) % MCV 83.6 (80.0-100.0) fL MCH 27.3 (25.0-35.0) pg MCHC 32.7 (31.0-37.0) g/dL RDW 13.7 (11.5-15.5) % Plt Count 352 (150-450) k/uL Neutrophils % 58 % Lymphocytes % 35 % Monocytes % 3 % Eosinophils % 2 % Basophils % 1 % Neutrophils # 5.8 (1.3-7.7) k/uL Lymphocytes # 3.4 (1.0-4.8) k/uL Monocytes # 0.3 (0-1.0) k/uL Eosinophils # 0.2 (0-0.7) k/uL Basophils # 0.1 (0-0.2) k/uL PT 13.6 H (9.0-12.0) sec INR 1.3 H (<1.2) APTT 22.7 (22.0-30.0) sec D-Dimer 0.43 (<0.60) mg/L FEU Sodium 139 (137-145) mmol/L Potassium 4.2 (3.5-5.1) mmol/L Chloride 107 (98-107) mmol/L Carbon Dioxide 22 (22-30) mmol/L Anion Gap 10 mmol/L BUN 8 (7-17) mg/dL Creatinine 0.49 L (0.52-1.04) mg/dL Est GFR (CKD-EPI)AfAm >90 (>60 ml/min/1.73 sqM) Est GFR (CKD-EPI)NonAf >90 (>60 ml/min/1.73 sqM) Glucose 181 H (74-99) mg/dL Calcium 9.1 (8.4-10.2) mg/dL Magnesium 1.4 L (1.6-2.3) mg/dL Total Bilirubin 0.3 (0.2-1.3) mg/dL AST 22 (14-36) U/L ALT 20 (9-52) U/L Alkaline Phosphatase 65 (38-126) U/L Troponin I (0.000-0.034) ng/mL NT-Pro-B Natriuret Pep pg/mL Total Protein 6.3 (6.3-8.2) g/dL Albumin 3.5 (3.5-5.0) g/dL 02/08/19 02/08/19 Range/Units 01:31 01:31 WBC (3.8-10.6) k/uL RBC (3.80-5.40) m/uL Hgb (11.4-16.0) gm/dL Hct (34.0-46.0) % MCV (80.0-100.0) fL MCH (25.0-35.0) pg MCHC (31.0-37.0) g/dL RDW (11.5-15.5) % Plt Count (150-450) k/uL Neutrophils % % Lymphocytes % % Monocytes % % Eosinophils % % Basophils % % Neutrophils # (1.3-7.7) k/uL Lymphocytes # (1.0-4.8) k/uL Monocytes # (0-1.0) k/uL Eosinophils # (0-0.7) k/uL Basophils # (0-0.2) k/uL PT (9.0-12.0) sec INR (<1.2) APTT (22.0-30.0) sec D-Dimer (<0.60) mg/L FEU Sodium (137-145) mmol/L Potassium (3.5-5.1) mmol/L Chloride (98-107) mmol/L Carbon Dioxide (22-30) mmol/L Anion Gap mmol/L BUN (7-17) mg/dL Creatinine (0.52-1.04) mg/dL Est GFR (CKD-EPI)AfAm (>60 ml/min/1.73 sqM) Est GFR (CKD-EPI)NonAf (>60 ml/min/1.73 sqM) Glucose (74-99) mg/dL Calcium (8.4-10.2) mg/dL Magnesium (1.6-2.3) mg/dL Total Bilirubin (0.2-1.3) mg/dL AST (14-36) U/L ALT (9-52) U/L Alkaline Phosphatase (38-126) U/L Troponin I <0.012 (0.000-0.034) ng/mL NT-Pro-B Natriuret Pep 861 pg/mL Total Protein (6.3-8.2) g/dL Albumin (3.5-5.0) g/dL Disposition <Coleman Harry - Last Filed: 02/08/19 02:48> <Ramo Rees - Last Filed: 02/08/19 03:54> Clinical Impression: Pulmonary edema, Congestive heart failure, Chest pain Disposition: ADMITTED IP TO THIS HOSP Condition: Fair Referrals: Alber Chau MD [Primary Care Provider] - 1-2 days
--- NOTE | 2019-02-08 01:45 | XR ---
EXAM: XR Chest, 2 Views CLINICAL HISTORY: ITS.REASON XR Reason: difficulty breathing TECHNIQUE: Frontal and lateral views of the chest. COMPARISON: 02/08/18 chest x-ray. IMPRESSION: Unchanged heart size. Mildly increased interstitial opacities throughout the lungs, possibly representing mild pulmonary edema. No consolidation or pleural effusion.
[2019-02-08 01:46] LABS: Basophils # (A) 0.1 k/uL (0-0.2); Basophils % (A) 1 %; Eosinophils # (A) 0.2 k/uL (0-0.7); Eosinophils % (A) 2 %; HGB 11.1 gm/dL (11.4-16.0); Lymphocytes # (A) 3.4 k/uL (1.0-4.8); Lymphocytes % (A) 35 %; MCH 27.3 pg (25.0-35.0); MCHC 32.7 g/dL (31.0-37.0); MCV 83.6 fL (80.0-100.0); Mean Platelet Volume 7.2; Monocytes # (A) 0.3 k/uL (0-1.0); Monocytes % (A) 3 %; Neutrophils # (A) 5.8 k/uL (1.3-7.7); Neutrophils % (A) 58 %; Platelet Count 352 k/uL (150-450); RBC 4.06 m/uL (3.80-5.40); RDW 13.7 % (11.5-15.5); WBC 9.9 k/uL (3.8-10.6)
[2019-02-08 02:01] LABS: D-Dimer 0.43 mg/L FEU (<0.60); INR 1.3 (<1.2); Partial Thromboplastin Time 22.7 sec (22.0-30.0); Prothrombin Time 13.6 sec (9.0-12.0)
[2019-02-08 02:39] LABS: ALT 20 U/L (9-52); AST 22 U/L (14-36); Albumin 3.5 g/dL (3.5-5.0); Alkaline Phosphatase 65 U/L (38-126); Anion Gap 10 mmol/L; Blood Urea Nitrogen 8 mg/dL (7-17); Calcium 9.1 mg/dL (8.4-10.2); Carbon Dioxide 22 mmol/L (22-30); Chloride 107 mmol/L (98-107); Glucose 181 mg/dL (74-99); Magnesium 1.4 mg/dL (1.6-2.3); Potassium 4.2 mmol/L (3.5-5.1); Sodium 139 mmol/L (137-145); Total Bilirubin 0.3 mg/dL (0.2-1.3); Total Protein 6.3 g/dL (6.3-8.2)
[2019-02-08] MEDS ORDERED: FUROSEMIDE 10 MG/ML 4 ML VIAL IV STA (02:47)
[2019-02-08] MEDS ORDERED: LORazepam 2 MG/ML INJ IV STA (02:47)
[2019-02-08] MEDS ORDERED: MAGNESIUM OXIDE 400 MG TAB PO STA (02:48)
[2019-02-08] MEDS ORDERED: NITROGLYCERIN SL TABS 0.4 MG TAB SUBLINGUAL PRN (02:49)
[2019-02-08] MEDS ORDERED: HEPARIN SODIUM,PORCINE 5,000 UNIT/ML 1 ML VIAL IV ONE (02:49)
[2019-02-08] MEDS ORDERED: ACETAMINOPHEN TAB 325 MG TAB PO STA (02:56)
[2019-02-08] MEDS ORDERED: HEPARIN SOD,PORK IN 0.45% NACL 25,000 UNIT in 0.45% NACL 1 250ML.BAG IV SCH (03:00)
[2019-02-08 03:59] LABS: Mean Platelet Volume 7.1; Platelet Count 377 k/uL (150-450)
[2019-02-08] MEDS ORDERED: ACETAMINOPHEN TAB 325 MG TAB PO PRN (04:35)
[2019-02-08] MEDS: GABAPENTIN 400 MG CAP PO SCH ×2 (04:59→08:48)
[2019-02-08] MEDS: CYCLOBENZAPRINE 10 MG TAB PO SCH ×2 (05:00→05:12)
[2019-02-08 06:42] LABS: Glucose,Whole Blood 137 mg/dL (75-99)
[2019-02-08] MEDS ORDERED: Insulin Aspart (For Pump) 100 UNIT/ML VIAL SQ-PUMP SCH (07:30)
[2019-02-08] MEDS ORDERED: traMADol 50 MG TAB PO PRN (07:37)
--- NOTE | 2019-02-08 07:42 | P.HPIM ---
History of Present Illness H&P Date: 02/08/19 Chief Complaint: Shortness of breath. This is a history of physical 49-year-old insulin dependent diabetic with history of asthma who for the last several days has been complaining of shortness of breath which has been refractory to nebulizer treatments. She came in and had relative edema pulmonary wagoner and was appropriately admitted because of elevated BNP. No overt chest pressure until 2 days ago. No overt diaphoresis. No significant nausea stated. No previous anginal equivalent stated. Otherwise no voiding difficulties. Review of Systems Constitutional: Denies chills, Denies fever Eyes: denies blurred vision, denies pain Ears, nose, mouth and throat: Denies headache, Denies sore throat Cardiovascular: Reports chest pain, Reports dyspnea on exertion, Denies leg edema Respiratory: Denies cough Gastrointestinal: Denies abdominal pain, Denies diarrhea, Denies nausea, Denies vomiting Genitourinary: Denies dysuria, Denies hematuria Musculoskeletal: Denies myalgias Integumentary: Denies pruritus, Denies rash Neurological: Denies numbness, Denies weakness Past Medical History Past Medical History: Asthma, Chest Pain / Angina, COPD, Diabetes Mellitus, Hyperlipidemia, Hypertension, Pneumonia, Thyroid Disorder Additional Past Medical History / Comment(s): Postural orthostatic tachycardia, gastroparesis, neuropathy History of Any Multi-Drug Resistant Organisms: None Reported Past Surgical History: Appendectomy, Section, Cholecystectomy, Hysterectomy Additional Past Surgical History / Comment(s): left elbow repair, benign adenoma left breast, breast biopsies Past Anesthesia/Blood Transfusion Reactions: Previous Problems w/ Anesthesia, Postoperative Nausea & Vomiting (PONV) Past Psychological History: Anxiety, Depression Smoking Status: Former smoker Past Alcohol Use History: None Reported Additional Past Alcohol Use History / Comment(s): quit years ago Past Drug Use History: None Reported - Past Family History Father Family Medical History: Cancer, CVA/TIA, Hypertension Mother Family Medical History: Congestive Heart Failure (CHF), Myocardial Infarction ([place]) Additional Family Medical History / Comment(s): from [place] Brother(s) Family Medical History: Congestive Heart Failure (CHF) Additional Family Medical History / Comment(s): brother from CHF Medications and Allergies Home Medications Medication Instructions Recorded Confirmed Type ALPRAZolam [Xanax] 0.25 mg PO BID 01/27/18 02/08/19 History Acyclovir 400 mg PO DAILY 01/27/18 02/08/19 History Amitriptyline HCl [Elavil] 75 mg PO HS 01/27/18 06/14/18 History Cyclobenzaprine [Flexeril] 10 mg PO HS 01/27/18 02/08/19 History Estrogens, Conjugated [Premarin] 0.625 mg PO DAILY 01/27/18 02/08/19 History Fenofibrate [Lofibra] 160 mg PO DAILY 01/27/18 02/08/19 History Gabapentin [Neurontin] 400 mg PO TID 01/27/18 02/08/19 History Hyoscyamine Sulfate [Levbid] 0.375 mg PO BID 01/27/18 06/14/18 History Insulin Aspart (For Pump) [NovoLOG 0.01 unit SQ-PUMP CONTINUOUS 01/27/18 02/08/19 History (For Pump)] Lisinopril [Zestril] 5 mg PO DAILY 01/27/18 02/08/19 History Nadolol 40 mg PO DAILY 01/27/18 02/08/19 History Sertraline [Zoloft] 50 mg PO TID 01/27/18 02/08/19 History Ipratropium-Albuterol Nebulize 3 ml INHALATION QID PRN #120 neb 01/31/18 02/08/19 Rx [Duoneb 0.5 mg-3 mg/3 ml Soln] Albuterol Inhaler [Ventolin Hfa 1 - 2 puff INHALATION RT-Q6H PRN 06/13/18 02/08/19 History Inhaler] Lipitor(Unknown Dose) 80 mg PO DAILY 06/13/18 02/08/19 History metFORMIN HCL [Glucophage] 1,000 mg PO BID 06/13/18 02/08/19 History Fluticasone/Vilanterol [Breo 1 puff INHALATION BID 02/08/19 02/08/19 History Ellipta 200-25 Mcg INH] Hyoscyamine Sulfate [Levsin] 0.375 mg PO DAILY 02/08/19 02/08/19 History Pioglitazone [Actos] 1 tab PO DAILY 02/08/19 02/08/19 History Allergies Allergy/AdvReac Type Severity Reaction Status Date / Time adhesive tape Allergy blisters Verified 02/08/19 00:54 skin Physical Exam Vitals: Vital Signs Temp Pulse Pulse Resp BP BP Pulse Ox 02/08/19 04:00 98.4 F 86 16 130/75 97 02/08/19 03:51 97.8 F 02/08/19 03:40 85 16 119/60 96 02/08/19 03:30 84 130/71 95 02/08/19 03:10 119/64 02/08/19 03:00 87 122/68 99 02/08/19 02:40 88 122/68 96 02/08/19 02:21 86 115/64 97 02/08/19 01:20 91 141/76 95 02/08/19 01:17 89 96 02/08/19 00:50 97.5 F L 92 18 136/76 99 Intake and Output 02/07/19 02/08/19 02/08/19 22:59 06:59 14:59 Intake Total 260 Balance 260 Intake: Intake, IV Titration 20 Amount Heparin Sod,Pork in 0.45% 20 NaCl 25,000 unit In 0.45 % NaCl 1 250ml.bag @ 10 mls/hr IV .Q24H [facility] Rx#: [id number] Oral 240 Other: Voiding Method Toilet Weight 87.543 kg - Constitutional General appearance: no acute distress - EENT Eyes: EOMI - Neck Neck: no lymphadenopathy - Respiratory Respiratory: bilateral: diminished - Cardiovascular Rhythm: regular Heart sounds: normal: S1, S2 Abnormal Heart Sounds: no S3 Gallop - Gastrointestinal General gastrointestinal: soft, no tenderness - Integumentary Integumentary: normal - Musculoskeletal Musculoskeletal: no gait normal - Psychiatric Psychiatric: A&O x's 3, appropriate affect Results CBC & Chem 7: 02/08/19 03:49 02/08/19 01:31 Labs: Abnormal Lab Results - Last 24 Hours (Table) 02/08/19 02/08/19 02/08/19 Range/Units 01:31 01:31 01:31 Hgb 11.1 L (11.4-16.0) gm/dL PT 13.6 H (9.0-12.0) sec INR 1.3 H (<1.2) APTT (22.0-30.0) sec Creatinine 0.49 L (0.52-1.04) mg/dL Glucose 181 H (74-99) mg/dL POC Glucose (mg/dL) (75-99) mg/dL Magnesium 1.4 L (1.6-2.3) mg/dL 02/08/19 02/08/19 Range/Units 03:49 06:40 Hgb (11.4-16.0) gm/dL PT (9.0-12.0) sec INR (<1.2) APTT 38.5 H (22.0-30.0) sec Creatinine (0.52-1.04) mg/dL Glucose (74-99) mg/dL POC Glucose (mg/dL) 137 H (75-99) mg/dL Magnesium (1.6-2.3) mg/dL Thrombosis Risk Factor Assmnt - Choose All That Apply Any of the Below Risk Factors Present?: Yes Each Factor Represents 1 point: Abnormal pulmonary function (COPD), Age 41-60 years, Obesity (BMI >25) Other Risk Factors: No Other congenital or acquired thrombophilia - If yes, enter type in comment: No Thrombosis Risk Factor Assessment Total Risk Factor Score: 3 Thrombosis Risk Factor Assessment Level: Moderate Risk Assessment and Plan (1) Asthma Current Visit: Yes Status: Acute Code(s): J45.909 - UNSPECIFIED ASTHMA, UNCOMPLICATED SNOMED Code(s): 963371650 (2) Chest pain Current Visit: Yes Status: Acute Code(s): R07.9 - CHEST PAIN, UNSPECIFIED SNOMED Code(s): 18084029 (3) Congestive heart failure Current Visit: Yes Status: Acute Code(s): I50.9 - HEART FAILURE, UNSPECIFIED SNOMED Code(s): 45877193 (4) Pulmonary edema Current Visit: Yes Status: Acute Code(s): J81.1 - CHRONIC PULMONARY EDEMA SNOMED Code(s): 78289204 (5) Dyspnea Current Visit: No Status: Acute Code(s): R06.00 - DYSPNEA, UNSPECIFIED SNOMED Code(s): 132868365 Plan: Reconcile medications. Echocardiogram will be ordered. Appreciate cardiology consult. Check CMP in a.m. The patient is otherwise full code. See orders otherwise. Time with Patient: Greater than 30
[2019-02-08 07:48] VITALS: RESP 18
[2019-02-08] MEDS ORDERED: SYMBICORT 160-4.5 MCG INHALER INHALATION SCH (08:00)
[2019-02-08] MEDS ORDERED: SERTRALINE 50 MG TAB PO SCH (09:00)
[2019-02-08] MEDS ORDERED: ACYCLOVIR 200 MG CAP PO SCH (09:00)
[2019-02-08] MEDS ORDERED: ALPRAZolam 0.25 MG TAB PO SCH (09:00)
[2019-02-08] MEDS ORDERED: ATORVASTATIN 80 MG TAB PO SCH (09:00)
[2019-02-08] MEDS ORDERED: ESTROGENS, CONJUGATED 0.625 MG TAB PO SCH (09:00)
[2019-02-08] MEDS ORDERED: PIOGLITAZONE 15 MG TAB PO SCH (09:00)
[2019-02-08] MEDS ORDERED: metFORMIN 500 MG TAB PO SCH (09:00)
[2019-02-08] MEDS ORDERED: NADOLOL 20 MG TAB PO SCH (09:00)
[2019-02-08] MEDS ORDERED: HYOSCYAMINE SULFATE 0.375 MG TAB.ER.12H PO SCH (09:00)
[2019-02-08] MEDS ORDERED: FENOFIBRATE 160 MG TAB PO SCH (09:00)
[2019-02-08] MEDS ORDERED: LISINOPRIL 5 MG TAB PO SCH (09:00)
--- NOTE | 2019-02-08 10:47 | P.CRDCN ---
History of Present Illness History of present illness: This is a pleasant 49-year-old female past medical history significant for POTS syndrome, asthma, COPD, diabetes mellitus, dyslipidemia, hypertension, hypothyroidism and former nicotine dependence. She follows in the office with Dr. Fonseca. We've asked to see her secondary to chest discomfort. She states yesterday morning she woke up feeling increasingly short of breath from her baseline. She also felt a tightness in the midsternal region. He states it felt like a pressure tight sensation in the chest that she has experienced in the past secondary to asthma and COPD. She did a breathing treatment as well as used her inhalers and achieved no relief of her chest tightness or shortness of breath. Upon arrival to the emergency department she was having ongoing chest t ightness and shortness of breath. EKG reveals sinus mechanism with no acute ST or T wave abnormalities noted. Heart rate has been in the 80s. Chest x-ray reveals mild pulmonary edema possible however clinically unlikely. Laboratory data reviewed, WBC 9.9, hemoglobin 11.1, platelets 377, d-dimer 0.43, sodium 139, potassium 4.2, creatinine 0.49, magnesium 1.4, cardiac enzymes negative 2, NT proBNP 861 which is normal for her age. Current cardiac medications include atorvastatin 80 mg daily, fenofibrate 160 mg daily, lisinopril 5 mg daily, nadolol 40 mg daily. She underwent cardiac catheterization in May 2018 revealing normal coronary arteries with mildly elevated LVEDP secondary to increased salt intake for help with her diagnosed POTS syndrome. Most recent echocardiogram obtained January 2018 reveals preserved left ventricular systolic function with ejection fraction 55-60%, no valvular abnormalities seen. At the time of my exam: CONSTITUTIONAL: Denies fever. Denies chills. EYES: Denies blurred vision. Denies vision changes. Denies eye pain. EARS, NOSE, MOUTH & THROAT: Denies headache. Denies sore throat. Denies ear pain. CARDIOVASCULAR: Denies chest pain. Denies shortness of breath. Denies orthopnea. Denies PND. Denies palpitations. RESPIRATORY: Denies cough. GASTROINTESTINAL: Denies abdominal pain. Denies diarrhea. Denies constipation. Denies nausea. Denies vomiting. MUSCULOSKELETAL: Denies myalgias. INTEGUMENTARY: Denies pruitis. Denies rash. NEUROLOGIC: Denies numbness. Denies tingling. Denies weakness. PSYCHIATRIC: Denies anxiety. Denies depression. ENDOCRINE: Denies fatigue. Denies weight change. Denies polydipsia. Denies polyurina. GENITOURINARY: Denies burning, hematuria or urgency with micturation. HEMATOLOGIC: Denies history of anemia. Denies bleeding. Blood pressure 127/77 heart rate 77 afebrile maintaining oxygen saturation on room air GENERAL: This is a 49-year-old female in no apparent distress at the time of my examination. Obese. HEENT: Head is atraumatic, normocephalic. Pupils are equal, round. Sclerae anicteric. Conjunctivae are clear. Mucous membranes of the mouth are moist. Neck is supple. There is no jugular venous distention. No carotid bruit is heard. LUNGS: Clear to auscultation no wheezes, rales or rhonchi. No chest wall tenderness is noted on palpation or with deep breathing. HEART: Regular rate and rhythm without murmurs, rubs or gallops. S1 and S2 heard. ABDOMEN: Soft, nontender. Bowel sounds are heard. No organomegaly noted. EXTREMITIES: No evidence of peripheral edema and no calf tenderness noted. VASCULAR: Radial and dorsalis pedis pulses palpated, no evidence of clubbing. NEUROLOGIC: Patient is awake, alert and oriented x3. ASSESSMENT Chest pain, atypical for angina. An acute coronary event has been ruled out. Normal heart catheterization performed in May 2018. The likelihood of small vessel endocardial ischemia is likely secondary to her diabetes however her coronary arteries are completely normal. Shortness of breath most likely related to asthma or COPD with no evidence clinically of heart failure. Normal NT proBNP, clear lungs and no edema. Hypomagnesemia Diabetes mellitus Hypertension Hypothyroidism Dyslipidemia Former nicotine dependence History of POTS syndrome PLAN An acute coronary event has been ruled out. Clinically the patient is euvolemic with no evidence of heart failure. Discontinue heparin infusion. Obtain 2-D echocardiogram and Doppler study to assess cardiac structure and function. Increase activity and ambulation in the halls. Room air oxygen saturation is 96%. Further evaluation and management per primary care team. Follow up with Dr. Ignacio. Thank you kindly for this consultation. Nurse Practitioner note has been reviewed, I agree with a documented findings and plan of care. Patient was seen and examined. Past Medical History Past Medical History: Asthma, Chest Pain / Angina, COPD, Diabetes Mellitus, Hyperlipidemia, Hypertension, Pneumonia, Thyroid Disorder Additional Past Medical History / Comment(s): Postural orthostatic tachycardia, gastroparesis, neuropathy History of Any Multi-Drug Resistant Organisms: None Reported Past Surgical History: Appendectomy, Section, Cholecystectomy, Hysterectomy Additional Past Surgical History / Comment(s): left elbow repair, benign adenoma left breast, breast biopsies Past Anesthesia/Blood Transfusion Reactions: Previous Problems w/ Anesthesia, Postoperative Nausea & Vomiting (PONV) Past Psychological History: Anxiety, Depression Smoking Status: Former smoker Past Alcohol Use History: None Reported Additional Past Alcohol Use History / Comment(s): quit years ago Past Drug Use History: None Reported - Past Family History Father Family Medical History: Cancer, CVA/TIA, Hypertension Mother Family Medical History: Congestive Heart Failure (CHF), Myocardial Infarction ([place]) Additional Family Medical History / Comment(s): from [place] Brother(s) Family Medical History: Congestive Heart Failure (CHF) Additional Family Medical History / Comment(s): brother from CHF Medications and Allergies Home Medications Medication Instructions Recorded Confirmed Type Acyclovir 400 mg PO DAILY 01/27/18 02/08/19 History Estrogens, Conjugated [Premarin] 0.625 mg PO DAILY 01/27/18 02/08/19 History Fenofibrate [Lofibra] 160 mg PO DAILY 01/27/18 02/08/19 History Gabapentin [Neurontin] 400 mg PO TID 01/27/18 02/08/19 History Hyoscyamine Sulfate [Levbid] 0.375 mg PO BID 01/27/18 02/08/19 History Insulin Aspart (For Pump) [NovoLOG 0.01 unit SQ-PUMP CONTINUOUS 01/27/18 02/08/19 History (For Pump)] Lisinopril [Zestril] 5 mg PO DAILY 01/27/18 02/08/19 History Nadolol 40 mg PO DAILY 01/27/18 02/08/19 History Sertraline [Zoloft] 50 mg PO TID 01/27/18 02/08/19 History Ipratropium-Albuterol Nebulize 3 ml INHALATION QID PRN #120 neb 01/31/18 02/08/19 Rx [Duoneb 0.5 mg-3 mg/3 ml Soln] Albuterol Inhaler [Ventolin Hfa 1 - 2 puff INHALATION RT-Q6H PRN 06/13/18 02/08/19 History Inhaler] metFORMIN HCL [Glucophage] 1,000 mg PO BID 06/13/18 02/08/19 History ALPRAZolam [Xanax] 0.25 mg PO TID 02/08/19 02/08/19 History Atorvastatin [Lipitor] 80 mg PO DAILY 02/08/19 02/08/19 History Cyclobenzaprine [Flexeril] 10 mg PO TID 02/08/19 02/08/19 History Fluticasone/Vilanterol [Breo 1 puff INHALATION BID 02/08/19 02/08/19 History Ellipta 200-25 Mcg INH] Pioglitazone [Actos] 15 mg PO DAILY 02/08/19 02/08/19 History Allergies Allergy/AdvReac Type Severity Reaction Status Date / Time adhesive tape Allergy blisters Verified 02/08/19 08:34 skin Physical Exam Vitals: Vital Signs Temp Pulse Pulse Resp BP BP Pulse Ox 02/08/19 07:20 97.6 F 87 18 127/77 98 02/08/19 04:00 98.4 F 86 16 130/75 97 02/08/19 03:51 97.8 F 02/08/19 03:40 85 16 119/60 96 02/08/19 03:30 84 130/71 95 02/08/19 03:10 119/64 02/08/19 03:00 87 122/68 99 02/08/19 02:40 88 122/68 96 02/08/19 02:21 86 115/64 97 02/08/19 01:20 91 141/76 95 02/08/19 01:17 89 96 02/08/19 00:50 97.5 F L 92 18 136/76 99 Intake and Output 02/07/19 02/08/19 02/08/19 22:59 06:59 14:59 Intake Total 260 Balance 260 Intake: Intake, IV Titration 20 Amount Heparin Sod,Pork in 0.45% 20 NaCl 25,000 unit In 0.45 % NaCl 1 250ml.bag @ 10 mls/hr IV .Q24H [facility] Rx#: [id number] Oral 240 Other: Voiding Method Toilet Weight 87.543 kg Results 02/08/19 03:49 02/08/19 01:31 Cardiac Enzymes 02/08/19 02/08/19 02/08/19 Range/Units 01:31 01:31 03:49 AST 22 (14-36) U/L Troponin I <0.012 (0.000-0.034) ng/mL Coagulation 02/08/19 02/08/19 Range/Units 01:31 03:49 PT 13.6 H (9.0-12.0) sec APTT 22.7 38.5 H (22.0-30.0) sec CBC 02/08/19 02/08/19 Range/Units 01:31 03:49 WBC 9.9 (3.8-10.6) k/uL RBC 4.06 (3.80-5.40) m/uL Hgb 11.1 L (11.4-16.0) gm/dL Hct 34.0 (34.0-46.0) % Plt Count 352 377 (150-450) k/uL Comprehensive Metabolic Panel 02/08/19 Range/Units 01:31 Sodium 139 (137-145) mmol/L Potassium 4.2 (3.5-5.1) mmol/L Chloride 107 (98-107) mmol/L Carbon Dioxide 22 (22-30) mmol/L BUN 8 (7-17) mg/dL Creatinine 0.49 L (0.52-1.04) mg/dL Glucose 181 H (74-99) mg/dL Calcium 9.1 (8.4-10.2) mg/dL AST 22 (14-36) U/L ALT 20 (9-52) U/L Alkaline Phosphatase 65 (38-126) U/L Total Protein 6.3 (6.3-8.2) g/dL Albumin 3.5 (3.5-5.0) g/dL Current Medications Generic Name Dose Route Start Last Admin Trade Name Freq PRN Reason Stop Dose Admin Acetaminophen 650 mg 02/08/19 04:35 Tylenol Tab PO Q6HR PRN Fever and/ or Pain Acyclovir 400 mg 02/08/19 09:00 Zovirax PO DAILY [facility] Alprazolam 0.25 mg 02/08/19 09:00 Xanax PO BID [facility] Aspirin 325 mg 02/09/19 09:00 Aspirin PO DAILY [facility] Atorvastatin Calcium 80 mg 02/08/19 09:00 Lipitor PO DAILY [facility] Budesonide/Formoterol Fumarate 2 puff 02/08/19 08:00 Symbicort 160-4.5 Mcg Inhaler INHALATION RT-BID [facility] Cyclobenzaprine HCl 10 mg 02/08/19 05:00 02/08/19 05:12 Flexeril PO 10 mg HS [facility] Administration Estrogens Conjugated 0.625 mg 02/08/19 09:00 Premarin PO DAILY [facility] Fenofibrate 160 mg 02/08/19 09:00 Lofibra PO DAILY [facility] Gabapentin 400 mg 02/08/19 05:00 02/08/19 04:59 Neurontin PO 400 mg TID [facility] Administration Hyoscyamine 0.375 mg 02/08/19 09:00 Levsin PO DAILY [facility] Heparin Sodium/Sodium Chloride 250 mls @ 10 mls/hr 02/08/19 03:00 02/08/19 03:14 25,000 unit/ Sodium Chloride IV 10 mls/hr .Q24H [facility] 10 mls/hr Administration Protocol Insulin Aspart 0.01 unit 02/08/19 07:30 Novolog (For Pump) SQ-PUMP CONTINUOUS [facility] Lisinopril 5 mg 02/08/19 09:00 Zestril PO DAILY [facility] Metformin HCl 1,000 mg 02/08/19 09:00 Glucophage PO BID [facility] Nadolol 40 mg 02/08/19 09:00 Corgard PO DAILY [facility] Nitroglycerin 0.4 mg 02/08/19 02:49 Nitrostat SUBLINGUAL Q5M PRN Chest Pain Pioglitazone HCl 15 mg 02/08/19 09:00 Actos PO DAILY [facility] Sertraline HCl 50 mg 02/08/19 09:00 Zoloft PO TID [facility] Tramadol HCl 50 mg 02/08/19 07:37 Ultram PO TID PRN Pain Intake and Output 02/07/19 02/08/19 02/08/19 22:59 06:59 14:59 Intake Total 260 Balance 260 Intake: Intake, IV Titration 20 Amount Heparin Sod,Pork in 0.45% 20 NaCl 25,000 unit In 0.45 % NaCl 1 250ml.bag @ 10 mls/hr IV .Q24H [facility] Rx#: [id number] Oral 240 Other: Voiding Method Toilet Weight 87.543 kg 02/08/19 03:49 02/08/19 01:31
--- NOTE | 2019-02-08 11:03 | P.PN ---
Progress Note - Text Echocardiogram reviewed, moderate MR with EF of 50-55%. Most recent echo showed only trace MR. We have discussed this with Dr. Ignacio and he will see her in the office in 2 weeks and repeat a limited echo. Stable for discharge from a cardiac perspective.
[2019-02-08] MEDS ORDERED: INSPUCOR MISCELLANE PRN (11:09)
[2019-02-08] MEDS ORDERED: INSULIN PUMP BASAL RATES 1 EACH MISC MISCELLANE PRN (11:09)
[2019-02-08] MEDS ORDERED: INSULIN ASPART (NovoLOG) 100 UNIT/ML VIAL SQ PRN (11:09)
[2019-02-08] MEDS ORDERED: INSULIN PUMP ACTIVE INSULIN 1 EACH MISC MISCELLANE PRN (11:09)
[2019-02-08] MEDS ORDERED: INSULIN PUMP TARGET GLUCOSE 1 EACH MISC MISCELLANE PRN (11:09)
[2019-02-08 11:21] VITALS: BP 131/82; PULSE 80; TEMP 98.2
--- NOTE | 2019-02-08 11:30 | ECHOF ---
Referral Reason:Elevated BNP/CHF MEASUREMENTS -------- HEIGHT: 162.6 cm WEIGHT: 87.5 kg BP: RVIDd: 2.9 cm (< 3.3) IVSd: 1.2 cm (0.6 - 1.1) LVIDd: 5.0 cm (3.9 - 5.3) LVPWd: 1.1 cm (0.6 - 1.1) IVSs: 1.6 cm LVIDs: 3.8 cm LVPWs: 1.6 cm LA Diam: 3.7 cm (2.7 - 3.8) LAESV Index (A-L): 29.48 ml/m Ao Diam: 2.3 cm (2.0 - 3.7) AV Cusp: 1.7 cm (1.5 - 2.6) LA Diam: 4.0 cm (2.7 - 3.8) MV EXCURSION: 18.742 mm (> 18.000) MV EF SLOPE: 68 mm/s (70 - 150) EPSS: 0.8 cm MV E Jose Angel: 0.99 m/s MV DecT: 150 ms MV A Jose Angel: 0.74 m/s MV E/A Ratio: 1.34 RAP: 5.00 mmHg RVSP: 30.39 mmHg FINDINGS -------- Sinus rhythm. This was a technically adequate study. The left ventricular size is normal. There is borderline concentric left ventricular hypertrophy. Overall left ventricular systolic function is low-normal with, an EF between 50 - 55 %. The right ventricle is normal in size. The left atrium is mildly dilated. LA is midly dilated 29-33ml/m2. The right atrial size is normal. There is mild aortic valve sclerosis. There is no evidence of aortic regurgitation. Mild mitral annular calcification present. Moderate mitral regurgitation is present. Mild tricuspid regurgitation present. There is no evidence of pulmonary hypertension. The right v entricular systolic pressure, as measured by Doppler, is 30.39mmHg. There is no pulmonic regurgitation present. The aortic root size is normal. There is no pericardial effusion. CONCLUSIONS -------- 1. The left ventricular size is normal. 2. There is borderline concentric left ventricular hypertrophy. 3. Overall left ventricular systolic function is low-normal with, an EF between 50 - 55 %. 4. The right ventricle is normal in size. 5. The left atrium is mildly dilated. 6. LA is midly dilated 29-33ml/m2. 7. The right atrial size is normal. 8. Interatrial Septum not well visulized. 9. There is mild aortic valve sclerosis. 10. Mild mitral annular calcification present. 11. Mild tricuspid regurgitation present. 12. There is no evidence of pulmonary hypertension. 13. The right ventricular systolic pressure, as measured by Doppler, is 30.39mmHg. 14. There is no pulmonic regurgitation present. 15. The aortic root size is normal. 16. There is no pericardial effusion. PHOTOENGRAVING APPRENTICE: Karen Espinoza RDCS
[2019-02-08 11:35] LABS: Glucose,Whole Blood 171 mg/dL (75-99)
[2019-02-08] MEDS ORDERED: INSULIN PUMP MEAL BOLUS 1 UNIT MISC MISCELLANE SCH (12:30)
[2019-02-08 14:07] VITALS: BMI 33.1
[2019-02-09] MEDS ORDERED: ASPIRIN 325 MG TAB PO SCH (09:00)
== END 2019-02-08 14:08 | disposition home or self-care (01) ==
LOC: EC 00:49 → 1SOBS 02:58
PROVIDERS: ADMIT Family Medicine; ATTEND Family Medicine
DX: R07.89 Other chest pain (principal); J81.1 Chronic pulmonary edema; J44.9 Chronic obstructive pulmonary disease, unspecified; I10 Essential (primary) hypertension; E78.5 Hyperlipidemia, unspecified; E11.43 Type 2 diabetes mellitus with diabetic autonomic (poly)neuropathy; I49.8 Other specified cardiac arrhythmias; K31.84 Gastroparesis; E83.42 Hypomagnesemia; E03.9 Hypothyroidism, unspecified; F41.9 Anxiety disorder, unspecified; F32.9 Major depressive disorder, single episode, unspecified; E66.9 Obesity, unspecified; Z68.33 Body mass index [BMI] 33.0-33.9, adult; Z79.4 Long term (current) use of insulin; Z96.41 Presence of insulin pump (external) (internal); Z79.890 Hormone replacement therapy; Z79.51 Long term (current) use of inhaled steroids; Z79.899 Other long term (current) drug therapy; Z91.048 Other nonmedicinal substance allergy status; Z90.710 Acquired absence of both cervix and uterus; Z90.49 Acquired absence of other specified parts of digestive tract; Z87.891 Personal history of nicotine dependence; Z82.49 Family history of ischemic heart disease and other diseases of the circulatory system; Z82.3 Family history of stroke; Z80.9 Family history of malignant neoplasm, unspecified
CPT/HCPCS: 96374; 96375; 99285; 36415; 94640; 93005; 93306; 85379; 83880; 80053; 83735; 84484; 85025; 85049; 85610; 85730; 71046; G0378; J2060; J1644 ×2; J1940

== ENCOUNTER → 2019-03-02 | Outpatient (CLI) | payer BC ==
[2019-03-02 21:40] LABS: Hemoglobin A1C 7.8 % (4.0-6.0)
== END | disposition home or self-care (01) ==
LOC: LABWHC1 11:18
PROVIDERS: ATTEND Internal Medicine
DX: E11.65 Type 2 diabetes mellitus with hyperglycemia (principal)
CPT/HCPCS: 36415; 83036

== ENCOUNTER → 2019-06-18 | Outpatient (CLI) | payer BC ==
[2019-06-18 10:22] LABS: HCT 33.4 % (34.0-46.0); MCH 28.1 pg (25.0-35.0); MCHC 33.1 g/dL (31.0-37.0); MCV 84.9 fL (80.0-100.0); Mean Platelet Volume 7.4; Platelet Count 377 k/uL (150-450); RBC 3.93 m/uL (3.80-5.40); RDW 14.3 % (11.5-15.5); WBC 7.9 k/uL (3.8-10.6)
[2019-06-18 10:43] LABS: African American GFR (CKD) >90 (>60 ml/min/1.73 sqM); Anion Gap 10 mmol/L; Blood Urea Nitrogen 8 mg/dL (7-17); Carbon Dioxide 26 mmol/L (22-30); Chloride 103 mmol/L (98-107); Potassium 4.2 mmol/L (3.5-5.1); Sodium 139 mmol/L (137-145)
== END | disposition home or self-care (01) ==
LOC: LABPAT 09:17
PROVIDERS: ATTEND Internal Medicine Cardiovascular Disease
DX: Z01.812 Encounter for preprocedural laboratory examination (principal); R94.39 Abnormal result of other cardiovascular function study
CPT/HCPCS: 36415; 80051; 82565; 84520; 85027

== ENCOUNTER → 2019-06-22 | Day surgery (SDC) | payer BC ==
[2019-06-20 11:28] VITALS: BMI 32.1
[~2019-06-22] MED LIST changes: +ALPRAZolam 0.5 MG TAB PO PRN; -ASPIRIN 325 MG TAB PO ONE; +ASPIRIN 325 MG TAB PO STA; +ATORVASTATIN 80 MG TAB PO STA; +HYDROmorphone 1 MG/ML 1 ML SYRINGE IVP ONE; +HYDROmorphone 1 MG/ML 1 ML SYRINGE IVP STA; +HYDROmorphone 1 MG/ML 1 ML SYRINGE ONE; +IOPAMIDOL-370 100ML BTL INJ ONE; +IOPAMIDOL-370 50ML BTL INJ ONE; +LIDOCAINE 1% INJ 10MG/ML (20 ML MDV) ONE; +LIDOCAINE 1% INJ 10MG/ML (20 ML MDV) SQ ONE; +MIDAZOLAM (PF) 2 MG/2 ML VIAL IV ONE; +ONDANSETRON 4 MG/2 ML VIAL ONE; +RX INFO: IV CONTRAST WAS GIVEN 1 EACH MISC MISCELLANE PRN; +SODIUM CHLORIDE 0.9% 1,000 ML IV SCH; +VERAPAMIL 2.5 MG/ML 2 ML AMP ONE; +VERAPAMIL SYRINGE (5 MG/10 ML) INTRAARTER ONE; +fentaNYL (PF) 50 MCG/ML 2 ML AMP IV ONE; +fentaNYL (PF) 50 MCG/ML 2 ML AMP ONE
[2019-06-22 10:29] LABS: Glucose,Whole Blood 199 mg/dL (75-99)
[2019-06-22 10:31] VITALS: RESP 18; TEMP 99
--- NOTE | 2019-06-22 12:32 | P.CARDCATH ---
Date of Procedure: 06/22/19 Preoperative Diagnosis: Positive stress test chest pain Postoperative Diagnosis: Normal coronary arteries, normal LV function Procedure(s) Performed: Left heart catheterization with left ventriculography Description of Procedure: HISTORY: This is a 49-year-old female with history of recurrent chest pains who was evaluated by stress test which showed mild reversible ischemia in the anterior wall with ejection fraction 45%. Patient is advised to have a cardiac catheterization. Patient is also found to have mitral regurgitation. CONSENT:I have discussed the risks, benefits and alternative therapies for the above-mentioned procedure and for both sedation/analgesia as well as necessary blood product administration, if indicated, as they pertain to this patient. The patient has indicated understanding and acceptance of the risks and procedures discussed. PROCEDURE: Patient was brought to the lab in a fasting state. Patient was given some IV sedation. The right wrist is infiltrated with lidocaine and right radial l artery was entered using Seldinger technique. A 6-Lux[place]bourgish catheter was left in place and selective coronary arteriography and left ventriculography was performed. Patient tolerated the procedure well. TR band was applied for hemostasis. No immediate complications were noted and patient was transferred to [facility] in a stable condition Conscious Sedation: Versed 1.5mg Fentanyl 50 g, Dilaudid 0.5 mg Duration 37minutes HEMODYNAMICS: The aortic pressure is about 135/80. Left ankle end-diastolic pressure is 4 to 8. There was no gradient across the aortic valve SELECTIVE CORONARY ARTERIOGRAPHY: LEFT MAIN: Normal length and patent THE LEFT ANTERIOR DESCENDING CORONARY ARTERY:. Good caliber vessel giving rise to diagonal and septal branches. Free of any occlusive disease THE LEFT CIRCUMFLEX AND IS CORONARY ARTERY:. Good caliber vessel. Free of occlusive disease THE RIGHT CORONARY ARTERY:. Dominant vessel. Free of any occlusive disease LEFT VENTRICULOGRAPHY:. This revealed normal-sized cardiac silhouette with good systolic function. No evidence of any significant mitral regurgitation FINAL IMPRESSION: Normal coronary arteries. Normal LV function PLAN:. Medical therapy and this factor modification PROGNOSIS: Good
[2019-06-22 13:07] VITALS: BP 110/61; PULSE 106
== END | disposition home or self-care (01) ==
LOC: CATHCVL 09:48
PROVIDERS: ATTEND Internal Medicine Cardiovascular Disease
DX: R07.89 Other chest pain (principal); R94.39 Abnormal result of other cardiovascular function study; I95.1 Orthostatic hypotension; I42.9 Cardiomyopathy, unspecified; E11.9 Type 2 diabetes mellitus without complications; I10 Essential (primary) hypertension; E78.5 Hyperlipidemia, unspecified; G47.33 Obstructive sleep apnea (adult) (pediatric); J44.9 Chronic obstructive pulmonary disease, unspecified; I34.0 Nonrheumatic mitral (valve) insufficiency; F17.210 Nicotine dependence, cigarettes, uncomplicated; Z79.4 Long term (current) use of insulin; Z79.82 Long term (current) use of aspirin; Z79.899 Other long term (current) drug therapy; Z79.51 Long term (current) use of inhaled steroids; Z88.8 Allergy status to other drugs, medicaments and biological substances; Z82.49 Family history of ischemic heart disease and other diseases of the circulatory system; Z91.048 Other nonmedicinal substance allergy status
CPT/HCPCS: 93458; C1769; C1894; J2405; J2001; J3010; J1170; J1644; Q9967 ×2; J2250

== ENCOUNTER 2019-07-18 07:06 | Day surgery (SDC) | payer BC ==
[2019-07-13 15:29] VITALS: BMI 32.5
[~2019-07-18 07:06] MED LIST changes: -ALPRAZolam 0.25 MG TAB PO PRN; -ALPRAZolam 0.5 MG TAB PO PRN; -ASPIRIN 325 MG TAB PO STA; -ATORVASTATIN 80 MG TAB PO STA; -HYDROmorphone 1 MG/ML 1 ML SYRINGE IVP ONE; -HYDROmorphone 1 MG/ML 1 ML SYRINGE IVP STA; -HYDROmorphone 1 MG/ML 1 ML SYRINGE ONE; -IOPAMIDOL-370 100ML BTL INJ ONE; -IOPAMIDOL-370 50ML BTL INJ ONE; +LACTATED RINGERS 1,000 ML IV SCH; +LIDOCAINE 1% 20 ML VIAL (10MG/ML) FOR IV START INTRADERMA PRN; -LIDOCAINE 1% INJ 10MG/ML (20 ML MDV) ONE; -LIDOCAINE 1% INJ 10MG/ML (20 ML MDV) SQ ONE; -MIDAZOLAM (PF) 2 MG/2 ML VIAL IV ONE; -NITROGLYCERIN SL TABS 0.4 MG TAB SUBLINGUAL PRN; -ONDANSETRON 4 MG/2 ML VIAL ONE; -RX INFO: IV CONTRAST WAS GIVEN 1 EACH MISC MISCELLANE PRN; -SODIUM CHLORIDE 0.9% 1,000 ML IV SCH; -SODIUM CHLORIDE 0.9% 1,000 ML in EMPTY BAG 1 BAG IV ONE; -VERAPAMIL 2.5 MG/ML 2 ML AMP ONE; -VERAPAMIL SYRINGE (5 MG/10 ML) INTRAARTER ONE; -fentaNYL (PF) 50 MCG/ML 2 ML AMP IV ONE; -fentaNYL (PF) 50 MCG/ML 2 ML AMP ONE
[2019-07-18 07:26] VITALS: TEMP 98.1
[2019-07-18 07:29] LABS: Glucose,Whole Blood 201 mg/dL (75-99)
[2019-07-18] MEDS ORDERED: PROPOFOL 10 MG/ML 20 ML VIAL IV ONE (07:49)
--- NOTE | 2019-07-18 07:54 | P.GSHP ---
History of Present Illness H&P Date: 07/18/19 Chief Complaint: GI bleed This a 49-year-old female with history of GI bleed. Patient rents today for colonoscopy. She denies any blood with her bowel prep. Past Medical History Past Medical History: Asthma, Chest Pain / Angina, COPD, Diabetes Mellitus, Hyperlipidemia, Hypertension, Pneumonia, Thyroid Disorder Additional Past Medical History / Comment(s): Cardiomyopathy, Postural orthostatic tachycardia, (TELLO) hx of thyroid nodules, doctor is watching, gastroparesis, neuropathy bill feet, History of Any Multi-Drug Resistant Organisms: None Reported Past Surgical History: Appendectomy, Breast Surgery, Section, Cholecystectomy, Heart Catheterization, Hysterectomy, Orthopedic Surgery Additional Past Surgical History / Comment(s): left elbow repair, benign adenoma left breast, breast biopsies Past Anesthesia/Blood Transfusion Reactions: Postoperative Nausea & Vomiting (PONV) Smoking Status: Former smoker - Past Family History Father Family Medical History: Cancer, CVA/TIA, Hypertension Mother Family Medical History: Congestive Heart Failure (CHF), Myocardial Infarction ([place]) Additional Family Medical History / Comment(s): from [place] Brother(s) Family Medical History: Congestive Heart Failure (CHF) Additional Family Medical History / Comment(s): brother from [place]F Medications and Allergies Home Medications Medication Instructions Recorded Confirmed Type Acyclovir 400 mg PO DAILY 01/27/18 07/18/19 History Estrogens, Conjugated [Premarin] 0.625 mg PO DAILY 01/27/18 07/18/19 History Fenofibrate [Lofibra] 160 mg PO DAILY 01/27/18 07/18/19 History Gabapentin [Neurontin] 400 mg PO TID 01/27/18 07/18/19 History Hyoscyamine Sulfate [Levbid] 0.375 mg PO BID 01/27/18 07/18/19 History Insulin Aspart (For Pump) [NovoLOG 0.01 unit SQ-PUMP CONTINUOUS 01/27/18 07/18/19 History (For Pump)] Lisinopril [Zestril] 5 mg PO QAM 01/27/18 07/18/19 History Sertraline [Zoloft] 50 mg PO TID 01/27/18 07/18/19 History Ipratropium-Albuterol Nebulize 3 ml INHALATION QID PRN #120 neb 01/31/18 07/18/19 Rx [Duoneb 0.5 mg-3 mg/3 ml Soln] Albuterol Inhaler [Ventolin Hfa 1 - 2 puff INHALATION RT-Q6H PRN 06/13/18 07/18/19 History Inhaler] metFORMIN HCL [Glucophage] 1,000 mg PO BID 06/13/18 07/18/19 History ALPRAZolam [Xanax] 0.25 mg PO TID 02/08/19 07/18/19 History Atorvastatin [Lipitor] 80 mg PO DAILY 02/08/19 07/18/19 History Cyclobenzaprine [Flexeril] 10 mg PO HS 02/08/19 07/18/19 History Fluticasone/Vilanterol [Breo 1 puff INHALATION DAILY 02/08/19 07/18/19 History Ellipta 200-25 Mcg INH] Pioglitazone [Actos] 15 mg PO DAILY 02/08/19 07/18/19 History Aspirin 81 mg PO DAILY 06/20/19 07/18/19 History Furosemide [Lasix] 20 mg PO DAILY PRN 06/20/19 07/18/19 History Metoprolol Succinate (ER) [Toprol 50 mg PO QAM 06/20/19 07/18/19 History Xl] Digoxin [Lanoxin] 125 mcg PO DAILY 07/13/19 07/18/19 History Allergies Allergy/AdvReac Type Severity Reaction Status Date / Time adhesive tape Allergy blisters Verified 07/13/19 15:19 skin Surgical - Exam Vital Signs Temp Pulse Resp BP Pulse Ox 98.1 F 107 H 14 118/56 96 07/18/19 07:25 07/18/19 07:25 07/18/19 07:25 07/18/19 07:25 07/18/19 07:25 - General well developed, well nourished, no distress - Eyes PERRL - ENT normal pinna - Neck no masses - Respiratory normal expansion - Cardiovascular Rhythm: regular - Abdomen Abdomen: soft, non tender Results - Labs Abnormal Lab Results - Last 24 Hours (Table) 07/18/19 Range/Units 07:25 POC Glucose (mg/dL) 201 H (75-99) mg/dL Assessment and Plan Assessment: GI bleed. We'll perform colonoscopy.
[2019-07-18 08:34] VITALS: BP 119/76; PULSE 83; RESP 18
--- NOTE | 2019-07-18 09:24 | P.OP ---
Date of Procedure: 07/18/19 Preoperative Diagnosis: GI bleed Postoperative Diagnosis: Internal and external hemorrhoids Procedure(s) Performed: Colonoscopy Anesthesia: MAC Surgeon: Filiberto Casas Pathology: none sent Condition: stable Disposition: PACU Description of Procedure: The patient's placed on the endoscopy table in the lateral position. She received IV sedation. Digital rectal exam was performed which revealed internal and external hemorrhoids. Flexible colonoscope was then placed in the anus and passed throughout the entire colon. The ileocecal valve was visualized. The cecum, ascending and transverse colon appeared normal. The descending and sigmoid colon was tortuous. There were no polyps or tumors seen. The scope was then brought back the rectum this appeared normal. Scope withdrawn for patient.
== END 2019-07-18 08:42 | disposition home or self-care (01) ==
LOC: ORWHC2ENDO 07:06
PROVIDERS: ATTEND Surgery
DX: K64.4 Residual hemorrhoidal skin tags (principal); K64.8 Other hemorrhoids; Q43.8 Other specified congenital malformations of intestine; I20.9 Angina pectoris, unspecified; J44.9 Chronic obstructive pulmonary disease, unspecified; E78.5 Hyperlipidemia, unspecified; E07.9 Disorder of thyroid, unspecified; I11.9 Hypertensive heart disease without heart failure; I43 Cardiomyopathy in diseases classified elsewhere; I49.8 Other specified cardiac arrhythmias; E11.43 Type 2 diabetes mellitus with diabetic autonomic (poly)neuropathy; K31.84 Gastroparesis; E11.40 Type 2 diabetes mellitus with diabetic neuropathy, unspecified; F41.9 Anxiety disorder, unspecified; Z90.49 Acquired absence of other specified parts of digestive tract; Z90.710 Acquired absence of both cervix and uterus; Z87.891 Personal history of nicotine dependence; Z88.4 Allergy status to anesthetic agent; Z82.3 Family history of stroke; Z82.49 Family history of ischemic heart disease and other diseases of the circulatory system; Z79.890 Hormone replacement therapy; Z79.899 Other long term (current) drug therapy; Z79.4 Long term (current) use of insulin; Z79.51 Long term (current) use of inhaled steroids; Z79.82 Long term (current) use of aspirin; Z96.41 Presence of insulin pump (external) (internal); Z87.01 Personal history of pneumonia (recurrent); Z91.09 Other allergy status, other than to drugs and biological substances
CPT/HCPCS: 45378; J2704

== ENCOUNTER → 2019-08-06 | Outpatient (CLI) | payer BC ==
[2019-08-06 11:41] LABS: HCT 35.4 % (34.0-46.0); HGB 11.3 gm/dL (11.4-16.0); MCH 27.9 pg (25.0-35.0); MCHC 31.9 g/dL (31.0-37.0); MCV 87.5 fL (80.0-100.0); Platelet Count 419 k/uL (150-450); RBC 4.04 m/uL (3.80-5.40); RDW 13.5 % (11.5-15.5); WBC 10.4 k/uL (3.8-10.6)
[2019-08-06 18:27] LABS: African American GFR (CKD) 98.9 (60.0-200.0); Albumin 4.3 g/dL (3.80-4.90); Albumin/Globulin Ratio 1.87 (1.60-3.17); Anion Gap 8.5 mmol/L (4.00-12.00); Calcium 9.6 mg/dL (8.7-10.3); Carbon Dioxide 24.5 mmol/L (21.6-31.8); Chol/HDL Ratio 4.96; Globulin 2.3 g/dL (1.6-3.3); Potassium 4.8 mmol/L (3.5-5.5); Total Bilirubin 0.2 mg/dL (0.3-1.2); Total Protein 6.6 g/dL (6.2-8.2)
== END | disposition home or self-care (01) ==
LOC: LABWHC1 10:21
PROVIDERS: ATTEND Physician Assistant
DX: E78.5 Hyperlipidemia, unspecified (principal); R53.83 Other fatigue
CPT/HCPCS: 36415; 80053; 80061; 80162; 82306; 82607; 84443; 84481; 85027

== ENCOUNTER 2019-08-10 07:34 | Day surgery (SDC) | payer BC ==
[2019-08-08 13:51] VITALS: BMI 32.5
[~2019-08-10 07:34] MED LIST changes: +DEXAMETHASONE SOD PHOSPHATE 10 MG/ML 1 ML VIAL IV ONE; +FAMOTIDINE 20 MG/2 ML VIAL IV PRN; +HEPARIN SODIUM,PORCINE 5,000 UNIT/ML 1 ML VIAL SQ ONE; +HYDROmorphone 0.5 MG/0.5 ML SYRINGE IVP PRN; +NA PHOS,M-B/NA PHOS,DI-BA 133 ML ENEMA RECTAL ONE; +ONDANSETRON 4 MG/2 ML VIAL IVP ONE; +ONDANSETRON 4 MG/2 ML VIAL IVP PRN; +Pre Op ABX Message 1 EACH MISC MISCELLANE ONE
[2019-08-10] MEDS ORDERED: LACTATED RINGERS 1,000 ML IV ONE ×2 (07:58→10:20)
[2019-08-10 08:07] LABS: Glucose,Whole Blood 157 mg/dL (75-99)
[2019-08-10] MEDS ORDERED: SCOPOLAMINE 1.5MG/72HR PATCH TRANSDERM ONE (08:16)
--- NOTE | 2019-08-10 08:56 | P.GSHP ---
History of Present Illness H&P Date: 08/10/19 Chief Complaint: Internal and external hemorrhoids This is a 49-year-old female who presents today for her medically. Patient had trouble with burning, bleeding and itching from internal/external hemorrhoids. Past Medical History Past Medical History: Asthma, Chest Pain / Angina, COPD, Diabetes Mellitus, Fibromyalgia, GERD/Reflux, Hyperlipidemia, Hypertension, Pneumonia, Thyroid Disorder Additional Past Medical History / Comment(s): Cardiomyopathy, Postural orthostatic tachycardia, (TELLO) hx of thyroid nodules, doctor is watching, gastroparesis, neuropathy bill feet, History of Any Multi-Drug Resistant Organisms: None Reported Past Surgical History: Appendectomy, Breast Surgery, Section, Cholecystectomy, Heart Catheterization, Hysterectomy, Orthopedic Surgery Additional Past Surgical History / Comment(s): left elbow repair, benign adenoma left breast, breast biopsies Past Anesthesia/Blood Transfusion Reactions: Postoperative Nausea & Vomiting (PONV) Smoking Status: Former smoker - Past Family History Father Family Medical History: Cancer, CVA/TIA, Hypertension Mother Family Medical History: Congestive Heart Failure (CHF), Myocardial Infarction ([place]) Additional Family Medical History / Comment(s): from [place] Brother(s) Family Medical History: Congestive Heart Failure (CHF) Additional Family Medical History / Comment(s): brother from [place] Medications and Allergies Home Medications Medication Instructions Recorded Confirmed Type Acyclovir 400 mg PO QAM 01/27/18 08/08/19 History Estrogens, Conjugated [Premarin] 0.625 mg PO QAM 01/27/18 08/08/19 History Fenofibrate [Lofibra] 160 mg PO QAM 01/27/18 08/08/19 History Gabapentin [Neurontin] 400 mg PO TID 01/27/18 08/08/19 History Hyoscyamine Sulfate [Levbid] 0.375 mg PO BID 01/27/18 08/08/19 History Insulin Aspart (For Pump) [NovoLOG 0.01 unit SQ-PUMP CONTINUOUS 01/27/18 08/08/19 History (For Pump)] Lisinopril [Zestril] 5 mg PO QAM 01/27/18 08/08/19 History Sertraline [Zoloft] 50 mg PO TID 01/27/18 08/08/19 History Ipratropium-Albuterol Nebulize 3 ml INHALATION QID PRN #120 neb 01/31/18 08/08/19 Rx [Duoneb 0.5 mg-3 mg/3 ml Soln] Albuterol Inhaler [Ventolin Hfa 1 - 2 puff INHALATION RT-Q6H PRN 06/13/18 08/08/19 History Inhaler] metFORMIN HCL [Glucophage] 1,000 mg PO BID 06/13/18 08/08/19 History ALPRAZolam [Xanax] 0.25 mg PO TID 02/08/19 08/08/19 History Atorvastatin [Lipitor] 80 mg PO QAM 02/08/19 08/08/19 History Cyclobenzaprine [Flexeril] 10 mg PO HS 02/08/19 08/08/19 History Fluticasone/Vilanterol [Breo 1 puff INHALATION DAILY 02/08/19 08/08/19 History Ellipta 200-25 Mcg INH] Pioglitazone [Actos] 15 mg PO 1200 02/08/19 08/08/19 History Aspirin 81 mg PO DAILY 06/20/19 08/08/19 History Furosemide [Lasix] 20 mg PO DAILY PRN 06/20/19 08/08/19 History Metoprolol Succinate (ER) [Toprol 50 mg PO QAM 06/20/19 08/08/19 History Xl] Digoxin [Lanoxin] 125 mcg PO QAM 07/13/19 08/08/19 History Omeprazole Magnesium [PriLOSEC OTC] 20 mg PO DAILY 08/08/19 08/08/19 History Allergies Allergy/AdvReac Type Severity Reaction Status Date / Time adhesive tape Allergy blisters Verified 08/08/19 13:38 skin Surgical - Exam Vital Signs Temp Pulse Resp BP Pulse Ox 8 F L 94 18 135/58 98 08/10/19 07:50 08/10/19 07:50 08/10/19 07:50 08/10/19 07:50 08/10/19 07:50 - General well developed, well nourished, no distress - Eyes PERRL - ENT normal pinna - Neck no masses - Respiratory normal expansion - Cardiovascular Rhythm: regular - Abdomen Abdomen: soft, non tender Results - Labs Abnormal Lab Results - Last 24 Hours (Table) 08/10/19 Range/Units 08:05 POC Glucose (mg/dL) 157 H (75-99) mg/dL Assessment and Plan Assessment: Internal and external hemorrhoids. We'll perform embolectomy.
[2019-08-10] MEDS ORDERED: KETOROLAC 30 MG/ML 1 ML VIAL ONE (09:12)
[2019-08-10] MEDS ORDERED: LIDOCAINE 1% INJ 10MG/ML (20 ML MDV) ONE (09:12)
[2019-08-10] MEDS ORDERED: PROPOFOL 10 MG/ML 20 ML VIAL IV ONE (09:12)
[2019-08-10] MEDS ORDERED: MIDAZOLAM 2 MG/2 ML VIAL ONE (09:12)
[2019-08-10] MEDS ORDERED: fentaNYL (PF) 50 MCG/ML 2 ML AMP ONE (09:12)
[2019-08-10] MEDS ORDERED: SUCCINYLCHOLINE CHLORIDE 100 MG/5 ML SYR IV ONE (09:12)
[2019-08-10] MEDS ORDERED: SODIUM CHLORIDE 0.9% 100 ML with ceFAZolin 2,000 MG IV ONE ×2 (09:43)
[2019-08-10] MEDS ORDERED: LIDOCAINE 1%-EPI 1:100,000 20 ML VIAL SQ ONE ×2 (09:44→09:50)
[2019-08-10 10:08] VITALS: TEMP 98
--- NOTE | 2019-08-10 10:11 | P.OP ---
Date of Procedure: 08/10/19 Preoperative Diagnosis: Internal and external hemorrhoids Postoperative Diagnosis: Internal and external hemorrhoids Procedure(s) Performed: Internal and external hemorrhoidectomy Anesthesia: GABRIELLE Surgeon: Filiberto Casas Estimated Blood Loss (ml): 5 Pathology: other (Internal and external hemorrhoids) Condition: stable Disposition: PACU Description of Procedure: Patient's placed on the operative table in the prone position after receiving general anesthesia. Her anus was prepped and draped in sterile fashion. Patient had extensive internal and external hemorrhoids. The anal retractors placed and anus and then the left lateral hemorrhoidal column was grasped and then using Harmonic scissors the rectus performed. In a similar fashion the right anterior and right posterior hemorrhoid columns were excised. The bones uses. There is no bleeding seen. The anus was packed with Gelfoam. Patient top she will was sent to recovery room in stable condition.
[2019-08-10] MEDS ORDERED: HYDROcodone/APAP 5-325MG 1 EACH TAB PO ONE ×2 (10:18→10:54)
[2019-08-10 11:28] VITALS: RESP 18
[2019-08-10 11:59] VITALS: BP 124/66; PULSE 89
== END 2019-08-10 12:36 | disposition home or self-care (01) ==
LOC: OR 07:34
PROVIDERS: ATTEND Surgery
DX: K64.4 Residual hemorrhoidal skin tags (principal); K64.8 Other hemorrhoids; E78.5 Hyperlipidemia, unspecified; I10 Essential (primary) hypertension; I42.9 Cardiomyopathy, unspecified; J44.9 Chronic obstructive pulmonary disease, unspecified; K21.9 Gastro-esophageal reflux disease without esophagitis; M79.7 Fibromyalgia; Z79.4 Long term (current) use of insulin; Z79.82 Long term (current) use of aspirin; Z79.899 Other long term (current) drug therapy; Z82.49 Family history of ischemic heart disease and other diseases of the circulatory system; Z87.891 Personal history of nicotine dependence; E11.43 Type 2 diabetes mellitus with diabetic autonomic (poly)neuropathy; K31.84 Gastroparesis; E11.40 Type 2 diabetes mellitus with diabetic neuropathy, unspecified; Z90.49 Acquired absence of other specified parts of digestive tract; Z80.9 Family history of malignant neoplasm, unspecified; Z82.3 Family history of stroke; Z79.890 Hormone replacement therapy; Z88.8 Allergy status to other drugs, medicaments and biological substances
CPT/HCPCS: 88304; 46260; J2250; J1100; J2405; J0690; J2001; J3010; J1885; J0330; J2704

== ENCOUNTER → 2019-11-09 | Outpatient (CLI) | payer BC ==
[2019-11-09 18:23] LABS: Chol/HDL Ratio 4.21; LDL Cholesterol,Calculated 23.4 mg/dL (0.0-131.0); VLDL Calculation 66.6 mg/dL (5.00-40.00)
[2019-11-09 19:15] LABS: Urine Creatinine 158.3 mg/dL
[2019-11-09 19:33] LABS: Hemoglobin A1C 8.9 % (4.0-6.0)
== END | disposition home or self-care (01) ==
LOC: LABWHC1 09:19
PROVIDERS: ATTEND Internal Medicine
DX: E11.65 Type 2 diabetes mellitus with hyperglycemia (principal)
CPT/HCPCS: 36415; 80061; 82043; 82570; 83036

== ENCOUNTER 2020-01-06 | Emergency (ER) | payer BC | END 2020-01-06 05:15 | disposition home or self-care (01) | CPT/HCPCS: 36415; 93005; 83880; 80053; 83605; 83735; 84484; 85025; 85610; 85730; 87081; 87430; 87502; 71046; 99285; 96374; J2930 ==

== ENCOUNTER 2020-01-25 05:36 | Emergency (ER) | payer BC ==
[2020-01-25] MEDS ORDERED: SODIUM CHLORIDE 0.9% 500 ML 500 ML IV ONE (05:47)
--- NOTE | 2020-01-25 06:10 | ED ---
URI HPI - General Chief Complaint: Upper Respiratory Infection Stated Complaint: SOB Time Seen by Provider: 01/25/20 05:46 Source: patient Mode of arrival: ambulatory Limitations: no limitations - History of Present Illness Initial Comments: Kait is a 50-year-old female with history of asthma and COPD presents to the ER today for reevaluation of cough and shortness of breath. Patient reports that symptoms began at the beginning of December, she was seen by her primary care provider and prescribed antibiotics and steroids with some temporary improvement however her symptoms recurred and she was seen and evaluated in the emergency department on January 05. Chest x-ray at that time was concerning for possible viral pneumonia versus heart failure with some interstitial edema. At that time patient declined admission to hospital, she was discharged home again with oral steroids. She reports she subsequently followed up with her primary care physician a second time and was prescribed oxygen to wear at night due to her report of worsening shortness of breath at night. She reports that despite being compliant with her home breathing treatments and wearing oxygen 90 she continues to have a nonproductive cough which is worse at night and she cont inues to feel as though she can't get a deep breath. Patient reports she did have subjective fevers in the past few days. She did have 1 day of diarrhea in the past week. She denies any additional symptoms. - Related Data Home Medications Medication Instructions Recorded Confirmed Acyclovir 400 mg PO QAM 01/27/18 08/08/19 Estrogens, Conjugated [Premarin] 0.625 mg PO QAM 01/27/18 08/08/19 Fenofibrate [Lofibra] 160 mg PO QAM 01/27/18 08/08/19 Gabapentin [Neurontin] 400 mg PO TID 01/27/18 08/08/19 Hyoscyamine Sulfate [Levbid] 0.375 mg PO BID 01/27/18 08/08/19 Insulin Aspart (For Pump) [NovoLOG 0.01 unit SQ-PUMP CONTINUOUS 01/27/18 08/08/19 (For Pump)] Lisinopril [Zestril] 5 mg PO QAM 01/27/18 08/08/19 Sertraline [Zoloft] 50 mg PO TID 01/27/18 08/08/19 Albuterol Inhaler (Bulk) [Ventolin 1 - 2 puff INHALATION RT-Q6H PRN 06/13/18 08/08/19 Hfa Inhaler] metFORMIN HCL [Glucophage] 1,000 mg PO BID 06/13/18 08/08/19 ALPRAZolam [Xanax] 0.25 mg PO TID 02/08/19 08/08/19 Atorvastatin [Lipitor] 80 mg PO QAM 02/08/19 08/08/19 Cyclobenzaprine [Flexeril] 10 mg PO HS 02/08/19 08/08/19 Fluticasone/Vilanterol [Breo 1 puff INHALATION DAILY 02/08/19 08/08/19 Ellipta 200-25 Mcg INH] Pioglitazone [Actos] 15 mg PO 1200 02/08/19 08/08/19 Aspirin 81 mg PO DAILY 06/20/19 08/08/19 Furosemide [Lasix] 20 mg PO DAILY PRN 06/20/19 08/08/19 Metoprolol Succinate (ER) [Toprol 50 mg PO QAM 06/20/19 08/08/19 Xl] Digoxin [Lanoxin] 125 mcg PO QAM 07/13/19 08/08/19 Omeprazole Magnesium [PriLOSEC OTC] 20 mg PO DAILY 08/08/19 08/08/19 Previous Rx's Medication Instructions Recorded Ipratropium-Albuterol Nebulize 3 ml INHALATION QID PRN #120 neb 01/31/18 [Duoneb 0.5 mg-3 mg/3 ml Soln] Docusate [Colace] 100 mg PO BID #20 capsule 08/10/19 HYDROcodone/APAP 5-325MG [[place] 1 tab PO Q6HR PRN #10 tab 08/10/19 5-325] Allergies Allergy/AdvReac Type Severity Reaction Status Date / Time adhesive tape Allergy blisters Verified 01/25/20 05:44 skin Review of Systems ROS Statement: Those systems with pertinent positive or pertinent negative responses have been documented in the HPI. ROS Other: All systems not noted in ROS Statement are negative. Past Medical History Past Medical History: Asthma, Chest Pain / Angina, COPD, Diabetes Mellitus, Hyperlipidemia, Hypertension, Pneumonia, Thyroid Disorder Additional Past Medical History / Comment(s): Cardiomyopathy, Postural orthostatic tachycardia, (TELLO) hx of thyroid nodules, doctor is watching, gastroparesis, neuropathy bill feet, History of Any Multi-Drug Resistant Organisms: None Reported Past Surgical History: Appendectomy, Breast Surgery, Section, Cholecystectomy, Heart Catheterization, Hysterectomy, Orthopedic Surgery Additional Past Surgical History / Comment(s): left elbow repair, benign adenoma left breast, breast biopsies Past Anesthesia/Blood Transfusion Reactions: Postoperative Nausea & Vomiting (PONV) Past Psychological History: Anxiety, Depression Smoking Status: Former smoker Past Alcohol Use History: None Reported Past Drug Use History: None Reported - Past Family History Father Family Medical History: Cancer, CVA/TIA, Hypertension Mother Family Medical History: Congestive Heart Failure (CHF), Myocardial Infarction ([place]) Additional Family Medical History / Comment(s): from [place] Brother(s) Family Medical History: Congestive Heart Failure (CHF) Additional Family Medical History / Comment(s): brother from [place] General Exam - General Exam Comments Initial Comments: Physical Exam GENERAL: Patient is well-developed and well-nourished. Patient is nontoxic and well- hydrated and is in no distress. HENT: Normocephalic, Atraumatic. EYES: PERRL, EOMI PULMONARY: Unlabored respirations. No audible rales rhonchi or wheezing was noted. Bronchospastic cough CARDIOVASCULAR: There is a regular rate and rhythm without any murmurs gallops or rubs. ABDOMEN: Obese Soft and nontender with normal bowel sounds. SKIN: Skin is clear with no lesions or rashes and otherwise unremarkable. : Deferred NEUROLOGIC: Patient is alert and oriented x3. Moving all extremities spontaneously MUSCULOSKELETAL: Normal extremities with adequate strength and full range of motion. No lower extremity swelling or edema. No calf tenderness. PSYCHIATRIC: Normal psychiatric evaluation. Limitations: no limitations Course Vital Signs 01/25/20 01/25/20 01/25/20 05:41 06:06 06:12 Temperature 98.3 F Pulse Rate 101 H Respiratory 20 20 Rate Blood Pressure 105/51 O2 Sat by Pulse 98 96 Oximetry 01/25/20 01/25/20 06:20 06:40 Temperature Pulse Rate Respiratory Rate Blood Pressure 121/67 112/71 O2 Sat by Pulse 94 L 97 Oximetry Medical Decision Making - Medical Decision Making Patient stable with 1 mo of cough and SOB Labs and repeat CXR ordered No hypoxia noted Patient requesting COVID testing, advised her she does not meet criteria, also having the symptoms for >4 wks unlikely she would continue to test positive Labs not consistent with COVID - patient reassured Patient comfortable with plan for discharge home, continued supportive care, follow up with her Pulmonolgist Dr May in the out patient setting. - Lab Data Result diagrams: 01/25/20 06:09 01/25/20 06:09 Lab Results 01/25/20 01/25/20 01/25/20 Range/Units 06:09 06:09 06:09 WBC 9.7 (3.8-10.6) k/uL RBC 3.69 L (3.80-5.40) m/uL Hgb 9.5 L (11.4-16.0) gm/dL Hct 29.8 L (34.0-46.0) % MCV 80.9 (80.0-100.0) fL MCH 25.8 (25.0-35.0) pg MCHC 32.0 (31.0-37.0) g/dL RDW 14.6 (11.5-15.5) % Plt Count 469 H (150-450) k/uL Neutrophils % 64 % Lymphocytes % 29 % Monocytes % 4 % Eosinophils % 1 % Basophils % 1 % Neutrophils # 6.2 (1.3-7.7) k/uL Lymphocytes # 2.9 (1.0-4.8) k/uL Monocytes # 0.4 (0-1.0) k/uL Eosinophils # 0.1 (0-0.7) k/uL Basophils # 0.1 (0-0.2) k/uL Hypochromasia Slight Sodium 136 L (137-145) mmol/L Potassium 4.9 (3.5-5.1) mmol/L Chloride 102 (98-107) mmol/L Carbon Dioxide 23 (22-30) mmol/L Anion Gap 11 mmol/L BUN 12 (7-17) mg/dL Creatinine 0.69 (0.52-1.04) mg/dL Est GFR (CKD-EPI)AfAm >90 (>60 ml/min/1.73 sqM) Est GFR (CKD-EPI)NonAf >90 (>60 ml/min/1.73 sqM) Glucose 249 H (74-99) mg/dL Calcium 9.9 (8.4-10.2) mg/dL Total Bilirubin 0.4 (0.2-1.3) mg/dL AST 32 (14-36) U/L ALT 19 (4-34) U/L Alkaline Phosphatase 71 (38-126) U/L C-Reactive Protein 18.7 H (<10.0) mg/L NT-Pro-B Natriuret Pep 3520 pg/mL Total Protein 6.6 (6.3-8.2) g/dL Albumin 3.5 (3.5-5.0) g/dL Disposition Clinical Impression: Acute upper respiratory infection Disposition: HOME SELF-CARE Condition: Stable Instructions (If sedation given, give patient instructions): Upper Respiratory Infection (ED) Is patient prescribed a controlled substance at d/c from ED?: No Referrals: Alber Chau MD [Primary Care Provider] - 1-2 days
[2020-01-25 06:21] LABS: Basophils # (A) 0.1 k/uL (0-0.2); Basophils % (A) 1 %; Eosinophils # (A) 0.1 k/uL (0-0.7); Eosinophils % (A) 1 %; HCT 29.8 % (34.0-46.0); HGB 9.5 gm/dL (11.4-16.0); Hypochromasia Slight; Lymphocytes # (A) 2.9 k/uL (1.0-4.8); Lymphocytes % (A) 29 %; MCH 25.8 pg (25.0-35.0); MCV 80.9 fL (80.0-100.0); Mean Platelet Volume 8.2; Monocytes # (A) 0.4 k/uL (0-1.0); Monocytes % (A) 4 %; Neutrophils # (A) 6.2 k/uL (1.3-7.7); Neutrophils % (A) 64 %; Platelet Count 469 k/uL (150-450); RBC 3.69 m/uL (3.80-5.40); RDW 14.6 % (11.5-15.5); WBC 9.7 k/uL (3.8-10.6)
[2020-01-25 06:41] VITALS: BP 112/71
--- NOTE | 2020-01-25 06:45 | XR ---
EXAMINATION TYPE: XR chest 1V portable DATE OF EXAM: 01/25/2020 COMPARISON: 01/06/2020 HISTORY: Difficulty breathing. Cough. TECHNIQUE: Single view FINDINGS: Heart appears enlarged. There is no heart failure. There is coarse lung markings in the low er lobes bilaterally. Upper lung martinez are clear. There are no hilar masses. There is no pleural eff usion. IMPRESSION: Mild bilateral lower lobe pulmonary interstitial infiltrates similar to old exam. No elen s heart failure.
[2020-01-25 07:15] LABS: ALT 19 U/L (4-34); AST 32 U/L (14-36); African American GFR (CKD) >90 (>60 ml/min/1.73 sqM); Albumin 3.5 g/dL (3.5-5.0); Alkaline Phosphatase 71 U/L (38-126); Anion Gap 11 mmol/L; Blood Urea Nitrogen 12 mg/dL (7-17); Calcium 9.9 mg/dL (8.4-10.2); Carbon Dioxide 23 mmol/L (22-30); Chloride 102 mmol/L (98-107); Glucose 249 mg/dL (74-99); Non-African American GFR(CKD) >90 (>60 ml/min/1.73 sqM); Potassium 4.9 mmol/L (3.5-5.1); Sodium 136 mmol/L (137-145); Total Bilirubin 0.4 mg/dL (0.2-1.3); Total Protein 6.6 g/dL (6.3-8.2)
[2020-01-25 07:27] LABS: C Reactive Protein 18.7 mg/L (<10.0)
[2020-01-25 07:35] VITALS: PULSE 75; RESP 16; TEMP 98.1
== END 2020-01-25 07:37 | disposition home or self-care (01) ==
LOC: EC 05:36
DX: J06.9 Acute upper respiratory infection, unspecified (principal); I20.9 Angina pectoris, unspecified; J44.9 Chronic obstructive pulmonary disease, unspecified; E11.43 Type 2 diabetes mellitus with diabetic autonomic (poly)neuropathy; K31.84 Gastroparesis; E11.42 Type 2 diabetes mellitus with diabetic polyneuropathy; E78.5 Hyperlipidemia, unspecified; I11.9 Hypertensive heart disease without heart failure; F32.9 Major depressive disorder, single episode, unspecified; F41.9 Anxiety disorder, unspecified; Z87.891 Personal history of nicotine dependence; Z91.048 Other nonmedicinal substance allergy status; Z79.4 Long term (current) use of insulin; Z79.51 Long term (current) use of inhaled steroids; Z79.82 Long term (current) use of aspirin; Z79.890 Hormone replacement therapy; Z79.899 Other long term (current) drug therapy; Z96.41 Presence of insulin pump (external) (internal); Z87.01 Personal history of pneumonia (recurrent); Z87.19 Personal history of other diseases of the digestive system
CPT/HCPCS: 36415; 71045; 80053; 83880; 85025; 86140; 96360; 99285

== ENCOUNTER 2020-02-08 11:24 | Inpatient (IN) | payer BC ==
--- NOTE | 2020-02-08 11:59 | ED ---
General Adult HPI - General Chief complaint: Chest Pain Stated complaint: water retention/chest pressure Time Seen by Provider: 02/08/20 11:36 Source: patient Mode of arrival: wheelchair Limitations: no limitations - History of Present Illness Initial comments: Patient is a 50-year-old female, with history of COPD, CHF, diabetes, hypertension, presenting to the emergency Department with complaints of chest pressure as well as retaining water for the past 2 weeks. Patient states she has been in contact with her siphon operator, Dr. Miller, who has been increasing her Lasix and told her that if she continued to gain weight to come to the ER for evaluation. Patient states she has been seen in the ER twice in the past month for viral pneumonia. She states she is still having a mild cough. She is also complaining of mild chest pressure that started a few days ago. She denies any sharp pains just pressure. She denies any abdominal complaints such as nausea, vomiting, abdominal pain. She states she feels like she is urinating less for the past few days. She denies any fever, chills. She has no other complaints at this time. Upon arrival to the ER, vital signs are stable. - Related Data Home Medications Medication Instructions Recorded Confirmed Acyclovir 400 mg PO QAM 01/27/18 08/08/19 Estrogens, Conjugated [Premarin] 0.625 mg PO QAM 01/27/18 08/08/19 Fenofibrate [Lofibra] 160 mg PO QAM 01/27/18 08/08/19 Gabapentin [Neurontin] 400 mg PO TID 01/27/18 08/08/19 Hyoscyamine Sulfate [Levbid] 0.375 mg PO BID 01/27/18 08/08/19 Insulin Aspart (For Pump) [NovoLOG 0.01 unit SQ-PUMP CONTINUOUS 01/27/18 08/08/19 (For Pump)] Lisinopril [Zestril] 5 mg PO QAM 01/27/18 08/08/19 Sertraline [Zoloft] 50 mg PO TID 01/27/18 08/08/19 Albuterol Inhaler (Bulk) [Ventolin 1 - 2 puff INHALATION RT-Q6H PRN 06/13/18 08/08/19 Hfa Inhaler] metFORMIN HCL [Glucophage] 1,000 mg PO BID 06/13/18 08/08/19 ALPRAZolam [Xanax] 0.25 mg PO TID 02/08/19 08/08/19 Atorvastatin [Lipitor] 80 mg PO QAM 02/08/19 08/08/19 Cyclobenzaprine [Flexeril] 10 mg PO HS 02/08/19 08/08/19 Fluticasone/Vilanterol [Breo 1 puff INHALATION DAILY 02/08/19 08/08/19 Ellipta 200-25 Mcg INH] Pioglitazone [Actos] 15 mg PO 1200 02/08/19 08/08/19 Aspirin 81 mg PO DAILY 06/20/19 08/08/19 Furosemide [Lasix] 20 mg PO DAILY PRN 06/20/19 08/08/19 Metoprolol Succinate (ER) [Toprol 50 mg PO QAM 06/20/19 08/08/19 Xl] Digoxin [Lanoxin] 125 mcg PO QAM 07/13/19 08/08/19 Omeprazole Magnesium [PriLOSEC OTC] 20 mg PO DAILY 08/08/19 08/08/19 Previous Rx's Medication Instructions Recorded Ipratropium-Albuterol Nebulize 3 ml INHALATION QID PRN #120 neb 01/31/18 [Duoneb 0.5 mg-3 mg/3 ml Soln] Docusate [Colace] 100 mg PO BID #20 capsule 08/10/19 HYDROcodone/APAP 5-325MG [[place] 1 tab PO Q6HR PRN #10 tab 08/10/19 5-325] Allergies Allergy/AdvReac Type Severity Reaction Status Date / Time adhesive tape Allergy blisters Verified 02/08/20 11:30 skin Review of Systems ROS Statement: Those systems with pertinent positive or pertinent negative responses have been documented in the HPI. ROS Other: All systems not noted in ROS Statement are negative. Past Medical History Past Medical History: Asthma, Chest Pain / Angina, COPD, Diabetes Mellitus, Hyperlipidemia, Hypertension, Pneumonia, Thyroid Disorder Additional Past Medical History / Comment(s): Cardiomyopathy, Postural orthostat ic tachycardia, (TELLO) hx of thyroid nodules, doctor is watching, gastroparesis, neuropathy bill feet, History of Any Multi-Drug Resistant Organisms: None Reported Past Surgical History: Appendectomy, Breast Surgery, Section, Cholecystectomy, Heart Catheterization, Hysterectomy, Orthopedic Surgery Additional Past Surgical History / Comment(s): left elbow repair, benign adenoma left breast, breast biopsies Past Anesthesia/Blood Transfusion Reactions: Postoperative Nausea & Vomiting (PONV) Past Psychological History: Anxiety, Depression Smoking Status: Former smoker Past Alcohol Use History: None Reported Past Drug Use History: None Reported - Past Family History Father Family Medical History: Cancer, CVA/TIA, Hypertension Mother Family Medical History: Congestive Heart Failure (CHF), Myocardial Infarction ([place]) Additional Family Medical History / Comment(s): from [place] Brother(s) Family Medical History: Congestive Heart Failure (CHF) Additional Family Medical History / Comment(s): brother from [place] General Exam - General Exam Comments Initial Comments: GENERAL: Well-appearing, well-nourished and in no acute distress. HEAD: Atraumatic, normocephalic. EYES: Pupils equal round and reactive to light, extraocular movements intact, sclera anicteric, conjunctiva are normal. ENT: TMs normal, nares patent, oropharynx clear without exudates. Moist mucous membranes. NECK: Normal range of motion, supple without lymphadenopathy or JVD. LUNGS: Breath sounds clear to auscultation bilaterally and equal. No wheezes rales or rhonchi. HEART: Regular rate and rhythm without murmurs, rubs or gallops. ABDOMEN: Soft, nontender, normoactive bowel sounds. No guarding, no rebound. No masses appreciated. Large abdomen. : Deferred EXTREMITIES: Normal range of motion, no pitting or edema. No clubbing or cyanosis. NEUROLOGICAL: Normal speech, normal gait. PSYCH: Normal mood, normal affect. SKIN: Warm, Dry, normal turgor, no rashes or lesions noted. Limitations: no limitations Course Vital Signs 02/08/20 02/08/20 02/08/20 11:28 12:15 13:00 Temperature 97.9 F Pulse Rate 98 97 96 Respiratory 18 20 20 Rate Blood Pressure 110/59 118/75 107/62 O2 Sat by Pulse 95 99 99 Oximetry EKG Findings - EKG Comments: EKG Findings:: Ventricular rate 98, P of 184, QTC 444. Normal sinus rhythm. No signs of acute ischemia. Similar to previous EKG on 01/06/2020. Medical Decision Making - Medical Decision Making Patient is a 50-year-old female here for water retention and chest pressure. She is maintaining water for the last 2 weeks. Her siphon operator Dr. Miller. She has been increasing her Lasix but she continues to gain weight. Patient's vitals on arrival are normal. Exam reveals no acute findings, patient has a large abdomen. Lab work reveals slight leukocytosis at 10.7, PTT is increased at 19.1, INR is 2.0. Patient is not on blood thinners. Patient's liver enzymes are elevated, AST is 1204, ALT is 627. Troponin is normal. Glucose is 251. Urine has no abnormalities. Chest x-ray shows early volume overload or CHF. EKG has no acute findings. Patient will be admitted for acute liver failure, CHF. Patient was given IV Lasix. Hepatitis panel, mono, Covid testing is pending at this time. Ultrasound of liver was also ordered and is pending. Patient was accepted by Dr. Chau. GI and cardiology will both be consulted. Case was discussed with Dr. Solomon. - Lab Data Result diagrams: 02/08/20 11:55 02/08/20 11:55 Lab Results 02/08/20 02/08/20 02/08/20 Range/Units 11:55 11:55 11:55 WBC 10.7 H (3.8-10.6) k/uL RBC 3.84 (3.80-5.40) m/uL Hgb 9.3 L (11.4-16.0) gm/dL Hct 30.4 L (34.0-46.0) % MCV 79.3 L (80.0-100.0) fL MCH 24.1 L (25.0-35.0) pg MCHC 30.5 L (31.0-37.0) g/dL RDW 14.4 (11.5-15.5) % Plt Count 436 (150-450) k/uL Neutrophils % 76 % Lymphocytes % 15 % Monocytes % 7 % Eosinophils % 1 % Basophils % 0 % Neutrophils # 8.2 H (1.3-7.7) k/uL Lymphocytes # 1.7 (1.0-4.8) k/uL Monocytes # 0.7 (0-1.0) k/uL Eosinophils # 0.1 (0-0.7) k/uL Basophils # 0.0 (0-0.2) k/uL Hypochromasia Marked Poikilocytosis Slight PT 19.1 H (9.0-12.0) sec INR 2.0 H (<1.2) APTT 24.7 (22.0-30.0) sec Sodium 134 L (137-145) mmol/L Potassium 5.2 H (3.5-5.1) mmol/L Chloride 97 L (98-107) mmol/L Carbon Dioxide 24 (22-30) mmol/L Anion Gap 13 mmol/L BUN 22 H (7-17) mg/dL Creatinine 0.94 (0.52-1.04) mg/dL Est GFR (CKD-EPI)AfAm 81 (>60 ml/min/1.73 sqM) Est GFR (CKD-EPI)NonAf 70 (>60 ml/min/1.73 sqM) Glucose 251 H (74-99) mg/dL Calcium 8.6 (8.4-10.2) mg/dL Magnesium 1.9 (1.6-2.3) mg/dL Total Bilirubin 1.5 H (0.2-1.3) mg/dL AST 1204 H (14-36) U/L ALT 627 H (4-34) U/L Alkaline Phosphatase 97 (38-126) U/L Troponin I (0.000-0.034) ng/mL NT-Pro-B Natriuret Pep pg/mL Total Protein 6.6 (6.3-8.2) g/dL Albumin 3.2 L (3.5-5.0) g/dL Urine Color Urine Appearance (Clear) Urine pH (5.0-8.0) Ur Specific [place] (1.001-1.035) Urine Protein (Negative) Urine Glucose (UA) (Negative) Urine Ketones (Negative) Urine Blood (Negative) Urine Nitrite (Negative) Urine Bilirubin (Negative) Urine Urobilinogen (<2.0) mg/dL Ur Leukocyte Esterase (Negative) 02/08/20 02/08/20 02/08/20 Range/Units 11:55 11:55 12:20 WBC (3.8-10.6) k/uL RBC (3.80-5.40) m/uL Hgb (11.4-16.0) gm/dL Hct (34.0-46.0) % MCV (80.0-100.0) fL MCH (25.0-35.0) pg MCHC (31.0-37.0) g/dL RDW (11.5-15.5) % Plt Count (150-450) k/uL Neutrophils % % Lymphocytes % % Monocytes % % Eosinophils % % Basophils % % Neutrophils # (1.3-7.7) k/uL Lymphocytes # (1.0-4.8) k/uL Monocytes # (0-1.0) k/uL Eosinophils # (0-0.7) k/uL Basophils # (0-0.2) k/uL Hypochromasia Poikilocytosis PT (9.0-12.0) sec INR (<1.2) APTT (22.0-30.0) sec Sodium (137-145) mmol/L Potassium (3.5-5.1) mmol/L Chloride (98-107) mmol/L Carbon Dioxide (22-30) mmol/L Anion Gap mmol/L BUN (7-17) mg/dL Creatinine (0.52-1.04) mg/dL Est GFR (CKD-EPI)AfAm (>60 ml/min/1.73 sqM) Est GFR (CKD-EPI)NonAf (>60 ml/min/1.73 sqM) Glucose (74-99) mg/dL Calcium (8.4-10.2) mg/dL Magnesium (1.6-2.3) mg/dL Total Bilirubin (0.2-1.3) mg/dL AST (14-36) U/L ALT (4-34) U/L Alkaline Phosphatase (38-126) U/L Troponin I <0.012 (0.000-0.034) ng/mL NT-Pro-B Natriuret Pep 4490 pg/mL Total Protein (6.3-8.2) g/dL Albumin (3.5-5.0) g/dL Urine Color Yellow Urine Appearance Clear (Clear) Urine pH 5.0 (5.0-8.0) Ur Specific [place] 1.009 (1.001-1.035) Urine Protein Negative (Negative) Urine Glucose (UA) Negative (Negative) Urine Ketones Negative (Negative) Urine Blood Negative (Negative) Urine Nitrite Negative (Negative) Urine Bilirubin Negative (Negative) Urine Urobilinogen <2.0 (<2.0) mg/dL Ur Leukocyte Esterase Negative (Negative) Disposition Clinical Impression: Acute liver failure, Fluid overload, Chest pressure, CHF (congestive heart failure) Disposition: ADMITTED IP TO THIS HOSP Condition: Good Is patient prescribed a controlled substance at d/c from ED?: No Referrals: Alber Chau MD [Primary Care Provider] - 1-2 days Decision Date: 02/08/20 Decision Time: 13:37
--- NOTE | 2020-02-08 12:24 | XR ---
EXAMINATION TYPE: XR chest 2V DATE OF EXAM: 02/08/2020 COMPARISON: 01/25/2020 INDICATION: Chest pain, fluid retention chest pressure TECHNIQUE: Frontal and lateral views of the chest are obtained. FINDINGS: The heart size is enlarged. The pulmonary vasculature is mildly prominent. There is some linear opacity in the left midlung could be some atelectasis or Kearly B signs.. IMPRESSION: 1. Clinical consideration for early volume overload or congestive heart failure is recommended.
[2020-02-08 12:36] LABS: Partial Thromboplastin Time 24.7 sec (22.0-30.0); Prothrombin Time 19.1 sec (9.0-12.0)
[2020-02-08 12:40] LABS: Albumin 3.2 g/dL (3.5-5.0); Calcium 8.6 mg/dL (8.4-10.2); Magnesium 1.9 mg/dL (1.6-2.3); Potassium 5.2 mmol/L (3.5-5.1); Total Bilirubin 1.5 mg/dL (0.2-1.3); Total Protein 6.6 g/dL (6.3-8.2)
[2020-02-08 12:40] LABS: Appearance,Urine Clear (Clear); Bilirubin,Urine Negative (Negative); Blood,Urine Negative (Negative); Color,Urine Yellow; Glucose,Urine (UA) Negative (Negative); Ketones,Urine Negative (Negative); Leukocyte Esterase,Urine Negative (Negative); Nitrite,Urine Negative (Negative); Protein,Urine Negative (Negative); Specific Gravity,Urine 1.009 (1.001-1.035); Urobilinogen,Urine <2.0 mg/dL (<2.0)
[2020-02-08 12:54] LABS: Basophils % (A) 0 %; Eosinophils # (A) 0.1 k/uL (0-0.7); Eosinophils % (A) 1 %; HCT 30.4 % (34.0-46.0); HGB 9.3 gm/dL (11.4-16.0); Hypochromasia Marked; Lymphocytes # (A) 1.7 k/uL (1.0-4.8); Lymphocytes % (A) 15 %; MCH 24.1 pg (25.0-35.0); MCHC 30.5 g/dL (31.0-37.0); MCV 79.3 fL (80.0-100.0); Mean Platelet Volume 9.1; Monocytes # (A) 0.7 k/uL (0-1.0); Monocytes % (A) 7 %; Neutrophils # (A) 8.2 k/uL (1.3-7.7); Neutrophils % (A) 76 %; Platelet Count 436 k/uL (150-450); Poikilocytosis Slight; RBC 3.84 m/uL (3.80-5.40); RDW 14.4 % (11.5-15.5); WBC 10.7 k/uL (3.8-10.6)
[2020-02-08] MEDS ORDERED: FUROSEMIDE 10 MG/ML 4 ML VIAL IV STA (13:24)
[2020-02-08 14:44] LABS: Hepatitis A Antibody IgM NEGATIVE
--- NOTE | 2020-02-08 15:51 | ECHOF ---
Referral Reason:chest pressure, CHF MEASUREMENTS -------- HEIGHT: 162.6 cm WEIGHT: 91.2 kg BP: 107/62 RVIDd: 4.0 cm (< 3.3) IVSd: 1.1 cm (0.6 - 1.1) LVIDd: 5.3 cm (3.9 - 5.3) LVPWd: 1.2 cm (0.6 - 1.1) IVSs: 1.2 cm LVIDs: 4.6 cm LVPWs: 1.3 cm LAESV Index (A-L): 28.59 ml/m Ao Diam: 2.3 cm (2.0 - 3.7) AV Cusp: 1.9 cm (1.5 - 2.6) MV EXCURSION: 19.913 mm (> 18.000) MV EF SLOPE: 76 mm/s (70 - 150) EPSS: 1.3 cm MV E Jose Angel: 1.24 m/s MV DecT: 133 ms MV A Jose Angel: 0.62 m/s MV E/A Ratio: 2.01 RAP: 5.00 mmHg RVSP: 42.14 mmHg FINDINGS -------- Sinus rhythm. This was a technically adequate study. The left ventricle is mildly dilated. There is mild concentric left ventricular hypertrophy. Ther e is severe global hypokinesis of LV . Overall left ventricular systolic function is severely impai red with, an EF between 20 - 25 %. Mitral Doppler inflow pattern suggests diastolic filling abnorma lity 23.35. The right ventricle is moderately enlarged. LA is midly dilated 29-33ml/m2. The right atrium is mildly enlarged. Interatrial and interventricular septum intact. The aortic valve is trileaflet and appears structurally normal. Trace amount of aortic regurgitatio n. There is no evidence of aortic stenosis. The mitral valve is normal. Ajahrkwj-zg-oaneti mitral regurgitation is present. Rxhr-bt-ldfzttdm tricuspid regurgitation present. There is mild to moderate pulmonary hypertension. The right ventricular systolic pressure, as measured by Doppler, is 42.14mmHg. There is no pulmonic regurgitation present. The aortic root size is normal. There is no pericardial effusion. CONCLUSIONS -------- 1. There is mild concentric left ventricular hypertrophy. 2. There is severe global hypokinesis of LV . 3. Overall left ventricular systolic function is severely impaired with, an EF between 20 - 25 %. 4. Mitral Doppler inflow pattern suggest diastolic filling abnormality 23.35. 5. The right ventricle is moderately enlarged. 6. LA is midly dilated 29-33ml/m2. 7. The right atrium is mildly enlarged. 8. The aortic valve is trileaflet and appears structurally normal. 9. Trace amount of aortic regurgitation. 10. There is no evidence of aortic stenosis. 11. Gyjfukew-qz-xyqxji mitral regurgitation is present. 12. Orqu-xe-rmpiumrk tricuspid regurgitation present. 13. There is mild to moderate pulmonary hypertension. [employer] TECHNICIAN: Rola Mora RDCS
[2020-02-08 16:41] LABS: Glucose,Whole Blood 152 mg/dL (75-99)
[2020-02-08 19:10] LABS: Hepatitis B Core IgM Non-Reactive (Non-Reactive); Hepatitis B Surface Antigen Non-Reactive (Non-Reactive); Hepatitis C IgG Antibody Non-Reactive (Non-Reactive)
[2020-02-08] MEDS: Insulin Aspart (For Pump) 100 UNIT/ML VIAL SQ-PUMP SCH (19:45)
[2020-02-08] MEDS: DIGOXIN 125 MCG TAB PO SCH (19:49)
[2020-02-08] MEDS: HYOSCYAMINE SULFATE 0.375 MG TAB.ER.12H PO SCH (19:50)
[2020-02-08] MEDS ORDERED: NAPROXEN 250 MG TAB PO PRN (20:56)
[2020-02-08 21:12] LABS: Glucose,Whole Blood 163 mg/dL (75-99)
--- NOTE | 2020-02-08 21:12 | P.HPIM ---
History of Present Illness H&P Date: 02/08/20 Chief Complaint: Shortness of breath. This is a history and physical on a 50-year-old white female who is essentially admitted due to significant shortness of breath. She is also found to have element of diabetes. Unfortunate, she has also had history of elevated liver function test. She denies any significant ethanol abuse. She is essentially admitted for significant dyspnea and elevated hepatitis enzymes. Blood sugar has been stable on insulin pump however no sniffing nausea or vomiting. Worsening shortness of breath. She refused admission several weeks ago and has been trying to stay as an outpatient given Zhang virus pandemic. Review of Systems Constitutional: Reports as per HPI, Denies fever Eyes: denies blurred vision, denies pain Ears, nose, mouth and throat: Denies headache, Denies sore throat Cardiovascular: Denies chest pain, Denies shortness of breath Respiratory: Reports cough Gastrointestinal: Denies abdominal pain, Denies diarrhea, Denies nausea, Denies vomiting Genitourinary: Denies dysuria, Denies hematuria Musculoskeletal: Denies myalgias Neurological: Denies numbness, Denies weakness Past Medical History Past Medical History: Asthma, Chest Pain / Angina, COPD, Diabetes Mellitus, Hyperlipidemia, Hypertension, Pneumonia, Thyroid Disorder Additional Past Medical History / Comment(s): Cardiomyopathy, Postural orthostatic tachycardia, (TELLO) hx of thyroid nodules, doctor is watching, gastroparesis, neuropathy bill feet, History of Any Multi-Drug Resistant Organisms: None Reported Past Surgical History: Appendectomy, Breast Surgery, Section, Cholecystectomy, Heart Catheterization, Hysterectomy, Orthopedic Surgery Additional Past Surgical History / Comment(s): left elbow repair, benign adenoma left breast, breast biopsies Past Anesthesia/Blood Transfusion Reactions: Postoperative Nausea & Vomiting (PONV) Past Psychological History: Anxiety, Depression Smoking Status: Former smoker Past Alcohol Use History: None Reported Additional Past Alcohol Use History / Comment(s): quit 2008, smoked 1ppd from age 18 Past Drug Use History: None Reported - Past Family History Father Family Medical History: Cancer, CVA/TIA, Hypertension Mother Family Medical History: Congestive Heart Failure (CHF), Myocardial Infarction ([place]) Additional Family Medical History / Comment(s): from [place] Brother(s) Family Medical History: Congestive Heart Failure (CHF) Additional Family Medical History / Comment(s): brother from [place]F Medications and Allergies Home Medications Medication Instructions Recorded Confirmed Type RX: Acyclovir 400 mg PO DAILY 01/27/18 02/08/20 History RX: Estrogens, Conjugated 0.625 mg PO DAILY 01/27/18 02/08/20 History [Premarin] RX: Fenofibrate [Lofibra] 160 mg PO DAILY 01/27/18 02/08/20 History RX: Hyoscyamine Sulfate [Levbid] 0.375 mg PO BID 01/27/18 02/08/20 History RX: Insulin Aspart (For Pump) 0.01 unit SQ-PUMP CONTINUOUS 01/27/18 02/08/20 History [NovoLOG (For Pump)] RX: Lisinopril [Zestril] 5 mg PO DAILY 01/27/18 02/08/20 History RX: Sertraline [Zoloft] 50 mg PO TID 01/27/18 02/08/20 History Albuterol Inhaler (Bulk) [Ventolin 2 puff INHALATION RT-Q6H PRN 06/13/18 02/08/20 History Hfa Inhaler] metFORMIN HCL [Glucophage] 1,000 mg PO BID 06/13/18 02/08/20 History ALPRAZolam [Xanax] 0.25 mg PO TID 02/08/19 02/08/20 History Atorvastatin [Lipitor] 80 mg PO DAILY 02/08/19 02/08/20 History Cyclobenzaprine [Flexeril] 10 mg PO HS 02/08/19 02/08/20 History Fluticasone/Vilanterol [Breo 1 puff INHALATION RT-DAILY 02/08/19 02/08/20 History Ellipta 200-25 Mcg INH] Furosemide [Lasix] 20 mg PO DAILY 06/20/19 02/08/20 History Metoprolol Succinate (ER) [Toprol 50 mg PO DAILY 06/20/19 02/08/20 History Xl] Digoxin [Lanoxin] 125 mcg PO DAILY 07/13/19 02/08/20 History Ipratropium-Albuterol Nebulize 3 ml INHALATION RT-QID PRN 02/08/20 02/08/20 History [Duoneb 0.5 mg-3 mg/3 ml Soln] RX: Gabapentin 600 mg PO TID 02/08/20 02/08/20 History RX: Naproxen 500 mg PO BID PRN 02/08/20 02/08/20 History Allergies Allergy/AdvReac Type Severity Reaction Status Date / Time adhesive tape Allergy blisters Verified 02/08/20 16:46 skin Physical Exam Vitals: Vital Signs Temp Pulse Pulse Resp BP BP Pulse Ox 02/08/20 19:48 95 99 02/08/20 19:30 98.5 F 114 H 19 100/63 90 L 02/08/20 15:00 98.1 F 91 20 118/65 99 02/08/20 14:00 98.2 F 92 20 120/74 98 02/08/20 13:00 96 20 107/62 99 02/08/20 12:15 97 20 118/75 99 02/08/20 11:28 97.9 F 98 18 110/59 95 Intake and Output 02/08/20 02/08/20 02/08/20 06:59 14:59 22:59 Other: Voiding Method Toilet Weight 91.172 kg 91.172 kg - Constitutional General appearance: no acute distress - EENT Eyes: EOMI - Neck Neck: no lymphadenopathy - Respiratory Respiratory: bilateral: diminished - Cardiovascular Rhythm: regular Heart sounds: normal: S1, S2 Abnormal Heart Sounds: no S3 Gallop - Gastrointestinal General gastrointestinal: soft, no tenderness - Integumentary Integumentary: no cellulitis - Psychiatric Psychiatric: A&O x's 3, appropriate affect Results CBC & Chem 7: 02/08/20 11:55 02/08/20 11:55 Labs: Abnormal Lab Results - Last 24 Hours (Table) 02/08/20 02/08/20 02/08/20 Range/Units 11:55 11:55 11:55 WBC 10.7 H (3.8-10.6) k/uL Hgb 9.3 L (11.4-16.0) gm/dL Hct 30.4 L (34.0-46.0) % MCV 79.3 L (80.0-100.0) fL MCH 24.1 L (25.0-35.0) pg MCHC 30.5 L (31.0-37.0) g/dL Neutrophils # 8.2 H (1.3-7.7) k/uL PT 19.1 H (9.0-12.0) sec INR 2.0 H (<1.2) Sodium 134 L (137-145) mmol/L Potassium 5.2 H (3.5-5.1) mmol/L Chloride 97 L (98-107) mmol/L BUN 22 H (7-17) mg/dL Glucose 251 H (74-99) mg/dL POC Glucose (mg/dL) (75-99) mg/dL Total Bilirubin 1.5 H (0.2-1.3) mg/dL AST 1204 H (14-36) U/L ALT 627 H (4-34) U/L Albumin 3.2 L (3.5-5.0) g/dL 02/08/20 Range/Units 16:40 WBC (3.8-10.6) k/uL Hgb (11.4-16.0) gm/dL Hct (34.0-46.0) % MCV (80.0-100.0) fL MCH (25.0-35.0) pg MCHC (31.0-37.0) g/dL Neutrophils # (1.3-7.7) k/uL PT (9.0-12.0) sec INR (<1.2) Sodium (137-145) mmol/L Potassium (3.5-5.1) mmol/L Chloride (98-107) mmol/L BUN (7-17) mg/dL Glucose (74-99) mg/dL POC Glucose (mg/dL) 152 H (75-99) mg/dL Total Bilirubin (0.2-1.3) mg/dL AST (14-36) U/L ALT (4-34) U/L Albumin (3.5-5.0) g/dL Thrombosis Risk Factor Assmnt - Choose All That Apply Any of the Below Risk Factors Present?: Yes Each Factor Represents 1 point: Age 41-60 years, Obesity (BMI >25) Other Risk Factors: No Other congenital or acquired thrombophilia - If yes, enter type in comment: No Thrombosis Risk Factor Assessment Total Risk Factor Score: 2 Thrombosis Risk Factor Assessment Level: Low Risk Assessment and Plan (1) Acute liver failure Current Visit: Yes Status: Acute Code(s): K72.00 - ACUTE AND SUBACUTE HEPATIC FAILURE WITHOUT COMA SNOMED Code(s): 492546109 (2) Fluid overload Current Visit: Yes Status: Acute Code(s): E87.70 - FLUID OVERLOAD, UNSPECIFI ED SNOMED Code(s): 76242154 (3) Asthma Current Visit: No Status: Acute Code(s): J45.909 - UNSPECIFIED ASTHMA, UNCOMPLICATED SNOMED Code(s): 027069705 (4) Dyspnea Current Visit: No Status: Acute Code(s): R06.00 - DYSPNEA, UNSPECIFIED SNOMED Code(s): 895528304 (5) Pulmonary edema Current Visit: No Status: Acute Code(s): J81.1 - CHRONIC PULMONARY EDEMA SNOMED Code(s): 21392232 Plan: Appreciat pulmonology and gastroenterology input. Check CBC and CMP in a.m. Reconcile home medications. At this time she is a full code. Dr. Santos's group will recover for the weekend. Prognosis is guarded secondary to multiple comorbidities. Time with Patient: Greater than 30
[2020-02-08] MEDS: CYCLOBENZAPRINE 10 MG TAB PO SCH (21:18)
[2020-02-08] MEDS: ALPRAZolam 0.25 MG TAB PO SCH (21:18)
[2020-02-08] MEDS: FUROSEMIDE 10 MG/ML 4 ML VIAL IV SCH (21:18)
[2020-02-08] MEDS: SERTRALINE 50 MG TAB PO SCH (22:41)
[2020-02-08] MEDS: GABAPENTIN 300 MG CAP PO SCH (22:41)
[2020-02-09] MEDS ORDERED: INSULIN PUMP BASAL RATES 1 EACH MISC MISCELLANE PRN (06:09)
[2020-02-09] MEDS ORDERED: INSULIN ASPART (NovoLOG) 100 UNIT/ML VIAL SQ PRN (06:09)
[2020-02-09 06:44] LABS: Glucose,Whole Blood 92 mg/dL (75-99)
[2020-02-09 06:51] LABS: HGB 8.7 gm/dL (11.4-16.0); Hypochromasia Marked; MCH 24.4 pg (25.0-35.0); MCV 78.6 fL (80.0-100.0); Mean Platelet Volume 9.3; Platelet Count 391 k/uL (150-450); Poikilocytosis Slight; RBC 3.56 m/uL (3.80-5.40); RDW 14.4 % (11.5-15.5); WBC 9.8 k/uL (3.8-10.6)
[2020-02-09 07:45] LABS: Albumin 2.9 g/dL (3.5-5.0); Calcium 8.4 mg/dL (8.4-10.2); Potassium 4.6 mmol/L (3.5-5.1); Total Bilirubin 0.8 mg/dL (0.2-1.3); Total Protein 6.3 g/dL (6.3-8.2)
--- NOTE | 2020-02-09 07:52 | US ---
EXAMINATION TYPE: US liver DATE OF EXAM: 02/09/2020 COMPARISON: NONE CLINICAL HISTORY: acute liver failure. liver failure, cholecystectomy EXAM MEASUREMENTS: Liver Length: 20.8 cm Gallbladder Wall: Surgically absent CBD: 0.5 cm Right Kidney: 10.4 x 4.8 x 6.0 cm Technical limitations due to patient's body habitus and large amount of overlying bowel content Pancreas: Obscured by bowel gas Liver: enlarged, difficult to penetrate Gallbladder: Surgically absent Evidence for sonographic Seth's sign: no CBD: limited evaluation Right Kidney: no evidence of hydronephrosis The pancreas is obscured. The liver is enlarged measuring 21 cm. It is difficult to penetrate and likely fatty infiltrated. The gallbladder has been removed. Distal common hepatic duct measures 5 mm. The right kidney is unremarkable. IMPRESSION: 1. HEPATOMEGALY AND PROBABLE FATTY INFILTRATION OF THE LIVER. 2. STATUS POST CHOLECYSTECTOMY.
[2020-02-09] MEDS: FUROSEMIDE 10 MG/ML 4 ML VIAL IV SCH ×2 (08:52→20:22)
[2020-02-09] MEDS: METOPROLOL SUCCINATE (ER) 50 MG TAB.ER.24H PO SCH (08:52)
[2020-02-09] MEDS: GABAPENTIN 300 MG CAP PO SCH ×3 (08:52→22:47)
[2020-02-09] MEDS: SERTRALINE 50 MG TAB PO SCH ×3 (08:52→22:47)
[2020-02-09] MEDS: ALPRAZolam 0.25 MG TAB PO SCH ×3 (08:52→22:47)
[2020-02-09] MEDS: DIGOXIN 125 MCG TAB PO SCH (08:53)
[2020-02-09] MEDS: HYOSCYAMINE SULFATE 0.375 MG TAB.ER.12H PO SCH ×2 (08:54→20:22)
[2020-02-09] MEDS ORDERED: ATORVASTATIN 80 MG TAB PO SCH (09:00)
[2020-02-09] MEDS ORDERED: ACYCLOVIR 200 MG CAP PO SCH (09:00)
[2020-02-09] MEDS ORDERED: FENOFIBRATE 160 MG TAB PO SCH (09:00)
[2020-02-09] MEDS: ALBUTEROL HFA INHALER INHALATION PRN ×4 (09:14→20:13)
[2020-02-09] MEDS: SYMBICORT 160-4.5 MCG INHALER INHALATION SCH ×2 (09:14→20:13)
[2020-02-09 10:13] LABS: Reticulocyte % 1.79 % (0.10-1.80)
--- NOTE | 2020-02-09 10:46 | P.CRDCN ---
History of Present Illness Consult date: 02/09/20 History of present illness: This is a 50-year-old female patient of Dr. Ignacio with past medical history significant for POTS syndrome, asthma, COPD, diabetes mellitus on insulin pump, dyslipidemia, hypertension, hypothyroidism, obstructive sleep apnea not on CPAP, and former nicotine dependence. Patient states for the last month and a half she has had shortness of breath and was initially diagnosed with viral pneumonia and heart failure in the emergency center on January 05 and was discharged home and was instructed to take Lasix for the next 5 days. Bora stein again presented on January 24 to the emergency room and was discharged home. She has been instructed to increase Lasix by doubling it but she continued to have lower extremity edema and shortness of breath. She denies having any jaundice. She states that she noticed her abdomen was larger and she thought it was fluid related versus fat related. She complains of right upper quadrant pain and bandlike pain across the lower abdomen. She also complains of a cough. She did have a heart catheterization done in May [address] Mike that showed normal coronary arteries and normal LV. Echocardiogram performed in January 2019 revealed EF of 50-55%, mild tricuspid regurgitation, no pulmonary hypertension. A repeat echocardiogram on this admission reveals EF of 20-25%, no aortic stenosis, moderate to severe mitral regurgitation, [id number]-bc-[id number] tricuspid regurgitation, mild to moderate pulmonary hypertension. Blood work revealed initial WBC 10.7, hemoglobin 9.3, platelet count 436, INR 2, sodium 134, potassium 5.2, chloride 97, CO2 24, BUN 22, creatinine 0.94. Total bili carlos 1.5, AST 1204 and repeat at 1363, ALT 627 and repeated 665, alkaline phosphatase normal. Urinalysis negative. Coronavirus not detected. Hepatitis panel negative. Patient denies history of alcohol abuse. Patient was a smoker of one half to one pack per day for 20 years and quit 12 years ago. The patient does follow with Dr. Pruett for COPD and asthma. At the time of my exam: CONSTITUTIONAL: Denies fever. Denies chills. EYES: Denies blurred vision. Denies vision changes. Denies eye pain. EARS, NOSE, MOUTH & THROAT: Denies headache. Denies sore throat. Denies ear pain. CARDIOVASCULAR: Denies chest pain. Reports shortness of breath. Reports orthopnea. Denies PND. Denies palpitations. Reports shortness of breath with minimal activity. Reports lower extremity edema RESPIRATORY: Reports cough. GASTROINTESTINAL: Reports abdominal distention. Reports abdominal pain. Denies diarrhea. Denies constipation. Denies nausea. Denies vomiting. MUSCULOSKELETAL: Denies myalgias. INTEGUMENTARY: Denies pruitis. Denies rash. Denies jaundice. NEUROLOGIC: Denies numbness. Denies tingling. Denies weakness. PSYCHIATRIC: Denies anxiety. Denies depression. ENDOCRINE: Denies fatigue. Denies weight change. Denies polydipsia. Denies polyurina. GENITOURINARY: Denies burning, hematuria or urgency with micturation. HEMATOLOGIC: Denies history of anemia. Denies bleeding. Blood pressure 98/64, pulse ox 96% on 2 L nasal cannula, heart rate 89 GENERAL: This is an obese 50-year-old female. Patient is resting in bed and appears to be comfortable at time of evaluation. HEENT: Head is atraumatic, normocephalic. Pupils are equal, round. Sclerae anicteric. Conjunctivae are clear. Mucous membranes of the mouth are moist. Neck is supple. There is no jugular venous distention. LUNGS: Clear to auscultation no wheezes, rales or rhonchi. No chest wall tenderness is noted on palpation or with deep breathing. HEART: Regular rate and rhythm with systolic murmur at the apex. ABDOMEN: Soft. Bowel sounds are heard. Tenderness to the right upper quadrant and bilateral lower quadrants. EXTREMITIES: Trace bilateral pedal edema and no calf tenderness noted. VASCULAR: Dorsalis pedis +2 bilaterally. no evidence of clubbing. NEUROLOGIC: Patient is awake, alert and oriented x3. ASSESSMENT Severe cardiomyopathy of unclear etiology possibly related to viral infection, liver disease Acute systolic heart failure Moderate to severe mitral regurgitation Acute liver disease Diabetes mellitus type II insulin requiring insulin pump Hypertension Hypothyroidism Dyslipidemia Former nicotine dependence History of POTS syndrome PLAN Continue Lasix 40 mg IV every 12 hours, daily weights, I&O and monitor renal function and electrolytes. Continue Toprol-XL 50 mg daily and digoxin 125 g daily Had Aldactone 25 mg daily and losartan 12.5 mg at bedtime Hold atorvastatin Further recommendations based on patient's clinical course. Thank you kindly for this consultation. Nurse Practitioner note has been reviewed, I agree with a documented findings and plan of care. Patient was seen and examined.This is [ ] . Past Medical History Past Medical History: Asthma, Chest Pain / Angina, COPD, Diabetes Mellitus, Hyperlipidemia, Hypertension, Pneumonia, Thyroid Disorder Additional Past Medical History / Comment(s): Cardiomyopathy, Postural orthostatic tachycardia, (TELLO) hx of thyroid nodules, doctor is watching, gastroparesis, neuropathy bill feet, History of Any Multi-Drug Resistant Organisms: None Reported Past Surgical History: Appendectomy, Breast Surgery, Section, Cholecystectomy, Heart Catheterization, Hysterectomy, Orthopedic Surgery Additional Past Surgical History / Comment(s): left elbow repair, benign adenoma left breast, breast biopsies Past Anesthesia/Blood Transfusion Reactions: Postoperative Nausea & Vomiting (PONV) Past Psychological History: Anxiety, Depression Smoking Status: Former smoker Past Alcohol Use History: None Reported Additional Past Alcohol Use History / Comment(s): quit 2008, smoked 1ppd from age 18 Past Drug Use History: None Reported - Past Family History Father Family Medical History: Cancer, CVA/TIA, Hypertension Mother Family Medical History: Congestive Heart Failure (CHF), Myocardial Infarction ([place]) Additional Family Medical History / Comment(s): from [place] Brother(s) Family Medical History: Congestive Heart Failure (CHF) Additional Family Medical History / Comment(s): brother from [place] Medications and Allergies Home Medications Medication Instructions Recorded Confirmed Type Acyclovir 400 mg PO DAILY 01/27/18 02/08/20 History Estrogens, Conjugated [Premarin] 0.625 mg PO DAILY 01/27/18 02/08/20 History Fenofibrate [Lofibra] 160 mg PO DAILY 01/27/18 02/08/20 History Hyoscyamine Sulfate [Levbid] 0.375 mg PO BID 01/27/18 02/08/20 History Insulin Aspart (For Pump) [NovoLOG 0.01 unit SQ-PUMP CONTINUOUS 01/27/18 02/08/20 History (For Pump)] Lisinopril [Zestril] 5 mg PO DAILY 01/27/18 02/08/20 History Sertraline [Zoloft] 50 mg PO TID 01/27/18 02/08/20 History Albuterol Inhaler (Bulk) [Ventolin 2 puff INHALATION RT-Q6H PRN 06/13/18 02/08/20 History Hfa Inhaler] metFORMIN HCL [Glucophage] 1,000 mg PO BID 06/13/18 02/08/20 History ALPRAZolam [Xanax] 0.25 mg PO TID 02/08/19 02/08/20 History Atorvastatin [Lipitor] 80 mg PO DAILY 02/08/19 02/08/20 History Cyclobenzaprine [Flexeril] 10 mg PO HS 02/08/19 02/08/20 History Fluticasone/Vilanterol [Breo 1 puff INHALATION RT-DAILY 02/08/19 02/08/20 History Ellipta 200-25 Mcg INH] Furosemide [Lasix] 20 mg PO DAILY 06/20/19 02/08/20 History Metoprolol Succinate (ER) [Toprol 50 mg PO DAILY 06/20/19 02/08/20 History Xl] Digoxin [Lanoxin] 125 mcg PO DAILY 07/13/19 02/08/20 History Gabapentin 600 mg PO TID 02/08/20 02/08/20 History Ipratropium-Albuterol Nebulize 3 ml INHALATION RT-QID PRN 02/08/20 02/08/20 History [Duoneb 0.5 mg-3 mg/3 ml Soln] Naproxen 500 mg PO BID PRN 02/08/20 02/08/20 History Allergies Allergy/AdvReac Type Severity Reaction Status Date / Time adhesive tape Allergy blisters Verified 02/08/20 16:46 skin Physical Exam Vitals: Vital Signs Temp Pulse Pulse Resp BP BP Pulse Ox 02/09/20 07:00 98.7 F 89 17 98/64 96 02/09/20 03:53 98.1 F 81 17 93/61 98 02/08/20 19:48 95 99 02/08/20 19:30 98.5 F 114 H 19 100/63 90 L 02/08/20 15:00 98.1 F 91 20 118/65 99 02/08/20 14:00 98.2 F 92 20 120/74 98 02/08/20 13:00 96 20 107/62 99 02/08/20 12:15 97 20 118/75 99 02/08/20 11:28 97.9 F 98 18 110/59 95 Intake and Output 04/17/20 04/18/20 04/18/20 22:59 06:59 14:59 Intake Total 20 Balance 20 Intake: Oral 20 Other: Voiding Method Toilet Toilet # Voids 2 Weight 91.172 kg Results 02/09/20 06:06 02/09/20 06:06 Cardiac Enzymes 02/08/20 02/08/20 02/09/20 Range/Units 11:55 11:55 06:06 AST 1204 H 1363 H (14-36) U/L Troponin I <0.012 (0.000-0.034) ng/mL Coagulation 02/08/20 Range/Units 11:55 PT 19.1 H (9.0-12.0) sec APTT 24.7 (22.0-30.0) sec CBC 02/08/20 02/09/20 Range/Units 11:55 06:06 WBC 10.7 H 9.8 (3.8-10.6) k/uL RBC 3.84 3.56 L (3.80-5.40) m/uL Hgb 9.3 L 8.7 L (11.4-16.0) gm/dL Hct 30.4 L 28.0 L (34.0-46.0) % Plt Count 436 391 (150-450) k/uL Comprehensive Metabolic Panel 02/08/20 02/09/20 Range/Units 11:55 06:06 Sodium 134 L 136 L (137-145) mmol/L Potassium 5.2 H 4.6 (3.5-5.1) mmol/L Chloride 97 L 98 (98-107) mmol/L Carbon Dioxide 24 32 H (22-30) mmol/L BUN 22 H 21 H (7-17) mg/dL Creatinine 0.94 0.93 (0.52-1.04) mg/dL Glucose 251 H 78 (74-99) mg/dL Calcium 8.6 8.4 (8.4-10.2) mg/dL AST 1204 H 1363 H (14-36) U/L ALT 627 H 665 H (4-34) U/L Alkaline Phosphatase 97 87 (38-126) U/L Total Protein 6.6 6.3 (6.3-8.2) g/dL Albumin 3.2 L 2.9 L (3.5-5.0) g/dL Current Medications Generic Name Dose Route Start Last Admin Trade Name Freq PRN Reason Stop Dose Admin Acyclovir 400 mg 02/09/20 09:00 02/09/20 08:53 Zovirax PO 400 mg DAILY BROOKE Administration Albuterol Sulfate 2 puff 02/08/20 18:33 02/09/20 09:14 Ventolin Hfa Inhaler INHALATION 2 puff RT-QID PRN Administration Shortness Of Breath Alprazolam 0.25 mg 02/08/20 22:00 02/09/20 08:52 Xanax PO 0.25 mg TID BROOKE Administration Atorvastatin Calcium 80 mg 02/09/20 09:00 02/09/20 08:52 Lipitor PO 80 mg DAILY BROOKE Administration Budesonide/Formoterol Fumarate 2 puff 02/09/20 08:00 02/09/20 09:14 Symbicort 160-4.5 Mcg Inhaler INHALATION 2 puff RT-BID BROOKE Administration Cyclobenzaprine HCl 10 mg 02/08/20 21:00 02/08/20 21:18 Flexeril PO 10 mg HS BROOKE Administration Digoxin 125 mcg 02/08/20 18:45 02/09/20 08:53 Lanoxin PO 125 mcg DAILY BROOKE Administration Estrogens Conjugated 0.625 mg 02/09/20 09:00 Premarin PO DAILY BROOKE Fenofibrate 160 mg 02/09/20 09:00 02/09/20 08:52 Lofibra PO 160 mg DAILY BROOKE Administration Furosemide 40 mg 02/08/20 21:00 02/09/20 08:52 Lasix IV 40 mg Q12HR BROOKE Administration Gabapentin 600 mg 02/08/20 22:00 02/09/20 08:52 Neurontin PO 600 mg TID BROOKE Administration Hyoscyamine 0.375 mg 02/08/20 21:00 02/09/20 08:54 Levbid PO 0.375 mg BID BROOKE Administration Insulin Aspart 0.01 unit 02/08/20 18:45 02/08/20 19:45 Novolog (For Pump) SQ-PUMP Not Given CONTINUOUS [facility] Insulin Aspart 0 unit 02/09/20 06:09 Novolog SQ DAILY PRN Insulin Pump Replacement Metoprolol Succinate 50 mg 02/09/20 09:00 02/09/20 08:52 Toprol Xl PO 50 mg DAILY BROOKE Administration Miscellaneous Information 1 each 02/09/20 06:09 Insulin Pump Basal Rates MISCELLANE Q6HR PRN Blood Sugar - High Protocol Miscellaneous Information 0 unit 02/09/20 06:09 Insulin Pump Correction Bolus MISCELLANE ACHS PRN Blood Sugar - High Protocol Naproxen 500 mg 02/08/20 20:56 Naprosyn PO BID PRN Pain Sertraline HCl 50 mg 02/08/20 22:00 02/09/20 08:52 Zoloft PO 50 mg TID BROOKE Administration Tiotropium [place] 1 puff 02/08/20 18:48 Spiriva INHALATION RT-DAILY PRN Shortness Of Breath Intake and Output 02/08/20 02/09/20 02/09/20 22:59 06:59 14:59 Intake Total 20 Balance 20 Intake: Oral 20 Other: Voiding Method Toilet Toilet # Voids 2 Weight 91.172 kg 02/09/20 06:06 02/09/20 06:06
[2020-02-09] MEDS: IOPAMIDOL CONTRAST (ORAL USE) VIAL PO PRN ×2 (11:12→12:02)
[2020-02-09 11:44] LABS: Glucose,Whole Blood 320 mg/dL (75-99)
--- NOTE | 2020-02-09 11:48 | P.PN ---
Subjective 50-year-old female patient is admitted for hepatitis which is believed to be drug-induced, patient does have heart failure with the some exacerbation as well patient's EF is 20-25% probably hepatic congestion is contributing to some of her liver enzyme elevation patient liver enzymes remain in thousands.patient normally has pain in the right upper quadrant but now she is complaining of pain in the left right and mid lower abdomen. And a computed tomography scan of the abdomen to rule out any diverticulitis. Patient pain is fairly controlled but still has moderate amount of pain. Patient is normally constipated but has couple loose stools. Constitutional: Denied any fatigue denied any fever. Cardio vascular: denied any chest pain, palpitations Gastrointestinal denied any nausea vomiting Pulmonary: Denied any shortness of breath cough Neurologic denied any new focal deficits All inpatient medications were reviewed and appropriate changes in these medications as dictated in the interval history and assessment and plan. Objective - Vital Signs Vital signs: Vital Signs Temp 98.7 F 02/09/20 07:00 Pulse 89 02/09/20 07:00 Resp 17 02/09/20 07:00 BP 98/64 02/09/20 07:00 Pulse Ox 96 02/09/20 07:00 Intake & Output 02/08/20 02/09/20 02/09/20 18:59 06:59 18:59 Intake Total 20 Balance 20 Weight 91.172 kg Intake: Oral 20 Other: Voiding Method Toilet # Voids 2 - Exam PHYSICAL EXAMINATION: GENERAL: The patient is alert and oriented x3, not in any acute distress. Well developed, well nourished. HEENT: Pupils are round and equally reacting to light. EOMI. No scleral icterus. No conjunctival pallor. Normocephalic, atraumatic. No pharyngeal erythema. No thyromegaly. CARDIOVASCULAR: S1 and S2 present. No murmurs, rubs, or gallops. PULMONARY: Chest is clear to auscultation, no wheezing or crackles. ABDOMEN: Soft, nontender, nondistended, normoactive bowel sounds. No palpable organomegaly. MUSCULOSKELETAL: No joint swelling or deformity. EXTREMITIES: No cyanosis, clubbing, or pedal edema. NEUROLOGICAL: Gross neurological examination did not reveal any focal deficits. SKIN: No rashes. - Labs CBC & Chem 7: 02/09/20 06:06 04/18/20 06:06 Labs: Abnormal Lab Results - Last 24 Hours (Table) 02/08/20 02/08/20 02/08/20 Range/Units 11:55 11:55 11:55 WBC 10.7 H (3.8-10.6) k/uL RBC (3.80-5.40) m/uL Hgb 9.3 L (11.4-16.0) gm/dL Hct 30.4 L (34.0-46.0) % MCV 79.3 L (80.0-100.0) fL MCH 24.1 L (25.0-35.0) pg MCHC 30.5 L (31.0-37.0) g/dL Neutrophils # 8.2 H (1.3-7.7) k/uL PT 19.1 H (9.0-12.0) sec INR 2.0 H (<1.2) Sodium 134 L (137-145) mmol/L Potassium 5.2 H (3.5-5.1) mmol/L Chloride 97 L (98-107) mmol/L Carbon Dioxide (22-30) mmol/L BUN 22 H (7-17) mg/dL Glucose 251 H (74-99) mg/dL POC Glucose (mg/dL) (75-99) mg/dL Total Bilirubin 1.5 H (0.2-1.3) mg/dL AST 1204 H (14-36) U/L ALT 627 H (4-34) U/L Albumin 3.2 L (3.5-5.0) g/dL 02/08/20 02/08/20 02/09/20 Range/Units 16:40 21:10 06:06 WBC (3.8-10.6) k/uL RBC 3.56 L (3.80-5.40) m/uL Hgb 8.7 L (11.4-16.0) gm/dL Hct 28.0 L (34.0-46.0) % MCV 78.6 L (80.0-100.0) fL MCH 24.4 L (25.0-35.0) pg MCHC (31.0-37.0) g/dL Neutrophils # (1.3-7.7) k/uL PT (9.0-12.0) sec INR (<1.2) Sodium (137-145) mmol/L Potassium (3.5-5.1) mmol/L Chloride (98-107) mmol/L Carbon Dioxide (22-30) mmol/L BUN (7-17) mg/dL Glucose (74-99) mg/dL POC Glucose (mg/dL) 152 H 163 H (75-99) mg/dL Total Bilirubin (0.2-1.3) mg/dL AST (14-36) U/L ALT (4-34) U/L Albumin (3.5-5.0) g/dL 02/09/20 Range/Units 06:06 WBC (3.8-10.6) k/uL RBC (3.80-5.40) m/uL Hgb (11.4-16.0) gm/dL Hct (34.0-46.0) % MCV (80.0-100.0) fL MCH (25.0-35.0) pg MCHC (31.0-37.0) g/dL Neutrophils # (1.3-7.7) k/uL PT (9.0-12.0) sec INR (<1.2) Sodium 136 L (137-145) mmol/L Potassium (3.5-5.1) mmol/L Chloride (98-107) mmol/L Carbon Dioxide 32 H (22-30) mmol/L BUN 21 H (7-17) mg/dL Glucose (74-99) mg/dL POC Glucose (mg/dL) (75-99) mg/dL Total Bilirubin (0.2-1.3) mg/dL AST 1363 H (14-36) U/L ALT 665 H (4-34) U/L Albumin 2.9 L (3.5-5.0) g/dL Assessment and Plan Plan: -congestive heart failure chronic systolic dysfunction with the exacerbation patient will be can you done IV Lasix -Hepatitis and elevated liver enzymes probably secondary to hepatic congestion can be drug induced as well patient the ultrasound did show fatty liver -Type 2 diabetes mellitus patient is on insulin pump which will be continued -History of Pott syndrome for which patient is in the [place] and Toprol-XL which will be continued -Hypertension next and-hypothyroidism -Hyperlipidemia For these chronic medical problems patient will be continued on present medications.
[2020-02-09 12:32] VITALS: BMI 34.4
[2020-02-09] MEDS: traMADol 50 MG TAB PO PRN ×2 (12:52→22:49)
[2020-02-09] MEDS: ESTROGENS, CONJUGATED 0.625 MG TAB PO SCH (12:52)
[2020-02-09] MEDS: SPIRONOLACTONE 25 MG TAB PO SCH (12:53)
--- NOTE | 2020-02-09 13:05 | CT ---
EXAMINATION TYPE: CT abdomen pelvis w con DATE OF EXAM: 02/09/2020 REFERENCE: Previous study dated 11/12/2010. HISTORY: lower abdominal pain HISTORY: Generalized pain. CT DLP: 1599.8 mGy Automated exposure control for dose reduction was used. TECHNIQUE: Helical acquisition through the abdomen and pelvis was obtained following the oral ingesti on of with Oral Contrast and following intravenous administration of 100 mL of Isovue 300. The data w as reformatted in axial, coronal and sagittal projections. FINDINGS: There is a small right pleural effusion. The lungs are clear. The heart is mildly enlarged . There is no pericardial fluid. Within the abdomen, the liver is enlarged measuring 23 cm. There is a splenule in the hilus of the sp sonja. The gallbladder has been removed. Both adrenal glands are normal. There is an 11 mm low attenuating lesion within the mid polar region of the right kidney. This likely represents a cyst but is too small accurately characterize 9 mm hypoechoic lesion is noted in the an terior aspect of the mid polar region of the left kidney. This also likely represents a cyst. These a re both present previously. The pancreas is unremarkable. There is mild atheromatous calcification of the visualized arterial tree. There is no significant ret roperitoneal, iliac or inguinal adenopathy. The bladder is not distended. The ovaries and uterus are not visualized. The sigmoid colon is collapsed. This makes assessment of the bowel wall difficult. There is no signif icant diverticular change and there is no radiographic evidence of diverticulitis. The appendix is no t visualized with certainty. Small bowel loops are of normal caliber. There is mild anasarca in the lower abdomen and pelvis. There is a small amount of free fluid. There is no evidence of free air. There is mild hypertrophic spondylosis within the spine. IMPRESSION: 1. INTERVAL DEVELOPMENT OF A SMALL RIGHT EFFUSION. 2. HEPATOMEGALY. 3. COLLAPSE OF THE SIGMOID COLON MAKES IT DIFFICULT TO ASSESS BOWEL WALL THICKENING. PLEASE CORRELATE TO EXCLUDE COLITIS. 4. MINIMAL BILATERAL RENAL CYSTIC DISEASE. 5. MILD ANASARCA OF UNKNOWN ETIOLOGY. 6. MINIMAL DEGENERATIVE CHANGE WITHIN THE SPINE.
[2020-02-09 14:34] LABS: % Iron Saturation 4.01 (12.00-45.00)
--- NOTE | 2020-02-09 15:41 | CONS ---
CONSULTATION DATE OF SERVICE: 02/09/2020 REASON FOR CONSULTATION: Elevated LFTs. HISTORY OF PRESENT ILLNESS: The patient is a 50-year-old pleasant white female with history of COPD, congestive heart failure, diabetes mellitus, hypertension, came into the emergency room yesterday complaining of chest discomfort, mild shortness of breath, and water retention for the last 2 week's duration. The patient states that approximately 2 months ago she had shortness of breath, low-grade fever, came to the emergency room and was diagnosed with viral pneumonia and she was sent home. She continued to have some shortness of breath since then. However, she thought 2 weeks ago symptoms were getting worse, now she started developing right upper quadrant abdominal pain and for the last 2 days, lower abdominal pain which has been progressively getting worse. She denies any nausea, vomiting. No rectal bleeding or melena. A week ago, she started her water retention. She called her enamel burner and was started on Lasix and then she was advised to go to the emergency room because she thought she continued to gain weight. She came to the ER yesterday and her lab showed significant elevation of serum transaminases. She had franco virus PCR done which was reported as negative, we are consulted for elevated LFTs. The patient denies any new medications that were started recently. She denies any antibiotic use in the last one month duration. No prior history of chronic liver disease. No history of jaundice or hepatitis in the past. PAST MEDICAL HISTORY: Significant for hypertension, hyperlipidemia, diabetes mellitus, congestive heart failure, COPD, hypercholesteremia and recurrent herpes infection. MEDICATIONS: At home, acyclovir, Premarin, fenofibrate, Neurontin, Levbid, Zestril, Zoloft, Ventolin, Glucophage, Xanax, Lipitor, Flexeril, Actos, aspirin, Lasix, Toprol, Lanoxin, and Prilosec. ALLERGIES: ADHESIVE TAPE. PAST SURGICAL HISTORY: , breast surgery, cholecystectomy, cardiac catheterization, hysterectomy, left elbow repair. FAMILY HISTORY: Father had hypertension, CVA. Mother has congestive heart failure. SOCIAL HISTORY: Former smoker. No alcohol use. REVIEW OF SYSTEMS: CARDIOPULMONARY: She denies any chest pain. She has some shortness of breath. No dysuria, hematuria. MUSCULOSKELETAL: Unremarkable. SKIN: Unremarkable. ENDOCRINE: Unremarkable. PSYCHIATRIC: Unremarkable. NEUROLOGY: Unremarkable. ENT/VISION: Unremarkable. CONSTITUTIONAL: No recent weight loss. She gained 20 pounds. No fever, chills, night sweats. PHYSICAL EXAMINATION: She appears comfortable. No apparent distress. Blood pressure 98/64, pulse rate 89, temperature 98.7. HEENT: Examination unremarkable. Conjunctivae are pink. Sclerae nonicteric. Oral cavity no lesions. NECK: No JVD or lymph node enlargement. CHEST: Clear to auscultation. HEART: Regular rate and rhythm. ABDOMEN: Soft, nontender, nondistended. Bowel sounds are positive. No organomegaly. There was some tenderness in the lower abdominal area. EXTREMITIES: No pedal edema. SKIN: No rashes. NEUROLOGIC: Alert and oriented x3. No focal deficits. LABS: WBC 10.7, hemoglobin 9.3, platelets 434, MCV 79. INR is 2.0. Sodium 134, potassium 5.2, chloride 97, CO2 is 24, BUN and creatinine normal. AST was 1204, ALT is 627, alkaline phosphatase 97, and T-bilirubin was 1.5. Today T-bilirubin is down to 0.8. AST and ALT and 1363 and 665 respectively. Alkaline phosphatase normal. BMP was 4490. Franco virus PCR is negative. Acute hepatitis serologies for A, B and C are negative. antibody was negative. Ultrasound of the abdomen done in the ER showed hepatomegaly with fatty infiltration of the and history of cholecystectomy. She did have a 2D echocardiogram done yesterday that showed ejection fraction of 20%-25%with moderate to severe pulmonary hypertension. IMPRESSION: 1. Acute elevation of serum transaminases with AST and ALT in the range of 600 and 1200 respectively. The acute hepatocellular injury serum transaminases about 10 days ago completely within normal limits: Franco virus PCR is negative. She denies any medications that she took recently. Hepatitis serologies for A, B and C negative. In this clinical setting of worsening shortness of breath and abdominal discomfort with elevated serum transaminases and negative hepatitis serologies for A, B and C, positive of COVID-19 infections still cannot be entirely excluded. Of course, other etiologies will be investigated for at the present time. Her serum transaminases remain the same today with improvement in bilirubin. As mentioned earlier, patient denies taking any new medications recently, possibility of passive venous congestion secondary to right-sided heart failure cannot be entirely excluded. 2. Microcytic hypochromic anemia with no significant GI bleed. RECOMMENDATIONS: 1. Obtain EBV and CMV serologies. 2. Monitor LFTs on a close basis. 3. Avoid hepatotoxic medications, at this time will stop Lipitor and fenofibrate. 4. Avoid hepatotoxic medications and will follow with you closely during the hospital stay. Thank you for this consultation. BARBARA / DOMINIKN: [id number] /
[2020-02-09 16:47] LABS: Glucose,Whole Blood 251 mg/dL (75-99)
[2020-02-09 19:58] LABS: Glucose,Whole Blood 294 mg/dL (75-99)
[2020-02-09] MEDS: Insulin Aspart (For Pump) 100 UNIT/ML VIAL SQ-PUMP SCH (20:20)
[2020-02-09] MEDS: CYCLOBENZAPRINE 10 MG TAB PO SCH (20:22)
[2020-02-09] MEDS: LOSARTAN 25 MG TAB PO SCH (22:40)
[2020-02-10 04:07] LABS: Glucose,Whole Blood 138 mg/dL (75-99)
[2020-02-10 07:18] LABS: Glucose,Whole Blood 116 mg/dL (75-99)
[2020-02-10 07:20] LABS: Albumin 3.1 g/dL (3.5-5.0); Calcium 8.4 mg/dL (8.4-10.2); Potassium 4.8 mmol/L (3.5-5.1); Total Bilirubin 0.8 mg/dL (0.2-1.3); Total Protein 6.6 g/dL (6.3-8.2)
[2020-02-10 07:23] LABS: INR 1.8 (<1.2)
[2020-02-10 07:44] LABS: HGB 8.9 gm/dL (11.4-16.0); Hypochromasia Marked; MCH 24.1 pg (25.0-35.0); MCHC 30.6 g/dL (31.0-37.0); MCV 78.7 fL (80.0-100.0); Mean Platelet Volume 10.4; Platelet Count 372 k/uL (150-450); Poikilocytosis Slight; RBC 3.68 m/uL (3.80-5.40); RDW 14.6 % (11.5-15.5); WBC 10.3 k/uL (3.8-10.6)
[2020-02-10] MEDS: SYMBICORT 160-4.5 MCG INHALER INHALATION SCH ×2 (07:53→19:02)
[2020-02-10] MEDS: ALBUTEROL HFA INHALER INHALATION PRN ×3 (07:54→15:36)
[2020-02-10] MEDS: TIOTROPIUM 18 MCG/PUFF INHALER INHALATION PRN (07:54)
[2020-02-10 08:14] LABS: Lymphocytes # (M) 3.09 k/uL (1.0-4.8); Monocytes # (M) 0.21 k/uL (0-1.0); Neutrophils % (M) 67 %; Nucleated Red Blood Cells 0 /100 WBC (0-0); Total Cells Counted 100
[2020-02-10] MEDS: SPIRONOLACTONE 25 MG TAB PO SCH (08:46)
[2020-02-10] MEDS: METOPROLOL SUCCINATE (ER) 50 MG TAB.ER.24H PO SCH (08:46)
[2020-02-10] MEDS: FUROSEMIDE 10 MG/ML 4 ML VIAL IV SCH ×2 (08:46→21:40)
[2020-02-10] MEDS: GABAPENTIN 300 MG CAP PO SCH ×3 (08:46→21:30)
[2020-02-10] MEDS: SERTRALINE 50 MG TAB PO SCH ×3 (08:46→21:31)
[2020-02-10] MEDS: ESTROGENS, CONJUGATED 0.625 MG TAB PO SCH (08:47)
[2020-02-10] MEDS: DIGOXIN 125 MCG TAB PO SCH (08:47)
[2020-02-10] MEDS: HYOSCYAMINE SULFATE 0.375 MG TAB.ER.12H PO SCH ×2 (08:47→21:31)
[2020-02-10] MEDS: ALPRAZolam 0.25 MG TAB PO SCH ×3 (08:53→21:40)
--- NOTE | 2020-02-10 10:48 | PN ---
PROGRESS NOTE DATE OF SERVICE: 02/10/2020 The patient is a 51-year-old pleasant white female admitted to the hospital with abdominal pain and elevated serum transaminases. She also has exacerbation of congestive heart failure and presently on IV Lasix. This morning she states that she still has some left-sided flank pain, occasional lower abdominal pain. No nausea. No vomiting. Denies anymore shortness of breath. No fever, chills, or night sweats. PHYSICAL EXAMINATION: She appears comfortable, no apparent distress. VITAL SIGNS: Stable. Blood pressure is 109/75, pulse rate 94, temperature 98.8. HEENT examination unremarkable. Conjunctivae pink. Sclerae anicteric. NECK: No JVD or lymph node enlargement. CHEST: Clear to auscultation. HEART: Regular rate and rhythm. ABDOMEN: Soft. There was mild tenderness in the left lower quadrant area. Obese. EXTREMITIES: No pedal edema. SKIN: No rashes. NEUROLOGIC: Alert and oriented x3. No focal deficits. LABS: From today, WBC 10.3, hemoglobin 8.9, platelets 78.7. INR is 1.8. AST 1564, ALT 788. Alkaline phosphatase and T-bilirubin are normal. IMPRESSION: 1. Acute hepatitis with elevation of serum transaminases but normal bilirubin and alkaline phosphatase. CT of the abdomen yesterday showed hepatomegaly. Hepatitis serologies for A, B and C are negative. COVID-19 was negative. EBV and CMV serologies are still pending, Lipitor and fenofibrate to be discontinued as of yesterday. Serum transaminases continue to slightly increase. At this time possibility of medication induced hepatitis, viral hepatitis or passive venous congestion from the right-sided heart failure are being considered. In any event, clinically patient is doing better. 2. History of congestive heart failure. Remains on IV Lasix 40 mg q.12 hours. 3. Hypercholesteremia. Lipitor and fenofibrate have been on hold since yesterday. 4. Peripheral neuropathy, on Neurontin. 5. Fibromyalgia. RECOMMENDATIONS: 1. Await rest of the viral serologies. 2. Monitor LFTs on a close basis. 3. Avoid hepatotoxic medications. 4. Continue to hold Lipitor and fenofibrate as well as acyclovir. 5. We will follow with you closely. Thank you for this consultation. MMODL / IJN: [id number] /
--- NOTE | 2020-02-10 11:46 | P.PN ---
Subjective Progress Note Date: 02/10/20 History of present illness This is a 50-year-old female patient of Dr. Ignacio with past medical history significant for POTS syndrome, asthma, COPD, diabetes mellitus on insulin pump, dyslipidemia, hypertension, hypothyroidism, obstructive sleep apnea not on CPAP, and former nicotine dependence. Patient states for the last month and a half she has had shortness of breath and was initially diagnosed with viral pneumonia and heart failure in the emergency center on January 05 and was discharged home and was instructed to take Lasix for the next 5 days. Patient again presented on January 24 to the emergency room and was discharged home. She has been instructed to increase Lasix by doubling it but she continued to have lower extremity edema and shortness of breath. She denies having any jaundice. She states that she noticed her abdomen was larger and she thought it was fluid related versus fat related. She complains of right upper quadrant pain and bandlike pain across the lower abdomen. She also complains of a cough. She did have a heart catheterization done in May [address] Mike that showed normal coronary arteries and normal LV. Echocardiogram performed in January 2019 revealed EF of 50-55%, mild tricuspid regurgitation, no pulmonary hypertension. A repeat echocardiogram on this admission reveals EF of 20-25%, no aortic stenosis, moderate to severe mitral regurgitation, [id number] tricuspid regurgitation, mild to moderate pulmonary hypertension. Blood work revealed initial WBC 10.7, hemoglobin 9.3, platelet count 436, INR 2, sodium 134, potassium 5.2, chloride 97, CO2 24, BUN 22, creatinine 0.94. Total bilirubin 1.5, AST 1204 and repeat at 1363, ALT 627 and repeated 665, alkaline phosphatase normal. Urinalysis negative. Coronavirus not detected. Hepatitis panel negative. Patient denies history of alcohol abuse. Patient was a smoker of one half to one pack per day for 20 years and quit 12 years ago. The patient does follow with Dr. Pruett for COPD and asthma. 02/09: Patient states that she is feeling a little off today and very sleepy. She feels like she is falling asleep almost during conversations. Shortness of breath remains about the same from yesterday. She has shortness of breath with minimal activity such as walking to the bathroom. Lower extremity edema is improved. CAT scan of the abdomen and pelvis revealed small right effusion, hepatomegaly, collapse of the sigmoid colon exclude colitis, minimal renal cystic disease, mild anasarca of unknown etiology. Minimal degenerative changes within the spine. Repeat blood work reveals sodium 133, potassium 4.8, chloride 94, CO2 29, BUN 22 and creatinine 0.96. INR remains elevated 1.8, total bilirubin 0.8, AST increasing to 1564, ALT increasing to 788. Physical examination Blood pressure 109/75, pulse ox 90% on room air, heart rate 94 GENERAL: This is an obese 50-year-old female. Patient is ambulating in her room and noticed to have accessory muscle usage and tachypnea with minimal activity HEENT: Head is atraumatic, normocephalic. Pupils are equal, round. Sclerae anicteric. Conjunctivae are clear. Mucous membranes of the mouth are moist. Neck is supple. There is no jugular venous distention. LUNGS: Diminished to the bases but otherwise clear to auscultation no wheezes, rales or rhonchi. No chest wall tenderness is noted on palpation or with deep breathing. HEART: Regular rate and rhythm with systolic murmur at the apex. ABDOMEN: Soft. Bowel sounds are heard. Tenderness to the right upper quadrant and bilateral lower quadrants. EXTREMITIES: Trace bilateral pedal edema and no calf tenderness noted. VASCULAR: Dorsalis pedis +2 bilaterally. no evidence of clubbing. NEUROLOGIC: Patient is awake, alert and oriented x3. ASSESSMENT Severe cardiomyopathy/LV dysfunction of unclear etiology possibly related to viral infection, liver disease Acute systolic heart failure Moderate to severe mitral regurgitation Acute liver disease Diabetes mellitus type II insulin requiring insulin pump Hypertension Hypothyroidism Dyslipidemia Former nicotine dependence History of POTS syndrome PLAN Continue Lasix 40 mg IV every 12 hours, daily weights, I&O and monitor renal function and electrolytes. Continue Toprol-XL 50 mg daily and digoxin 125 g daily Continue Aldactone 25 mg daily and losartan 12.5 mg at bedtime Hold atorvastatin Further recommendations based on patient's clinical course. Patient will follow-up with Dr. Ignacio at the time of discharge. Thank you kindly for this consultation. Nurse Practitioner note has been reviewed, I agree with a documented findings and plan of care. Patient was seen and examined. Objective - Vital Signs Vital signs: Vital Signs Temp 98 F 02/10/20 07:47 Pulse 94 02/10/20 07:47 Resp 16 02/10/20 08:00 BP 109/75 02/10/20 07:47 Pulse Ox 90 L 02/10/20 07:47 Intake & Output 02/09/20 02/10/20 02/10/20 18:59 06:59 18:59 Intake Total 100 Balance 100 Weight 91.172 kg Intake: Oral 100 Other: Voiding Method Toilet # Voids 3 - Labs CBC & Chem 7: 02/10/20 05:54 02/10/20 05:54 Labs: Abnormal Lab Results - Last 24 Hours (Table) 02/09/20 02/09/20 02/09/20 Range/Units 06:06 11:43 16:46 RBC (3.80-5.40) m/uL Hgb (11.4-16.0) gm/dL Hct (34.0-46.0) % MCV (80.0-100.0) fL MCH (25.0-35.0) pg MCHC (31.0-37.0) g/dL PT (9.0-12.0) sec INR (<1.2) Sodium (137-145) mmol/L Chloride (98-107) mmol/L BUN (7-17) mg/dL Glucose (74-99) mg/dL POC Glucose (mg/dL) 320 H 251 H (75-99) mg/dL Iron 15 L (50-170) ug/dL % Saturation 4.01 L (12.00-45.00) AST (14-36) U/L ALT (4-34) U/L Albumin (3.5-5.0) g/dL 02/09/20 02/10/20 02/10/20 Range/Units 19:57 04:05 05:54 RBC 3.68 L (3.80-5.40) m/uL Hgb 8.9 L (11.4-16.0) gm/dL Hct 29.0 L (34.0-46.0) % MCV 78.7 L (80.0-100.0) fL MCH 24.1 L (25.0-35.0) pg MCHC 30.6 L (31.0-37.0) g/dL PT (9.0-12.0) sec INR (<1.2) Sodium (137-145) mmol/L Chloride (98-107) mmol/L BUN (7-17) mg/dL Glucose (74-99) mg/dL POC Glucose (mg/dL) 294 H 138 H (75-99) mg/dL Iron (50-170) ug/dL % Saturation (12.00-45.00) AST (14-36) U/L ALT (4-34) U/L Albumin (3.5-5.0) g/dL 02/10/20 02/10/20 02/10/20 Range/Units 05:54 05:54 07:15 RBC (3.80-5.40) m/uL Hgb (11.4-16.0) gm/dL Hct (34.0-46.0) % MCV (80.0-100.0) fL MCH (25.0-35.0) pg MCHC (31.0-37.0) g/dL PT 18.0 H (9.0-12.0) sec INR 1.8 H (<1.2) Sodium 133 L (137-145) mmol/L Chloride 94 L (98-107) mmol/L BUN 22 H (7-17) mg/dL Glucose 105 H (74-99) mg/dL POC Glucose (mg/dL) 116 H (75-99) mg/dL Iron (50-170) ug/dL % Saturation (12.00-45.00) AST 1564 H (14-36) U/L ALT 788 H (4-34) U/L Albumin 3.1 L (3.5-5.0) g/dL Microbiology - Last 24 Hours (Table) 02/09/20 19:10 Gram Stain - Preliminary Sputum Sputum Culture - Preliminary
[2020-02-10 11:58] LABS: Glucose,Whole Blood 152 mg/dL (75-99)
--- NOTE | 2020-02-10 13:03 | P.PN ---
Subjective 50-year-old female patient is admitted for hepatitis which is believed to be drug-induced, patient does have heart failure with the some exacerbation as well patient's EF is 20-25% probably hepatic congestion is contributing to some of her liver enzyme elevation patient liver enzymes remain in thousands.patient normally has pain in the right upper quadrant but now she is complaining of pain in the left right and mid lower abdomen. And a computed tomography scan of the abdomen to rule out any diverticulitis. Patient pain is fairly controlled but still has moderate amount of pain. Patient is normally constipated but has couple loose stools. 02/10/2020 Patient liver enzymes went up a bit more repeat liver enzymes tomorrow patient's hepatitis panel is negative, viral panel and immunological testings are pending gastroenterology is following the patient along with cardiology patient remains on IV Lasix, bit hyponatremic. For hyponatremia or gets worse when he to cut down on the Lasix at the time Constitutional: Denied any fatigue denied any fever. Cardio vascular: denied any chest pain, palpitations Gastrointestinal denied any nausea vomiting Pulmonary: Denied any shortness of breath cough Neurologic denied any new focal deficits All inpatient medications were reviewed and appropriate changes in these medications as dictated in the interval history and assessment and plan. Objective - Vital Signs Vital signs: Vital Signs Temp 98 F 02/10/20 07:47 Pulse 94 02/10/20 07:47 Resp 16 02/10/20 08:00 BP 109/75 02/10/20 07:47 Pulse Ox 90 L 02/10/20 07:47 Intake & Output 02/09/20 02/10/20 02/10/20 18:59 06:59 18:59 Intake Total 100 Balance 100 Weight 91.172 kg Intake: Oral 100 Other: Voiding Method Toilet # Voids 3 3 - Exam PHYSICAL EXAMINATION: GENERAL: The patient is alert and oriented x3, not in any acute distress. Well developed, well nourished. HEENT: Pupils are round and equally reacting to light. EOMI. No scleral icterus. No conjunctival pallor. Normocephalic, atraumatic. No pharyngeal erythema. No thyromegaly. CARDIOVASCULAR: S1 and S2 present. No murmurs, rubs, or gallops. PULMONARY: Chest is clear to auscultation, no wheezing or crackles. ABDOMEN: Soft, nontender, nondistended, normoactive bowel sounds. No palpable organomegaly. MUSCULOSKELETAL: No joint swelling or deformity. EXTREMITIES: No cyanosis, clubbing, or pedal edema. NEUROLOGICAL: Gross neurological examination did not reveal any focal deficits. SKIN: No rashes. - Labs CBC & Chem 7: 02/10/20 05:54 02/10/20 05:54 Labs: Abnormal Lab Results - Last 24 Hours (Table) 02/09/20 02/09/20 02/09/20 Range/Units 06:06 16:46 19:57 RBC (3.80-5.40) m/uL Hgb (11.4-16.0) gm/dL Hct (34.0-46.0) % MCV (80.0-100.0) fL MCH (25.0-35.0) pg MCHC (31.0-37.0) g/dL PT (9.0-12.0) sec INR (<1.2) Sodium (137-145) mmol/L Chloride (98-107) mmol/L BUN (7-17) mg/dL Glucose (74-99) mg/dL POC Glucose (mg/dL) 251 H 294 H (75-99) mg/dL Iron 15 L (50-170) ug/dL % Saturation 4.01 L (12.00-45.00) AST (14-36) U/L ALT (4-34) U/L Albumin (3.5-5.0) g/dL 02/10/20 02/10/20 02/10/20 Range/Units 04:05 05:54 05:54 RBC 3.68 L (3.80-5.40) m/uL Hgb 8.9 L (11.4-16.0) gm/dL Hct 29.0 L (34.0-46.0) % MCV 78.7 L (80.0-100.0) fL MCH 24.1 L (25.0-35.0) pg MCHC 30.6 L (31.0-37.0) g/dL PT 18.0 H (9.0-12.0) sec INR 1.8 H (<1.2) Sodium (137-145) mmol/L Chloride (98-107) mmol/L BUN (7-17) mg/dL Glucose (74-99) mg/dL POC Glucose (mg/dL) 138 H (75-99) mg/dL Iron (50-170) ug/dL % Saturation (12.00-45.00) AST (14-36) U/L ALT (4-34) U/L Albumin (3.5-5.0) g/dL 02/10/20 02/10/20 02/10/20 Range/Units 05:54 07:15 11:56 RBC (3.80-5.40) m/uL Hgb (11.4-16.0) gm/dL Hct (34.0-46.0) % MCV (80.0-100.0) fL MCH (25.0-35.0) pg MCHC (31.0-37.0) g/dL PT (9.0-12.0) sec INR (<1.2) Sodium 133 L (137-145) mmol/L Chloride 94 L (98-107) mmol/L BUN 22 H (7-17) mg/dL Glucose 105 H (74-99) mg/dL POC Glucose (mg/dL) 116 H 152 H (75-99) mg/dL Iron (50-170) ug/dL % Saturation (12.00-45.00) AST 1564 H (14-36) U/L ALT 788 H (4-34) U/L Albumin 3.1 L (3.5-5.0) g/dL Microbiology - Last 24 Hours (Table) 02/09/20 19:10 Gram Stain - Preliminary Sputum Sputum Culture - Preliminary Assessment and Plan Plan: -congestive heart failure chronic systolic dysfunction with the exacerbation patient will be can you done IV Lasix -Hepatitis and elevated liver enzymes probably secondary to hepatic congestion can be drug induced as well patient the ultrasound did show fatty liver, hepatitis panel is negative, viral panel and autoimmune panels are pending -Type 2 diabetes mellitus patient is on insulin pump which will be continued -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
[2020-02-10 16:50] LABS: Glucose,Whole Blood 168 mg/dL (75-99)
[2020-02-10 21:22] LABS: Glucose,Whole Blood 187 mg/dL (75-99)
[2020-02-10] MEDS: LOSARTAN 25 MG TAB PO SCH (21:30)
[2020-02-10] MEDS: CYCLOBENZAPRINE 10 MG TAB PO SCH (21:31)
[2020-02-11 05:09] LABS: Glucose,Whole Blood 126 mg/dL (75-99)
--- NOTE | 2020-02-11 06:53 | CT ---
EXAMINATION TYPE: CT brain wo con DATE OF EXAM: 02/11/2020 COMPARISON: 02/03/2017 HISTORY: Fall. Headache. CT DLP: 1099.4 mGycm Automated exposure control for dose reduction was used. Ventricles and sulci appear normal. There is no mass effect nor midline shift. There is no sign of in tracranial hemorrhage. Calvarium is intact. The skull base is intact. There is no evidence of cerebra l edema. IMPRESSION: Negative unenhanced head CT scan. No change.
[2020-02-11 06:54] LABS: Albumin 3.3 g/dL (3.5-5.0); Calcium 8.7 mg/dL (8.4-10.2); Potassium 4.7 mmol/L (3.5-5.1)
--- NOTE | 2020-02-11 06:54 | XR ---
EXAMINATION TYPE: XR Hip Complete LT DATE OF EXAM: 02/11/2020 COMPARISON: Pelvis x-ray 01/03/2015 HISTORY: Pain TECHNIQUE: 2 views FINDINGS: Proximal femur is intact. Acetabulum is intact. I see no fracture nor dislocation. Hip join t space is fairly normal. IMPRESSION: Normal left hip exam. No change.
[2020-02-11 07:28] LABS: Glucose,Whole Blood 68 mg/dL (75-99)
[2020-02-11] MEDS: ALBUTEROL HFA INHALER INHALATION PRN ×2 (07:32→20:09)
[2020-02-11] MEDS: SYMBICORT 160-4.5 MCG INHALER INHALATION SCH ×2 (07:33→20:09)
[2020-02-11] MEDS: TIOTROPIUM 18 MCG/PUFF INHALER INHALATION PRN (07:33)
[2020-02-11 08:09] LABS: Glucose,Whole Blood 120 mg/dL (75-99)
--- NOTE | 2020-02-11 08:10 | P.PN ---
Subjective Progress Note Date: 02/11/20 Principal diagnosis: Elevated liver function enzymes with CHF The patient is here essentially for CHF and element of hepatitis.Appreciate multiple consultants input. She is tolerating diet appropriately but has been having difficulty with sugar. She recently fell and states her insulin pump is somewhat malfunctioning. No fever or chills stated. No sniffing chest pressure noted. Breathing is improved. Objective - Vital Signs Vital signs: Vital Signs Temp 98.2 F 02/11/20 02:00 Pulse 88 02/11/20 02:00 Resp 16 02/11/20 02:00 BP 109/71 02/11/20 02:00 Pulse Ox 97 02/11/20 02:00 Intake & Output 02/10/20 02/11/20 02/11/20 18:59 06:59 18:59 Intake Total 50 Balance 50 Weight 88 kg Intake: Oral 50 Other: # Voids 3 2 - Constitutional General appearance: Present: no acute distress - EENT Eyes: Absent: abnormal pupil - Respiratory Respiratory: bilateral: CTA - Cardiovascular Rhythm: regular Heart sounds: normal: S1, S2 Abnormal Heart Sounds: Absent: S3 Gallop - Gastrointestinal General gastrointestinal: Present: soft. Absent: tenderness - Neurologic Neurologic: Present: CNII-XII intact - Labs CBC & Chem 7: 02/10/20 05:54 02/11/20 05:42 Labs: Abnormal Lab Results - Last 24 Hours (Table) 02/10/20 02/10/20 02/10/20 Range/Units 11:56 16:48 21:20 Sodium (137-145) mmol/L Chloride (98-107) mmol/L Carbon Dioxide (22-30) mmol/L BUN (7-17) mg/dL POC Glucose (mg/dL) 152 H 168 H 187 H (75-99) mg/dL AST (14-36) U/L ALT (4-34) U/L Albumin (3.5-5.0) g/dL 02/11/20 02/11/20 02/11/20 Range/Units 05:07 05:42 07:24 Sodium 136 L (137-145) mmol/L Chloride 94 L (98-107) mmol/L Carbon Dioxide 33 H (22-30) mmol/L BUN 22 H (7-17) mg/dL POC Glucose (mg/dL) 126 H 68 L (75-99) mg/dL AST 1428 H (14-36) U/L ALT 754 H (4-34) U/L Albumin 3.3 L (3.5-5.0) g/dL Assessment and Plan (1) Acute liver failure Current Visit: Yes Status: Acute Code(s): K72.00 - ACUTE AND SUBACUTE HEPATIC FAILURE WITHOUT COMA SNOMED Code(s): 498401531 (2) Fluid overload Current Visit: Yes Status: Acute Code(s): E87.70 - FLUID OVERLOAD, UNSPECIFIED SNOMED Code(s): 61440455 (3) Asthma Current Visit: No Status: Acute Code(s): J45.909 - UNSPECIFIED ASTHMA, UNCOMPLICATED SNOMED Code(s): 746610857 (4) Dyspnea Current Visit: No Status: Acute Code(s): R06.00 - DYSPNEA, UNSPECIFIED SNOMED Code(s): 269445778 (5) Pulmonary edema Current Visit: No Status: Acute Code(s): J81.1 - CHRONIC PULMONARY EDEMA SNOMED Code(s): 16384800 Plan: The patient seems to be stabilizing medically. Liver functions are still slightly elevated. Check CBC and CMP in a.m. Continue to follow. If insulin pump is not functional, Place on basal bolus.
[2020-02-11] MEDS: traMADol 50 MG TAB PO PRN (08:42)
[2020-02-11] MEDS: SPIRONOLACTONE 25 MG TAB PO SCH (08:42)
[2020-02-11] MEDS: DIGOXIN 125 MCG TAB PO SCH (08:43)
[2020-02-11] MEDS: SERTRALINE 50 MG TAB PO SCH ×3 (08:43→21:43)
[2020-02-11] MEDS: GABAPENTIN 300 MG CAP PO SCH ×3 (08:43→21:43)
[2020-02-11] MEDS: METOPROLOL SUCCINATE (ER) 50 MG TAB.ER.24H PO SCH (08:43)
[2020-02-11] MEDS: ESTROGENS, CONJUGATED 0.625 MG TAB PO SCH (08:43)
[2020-02-11] MEDS: HYOSCYAMINE SULFATE 0.375 MG TAB.ER.12H PO SCH ×2 (08:43→22:18)
[2020-02-11] MEDS: FUROSEMIDE 10 MG/ML 4 ML VIAL IV SCH ×2 (08:44→21:44)
--- NOTE | 2020-02-11 10:13 | P.PN ---
Subjective This is a pleasant 50-year-old female past medical history significant for diabetes mellitus, hypertension, dyslipidemia, COPD, POTS syndrome, sleep apnea and former nicotine dependence. She follows in the office with Dr. Ignacio. She has been complaining of progressive shortness of breath over the previous 1-month. She had previously been diagnosed with a sinus infection and was started on a course of antibiotics. However, she had no improvement. She had a televisit with Dr. Ignacio 01/30/2020 and was advised to take additional lasix and was set up for an echocardiogram. The increased lasix did not improve her symptoms prompting her to come to the hospital On arrival an echocardiogram was ordered revealing severe global hypokinesia with EF 20-25%, moderate to severe MR, mild-moderate TR and mild-moderate pulmonary hypertension with RVSP of 42 mmHg. This is a new diagnosis of systolic heart failure for the patient. She also has significant transaminitis. GI is following. Dyslipidemics have been held. She is seen and examined sitting up in bed in no acute distress. She states her breathing has improved since admission, however she does not feel back to her baseline. She is complaining of a tight band like discomfort around her lower abdomen with radiation to the right upper quadrant at times. She has no worsening shortness of breath, chest pain, dizziness or palpitations. Blood pressure 109/71 heart rate 88 afebrile and maintaining oxygen saturation on room air. Laboratory data reviewed, sodium 136, potassium 4, creatinine 0.91, AST 1428, ALT 754. Currently maintained on lasix 40 mg IV BID, digoxin 125 mcg daily, losartan 12.5 mg daily, toprol 50 mg daily and aldactone 25 mg daily. GENERAL: Well-appearing, well-nourished and in no acute distress. NECK: Supple without JVD or thyromegaly. LUNGS: Breath sounds clear to auscultation bilaterally. Respiration equal and unlabored. No wheezes, rales or rhonchi. HEART: Regular rate and rhythm with systolic ejection murmur at the apex, no rubs or gallops. S1 and S2 heard. EXTREMITIES: Normal range of motion, 1+ bilateral lower extremity pitting edema. No clubbing or cyanosis. Peripheral pulses intact. ASSESSMENT Acute systolic heart failure Severe cardiomyopathy, non-ischemic. Normal coronary angiography 05/2019 Acute hepatitis Anemia Valvular heart disease, moderate-severe MR and mild-moderate TR Pulmonary hypertension Diabetes mellitus Hypertension Dyslipidemia COPD History of POTS PLAN Continue IV lasix at current dose. Follow renal function and electrolytes daily. Apply surveillance system monitor for duration of her hospital stay. We will continue to follow and make recommendations accordingly. Nurse Practitioner note has been reviewed, I agree with a documented findings and plan of care. Patient was seen and examined. Objective - Vital Signs Vital signs: Vital Signs Temp 98.2 F 02/11/20 02:00 Pulse 88 02/11/20 02:00 Resp 16 02/11/20 02:00 BP 109/71 02/11/20 02:00 Pulse Ox 97 02/11/20 02:00 Intake & Output 02/10/20 02/11/20 02/11/20 18:59 06:59 18:59 Intake Total 50 Balance 50 Weight 88 kg Intake: Oral 50 Other: # Voids 3 2 - Labs CBC & Chem 7: 02/10/20 05:54 02/11/20 05:42 Labs: Abnormal Lab Results - Last 24 Hours (Table) 02/10/20 02/10/20 02/10/20 Range/Units 11:56 16:48 21:20 Sodium (137-145) mmol/L Chloride (98-107) mmol/L Carbon Dioxide (22-30) mmol/L BUN (7-17) mg/dL POC Glucose (mg/dL) 152 H 168 H 187 H (75-99) mg/dL AST (14-36) U/L ALT (4-34) U/L Albumin (3.5-5.0) g/dL 02/11/20 02/11/20 02/11/20 Range/Units 05:07 05:42 07:24 Sodium 136 L (137-145) mmol/L Chloride 94 L (98-107) mmol/L Carbon Dioxide 33 H (22-30) mmol/L BUN 22 H (7-17) mg/dL POC Glucose (mg/dL) 126 H 68 L (75-99) mg/dL AST 1428 H (14-36) U/L ALT 754 H (4-34) U/L Albumin 3.3 L (3.5-5.0) g/dL 02/11/20 Range/Units 08:08 Sodium (137-145) mmol/L Chloride (98-107) mmol/L Carbon Dioxide (22-30) mmol/L BUN (7-17) mg/dL POC Glucose (mg/dL) 120 H (75-99) mg/dL AST (14-36) U/L ALT (4-34) U/L Albumin (3.5-5.0) g/dL
[2020-02-11] MEDS: MAGNESIUM CITRATE 296 ML BOTTLE PO SCH ×2 (11:37→18:14)
[2020-02-11 11:53] LABS: Glucose,Whole Blood 203 mg/dL (75-99)
[2020-02-11 17:01] LABS: Glucose,Whole Blood 177 mg/dL (75-99)
--- NOTE | 2020-02-11 18:04 | P.PN ---
Subjective Progress Note Date: 02/11/20 Principal diagnosis: Elevated liver enzymes Patient seen lying in bed today. Tolerating diet, with no nausea or vomiting. She is reporting some left lower abdominal pain and does report chronic constipation at baseline. Objective - Vital Signs Vital signs: Vital Signs Temp 98.1 F 02/11/20 15:07 Pulse 88 02/11/20 15:07 Resp 18 02/11/20 15:07 BP 93/60 02/11/20 15:07 Pulse Ox 95 02/11/20 15:07 Intake & Output 02/10/20 02/11/20 02/11/20 18:59 06:59 18:59 Intake Total 50 Balance 50 Weight 88 kg Intake: Oral 50 Other: Voiding Method Toilet # Voids 3 2 2 - Exam On physical examination, patient appears comfortable in no apparent distress. HEAD: Normocephalic, atraumatic. EYES: No scleral icterus. No conjunctival injection. MOUTH: No lesions, tongue midline. NECK: Trachea midline, no gross abnormalities. ABDOMEN: Soft, obese. Bowel sounds are positive. No organomegaly. No guarding or rigidity. EXTREMITIES: No pedal edema. SKIN: No rashes, no jaundice. NEUROLOGIC: Alert and oriented x3. No focal deficits. - Labs CBC & Chem 7: 02/10/20 05:54 02/11/20 05:42 Labs: Abnormal Lab Results - Last 24 Hours (Table) 02/10/20 02/11/20 02/11/20 Range/Units 21:20 05:07 05:42 Sodium 136 L (137-145) mmol/L Chloride 94 L (98-107) mmol/L Carbon Dioxide 33 H (22-30) mmol/L BUN 22 H (7-17) mg/dL POC Glucose (mg/dL) 187 H 126 H (75-99) mg/dL AST 1428 H (14-36) U/L ALT 754 H (4-34) U/L Albumin 3.3 L (3.5-5.0) g/dL 02/11/20 02/11/20 02/11/20 Range/Units 07:24 08:08 11:51 Sodium (137-145) mmol/L Chloride (98-107) mmol/L Carbon Dioxide (22-30) mmol/L BUN (7-17) mg/dL POC Glucose (mg/dL) 68 L 120 H 203 H (75-99) mg/dL AST (14-36) U/L ALT (4-34) U/L Albumin (3.5-5.0) g/dL 02/11/20 Range/Units 16:59 Sodium (137-145) mmol/L Chloride (98-107) mmol/L Carbon Dioxide (22-30) mmol/L BUN (7-17) mg/dL POC Glucose (mg/dL) 177 H (75-99) mg/dL AST (14-36) U/L ALT (4-34) U/L Albumin (3.5-5.0) g/dL Microbiology - Last 24 Hours (Table) 02/09/20 19:10 Gram Stain - Final Sputum Sputum Culture - Final Assessment and Plan (1) Elevated liver enzymes Narrative/Plan: 50-year-old female with multiple medical comorbidities currently being treated for new onset acute systolic heart failure. The patient was found to have markedly elevated liver enzymes and predominantly hepatocellular pattern with elevation in the AST and ALTs. Currently improved today. Unknown etiology of symptoms, may be medication side effect with patient's hyperlipidemia medications and acyclovir being held, due to congestive hepatopathy, or viral in nature. Testing for acute viral hepatitis, CMV, EBV and Zhang virus have been negative to date. Current Visit: Yes Status: Acute Code(s): R74.8 - ABNORMAL LEVELS OF OTHER SERUM ENZYMES SNOMED Code(s): 372339966 Plan: Supportive care Okay for diet as tolerated Magnesium citrate ordered as the patient is complaining of constipation Continue to monitor CBC, BMP, LFTs Avoid hepatotoxic medications In the need to monitor liver enzymes and if he remained persistently elevated will consider more extensive liver serology for evaluation Clinically no signs of encephalopathy or liver failure Thank you for allowing us to participate in the care of the patient
[2020-02-11 20:57] LABS: Glucose,Whole Blood 241 mg/dL (75-99)
[2020-02-11] MEDS: INSPUCOR MISCELLANE PRN (21:00)
[2020-02-11] MEDS: LOSARTAN 25 MG TAB PO SCH (21:43)
[2020-02-11] MEDS: CYCLOBENZAPRINE 10 MG TAB PO SCH (21:43)
[2020-02-12 01:46] LABS: Glucose,Whole Blood 216 mg/dL (75-99)
[2020-02-12] MEDS: INSPUCOR MISCELLANE PRN (02:30)
[2020-02-12 07:41] LABS: Glucose,Whole Blood 281 mg/dL (75-99)
[2020-02-12] MEDS: METOPROLOL SUCCINATE (ER) 50 MG TAB.ER.24H PO SCH (07:59)
[2020-02-12] MEDS: GABAPENTIN 300 MG CAP PO SCH ×3 (07:59→20:57)
[2020-02-12] MEDS: SPIRONOLACTONE 25 MG TAB PO SCH (07:59)
[2020-02-12] MEDS: traMADol 50 MG TAB PO PRN (07:59)
[2020-02-12] MEDS: SERTRALINE 50 MG TAB PO SCH ×3 (07:59→20:57)
[2020-02-12] MEDS: ESTROGENS, CONJUGATED 0.625 MG TAB PO SCH (08:00)
[2020-02-12] MEDS: DIGOXIN 125 MCG TAB PO SCH (08:00)
[2020-02-12] MEDS: FUROSEMIDE 10 MG/ML 4 ML VIAL IV SCH ×2 (08:00→20:57)
[2020-02-12] MEDS: SYMBICORT 160-4.5 MCG INHALER INHALATION SCH ×2 (08:06→19:39)
[2020-02-12] MEDS: HYOSCYAMINE SULFATE 0.375 MG TAB.ER.12H PO SCH ×2 (08:06→20:57)
[2020-02-12] MEDS: TIOTROPIUM 18 MCG/PUFF INHALER INHALATION PRN (08:07)
[2020-02-12] MEDS: ALBUTEROL HFA INHALER INHALATION PRN (08:07)
--- NOTE | 2020-02-12 08:08 | P.PN ---
Subjective Principal diagnosis: Elevated liver function enzymes with CHF The patient is here essentially for CHF and element of hepatitis.Appreciate multiple consultants input. She is tolerating diet appropriately but has been having difficulty with sugar. She recently fell and states her insulin pump is somewhat malfunctioning. No fever or chills stated. No sniffing chest pressure noted. Breathing is improved. hopefully wean off of IV Lasix today. Objective - Vital Signs Vital signs: Vital Signs Temp 98.0 F 02/12/20 01:45 Pulse 86 02/12/20 01:45 Resp 18 02/12/20 01:45 BP 113/71 02/12/20 01:45 Pulse Ox 95 02/12/20 01:45 Intake & Output 02/11/20 02/12/20 02/12/20 18:59 06:59 18:59 Other: Voiding Method Toilet Toilet # Voids 2 - Constitutional General appearance: Present: average body habitus - EENT Eyes: Absent: abnormal pupil - Neck Neck: Absent: lymphadenopathy - Respiratory Respiratory: bilateral: CTA - Cardiovascular Rhythm: regular Heart sounds: normal: S1, S2 - Gastrointestinal General gastrointestinal: Present: soft. Absent: tenderness - Integumentary Integumentary: Absent: cellulitis - Neurologic Neurologic: Present: CNII-XII intact. Absent: focal deficits - Labs CBC & Chem 7: 02/10/20 05:54 02/11/20 05:42 Labs: Abnormal Lab Results - Last 24 Hours (Table) 02/11/20 02/11/20 02/11/20 Range/Units 08:08 11:51 16:59 POC Glucose (mg/dL) 120 H 203 H 177 H (75-99) mg/dL 02/11/20 02/12/20 02/12/20 Range/Units 20:55 01:44 07:39 POC Glucose (mg/dL) 241 H 216 H 281 H (75-99) mg/dL Microbiology - Last 24 Hours (Table) 02/09/20 19:10 Gram Stain - Final Sputum Sputum Culture - Final Assessment and Plan (1) Acute liver failure Current Visit: Yes Status: Acute Code(s): K72.00 - ACUTE AND SUBACUTE HEPATIC FAILURE WITHOUT COMA SNOMED Code(s): 576387138 (2) Fluid overload Current Visit: Yes Status: Acute Code(s): E87.70 - FLUID OVERLOAD, UNSPECIFIED SNOMED Code(s): 48337044 (3) Asthma Current Visit: No Status: Acute Code(s): J45.909 - UNSPECIFIED ASTHMA, UNCOM PLICATED SNOMED Code(s): 759355094 (4) Dyspnea Current Visit: No Status: Acute Code(s): R06.00 - DYSPNEA, UNSPECIFIED SNOMED Code(s): 788802564 (5) Pulmonary edema Current Visit: No Status: Acute Code(s): J81.1 - CHRONIC PULMONARY EDEMA SNOMED Code(s): 19413501 Plan: The patient seems to be stabilizing medically. Liver functions are still slightly elevated. Check CMP in a.m. Continue to follow. If insulin pump is not functional, Place on basal bolus.
[2020-02-12 09:21] LABS: HCT 31.1 % (34.0-46.0); HGB 9.5 gm/dL (11.4-16.0); Hypochromasia Moderate; MCH 24.3 pg (25.0-35.0); MCHC 30.5 g/dL (31.0-37.0); MCV 79.9 fL (80.0-100.0); Mean Platelet Volume 9.2; Platelet Count 356 k/uL (150-450); Poikilocytosis Slight; RBC 3.89 m/uL (3.80-5.40); RDW 15.6 % (11.5-15.5); WBC 10.9 k/uL (3.8-10.6)
[2020-02-12] MEDS ORDERED: SPIRONOLACTONE 25 MG TAB PO STA (09:37)
--- NOTE | 2020-02-12 09:44 | P.PN ---
Subjective This is a pleasant 50-year-old female past medical history significant for diabetes mellitus, hypertension, dyslipidemia, COPD, POTS syndrome, sleep apnea and former nicotine dependence. She follows in the office with Dr. Ignacio. She has been complaining of progressive shortness of breath over the previous 1-month. She had previously been diagnosed with a sinus infection and was started on a course of antibiotics. However, she had no improvement. She had a televisit with Dr. Ignacio 01/30/2020 and was advised to take additional lasix and was set up for an echocardiogram. The increased lasix did not improve her symptoms prompting her to come to the hospital On arrival an echocardiogram was ordered revealing severe global hypokinesia with EF 20-25%, moderate to severe MR, mild-moderate TR and mild-moderate pulmonary hypertension with RVSP of 42 mmHg. This is a new diagnosis of systolic heart failure for the patient. She also has significant transaminitis. GI is following. Dyslipidemics have been held. She is seen and examined sitting up in bed in no acute distress. She states her breathing has improved since admission, however she does not feel back to her baseline. She is complaining of a tight band like discomfort around her lower abdomen with radiation to the right upper quadrant at times. She has no worsening shortness of breath, chest pain, dizziness or palpitations. Blood pressure 109/71 heart rate 88 afebrile and maintaining oxygen saturation on room air. Laboratory data reviewed, sodium 136, potassium 4, creatinine 0.91, AST 1428, ALT 754. Currently maintained on lasix 40 mg IV BID, digoxin 125 mcg daily, losartan 12.5 mg daily, toprol 50 mg daily and aldactone 25 mg daily. 02/12/2020 Pt is seen and examined laying flat resting comfortably in bed. She states her breathing is stable at rest however with activity she continues to become dyspneic. Blood pressure 106/68 heart rate 84 afebrile and maintaining oxygen saturation on room air at rest but requiring 2 liters nasal cannula after exertion. Laboratory data reviewed, WBC 10.9, hgb 9.5, plt 356. CMP pending. Weight is down 3 kg from admission. Telemetry tracings unremarkable. GENERAL: Well-appearing, well-nourished and in no acute distress. NECK: Supple without JVD or thyromegaly. LUNGS: Breath sounds clear to auscultation bilaterally. Respiration equal and unlabored. No wheezes, rales or rhonchi. HEART: Regular rate and rhythm with systolic ejection murmur at the apex, no rubs or gallops. S1 and S2 heard. EXTREMITIES: Normal range of motion, 1+ bilateral lower extremity pitting edema, slightly improved from previous exam. No clubbing or cyanosis. Peripheral pulses intact. ASSESSMENT Acute systolic heart failure Severe cardiomyopathy, non-ischemic. Normal coronary angiography 05/2019 Acute hepatitis Anemia Valvular heart disease, moderate-severe MR and mild-moderate TR Pulmonary hypertension Diabetes mellitus Hypertension Dyslipidemia COPD History of POTS PLAN Continue IV lasix at current dose. Increase aldactone to 50 mg daily. Follow renal function and electrolytes daily. Accurate documentation of intake and output imperative to assess diuresis. We will continue to follow and make recommendations accordingly. Nurse Practitioner note has been reviewed, I agree with a documented findings and plan of care. Patient was seen and examined. Objective - Vital Signs Vital signs: Vital Signs Temp 97.7 F 02/12/20 07:00 Pulse 89 02/12/20 08:00 Resp 18 02/12/20 08:00 BP 106/68 02/12/20 07:00 Pulse Ox 95 02/12/20 07:00 Intake & Output 02/11/20 02/12/20 02/12/20 18:59 06:59 18:59 Other: Voiding Method Toilet Toilet Toilet # Voids 2 2 - Labs CBC & Chem 7: 02/12/20 08:35 02/11/20 05:42 Labs: Abnormal Lab Results - Last 24 Hours (Table) 02/11/20 02/11/20 02/11/20 Range/Units 11:51 16:59 20:55 WBC (3.8-10.6) k/uL Hgb (11.4-16.0) gm/dL Hct (34.0-46.0) % MCV (80.0-100.0) fL MCH (25.0-35.0) pg MCHC (31.0-37.0) g/dL RDW (11.5-15.5) % POC Glucose (mg/dL) 203 H 177 H 241 H (75-99) mg/dL 02/12/20 02/12/20 02/12/20 Range/Units 01:44 07:39 08:35 WBC 10.9 H (3.8-10.6) k/uL Hgb 9.5 L (11.4-16.0) gm/dL Hct 31.1 L (34.0-46.0) % MCV 79.9 L (80.0-100.0) fL MCH 24.3 L (25.0-35.0) pg MCHC 30.5 L (31.0-37.0) g/dL RDW 15.6 H (11.5-15.5) % POC Glucose (mg/dL) 216 H 281 H (75-99) mg/dL Microbiology - Last 24 Hours (Table) 02/09/20 19:10 Gram Stain - Final Sputum Sputum Culture - Final
[2020-02-12 10:38] LABS: Albumin 3.3 g/dL (3.5-5.0); Potassium 5.1 mmol/L (3.5-5.1); Total Protein 7.1 g/dL (6.3-8.2)
[2020-02-12 12:58] LABS: INR 1.9 (<1.2); Prothrombin Time 18.2 sec (9.0-12.0)
[2020-02-12 13:04] LABS: Albumin 3.9 g/dL (3.5-5.0); Bilirubin, Delta 0.8 mg/dL (0.0-0.2); Bilirubin,Unconjugated 0.4 mg/dL (0.0-1.1); Total Bilirubin 1.2 mg/dL (0.2-1.3); Total Protein 7.8 g/dL (6.3-8.2)
[2020-02-12 17:50] LABS: Glucose,Whole Blood 232 mg/dL (75-99)
[2020-02-12 19:10] LABS: Protein, Total 7.3 g/dL (6.2-8.2)
[2020-02-12 20:37] LABS: HIV 2 AB Non-Reactive (Non-Reactive); HIV AB P24 Non-Reactive (Non-Reactive); HIV P24 AG Non-Reactive (Non-Reactive)
[2020-02-12] MEDS: CYCLOBENZAPRINE 10 MG TAB PO SCH (20:57)
[2020-02-12] MEDS: LOSARTAN 25 MG TAB PO SCH (20:57)
[2020-02-12] MEDS ORDERED: PHYTONADIONE 10 MG in SODIUM CHLORIDE 0.9% 50 ML IVPB STA (20:58)
--- NOTE | 2020-02-12 21:03 | P.PN ---
Subjective Progress Note Date: 02/12/20 Principal diagnosis: Elevated liver enzymes Patient seen lying in bed today. Tolerating diet, with no nausea or vomiting. Abdominal pain is improved today. Objective - Vital Signs Vital signs: Vital Signs Temp 97.7 F 02/12/20 07:00 Pulse 89 02/12/20 08:00 Resp 18 02/12/20 08:00 BP 106/68 02/12/20 07:00 Pulse Ox 95 02/12/20 07:00 Intake & Output 02/11/20 02/12/20 02/12/20 18:59 06:59 18:59 Weight 84.4 kg Other: Voiding Method Toilet Toilet Toilet # Voids 2 2 - Exam On physical examination, patient appears comfortable in no apparent distress. HEAD: Normocephalic, atraumatic. EYES: No scleral icterus. No conjunctival injection. MOUTH: No lesions, tongue midline. NECK: Trachea midline, no gross abnormalities. ABDOMEN: Soft, obese. Bowel sounds are positive. No organomegaly. No guarding or rigidity. EXTREMITIES: No pedal edema. SKIN: No rashes, no jaundice. NEUROLOGIC: Alert and oriented x3. No focal deficits. - Labs CBC & Chem 7: 02/12/20 08:35 02/12/20 08:35 Labs: Abnormal Lab Results - Last 24 Hours (Table) 02/11/20 02/11/20 02/11/20 Range/Units 11:51 16:59 20:55 WBC (3.8-10.6) k/uL Hgb (11.4-16.0) gm/dL Hct (34.0-46.0) % MCV (80.0-100.0) fL MCH (25.0-35.0) pg MCHC (31.0-37.0) g/dL RDW (11.5-15.5) % Sodium (137-145) mmol/L Chloride (98-107) mmol/L BUN (7-17) mg/dL Glucose (74-99) mg/dL POC Glucose (mg/dL) 203 H 177 H 241 H (75-99) mg/dL AST (14-36) U/L ALT (4-34) U/L Albumin (3.5-5.0) g/dL 02/12/20 02/12/20 02/12/20 Range/Units 01:44 07:39 08:35 WBC 10.9 H (3.8-10.6) k/uL Hgb 9.5 L (11.4-16.0) gm/dL Hct 31.1 L (34.0-46.0) % MCV 79.9 L (80.0-100.0) fL MCH 24.3 L (25.0-35.0) pg MCHC 30.5 L (31.0-37.0) g/dL RDW 15.6 H (11.5-15.5) % Sodium (137-145) mmol/L Chloride (98-107) mmol/L BUN (7-17) mg/dL Glucose (74-99) mg/dL POC Glucose (mg/dL) 216 H 281 H (75-99) mg/dL AST (14-36) U/L ALT (4-34) U/L Albumin (3.5-5.0) g/dL 02/12/20 Range/Units 08:35 WBC (3.8-10.6) k/uL Hgb (11.4-16.0) gm/dL Hct (34.0-46.0) % MCV (80.0-100.0) fL MCH (25.0-35.0) pg MCHC (31.0-37.0) g/dL RDW (11.5-15.5) % Sodium 136 L (137-145) mmol/L Chloride 92 L (98-107) mmol/L BUN 27 H (7-17) mg/dL Glucose 270 H (74-99) mg/dL POC Glucose (mg/dL) (75-99) mg/dL AST 1742 H (14-36) U/L ALT 832 H (4-34) U/L Albumin 3.3 L (3.5-5.0) g/dL Microbiology - Last 24 Hours (Table) 02/09/20 19:10 Gram Stain - Final Sputum Sputum Culture - Final Assessment and Plan (1) Elevated liver enzymes Narrative/Plan: 50-year-old female with multiple medical comorbidities currently being treated for new onset acute systolic heart failure. The patient was found to have markedly elevated liver enzymes and predominantly hepatocellular pattern with elevation in the AST and ALTs. Currently improved today. Unknown etiology of symptoms, may be medication side effect with patient's hyperlipidemia medications and acyclovir being held, due to congestive hepatopathy, or viral in nature. Testing for acute viral hepatitis, CMV, EBV and Zhang virus have been negative to date and ferritin not suggestive of hemochromatosis, full serology and more extensive viral testing ordered. Current Visit: Yes Status: Acute Code(s): R74.8 - ABNORMAL LEVELS OF OTHER SERUM ENZYMES SNOMED Code(s): 942001157 Plan: Supportive care Okay for diet as tolerated Continue to monitor INR and for signs or symptoms of encephalopathy which are not present at this time Continue to monitor CBC, BMP, LFTs Avoid hepatotoxic medications Full liver serologies ordered to rule out intrinsic liver disease including extended testing for viral etiology Vitamin K ordered Thank you for allowing us to participate in the care of the patient
[2020-02-12 21:14] LABS: Glucose,Whole Blood 180 mg/dL (75-99)
[2020-02-13 02:35] LABS: Glucose,Whole Blood 220 mg/dL (75-99)
[2020-02-13] MEDS: INSPUCOR MISCELLANE PRN (03:04)
[2020-02-13] MEDS: traMADol 50 MG TAB PO PRN (03:20)
[2020-02-13 06:45] LABS: Albumin 2.9 g/dL (3.5-5.0); Calcium 8.8 mg/dL (8.4-10.2); Potassium 4.5 mmol/L (3.5-5.1); Total Bilirubin 1.1 mg/dL (0.2-1.3); Total Protein 6.5 g/dL (6.3-8.2)
[2020-02-13 06:45] LABS: Glucose,Whole Blood 157 mg/dL (75-99)
[2020-02-13 07:43] VITALS: BP 97/60; PULSE 78; RESP 15; TEMP 97.6
[2020-02-13 07:50] LABS: INR 1.7 (<1.2)
[2020-02-13 07:51] LABS: Prothrombin Time 16.8 sec (9.0-12.0)
--- NOTE | 2020-02-13 08:14 | P.DS ---
Providers Date of admission: 02/10/20 09:09 Attending physician: Alber Chau Consults: 02/08/20 13:32 Consult Physician Stat Consulting Provider: Trino Bello Consult Reason/Comments: Acute liver failure, chest pressure, CHF Do you want consulting provider notified?: Yes Consult Physician Stat Consulting Provider: Tess Dumont Consult Reason/Comments: Acute liver failure Do you want consulting provider notified?: Yes Primary care physician: Alber Chau - Discharge Diagnosis(es) (1) Acute liver failure Current Visit: Yes Status: Acute (2) Fluid overload Current Visit: Yes Status: Acute (3) Asthma Current Visit: No Status: Acute (4) Dyspnea Current Visit: No Status: Acute (5) Pulmonary edema Current Visit: No Status: Acute Hospital Course: this discharge summary related to withdrawal white female essentially admitted for acute hepatitis of CHF related to cardio myopathy. The patient was stabilized and appropriate consultations. No common finding was found as far as hepatitis is concerned. She has been stabilized from a cardiac perspective and discharged in stable condition to follow-up with me in approximately 3-5 days. Patient Condition at Discharge: Good Plan - Discharge Summary Discharge Rx Participant: Yes New Discharge Prescriptions: New Spironolactone [Aldactone] 50 mg PO DAILY #30 tab Losartan [Cozaar] 12.5 mg PO HS #30 tab Continue Insulin Aspart (For Pump) [NovoLOG (For Pump)] 0.01 unit SQ-PUMP CONTINUOUS Estrogens, Conjugated [Premarin] 0.625 mg PO DAILY Hyoscyamine Sulfate [Levbid] 0.375 mg PO BID Sertraline [Zoloft] 50 mg PO TID Acyclovir 400 mg PO DAILY Lisinopril [Zestril] 5 mg PO DAILY metFORMIN HCL [Glucophage] 1,000 mg PO BID Albuterol Inhaler (Bulk) [Ventolin Hfa Inhaler (Bulk)] 2 puff INHALATION RT- Q6H PRN PRN Reason: Dyspnea Fluticasone/Vilanterol [Breo Ellipta 200-25 Mcg INH] 1 puff INHALATION RT- DAILY ALPRAZolam [Xanax] 0.25 mg PO TID Cyclobenzaprine [Flexeril] 10 mg PO HS Furosemide [Lasix] 20 mg PO DAILY Metoprolol Succinate (ER) [Toprol XL] 50 mg PO DAILY Digoxin [Lanoxin] 125 mcg PO DAILY Ipratropium-Albuterol Nebulize [Duoneb 0.5 mg-3 mg/3 ml Soln] 3 ml INHALATION RT-QID PRN PRN Reason: Shortness Of Breath Gabapentin 600 mg PO TID Naproxen 500 mg PO BID PRN PRN Reason: Pain Discontinued Fenofibrate [Lofibra] 160 mg PO DAILY Atorvastatin [Lipitor] 80 mg PO DAILY Discharge Medication List Acyclovir 400 mg PO DAILY 01/27/18 [History] Estrogens, Conjugated [Premarin] 0.625 mg PO DAILY 01/27/18 [History] Hyoscyamine Sulfate [Levbid] 0.375 mg PO BID 01/27/18 [History] Insulin Aspart (For Pump) [NovoLOG (For Pump)] 0.01 unit SQ-PUMP CONTINUOUS 01/27/18 [History] Lisinopril [Zestril] 5 mg PO DAILY 01/27/18 [History] Sertraline [Zoloft] 50 mg PO TID 01/27/18 [History] Albuterol Inhaler (Bulk) [Ventolin Hfa Inhaler (Bulk)] 2 puff INHALATION RT-Q6H PRN 06/13/18 [History] metFORMIN HCL [Glucophage] 1,000 mg PO BID 06/13/18 [History] ALPRAZolam [Xanax] 0.25 mg PO TID 02/08/19 [History] Cyclobenzaprine [Flexeril] 10 mg PO HS 02/08/19 [History] Fluticasone/Vilanterol [Breo Ellipta 200-25 Mcg INH] 1 puff INHALATION RT-DAILY 02/08/19 [History] Furosemide [Lasix] 20 mg PO DAILY 06/20/19 [History] Metoprolol Succinate (ER) [Toprol XL] 50 mg PO DAILY 06/20/19 [History] Digoxin [Lanoxin] 125 mcg PO DAILY 07/13/19 [History] Gabapentin 600 mg PO TID 02/08/20 [History] Ipratropium-Albuterol Nebulize [Duoneb 0.5 mg-3 mg/3 ml Soln] 3 ml INHALATION RT-QID PRN 02/08/20 [History] Naproxen 500 mg PO BID PRN 02/08/20 [History] Losartan [Cozaar] 12.5 mg PO HS #30 tab 02/13/20 [Rx] Spironolactone [Aldactone] 50 mg PO DAILY #30 tab 02/13/20 [Rx] Follow up Appointment(s)/Referral(s): Alber Chau MD [Primary Care Provider] - 1-2 days [facility] Visiting Nurse, [NON-STAFF] - 1-2 Days Discharge Disposition: HOME SELF-CARE
[2020-02-13] MEDS: SYMBICORT 160-4.5 MCG INHALER INHALATION SCH (08:45)
[2020-02-13] MEDS: ALBUTEROL HFA INHALER INHALATION PRN (08:45)
[2020-02-13] MEDS ORDERED: SPIRONOLACTONE 25 MG TAB PO SCH (09:00)
--- NOTE | 2020-02-13 10:34 | P.PN ---
Subjective This is a pleasant 50-year-old female past medical history significant for diabetes mellitus, hypertension, dyslipidemia, COPD, POTS syndrome, sleep apnea and former nicotine dependence. She follows in the office with Dr. Ignacio. She has been complaining of progressive shortness of breath over the previous 1-month. She had previously been diagnosed with a sinus infection and was started on a course of antibiotics. However, she had no improvement. She had a televisit with Dr. Ignacio 01/30/2020 and was advised to take additional lasix and was set up for an echocardiogram. The increased lasix did not improve her symptoms prompting her to come to the hospital On arrival an echocardiogram was ordered revealing severe global hypokinesia with EF 20-25%, moderate to severe MR, mild-moderate TR and mild-moderate pulmonary hypertension with RVSP of 42 mmHg. This is a new diagnosis of systolic heart failure for the patient. She also has significant transaminitis. GI is following. Dyslipidemics have been held. She is seen and examined sitting up in bed in no acute distress. She states her breathing has improved since admission, however she does not feel back to her baseline. She is complaining of a tight band like discomfort around her lower abdomen with radiation to the right upper quadrant at times. She has no worsening shortness of breath, chest pain, dizziness or palpitations. Blood pressure 109/71 heart rate 88 afebrile and maintaining oxygen saturation on room air. Laboratory data reviewed, sodium 136, potassium 4, creatinine 0.91, AST 1428, ALT 754. Currently maintained on lasix 40 mg IV BID, digoxin 125 mcg daily, losartan 12.5 mg daily, toprol 50 mg daily and aldactone 25 mg daily. 02/12/2020 Pt is seen and examined laying flat resting comfortably in bed. She states her breathing is stable at rest however with activity she continues to become dyspneic. Blood pressure 106/68 heart rate 84 afebrile and maintaining oxygen saturation on room air at rest but requiring 2 liters nasal cannula after exertion. Laboratory data reviewed, WBC 10.9, hgb 9.5, plt 356. CMP pending. Weight is down 3 kg from admission. Telemetry tracings unremarkable. Weight today is down to 82.9 kg from 91 on admission. 02/13/2020 Pt is seen and examined sitting up in bed in no acute distress. She states her breathing has improved significantly since admission. She no longer feels a full sensation in her torso and chest. She denies chest pain, shortness of breath, dizziness or palpitations. Blood pressure 97/60 heart rate 78 afebrile maintaining oxygen saturation on room air. Laboratory data reviewed, INR 1.7, sodium 132, potassium 4.5, creatinine 0.87, AST 1042, ALT 607. Currently maintained on Lasix IV 40 mg twice a day, Aldactone 50 mg daily, digoxin 125 g daily, losartan 12.5 mg at bedtime and Toprol 50 mg daily. GENERAL: Well-appearing, well-nourished and in no acute distress. NECK: Supple without JVD or thyromegaly. LUNGS: Breath sounds clear to auscultation bilaterally. Respiration equal and unlabored. No wheezes, rales or rhonchi. HEART: Regular rate and rhythm with systolic ejection murmur at the apex, no rubs or gallops. S1 and S2 heard. EXTREMITIES: Normal range of motion, 1+ bilateral lower extremity pitting edema, slightly improved from previous exam. No clubbing or cyanosis. Peripheral puls es intact. ASSESSMENT Acute systolic heart failure Severe cardiomyopathy, non-ischemic. Normal coronary angiography 05/2019 Acute hepatitis Anemia Valvular heart disease, moderate-severe MR and mild-moderate TR Pulmonary hypertension Diabetes mellitus Hypertension Dyslipidemia COPD History of POTS PLAN Stable on current medical regimen. Lengthy discussion with the patient regarding new medications. Follow-up in the office next week via telephone with Dr. Ignacio. Nurse Practitioner note has been reviewed, I agree with a documented findings and plan of care. Patient was seen and examined. Objective - Vital Signs Vital signs: Vital Signs Temp 97.6 F 02/13/20 07:00 Pulse 78 02/13/20 07:00 Resp 15 02/13/20 07:00 BP 97/60 02/13/20 07:00 Pulse Ox 93 L 02/13/20 07:00 Intake & Output 02/12/20 02/13/20 02/13/20 18:59 06:59 18:59 Intake Total 140 Balance 140 Weight 84.4 kg 82.9 kg Intake: Oral 140 Other: Voiding Method Toilet Toilet # Voids 2 1 - Labs CBC & Chem 7: 02/12/20 08:35 04/22/20 05:58 Labs: Abnormal Lab Results - Last 24 Hours (Table) 02/12/20 02/12/20 02/12/20 Range/Units 08:35 12:14 12:14 PT 18.2 H (9.0-12.0) sec INR 1.9 H (<1.2) Sodium 136 L (137-145) mmol/L Chloride 92 L (98-107) mmol/L BUN 27 H (7-17) mg/dL Glucose 270 H (74-99) mg/dL POC Glucose (mg/dL) (75-99) mg/dL Delta Bilirubin 0.8 H (0.0-0.2) mg/dL AST 1742 H 1745 H (14-36) U/L ALT 832 H 851 H (4-34) U/L Albumin 3.3 L (3.5-5.0) g/dL 02/12/20 02/12/20 02/13/20 Range/Units 17:48 21:12 02:34 PT (9.0-12.0) sec INR (<1.2) Sodium (137-145) mmol/L Chloride (98-107) mmol/L BUN (7-17) mg/dL Glucose (74-99) mg/dL POC Glucose (mg/dL) 232 H 180 H 220 H (75-99) mg/dL Delta Bilirubin (0.0-0.2) mg/dL AST (14-36) U/L ALT (4-34) U/L Albumin (3.5-5.0) g/dL 02/13/20 02/13/20 02/13/20 Range/Units 05:58 05:58 06:44 PT 16.8 H (9.0-12.0) sec INR 1.7 H (<1.2) Sodium 132 L (137-145) mmol/L Chloride 95 L (98-107) mmol/L BUN 29 H (7-17) mg/dL Glucose 142 H (74-99) mg/dL POC Glucose (mg/dL) 157 H (75-99) mg/dL Delta Bilirubin (0.0-0.2) mg/dL AST 1042 H (14-36) U/L ALT 607 H (4-34) U/L Albumin 2.9 L (3.5-5.0) g/dL
[2020-02-13] MEDS: FUROSEMIDE 10 MG/ML 4 ML VIAL IV SCH (11:02)
[2020-02-13] MEDS: ESTROGENS, CONJUGATED 0.625 MG TAB PO SCH (11:03)
[2020-02-13] MEDS: GABAPENTIN 300 MG CAP PO SCH (11:03)
[2020-02-13] MEDS: METOPROLOL SUCCINATE (ER) 50 MG TAB.ER.24H PO SCH (11:03)
[2020-02-13] MEDS: DIGOXIN 125 MCG TAB PO SCH (11:03)
[2020-02-13] MEDS: HYOSCYAMINE SULFATE 0.375 MG TAB.ER.12H PO SCH (11:03)
[2020-02-13] MEDS: SERTRALINE 50 MG TAB PO SCH (11:03)
[2020-02-13 12:36] LABS: Ceruloplasmin 82.5 mg/dL (20.0-60.0)
[2020-02-13 13:40] LABS: Liver/Kidney Microsome Antibod 1.5 UNITS (<=20)
[2020-02-13 13:47] LABS: Albumin 3.12 g/dL (3.80-4.90); Gamma Globulin 1.29 g/dL (0.70-1.50)
== END 2020-02-13 16:03 | disposition home or self-care (01) | DRG 441 ==
LOC: EC 11:24 → 4SSUR 13:48 → OBSVTOIN 02-10 09:09
PROVIDERS: ADMIT Family Medicine; ATTEND Family Medicine
DX: K72.00 Acute and subacute hepatic failure without coma (principal); I50.23 Acute on chronic systolic (congestive) heart failure; B17.9 Acute viral hepatitis, unspecified; E87.1 Hypo-osmolality and hyponatremia; I42.8 Other cardiomyopathies; K76.1 Chronic passive congestion of liver; D50.9 Iron deficiency anemia, unspecified; E03.9 Hypothyroidism, unspecified; I49.8 Other specified cardiac arrhythmias; G47.30 Sleep apnea, unspecified; E11.43 Type 2 diabetes mellitus with diabetic autonomic (poly)neuropathy; E78.00 Pure hypercholesterolemia, unspecified; E78.5 Hyperlipidemia, unspecified; F32.9 Major depressive disorder, single episode, unspecified; F41.9 Anxiety disorder, unspecified; I11.0 Hypertensive heart disease with heart failure; I27.20 Pulmonary hypertension, unspecified; I34.0 Nonrheumatic mitral (valve) insufficiency; J44.9 Chronic obstructive pulmonary disease, unspecified; K31.84 Gastroparesis; Z20.828 Contact with and (suspected) exposure to other viral communicable diseases; Z91.81 History of falling; Z96.41 Presence of insulin pump (external) (internal); K59.09 Other constipation; M79.7 Fibromyalgia; Z79.4 Long term (current) use of insulin; Z79.82 Long term (current) use of aspirin; Z79.899 Other long term (current) drug therapy; Z82.3 Family history of stroke; Z82.49 Family history of ischemic heart disease and other diseases of the circulatory system; Z87.891 Personal history of nicotine dependence; Z90.710 Acquired absence of both cervix and uterus; Z90.49 Acquired absence of other specified parts of digestive tract; Z87.01 Personal history of pneumonia (recurrent)
CPT/HCPCS: 36415; 70450; 71046; 73502; 74177; 76705; 80053; 80074; 80076; 81003; 82103; 82140; 82390; 82728; 83516; 83540; 83550; 83735; 83880; 84165; 84466; 84484; 85025; 85027; 85045; 85610; 85730; 86038; 86308; 86376; 86645; 86665; 86694; 87070; 87205; 87390; 87635; 93005; 93306; 94640; 96374; 99285

== ENCOUNTER → 2020-02-29 | Outpatient (CLI) | payer BC ==
[2020-02-29 12:06] LABS: Basophils # (A) 0.1 k/uL (0-0.2); Basophils % (A) 1 %; Eosinophils # (A) 0.1 k/uL (0-0.7); Eosinophils % (A) 1 %; HCT 38.4 % (34.0-46.0); Hypochromasia Marked; Lymphocytes # (A) 2.6 k/uL (1.0-4.8); Lymphocytes % (A) 19 %; MCH 24.3 pg (25.0-35.0); MCHC 31.2 g/dL (31.0-37.0); MCV 77.8 fL (80.0-100.0); Mean Platelet Volume 8.1; Microcytosis Slight; Monocytes # (A) 0.5 k/uL (0-1.0); Monocytes % (A) 4 %; Neutrophils # (A) 10.1 k/uL (1.3-7.7); Neutrophils % (A) 74 %; Platelet Count 493 k/uL (150-450); RBC 4.94 m/uL (3.80-5.40); RDW 15.8 % (11.5-15.5); WBC 13.6 k/uL (3.8-10.6)
[2020-02-29 12:19] LABS: INR 1.2 (<1.2)
[2020-02-29 16:59] LABS: African American GFR (CKD) 98.2 (60.0-200.0); Albumin 4.1 g/dL (3.80-4.90); Albumin/Globulin Ratio 1.32 (1.60-3.17); Anion Gap 14.2 mmol/L (4.00-12.00); BUN/Creat Ratio 17.5 Ratio (12.00-20.00); Calcium 9.8 mg/dL (8.7-10.3); Carbon Dioxide 24.8 mmol/L (21.6-31.8); Globulin 3.1 g/dL (1.6-3.3); Non-African American GFR(CKD) 84.8 (60.0-200.0); Potassium 4.7 mmol/L (3.5-5.5); Total Bilirubin 0.5 mg/dL (0.3-1.2); Total Protein 7.2 g/dL (6.2-8.2)
== END | disposition home or self-care (01) ==
LOC: LABWHC1 11:27
PROVIDERS: ATTEND Internal Medicine Gastroenterology
DX: R74.8 Abnormal levels of other serum enzymes (principal)
CPT/HCPCS: 36415; 80053; 85025; 85610

== ENCOUNTER → 2020-04-11 | Outpatient (CLI) | payer BC ==
--- NOTE | 2020-04-11 12:51 | XR ---
Right foot HISTORY: Pain 3 views of the right foot Bone mineralization, joint spaces and alignment are maintained. No dislocation. Transverse fracture o f the proximal fourth metatarsal is noted with minimal displacement. There is a fragmented appearance to the dorsal aspect of the proximal portion of the navicular. Mild degenerative change present at t he first metatarsophalangeal joint. There is enthesophyte present at the insertion of the Achilles te ndon. IMPRESSION: Correlate for point tenderness at the proximal navicular, comminuted fracture at this lev el of questionable acuity. Proximal fourth metatarsal fracture. No evident periostitis.
== END | disposition home or self-care (01) ==
LOC: RADXRMAIN 11:06
PROVIDERS: ATTEND Family Medicine
DX: S92.341A Displaced fracture of fourth metatarsal bone, right foot, initial encounter for closed fracture (principal)

== ENCOUNTER → 2020-08-25 | Outpatient (CLI) | payer BC ==
--- NOTE | 2020-08-25 17:36 | CT ---
EXAMINATION TYPE: CT foot RT wo con DATE OF EXAM: 08/25/2020 COMPARISON: Right foot radiograph 04/11/2020 HISTORY: metatarsal fx CT DLP: 200.3 mGycm Automated exposure control for dose reduction was used. TECHNIQUE: Axial imaging through the right foot was obtained. Coronal and sagittal reformatted images were obtained. Three-dimensional images were generated and utilized on a separate workstation. FINDINGS: There is a healed fracture of the base of the fourth metatarsal with adjacent well-corticated fractur e fragments. Some persistent linear lucencies on the margins of the cortex of the fracture site are p ersistently seen, appearing well-corticated superolaterally and likely well-corticated inferiorly. Th ere is degenerative spurring at the talonavicular joint. Achilles enthesophyte. No evidence of disloc ation. Myofascial planes are preserved. No significant swelling. Three-dimensional images are consistent with the above findings. IMPRESSION: Fracture of the base of the fourth metatarsal appears primarily healed, with small adjacent fracture fragments.
== END | disposition home or self-care (01) ==
LOC: RADCTMAIN 08:26
PROVIDERS: ATTEND Orthopaedic Surgery Foot and Ankle Surgery
DX: S92.341A Displaced fracture of fourth metatarsal bone, right foot, initial encounter for closed fracture (principal)

== ENCOUNTER → 2020-09-03 | Outpatient (CLI) | payer BC ==
--- NOTE | 2020-09-03 11:49 | MM ---
Reason for exam: additional evaluation requested from prior study. Last mammogram was performed 2 years and 11 months ago. History: Patient is postmenopausal. Family history of breast cancer in maternal grandmother at age 35. Benign US RT VAD breast biopsy of the right breast, January 16, 2014. Benign US LT VAD breast biopsy of the left breast, January 16, 2014. Benign US LT VAD breast biopsy of the left breast, January 16, 2014. Benign left US cyst aspiration of the left breast, September 15, 2005. Benign US left CoreBiopsy of the left breast, September 15, 2005. Benign stereotactic core biopsy of the right breast, January 22, 2000. Benign ultrasound-guided core biopsy of the right breast, January 18, 2000. Excisional biopsy of the left breast, 1997. Excisional biopsy of the right breast. Took hormonal contraceptives for 3 years. Taking estrogen for 19 years beginning at age 31. Took unspecified hormones for 38 years. Physical Findings: Nurse Summary: nodule in the left breast at 9 o'clock (nurse ms). MG 3D Diag Mammo W/Cad LOLLY Bilateral CC and MLO view(s) were taken. XCCL view(s) were taken of the left breast. Prior study comparison: September 20, 2017, bilateral MG 3d diag mammo w/cad LOLLY. August 26, 2016, bilateral MG 3d diag mammo w/cad LOLLY. The breast tissue is heterogeneously dense. This may lower the sensitivity of mammography. Previous mammotome biopsy in the right breast x 3 and in the left breast x 2. There is chronic nodularity bilaterally. Lateral CC nodularity shows an isodense appearance on spot view, similar to the other nodules. Palpable marker left 9 o'clock. These results were verbally communicated with the patient and result sheet given to the patient on 09/03/20. ASSESSMENT: Incomplete: need additional imaging evaluation, BI-RAD 0 RECOMMENDATION: Ultrasound of both breasts. (palpable)
--- NOTE | 2020-09-03 11:59 | USB ---
Reason for exam: additional evaluation requested from abnormal screening. History: Patient is postmenopausal. Family history of breast cancer in maternal grandmother at age 35. Benign US RT VAD breast biopsy of the right breast, January 16, 2014. Benign US LT VAD breast biopsy of the left breast, January 16, 2014. Benign US LT VAD breast biopsy of the left breast, January 16, 2014. Benign left US cyst aspiration of the left breast, September 15, 2005. Benign US left CoreBiopsy of the left breast, September 15, 2005. Benign stereotactic core biopsy of the right breast, January 22, 2000. Benign ultrasound-guided core biopsy of the right breast, January 18, 2000. Excisional biopsy of the left breast, 1997. Excisional biopsy of the right breast. Took hormonal contraceptives for 3 years. Taking estrogen for 19 years beginning at age 31. Took unspecified hormones for 38 years. US Breast Limited BILAT Right complete breast ultrasound includes all four quadrants, the retroareolar region and axilla. Finding demonstrates a 0.4cm benign calcification at 7 o'clock, a 0.9 x 0.5 x 0.7cm mixed lesion at 9 o'clock versus 8 x 8 x 5mm in 2017, benign and a 0.5 x 0.5 x 0.6cm mixed lesion at 10 o'clock, new from 2017, benign. Left limited breast ultrasound including focal area of concern, retroareolar and axilla demonstrates a 3.5 x 1.0 x 2.9cm lipoma at 8 o'clock, benign at the palpable site and a 1.0 x 0.5 x 1.1cm mixed lesion at the posterior nipple, corresponds to previously biopsied area, stable from 2016. Right breast scanned entire. Left breast scanned 6-9 o'clock. These results were verbally communicated with the patient and result sheet given to the patient on 09/03/20. ASSESSMENT: Probably benign, BI-RAD 3 RECOMMENDATION: Follow-up diagnostic mammogram and ultrasound of the right breast in 6 months. (targeted 10:00)
== END | disposition home or self-care (01) ==
LOC: RADMAMWWP 09:46
PROVIDERS: ATTEND Family Medicine
DX: R92.8 Other abnormal and inconclusive findings on diagnostic imaging of breast (principal)
CPT/HCPCS: 77062; 77066

== ENCOUNTER → 2020-09-30 | Outpatient (CLI) | payer BC ==
--- NOTE | 2020-09-30 16:50 | MR ---
MRI right foot HISTORY: Metatarsal fracture Multiplanar multisequence imaging through the right foot Correlation to CT foot 08/25/2020 There is abnormal signal involving the region of the proximal fourth metatarsal, intermediate on T1, increased on T2-weighted sequences. Fracture line persists at this level, sagittal image #13, 14 of t he series 201. Surrounding edema present within the soft tissues. Suspect some bone marrow edema pres ent. IMPRESSION: Findings may represent pseudarthrosis, nonhealed proximal fourth metatarsal fracture, dif ficult to exclude infection.
== END | disposition home or self-care (01) ==
LOC: RADMRIMAIN 07:59
PROVIDERS: ATTEND Orthopaedic Surgery Foot and Ankle Surgery
DX: S92.309A Fracture of unspecified metatarsal bone(s), unspecified foot, initial encounter for closed fracture (principal)

== ENCOUNTER → 2020-09-30 | Outpatient (CLI) | payer BC ==
[2020-09-30 10:43] LABS: HCT 32.7 % (34.0-46.0); HGB 10.8 gm/dL (11.4-16.0); MCH 26.3 pg (25.0-35.0); MCHC 32.9 g/dL (31.0-37.0); MCV 79.9 fL (80.0-100.0); Mean Platelet Volume 7.2; Platelet Count 299 k/uL (150-450); RDW 14.5 % (11.5-15.5); WBC 8.8 k/uL (3.8-10.6)
[2020-09-30 11:03] LABS: African American GFR (CKD) >90 (>60 ml/min/1.73 sqM); Blood Urea Nitrogen 7 mg/dL (7-17); Magnesium 1.7 mg/dL (1.6-2.3); Non-African American GFR(CKD) >90 (>60 ml/min/1.73 sqM); Potassium 3.8 mmol/L (3.5-5.1)
== END | disposition home or self-care (01) ==
LOC: LABPAT 09:30
PROVIDERS: ATTEND Internal Medicine Clinical Cardiac Electrophysiology
DX: Z01.818 Encounter for other preprocedural examination (principal); I42.0 Dilated cardiomyopathy
CPT/HCPCS: 82565; 83735; 84132; 84443; 84520; 85027

== ENCOUNTER 2020-10-13 09:36 | Day surgery (SDC) | payer BC ==
[2020-10-09 15:00] VITALS: BMI 27.8
[~2020-10-13 09:36] MED LIST changes: -DEXAMETHASONE SOD PHOSPHATE 10 MG/ML 1 ML VIAL IV ONE; -FAMOTIDINE 20 MG/2 ML VIAL IV PRN; -HEPARIN SODIUM,PORCINE 5,000 UNIT/ML 1 ML VIAL SQ ONE; -HYDROmorphone 0.5 MG/0.5 ML SYRINGE IVP PRN; -LIDOCAINE 1% 20 ML VIAL (10MG/ML) FOR IV START INTRADERMA PRN; -NA PHOS,M-B/NA PHOS,DI-BA 133 ML ENEMA RECTAL ONE; -ONDANSETRON 4 MG/2 ML VIAL IVP ONE; -ONDANSETRON 4 MG/2 ML VIAL IVP PRN; -Pre Op ABX Message 1 EACH MISC MISCELLANE ONE; +SODIUM CHLORIDE 0.9% 1,000 ML IV SCH; +ceFAZolin 1,000 MG in SODIUM CHLORIDE 0.9% IRRIGATIO 250 ML IRRIGATION ONE
[2020-10-13 10:21] LABS: Glucose,Whole Blood 185 mg/dL (75-99)
[2020-10-13] MEDS ORDERED: SODIUM CHLORIDE 0.9% 500 ML 500 ML IV ONE ×2 (10:28→14:15)
[2020-10-13 10:31] VITALS: TEMP 98.9
[2020-10-13] MEDS ORDERED: MIDAZOLAM 1 MG/ML 5 ML VIAL IV STA ×2 (10:40→12:27)
[2020-10-13] MEDS ORDERED: ONDANSETRON 4 MG/2 ML VIAL ONE (13:19)
[2020-10-13] MEDS ORDERED: LIDOCAINE 1% INJ 10MG/ML (20 ML MDV) ONE ×3 (13:19→14:06)
[2020-10-13] MEDS ORDERED: fentaNYL (PF) 50 MCG/ML 2 ML AMP ONE (13:19)
[2020-10-13] MEDS ORDERED: PROPOFOL 10 MG/ML 20 ML VIAL IV ONE (13:19)
[2020-10-13] MEDS ORDERED: MIDAZOLAM 2 MG/2 ML VIAL ONE (13:19)
[2020-10-13] MEDS ORDERED: HYDROmorphone (PF) 1 MG/ML ONE (13:19)
[2020-10-13] MEDS ORDERED: IOPAMIDOL-250 50ML BTL IV ONE (13:33)
[2020-10-13] MEDS ORDERED: LIDOCAINE 1% INJ 10MG/ML (20 ML MDV) SQ ONE (13:59)
[2020-10-13] MEDS ORDERED: ACETAMINOPHEN TAB 325 MG TAB PO PRN (15:00)
--- NOTE | 2020-10-13 15:26 | P.PCN ---
Preoperative Diagnosis: Left upper extremity venogram 15 mL IV dye injected in the left arm. Patent left axillary and left subclavian veins Plan Proceed with single chamber ICD implant
--- NOTE | 2020-10-13 15:35 | XR ---
EXAMINATION TYPE: XR chest 1V portable DATE OF EXAM: 10/13/2020 COMPARISON: Prior chest x-ray dated 02/08/2020 HISTORY: Lead placement check TECHNIQUE: Single frontal view of the chest is obtained. FINDINGS: There is no focal air space opacity, pleural effusion, or pneumothorax seen. The cardiac silhouette size is within normal limits. There is a generator in the left pectoral region, there is a lead in the right ventricle. There are overlying cardiac leads. The osseous structures are intact. IMPRESSION: No evident complication status post lead placement
--- NOTE | 2020-10-13 15:58 | CE ---
CARDIAC ELECTROPHYSIOLOGY REPORT Kait Castillo is a 50-year-old female with severe nonischemic cardiomyopathy with severe heart failure symptoms. Ejection fraction has not improved. Ejection fraction is at 35% despite guideline-directed medical treatment for heart failure and nonischemic cardiomyopathy for greater than 3 months. She is brought in for single- chamber ICD implant. The patient was brought to the EP lab in a fasting state. Written informed consent was obtained prior to the procedure. The left shoulder area was prepped and draped as per protocol. Lidocaine 1% was used for local anesthesia. A 4 cm incision was made parallel to the deltopectoral groove, about 1.5 cm medial to it. The incision was carried down to the level of the pectoralis muscle. A subfascial pocket was made. Hemostasis was assured. The left axillary vein was accessed at a single point, and via an appropriately-sized introducer sheath, a lead was positioned in the RV septum and screwed in. This was a [employer] model number [id number],-58 cm length and serial number [id number]. R-waves 8.4 millivolts, pacing threshold 0.5 V at 0.5 milliseconds, pacing impedance of 540 ohms. High-voltage impedance 72 ohms. The lead was secured to the underlying pectoralis muscle and then connected to the generator ([place] [employer] serial #[id number] [employer]). Lead and the generator were then placed in the subfascial pocket. The wound was closed in 3 layers and dressed per protocol. RESULT: Successful single-chamber ICD implantation for primary prevention of sudden cardiac in this lady with severe nonischemic cardiomyopathy that has not improved adequately despite maximal medical heart failure therapy along with Entresto and ivabradine beta blockers, spironolactone, digoxin. The patient tolerated the procedure well without any acute complication. Device was programmed according to the MADIT-RIT programming with appropriate anti-tachycardia pacing, cardioversion and defibrillation; back-up VVI pacing at 40 beats per minute. MMODL / IJN: [id number] /
[2020-10-13 16:45] VITALS: PULSE 72
[2020-10-13] MEDS ORDERED: ACETAMINOPHEN IV (For NPO) 1,000 MG in EMPTY BAG 1 BAG IVPB ONE (17:00)
[2020-10-13 18:01] VITALS: BP 122/72; RESP 18
--- NOTE | 2020-10-13 18:03 | P.PRLE ---
RE: Kait Castillo Dear Alber Kait underwent serial chamber ICD implantation for severe nonischemic cardiomyopathy has not improved despite maximal medical treatment. I treated her with ENTRESTO and she was in a higher dose of ENTRESTO but is unable to tolerate this. Therefore I am reducing it back to the lowest dose of 24/ mrem daily and increasing the dose of metoprolol to 50 mrem twice daily. She will continue IVABRADINE digoxin and other cardiac medications as before Thank you for entrusting me with the care of the patient Warm regards Sincerely Collins Ignacio
== END 2020-10-13 18:32 | disposition home or self-care (01) ==
LOC: CATHEP 09:36
PROVIDERS: ATTEND Internal Medicine Clinical Cardiac Electrophysiology
DX: I42.0 Dilated cardiomyopathy (principal); I11.0 Hypertensive heart disease with heart failure; I50.23 Acute on chronic systolic (congestive) heart failure; E11.65 Type 2 diabetes mellitus with hyperglycemia; E78.5 Hyperlipidemia, unspecified; I49.8 Other specified cardiac arrhythmias; I34.0 Nonrheumatic mitral (valve) insufficiency; G90.1 Familial dysautonomia [Riley-Day]; G47.33 Obstructive sleep apnea (adult) (pediatric); K21.9 Gastro-esophageal reflux disease without esophagitis; Z87.828 Personal history of other (healed) physical injury and trauma; Z79.4 Long term (current) use of insulin; Z79.899 Other long term (current) drug therapy; Z79.890 Hormone replacement therapy; Z79.51 Long term (current) use of inhaled steroids; Z79.82 Long term (current) use of aspirin; Z91.09 Other allergy status, other than to drugs and biological substances; Z87.891 Personal history of nicotine dependence; Z96.41 Presence of insulin pump (external) (internal); Z82.49 Family history of ischemic heart disease and other diseases of the circulatory system
CPT/HCPCS: 33249; 71045; C1769 ×2; C1722; C1892; C1777; J2250 ×2; J0690 ×2; J2405; J2001; J3010; J1170; J0131; J2704; Q9966

== ENCOUNTER 2020-11-29 11:44 | Emergency (ER) | payer BC ==
[2020-11-29 11:51] VITALS: RESP 18; TEMP 98.8
[2020-11-29] MEDS ORDERED: HYDROcodone/APAP 7.5-325MG 1 EACH TAB PO ONE (12:24)
[2020-11-29] MEDS ORDERED: SODIUM CHLORIDE 0.9% 500 ML 500 ML IV STA ×2 (12:24→13:24)
--- NOTE | 2020-11-29 12:31 | ED ---
Recheck HPI - General Chief Complaint: Recheck/Abnormal Lab/Rx Stated Complaint: R Foot Pain Time Seen by Provider: 11/29/20 11:56 Source: patient Mode of arrival: ambulatory Limitations: no limitations - History of Present Illness Initial Comments: Patient is a 50-year-old female presenting to the emergency Department with concerns of a possible infection in her right foot. Patient states he just had surgery 2 days ago at [facility] in [place] to fix a fourth metatarsal fracture that has not been healing. She initially injured her foot back in January. They have tried numerous things to heal the bone for the surgery schedule. Patient states that they were supposed to do plate and screws in the foot however when she woke from the surgery they had put bone cement in her foot instead. Patient presents today with swelling and redness of her right ankle and foot. She states she's also been having fevers at home of 100 and 101. She denies any nausea or vomiting. She was prescribed [facility] to take for pain, she did take one of these at approximately 7:30 this morning. She does have a follow-up with her surgeon in 3 days. She is not currently on antibiotics. Patient denies chest pain, no shortness of breath, no cough. She has no further complaints at this time. Upon arrival to the ER, her vital signs are stable. - Related Data Home Medications Medication Instructions Recorded Confirmed Acyclovir 400 mg PO DAILY 01/27/18 11/29/20 Estrogens, Conjugated [Premarin] 0.625 mg PO DAILY 01/27/18 11/29/20 Insulin Aspart (For Pump) [NovoLOG 0 unit SQ-PUMP CONTINUOUS 01/27/18 11/29/20 (For Pump)] Sertraline [Zoloft] 50 mg PO TID 01/27/18 11/29/20 metFORMIN HCL [Glucophage] 1,000 mg PO BID 06/13/18 11/29/20 ALPRAZolam [Xanax] 0.25 mg PO TID PRN 02/08/19 11/29/20 Cyclobenzaprine [Flexeril] 10 mg PO HS 02/08/19 11/29/20 Fluticasone/Vilanterol [Breo 1 puff INHALATION RT-DAILY 02/08/19 11/29/20 Ellipta 200-25 Mcg INH] Digoxin [Lanoxin] 125 mcg PO DAILY 07/13/19 11/29/20 Dapagliflozin Propanediol [Farxiga] 10 mg PO DAILY 10/09/20 11/29/20 Dicyclomine [Bentyl] 20 mg PO TID 10/09/20 11/29/20 Ivabradine HCl [Corlanor] 7.5 mg PO BID 10/09/20 11/29/20 Spironolactone [Aldactone] 12.5 mg PO DAILY 10/09/20 11/29/20 Metoprolol Succinate [Toprol XL] 50 mg PO BID 10/13/20 11/29/20 Albuterol Inhaler [Ventolin Hfa 1 puff INHALATION RT-Q4H PRN 11/29/20 11/29/20 Inhaler] Furosemide [Lasix] 40 mg PO DAILY 11/29/20 11/29/20 Gabapentin 600 mg PO TID 11/29/20 11/29/20 Ipratropium-Albuterol Nebulize 3 ml INHALATION RT-Q4H PRN 11/29/20 11/29/20 [Duoneb 0.5 mg-3 mg/3 ml Soln] lisinopriL [Zestril] 5 mg PO DAILY 11/29/20 11/29/20 Previous Rx's Medication Instructions Recorded Amoxicillin/Potassium Clav 1 tab PO BID 7 Days #14 tab 11/29/20 [Augmentin 875-125 Tablet] Allergies Allergy/AdvReac Type Severity Reaction Status Date / Time adhesive tape Allergy blisters Verified 11/29/20 12:32 skin Review of Systems ROS Statement: Those systems with pertinent positive or pertinent negative responses have been documented in the HPI. ROS Other: All systems not noted in ROS Statement are negative. Past Medical History Past Medical History: Asthma, Chest Pain / Angina, Heart Failure, COPD, Diabetes Mellitus, GERD/Reflux, Hyperlipidemia, Hypertension, Pneumonia, Sleep A pnea/CPAP/BIPAP, Thyroid Disorder Additional Past Medical History / Comment(s): Cardiomyopathy, Postural orthostatic tachycardia, (TELLO) hx of thyroid nodules, gastroparesis, neuropathy feet, sleep apnea (no machine), states current diarrhea off and on with entresto., pneumonia (january 2020)., Pt has insulin pump., See Cardiology H & P. History of Any Multi-Drug Resistant Organisms: None Reported Past Surgical History: Appendectomy, Breast Surgery, Section, Cholecystectomy, Heart Catheterization, Hysterectomy, Orthopedic Surgery, Pacemaker Additional Past Surgical History / Comment(s): left elbow repair, benign adenoma left breast, breast biopsies , x2, right foot sx Past Anesthesia/Blood Transfusion Reactions: Motion Sickness, Postoperative Na usea & Vomiting (PONV) Past Psychological History: Anxiety, Depression Smoking Status: Former smoker Past Alcohol Use History: None Reported Past Drug Use History: None Reported - Past Family History Father Family Medical History: Cancer, CVA/TIA, Hypertension Mother Family Medical History: Congestive Heart Failure (CHF), Myocardial Infarction ([place]) Additional Family Medical History / Comment(s): from [place] Brother(s) Family Medical History: Congestive Heart Failure (CHF) Additional Family Medical History / Comment(s): brother from [place] General Exam - General Exam Comments Initial Comments: GENERAL: Patient is well-developed and well-nourished. Patient is nontoxic and in no acute distress. HEAD: Atraumatic, normocephalic. EYES: Pupils equal round and reactive to light, extraocular movements intact, sclera anicteric, conjunctiva are normal. Eyelids were unremarkable. ENT: TMs normal, nares patent, oropharynx clear without exudates. Moist mucous membranes. NECK: Normal range of motion, supple without lymphadenopathy or JVD. LUNGS: Unlabored respirations. Breath sounds clear to auscultation bilaterally and equal. No wheezes rales or rhonchi. HEART: Regular rate and rhythm without murmurs, rubs or gallops. ABDOMEN: Soft, nontender, normoactive bowel sounds. No guarding, no rebound. No masses appreciated. : Deferred MUSCULOSKELETAL: Patient has pain along her right foot as well as her right ankle. She does have moderate amount of swelling of the right foot and ankle as well, moderate amount of erythema extending from the right mid foot all the way up the right ankle. This is warm to the touch as well. She is neurovascular intact. She has limited range of motion of the right ankle secondary to pain and swelling. He is able to wiggle all her toes. No pain of the right lower leg. No clubbing or cyanosis. NEUROLOGICAL: Patient is alert and oriented x 3. Motor and sensory are also intact. Cranial nerves II through XII grossly intact. Symmetrical smile. Normal speech, normal gait. PSYCH: Normal mood, normal affect. SKIN: Warm, Dry, normal turgor, no rashes or lesions noted. She does have moderate erythema, warmth of the right midfoot up to the right ankle. Limitations: no limitations Course Vital Signs 11/29/20 11:49 Temperature 98.8 F Pulse Rate 87 Respiratory 18 Rate Blood Pressure 109/68 O2 Sat by Pulse 99 Oximetry Medical Decision Making - Medical Decision Making Patient is a 50-year-old female here for possible infection of her right ankle and foot. She had surgery at [facility] 2 days ago to repair a nonhealing fourth metatarsal fracture. They injected bone cement into the area, this was not the initial plan. Patient states she's been having fevers at home, the redness has been increasing over the right ankle as well as the swelling. She is having increased amount of pain as well. Vital signs are stable upon arrival. Blood cultures were obtained, these are pending. White count is slightly up at 12.0, ESR 77, lactic acid elevated at 3.1, CRP is 360. Patient was given 1 L of fluids and a [facility] for pain. I discussed these findings with the patient. It is unknown if the elevations in inflammatory markers are secondary to a possible infection versus a reaction to the bone cement that was placed. Patient will be given 1 g of Rocephin in the ER, we will discharge her on Augmentin. Patient is in agreement with this plan of care, she did not want to stay in the hospital. Patient does have a point with her surgeon in the days. Strict return parameters were discussed with the patient and she verbalized understanding. Patient is in agreement this plan of care. Case disc ussed with Dr. Frederick. - Lab Data Result diagrams: 11/29/20 12:55 11/29/20 12:55 Lab Results 11/29/20 11/29/20 11/29/20 Range/Units 12:55 12:55 12:55 WBC 12.0 H (3.8-10.6) k/uL RBC 4.06 (3.80-5.40) m/uL Hgb 11.0 L (11.4-16.0) gm/dL Hct 33.1 L (34.0-46.0) % MCV 81.5 (80.0-100.0) fL MCH 27.2 (25.0-35.0) pg MCHC 33.3 (31.0-37.0) g/dL RDW 14.9 (11.5-15.5) % Plt Count 305 (150-450) k/uL MPV 7.5 Neutrophils % 81 % Lymphocytes % 13 % Monocytes % 4 % Eosinophils % 2 % Basophils % 0 % Neutrophils # 9.7 H (1.3-7.7) k/uL Lymphocytes # 1.6 (1.0-4.8) k/uL Monocytes # 0.5 (0-1.0) k/uL Eosinophils # 0.2 (0-0.7) k/uL Basophils # 0.1 (0-0.2) k/uL ESR 77 H (0-20) mm/hr PT 10.5 (9.0-12.0) sec INR 1.0 (<1.2) APTT 19.5 L (22.0-30.0) sec Sodium 136 L (137-145) mmol/L Potassium 4.0 (3.5-5.1) mmol/L Chloride 94 L (98-107) mmol/L Carbon Dioxide 26 (22-30) mmol/L Anion Gap 16 mmol/L BUN 10 (7-17) mg/dL Creatinine 0.70 (0.52-1.04) mg/dL Est GFR (CKD-EPI)AfAm >90 (>60 ml/min/1.73 sqM) Est GFR (CKD-EPI)NonAf >90 (>60 ml/min/1.73 sqM) Glucose 220 H (74-99) mg/dL Plasma Lactic Acid Cecilio (0.7-2.0) mmol/L Calcium 9.7 (8.4-10.2) mg/dL Total Bilirubin 0.5 (0.2-1.3) mg/dL AST 46 H (14-36) U/L ALT 25 (4-34) U/L Alkaline Phosphatase 146 H (38-126) U/L C-Reactive Protein 361.6 H (<10.0) mg/L Total Protein 8.2 (6.3-8.2) g/dL Albumin 4.2 (3.5-5.0) g/dL 11/29/20 Range/Units 12:55 WBC (3.8-10.6) k/uL RBC (3.80-5.40) m/uL Hgb (11.4-16.0) gm/dL Hct (34.0-46.0) % MCV (80.0-100.0) fL MCH (25.0-35.0) pg MCHC (31.0-37.0) g/dL RDW (11.5-15.5) % Plt Count (150-450) k/uL MPV Neutrophils % % Lymphocytes % % Monocytes % % Eosinophils % % Basophils % % Neutrophils # (1.3-7.7) k/uL Lymphocytes # (1.0-4.8) k/uL Monocytes # (0-1.0) k/uL Eosinophils # (0-0.7) k/uL Basophils # (0-0.2) k/uL ESR (0-20) mm/hr PT (9.0-12.0) sec INR (<1.2) APTT (22.0-30.0) sec Sodium (137-145) mmol/L Potassium (3.5-5.1) mmol/L Chloride (98-107) mmol/L Carbon Dioxide (22-30) mmol/L Anion Gap mmol/L BUN (7-17) mg/dL Creatinine (0.52-1.04) mg/dL Est GFR (CKD-EPI)AfAm (>60 ml/min/1.73 sqM) Est GFR (CKD-EPI)NonAf (>60 ml/min/1.73 sqM) Glucose (74-99) mg/dL Plasma Lactic Acid Cecilio 3.1 H* (0.7-2.0) mmol/L Calcium (8.4-10.2) mg/dL Total Bilirubin (0.2-1.3) mg/dL AST (14-36) U/L ALT (4-34) U/L Alkaline Phosphatase (38-126) U/L C-Reactive Protein (<10.0) mg/L Total Protein (6.3-8.2) g/dL Albumin (3.5-5.0) g/dL Disposition Clinical Impression: Cellulitis of right foot, S/P foot surgery, right Disposition: HOME SELF-CARE Condition: Stable Instructions (If sedation given, give patient instructions): Cellulitis (ED) Additional Instructions: Please return to the Emergency Department if symptoms worsen or any other concerns. Please take antibiotic as prescribed. Continue with her already prescribed pain medicines, elevate leg. Please follow up with your surgeon in 3 days as discussed. Prescriptions: Amoxicillin/Potassium Clav [Augmentin 875-125 Tablet] 1 tab PO BID 7 Days #14 tab Is patient prescribed a controlled substance at d/c from ED?: No Referrals: Alber Chau MD [Primary Care Provider] - 1-2 days
[2020-11-29 13:01] LABS: Basophils # (A) 0.1 k/uL (0-0.2); Basophils % (A) 0 %; Eosinophils # (A) 0.2 k/uL (0-0.7); Eosinophils % (A) 2 %; HCT 33.1 % (34.0-46.0); Lymphocytes # (A) 1.6 k/uL (1.0-4.8); Lymphocytes % (A) 13 %; MCH 27.2 pg (25.0-35.0); MCHC 33.3 g/dL (31.0-37.0); MCV 81.5 fL (80.0-100.0); Mean Platelet Volume 7.5; Monocytes # (A) 0.5 k/uL (0-1.0); Monocytes % (A) 4 %; Neutrophils # (A) 9.7 k/uL (1.3-7.7); Neutrophils % (A) 81 %; Platelet Count 305 k/uL (150-450); RBC 4.06 m/uL (3.80-5.40); RDW 14.9 % (11.5-15.5)
[2020-11-29 13:16] LABS: ALT 25 U/L (4-34); AST 46 U/L (14-36); African American GFR (CKD) >90 (>60 ml/min/1.73 sqM); Albumin 4.2 g/dL (3.5-5.0); Alkaline Phosphatase 146 U/L (38-126); Anion Gap 16 mmol/L; Blood Urea Nitrogen 10 mg/dL (7-17); Calcium 9.7 mg/dL (8.4-10.2); Carbon Dioxide 26 mmol/L (22-30); Chloride 94 mmol/L (98-107); Glucose 220 mg/dL (74-99); Non-African American GFR(CKD) >90 (>60 ml/min/1.73 sqM); Sodium 136 mmol/L (137-145); Total Bilirubin 0.5 mg/dL (0.2-1.3); Total Protein 8.2 g/dL (6.3-8.2)
[2020-11-29 13:32] LABS: Partial Thromboplastin Time 19.5 sec (22.0-30.0); Prothrombin Time 10.5 sec (9.0-12.0)
[2020-11-29 13:41] LABS: Erythrocyte Sedimentation Rate 77 mm/hr (0-20)
[2020-11-29 13:56] LABS: C Reactive Protein 361.6 mg/L (<10.0)
[2020-11-29] MEDS ORDERED: cefTRIAXone IN SWFI 1,000 MG/10 ML SYRINGE IVP STA (14:07)
[2020-11-29 14:33] VITALS: BP 125/55; PULSE 90
== END 2020-11-29 14:39 | disposition home or self-care (01) ==
LOC: EC 11:44
DX: L03.115 Cellulitis of right lower limb (principal); R74.02 Elevation of levels of lactic acid dehydrogenase [LDH]; I11.0 Hypertensive heart disease with heart failure; E11.40 Type 2 diabetes mellitus with diabetic neuropathy, unspecified; I25.10 Atherosclerotic heart disease of native coronary artery without angina pectoris; J44.9 Chronic obstructive pulmonary disease, unspecified; I50.9 Heart failure, unspecified; G47.30 Sleep apnea, unspecified; F41.9 Anxiety disorder, unspecified; F32.9 Major depressive disorder, single episode, unspecified; Z79.890 Hormone replacement therapy; Z79.4 Long term (current) use of insulin; Z79.899 Other long term (current) drug therapy; Z79.51 Long term (current) use of inhaled steroids; Z91.048 Other nonmedicinal substance allergy status; Z96.41 Presence of insulin pump (external) (internal); Z87.891 Personal history of nicotine dependence; Z98.890 Other specified postprocedural states; Z99.89 Dependence on other enabling machines and devices
CPT/HCPCS: 36415; 80053; 85652; 83605; 85025; 85610; 85730; 86140; 87040; 99283; 96374; 96361; J0696

== ENCOUNTER 2020-12-03 10:35 | Emergency (ER) | payer BC ==
[2020-12-03 10:39] VITALS: BP 132/77; PULSE 94; RESP 16; TEMP 98.3
--- NOTE | 2020-12-03 11:05 | ED ---
Extremity Problem HPI - General Chief complaint: Extremity Problem,Nontraumatic Stated complaint: foot pain/wants cast off Time Seen by Provider: 12/03/20 10:42 Source: patient Mode of arrival: wheelchair Limitations: no limitations - History of Present Illness Initial comments: 50 yo female with hx of uncontrolled DM present today for chief complaint of right foot pain after cast placement. Patient states that she's been dealing with a fracture of her foot that occurred in January. Patient states that she's been seeing an orthopedic surgeon off [facility]. Dr. Keller. pt states that she was recently here and treated for possible foot infection. She went to her orthopedic physician office who looked at foot and "images" and said it was "healed". Patient states he said she just needed "two more weeks in the cast" pt states the cast is pushing on her swollen foot that has been "appearing better with the antibiotics" patient denies calf pain, chest pain, dyspnea, fevers, nausea, vomiting, spreading of redness. Pt states the pain is persistent. No additional complaints. UPon arrival patient appears well nontoxic - Related Data Home Medications Medication Instructions Recorded Confirmed Acyclovir 400 mg PO DAILY 01/27/18 12/03/20 Estrogens, Conjugated [Premarin] 0.625 mg PO DAILY 01/27/18 12/03/20 Insulin Aspart (For Pump) [NovoLOG 0.01 unit SQ-PUMP CONTINUOUS 01/27/18 12/03/20 (For Pump)] Sertraline [Zoloft] 50 mg PO TID 01/27/18 12/03/20 metFORMIN HCL [Glucophage] 1,000 mg PO BID 06/13/18 12/03/20 ALPRAZolam [Xanax] 0.25 mg PO TID PRN 02/08/19 12/03/20 Cyclobenzaprine [Flexeril] 10 mg PO HS 02/08/19 12/03/20 Fluticasone/Vilanterol [Breo 1 puff INHALATION RT-DAILY 02/08/19 12/03/20 Ellipta 200-25 Mcg INH] Digoxin [Lanoxin] 125 mcg PO DAILY 07/13/19 12/03/20 Dapagliflozin Propanediol [Farxiga] 10 mg PO DAILY 10/09/20 12/03/20 Dicyclomine [Bentyl] 20 mg PO TID 10/09/20 12/03/20 Ivabradine HCl [Corlanor] 7.5 mg PO BID 10/09/20 12/03/20 Spironolactone [Aldactone] 12.5 mg PO DAILY 10/09/20 12/03/20 Metoprolol Succinate [Toprol XL] 50 mg PO BID 10/13/20 12/03/20 Albuterol Inhaler [Ventolin Hfa 1 puff INHALATION RT-Q4H PRN 11/29/20 12/03/20 Inhaler] Furosemide [Lasix] 40 mg PO DAILY 11/29/20 12/03/20 Gabapentin 600 mg PO TID 11/29/20 12/03/20 Ipratropium-Albuterol Nebulize 3 ml INHALATION RT-Q4H PRN 11/29/20 12/03/20 [Duoneb 0.5 mg-3 mg/3 ml Soln] lisinopriL [Zestril] 5 mg PO DAILY 11/29/20 12/03/20 Previous Rx's Medication Instructions Recorded Amoxicillin/Potassium Clav 1 tab PO BID 7 Days #14 tab 11/29/20 [Augmentin 875-125 Tablet] Amoxic-Pot Clav 875-125Mg 1 tab PO Q12HR 7 Days #14 tab 12/03/20 [Augmentin 875-125] Sulfamethox-Tmp 800-160Mg [Bactrim 2 tab PO Q12HR 14 Days #56 tab 12/03/20 DS 800-160 mg] Allergies Allergy/AdvReac Type Severity Reaction Status Date / Time adhesive tape Allergy blisters Verified 12/03/20 11:54 skin Review of Systems ROS Statement: Those systems with pertinent positive or pertinent negative responses have been documented in the HPI. ROS Other: All systems not noted in ROS Statement are negative. Past Medical History Past Medical History: Asthma, Chest Pain / Angina, Heart Failure, COPD, Diabetes Mellitus, GERD/Reflux, Hyperlipidemia, Hypertension, Pneumonia, Sleep Apnea/CPAP/BIPAP, Thyroid Disorder Additional Past Medical History / Comment(s): Cardiomyopathy, Postural orthostatic tachycardia, (TELLO) hx of thyroid nodules, gastroparesis, neuropathy feet, sleep apnea (no machine), states current diarrhea off and on with entresto., pneumonia (january 2020)., Pt has insulin pump., See Cardiology H & P. History of Any Multi-Drug Resistant Organisms: None Reported Past Surgical History: Appendectomy, Breast Surgery, Section, Cholecystectomy, Heart Catheterization, Hysterectomy, Orthopedic Surgery, Pacemaker Additional Past Surgical History / Comment(s): left elbow repair, benign adenoma left breast, breast biopsies , x2, right foot sx Past Anesthesia/Blood Transfusion Reactions: Motion Sickness, Postoperative Nausea & Vomiting (PONV) Past Psychological History: Anxiety, Depression Smoking Status: Former smoker Past Alcohol Use History: None Reported Past Drug Use History: None Reported - Past Family History Father Family Medical History: Cancer, CVA/TIA, Hypertension Mother Family Medical History: Congestive Heart Failure (CHF), Myocardial Infarction ([place]) Additional Family Medical History / Comment(s): from [place] Brother(s) Family Medical History: Congestive Heart Failure (CHF) Additional Family Medical History / Comment(s): brother from [place] General Exam - General Exam Comments Initial Comments: General: The patient is awake and alert, in no distress Eye: +3 mm pupils are equal, round and reactive to light, extra-ocular movements are intact. No nystagmus. There is normal conjunctiva bilaterally. No signs of icterus. Ears, nose, mouth and throat: There are moist mucous membranes and no oral lesions. Neck: The neck is supple, there is no tenderness or JVD. Cardiovascular: There is a regular rate and rhythm. No murmur, rub or gallop is appreciated. Respiratory: Lungs are clear to auscultation, respirations are non-labored, breath sounds are equal. No wheezes, stridor, rales, or rhonchi. Gastrointestinal: Soft, non-distended, non-tender abdomen without masses or organomegaly noted. There is no rebound or guarding present. Musculoskeletal: Normal ROM of all 5 digits of the right foot. Strength 5/5. Sensation intact of the foot. Radial and DP pulses equal bilaterally 2+. Neurological: A&O x 3. CN II-XII intact grossly, There are no obvious motor or sensory deficits. Coordination appears grossly intact. Speech is normal. Skin: Skin is warm and dry and no rashes. Some redness, warmth of the lateral aspect of the right foot. compressible compartments Psychiatric: Cooperative, appropriate mood & affect, normal judgment. Limitations: no limitations Course Vital Signs 12/03/20 10:37 Temperature 98.3 F Pulse Rate 94 Respiratory 16 Rate Blood Pressure 132/77 O2 Sat by Pulse 99 Oximetry Medical Decision Making - Medical Decision Making Splint removed/exma performed. Labs improving from previous visit. Nonhealing fracture vs CHRONIC osteomyelitis on XR. Previous blood culture (-). pt appears nontoxic, afebrile and states that redness improving. pt re-splinted continued on longer antibiotics regime and added bactrim. reviewed labs with attending Dr. Solomon who is agreeable to discharge with infectious disease and her orthopedic surgeon. Pt states she is pleased with his plan. - Lab Data Result diagrams: 12/03/20 11:10 12/03/20 11:10 Lab Results 12/03/20 12/03/20 Range/Units 11:10 11:10 WBC 9.8 (3.8-10.6) k/uL RBC 4.43 (3.80-5.40) m/uL Hgb 11.9 (11.4-16.0) gm/dL Hct 35.6 (34.0-46.0) % MCV 80.5 (80.0-100.0) fL MCH 26.8 (25.0-35.0) pg MCHC 33.3 (31.0-37.0) g/dL RDW 14.8 (11.5-15.5) % Plt Count 411 (150-450) k/uL MPV 7.2 Neutrophils % 77 % Lymphocytes % 16 % Monocytes % 4 % Eosinophils % 2 % Basophils % 0 % Neutrophils # 7.5 (1.3-7.7) k/uL Lymphocytes # 1.5 (1.0-4.8) k/uL Monocytes # 0.4 (0-1.0) k/uL Eosinophils # 0.2 (0-0.7) k/uL Basophils # 0.0 (0-0.2) k/uL ESR 78 H (0-20) mm/hr Sodium 136 L (137-145) mmol/L Potassium 4.4 (3.5-5.1) mmol/L Chloride 100 (98-107) mmol/L Carbon Dioxide 22 (22-30) mmol/L Anion Gap 14 mmol/L BUN 7 (7-17) mg/dL Creatinine 0.57 (0.52-1.04) mg/dL Est GFR (CKD-EPI)AfAm >90 (>60 ml/min/1.73 sqM) Est GFR (CKD-EPI)NonAf >90 (>60 ml/min/1.73 sqM) Glucose 216 H (74-99) mg/dL Calcium 9.7 (8.4-10.2) mg/dL Total Bilirubin 0.4 (0.2-1.3) mg/dL AST 51 H (14-36) U/L ALT 24 (4-34) U/L Alkaline Phosphatase 133 H (38-126) U/L C-Reactive Protein 39.6 H (<10.0) mg/L Total Protein 7.8 (6.3-8.2) g/dL Albumin 4.0 (3.5-5.0) g/dL Disposition Clinical Impression: Non-healing fracture, Right foot pain Disposition: HOME SELF-CARE Condition: Good Instructions (If sedation given, give patient instructions): Diabetic Foot Ulcers (ED) Additional Instructions: Please use medication as discussed. Please follow-up with infectious disease and orthopedic surgery in the next week, continue to nonweight bear and keep splint in place (removing to monitor redness as discussed). Please return to emergency room if the symptoms increase or worsen or for any other concerns. Prescriptions: Amoxic-Pot Clav 875-125Mg [Augmentin 875-125] 1 tab PO Q12HR 7 Days #14 tab Sulfamethox-Tmp 800-160Mg [Bactrim DS 800-160 mg] 2 tab PO Q12HR 14 Days #56 tab Is patient prescribed a controlled substance at d/c from ED?: No Referrals: Alber Chau MD [Primary Care Provider] - 1-2 days Ananya Summers MD [STAFF PHYSICIAN] - 1-2 days Time of Disposition: 13:00
[2020-12-03] MEDS ORDERED: HYDROcodone/APAP 7.5-325MG 1 EACH TAB PO ONE (11:17)
[2020-12-03 11:31] LABS: Basophils % (A) 0 %; Eosinophils # (A) 0.2 k/uL (0-0.7); Eosinophils % (A) 2 %; HCT 35.6 % (34.0-46.0); HGB 11.9 gm/dL (11.4-16.0); Lymphocytes # (A) 1.5 k/uL (1.0-4.8); Lymphocytes % (A) 16 %; MCH 26.8 pg (25.0-35.0); MCHC 33.3 g/dL (31.0-37.0); MCV 80.5 fL (80.0-100.0); Mean Platelet Volume 7.2; Monocytes # (A) 0.4 k/uL (0-1.0); Monocytes % (A) 4 %; Neutrophils # (A) 7.5 k/uL (1.3-7.7); Neutrophils % (A) 77 %; Platelet Count 411 k/uL (150-450); RBC 4.43 m/uL (3.80-5.40); RDW 14.8 % (11.5-15.5); WBC 9.8 k/uL (3.8-10.6)
--- NOTE | 2020-12-03 11:37 | XR ---
Right foot HISTORY: Fracture 3 views of the right foot correlated to plain film 04/11/2020 There is a lucency through the proximal fourth metatarsal, regular appearance is noted with some bette ical thickening consistent with nonunion, possible chronic osteomyelitis. Somewhat fragmented appeara nce is present on the oblique view. No other significant interval change. IMPRESSION: Findings likely represent nonunion, possible chronic osteomyelitis.
[2020-12-03 12:17] LABS: ALT 24 U/L (4-34); AST 51 U/L (14-36); African American GFR (CKD) >90 (>60 ml/min/1.73 sqM); Alkaline Phosphatase 133 U/L (38-126); Anion Gap 14 mmol/L; Blood Urea Nitrogen 7 mg/dL (7-17); C Reactive Protein 39.6 mg/L (<10.0); Calcium 9.7 mg/dL (8.4-10.2); Carbon Dioxide 22 mmol/L (22-30); Chloride 100 mmol/L (98-107); Glucose 216 mg/dL (74-99); Non-African American GFR(CKD) >90 (>60 ml/min/1.73 sqM); Potassium 4.4 mmol/L (3.5-5.1); Sodium 136 mmol/L (137-145); Total Bilirubin 0.4 mg/dL (0.2-1.3); Total Protein 7.8 g/dL (6.3-8.2)
[2020-12-03 13:14] LABS: Erythrocyte Sedimentation Rate 78 mm/hr (0-20)
== END 2020-12-03 13:21 | disposition home or self-care (01) ==
LOC: EC 10:35
DX: S92.901G Unspecified fracture of right foot, subsequent encounter for fracture with delayed healing (principal); I11.0 Hypertensive heart disease with heart failure; I50.9 Heart failure, unspecified; E11.43 Type 2 diabetes mellitus with diabetic autonomic (poly)neuropathy; K31.84 Gastroparesis; E11.40 Type 2 diabetes mellitus with diabetic neuropathy, unspecified; E78.5 Hyperlipidemia, unspecified; G47.30 Sleep apnea, unspecified; J44.9 Chronic obstructive pulmonary disease, unspecified; F41.9 Anxiety disorder, unspecified; F32.9 Major depressive disorder, single episode, unspecified; Z79.4 Long term (current) use of insulin; Z79.51 Long term (current) use of inhaled steroids; Z79.899 Other long term (current) drug therapy; Z91.048 Other nonmedicinal substance allergy status; Z95.0 Presence of cardiac pacemaker; Z87.891 Personal history of nicotine dependence; X58.XXXD Exposure to other specified factors, subsequent encounter
CPT/HCPCS: 36415; 80053; 85025; 85652; 86140; 99283

== ENCOUNTER → 2020-12-20 | Outpatient (CLI) | payer BC ==
[2020-12-20 11:24] LABS: HCT 37.6 % (34.0-46.0); HGB 12.3 gm/dL (11.4-16.0); MCH 26.5 pg (25.0-35.0); MCHC 32.8 g/dL (31.0-37.0); MCV 80.9 fL (80.0-100.0); Mean Platelet Volume 7.1; Platelet Count 361 k/uL (150-450); RBC 4.65 m/uL (3.80-5.40); RDW 14.9 % (11.5-15.5); WBC 9.4 k/uL (3.8-10.6)
[2020-12-20 19:35] LABS: Erythrocyte Sedimentation Rate 61 mm/Hr (0-30)
== END | disposition home or self-care (01) ==
LOC: LABMAIN 11:01
PROVIDERS: ATTEND Internal Medicine Gastroenterology
DX: K52.9 Noninfective gastroenteritis and colitis, unspecified (principal)
CPT/HCPCS: 36415; 83516; 83630; 85027; 85652; 86140; 87045; 87046; 87324; 87328; 87329

== ENCOUNTER → 2021-01-28 | Outpatient (CLI) | payer BC ==
[2021-01-29 00:35] LABS: Hemoglobin A1C 7.2 % (4.0-6.0)
[2021-01-29 05:11] LABS: T4, Free (Free Thyroxine) 1.1 ng/dL (0.80-1.80)
[2021-01-29 05:20] LABS: African American GFR (CKD) 74.5 (60.0-200.0); Anion Gap 11.8 mmol/L (4.00-12.00); Calcium 9.6 mg/dL (8.7-10.3); Carbon Dioxide 28.2 mmol/L (21.6-31.8); Non-African American GFR(CKD) 64.3 (60.0-200.0)
[2021-01-29 15:32] LABS: Microalbumin Creatinine Ratio <30 mg/g Creat (0-30); Urine Creatinine 39.1 mg/dL
== END | disposition home or self-care (01) ==
LOC: LABWHC1 14:23
PROVIDERS: ATTEND Family Medicine
DX: E55.9 Vitamin D deficiency, unspecified (principal); E03.9 Hypothyroidism, unspecified; E11.65 Type 2 diabetes mellitus with hyperglycemia
CPT/HCPCS: 36415; 80048; 82043; 82306; 82570; 83036; 84439; 84443

== ENCOUNTER → 2021-02-18 | Outpatient (CLI) | payer BC ==
--- NOTE | 2021-02-18 11:43 | XR ---
EXAMINATION TYPE: XR shoulder complete RT DATE OF EXAM: 02/18/2021 COMPARISON: NONE HISTORY: Pain TECHNIQUE: Three views are submitted. FINDINGS: The osseous structures are intact. There is no acute fracture or dislocation. Hypertrophic change of the AC joint. There is a calcific density adjacent to the humerus with associated with calcific tend inosis. Metallic device overlying the shoulder. Suggestion of cardiac device. IMPRESSION: 1. AC joint arthropathy. 2. Calcific density adjacent to the humeral head be associated with calcific tendinosis. Correlate cl inically.
== END | disposition home or self-care (01) ==
LOC: RADXRMAIN 11:14
PROVIDERS: ATTEND Family Medicine
DX: M12.811 Other specific arthropathies, not elsewhere classified, right shoulder (principal); M25.811 Other specified joint disorders, right shoulder

== ENCOUNTER → 2021-03-16 | Outpatient (CLI) | payer BC ==
--- NOTE | 2021-03-16 13:20 | MM ---
Reason for exam: follow-up at short interval from prior study. Last mammogram was performed 6 months ago. History: Patient is postmenopausal. Family history of breast cancer in maternal grandmother at age 35. Benign US RT VAD breast biopsy of the right breast, January 16, 2014. Benign US LT VAD breast biopsy of the left breast, January 16, 2014. Benign US LT VAD breast biopsy of the left breast, January 16, 2014. Benign left US cyst aspiration of the left breast, September 15, 2005. Benign US left CoreBiopsy of the left breast, September 15, 2005. Benign stereotactic core biopsy of the right breast, January 22, 2000. Benign ultrasound-guided core biopsy of the right breast, January 18, 2000. Excisional biopsy of the left breast, 1997. Excisional biopsy of the right breast. Took hormonal contraceptives for 3 years. Taking estrogen for 19 years beginning at age 31. Took unspecified hormones for 38 years. Physical Findings: Nurse did not find any significant physical abnormalities on exam. MG 3D Diag Mammo W/Cad RT CC, MLO, and XCCL view(s) were taken of the right breast. Prior study comparison: September 03, 2020, bilateral MG 3d diag mammo w/cad LOLLY. September 20, 2017, bilateral MG 3d diag mammo w/cad LOLLY. Stable nodules upper outer quadrant right breast 10 o'clock 9cm from nipple. Ultrasound right upper outer quadrant. These results were verbally communicated with the patient and result sheet given to the patient on 03/16/21. ASSESSMENT: Incomplete: need additional imaging evaluation, BI-RAD 0 RECOMMENDATION: Ultrasound of the right breast.
--- NOTE | 2021-03-16 13:23 | USB ---
Reason for exam: additional evaluation requested from abnormal screening. History: Patient is postmenopausal. Family history of breast cancer in maternal grandmother at age 35. Benign US RT VAD breast biopsy of the right breast, January 16, 2014. Benign US LT VAD breast biopsy of the left breast, January 16, 2014. Benign US LT VAD breast biopsy of the left breast, January 16, 2014. Benign left US cyst aspiration of the left breast, September 15, 2005. Benign US left CoreBiopsy of the left breast, September 15, 2005. Benign stereotactic core biopsy of the right breast, January 22, 2000. Benign ultrasound-guided core biopsy of the right breast, January 18, 2000. Excisional biopsy of the left breast, 1997. Excisional biopsy of the right breast. Took hormonal contraceptives for 3 years. Taking estrogen for 19 years beginning at age 31. Took unspecified hormones for 38 years. US Breast Limited RT Right limited breast ultrasound including focal area of concern, retroareolar and axilla demonstrates a 8 x 5 x 8mm oval, hypoechoic lesion at 9 o'clock, a 4 x 2 x 4mm oval, hypoechoic lesion at 10 o'clock, a 6 x 4 x 6mm oval, hypoechoic lesion at 10 o'clock minimal layer and a 4 x 4 x 4mm hypoechoic lesion at 10 o'clock, new but similar appearance to others, probably benign, 6 month follow up ultrasound. These results were verbally communicated with the patient and result sheet given to the patient on 03/16/21. ASSESSMENT: Probably benign, BI-RAD 3 RECOMMENDATION: Follow-up diagnostic mammogram of both breasts in 6 months. Ultrasound of the right breast in 6 months.
== END | disposition home or self-care (01) ==
LOC: RADMAMWWP 09:36
PROVIDERS: ATTEND Family Medicine
DX: N63.11 Unspecified lump in the right breast, upper outer quadrant (principal); N64.59 Other signs and symptoms in breast; Z78.0 Asymptomatic menopausal state; Z80.3 Family history of malignant neoplasm of breast
CPT/HCPCS: 77061; 77065

== ENCOUNTER → 2021-04-17 | Outpatient (CLI) | payer BC ==
--- NOTE | 2021-04-17 10:25 | US ---
EXAMINATION TYPE: US thyroid st tissue head/neck DATE OF EXAM: 04/17/2021 COMPARISON: NONE CLINICAL HISTORY: Right thyroid nodule E04.1. Thyroid nodule GLAND SIZE: Right Lobe: 5.0 x 1.5 x 1.7 cm Overall Parenchyma: homogenous Left Lobe: 4.8 x 1.3 x 1.5 cm Overall Parenchyma: homogeneous Isthmus Thickness: .3 cm NODULES RIGHT: # of nodules measured on right: 2 1. 1.3 X .9 x 1.1 cm, mid mid, solid or almost completely solid, isoechoic nodule, which is wider t howard tall, with ill-defined margins, without echogenic foci. Prior size: 1.2 x .7 x 1.0 cm 2. .3 X .3 x .3 cm, mid , Calcification, hyperechoic nodule, which is as wide as tall, with smooth margins, without echogenic foci. Prior size: No previous. LEFT: # of nodules measured on left: 0 ISTHMUS: # of nodules measured in the isthmus:0 Bilateral neck scanned, no evidence of lymphadenopathy. IMPRESSION: Unchanged right thyroid nodule measures up to 1.3 cm on the current exam. 2017 ACR TI-RADS LEVEL: TR-RADS 3 - Mildly Suspicious: Follow if > 1.5 cm, FNA if > 2.5 cm *Highest TI-RADS level nodule reported
== END | disposition home or self-care (01) ==
LOC: RADUSWWP 08:24
PROVIDERS: ATTEND Internal Medicine
DX: E04.1 Nontoxic single thyroid nodule (principal)
CPT/HCPCS: 76536

== ENCOUNTER → 2021-05-08 | Outpatient (CLI) | payer BC ==
[2021-05-08 18:56] LABS: Hemoglobin A1C 7.3 % (4.0-6.0)
[2021-05-09 03:06] LABS: Chol/HDL Ratio 6.77
== END | disposition home or self-care (01) ==
LOC: LABWHC1 09:19
PROVIDERS: ATTEND Family Medicine
DX: E55.9 Vitamin D deficiency, unspecified (principal); E11.65 Type 2 diabetes mellitus with hyperglycemia
CPT/HCPCS: 36415; 80061; 82306; 82947; 83036; 83721

== ENCOUNTER → 2021-05-15 | Outpatient (CLI) | payer BC ==
[2021-05-16 00:55] LABS: ALT 19 U/L (8-44); AST 29 U/L (13-35); Alkaline Phosphatase 85 U/L (41-126); Bilirubin, Conjugated <0.20 mg/dL (0.20-0.40); Total Bilirubin 0.2 mg/dL (0.2-1.2); Total Protein 7.2 g/dL (6.2-8.2)
== END | disposition home or self-care (01) ==
LOC: LABWHC1 14:08
PROVIDERS: ATTEND Family Medicine
DX: E78.1 Pure hyperglyceridemia (principal)
CPT/HCPCS: 36415; 80076

== ENCOUNTER 2021-05-22 06:50 | Day surgery (SDC) | payer BC ==
[2021-05-20 09:48] VITALS: BMI 24.5
[~2021-05-22 06:50] MED LIST changes: +LIDOCAINE 1% (10MG/ML) FOR IV START INTRADERMA PRN; -SODIUM CHLORIDE 0.9% 1,000 ML IV SCH; -ceFAZolin 1,000 MG in SODIUM CHLORIDE 0.9% IRRIGATIO 250 ML IRRIGATION ONE
[2021-05-22 07:16] LABS: Glucose,Whole Blood 209 mg/dL (75-99)
[2021-05-22 07:17] VITALS: TEMP 97.8
[2021-05-22] MEDS ORDERED: LACTATED RINGERS 1,000 ML IV ONE (07:18)
[2021-05-22] MEDS ORDERED: PROPOFOL 10 MG/ML 20 ML VIAL IV ONE (07:29)
[2021-05-22] MEDS ORDERED: LIDOCAINE 1% INJ 10MG/ML (20 ML MDV) ONE (07:29)
[2021-05-22] MEDS ORDERED: MIDAZOLAM 2 MG/2 ML VIAL ONE (07:29)
--- NOTE | 2021-05-22 07:51 | P.PCN ---
Date of Procedure: 05/22/21 Procedure(s) Performed: Brief history: Patient is a pleasant 51-year-old white female scheduled for an elective upper endoscopy as well as colonoscopy as a part of evaluation of abdominal pain, nausea vomiting and chronic diarrhea for the last 10 months duration. She lost 60 pounds in the last 10 months. He has 5-10 loose watery bowel movements daily. Stool studies, stool elastase and lactoferrin has been negative. Procedure performed: Esophagogastroduodenoscopy with biopsy Colonoscopy with biopsy Preoperative diagnosis: Chronic nausea vomiting and abdominal pain Diarrhea and weight loss of 60 pounds in the last 1 year Anesthesia: MAC Procedure: After informed consent was obtained from the patient was brought into the endoscopy unit and IV sedation was administered by anesthesia under continuous monitoring. Initially upper endoscopy was done. The Olympus GF 160 video endoscope was inserted inserted into the mouth and esophagus intubated without any difficulty and was gradually advanced into the stomach and duodenum and carefully examined. The bulb and second part of the duodenum appeared normal. Biopsies were done from the duodenum to rule out celiac disease. The scope was then withdrawn into the stomach adequately insufflated with air and upon careful examination the antrum had mild gastritis and biopsies were done from this area. The body, cardia and fundus appeared normal. The scope was then withdrawn into the esophagus. The GE junction was located at 40 cm to the incisors. It appeared regular with no erythema erosions or ulcerations. Rest of the esophagus appeared normal. Patient tolerated the procedure well. At this time the patient continued to remain sedation. Initial digital rectal examination was normal. Olympus CF 160 video colonoscope was then inserted into the rectum and gradually advanced to the cecum without any difficulty. Careful examination was performed as the scope was gradually being withdrawn. The prep was excellent. in the base of the cecum there was a 2 mm polyp that was removed by cold biopsy. The cecum, ascending colon, transverse colon, descending colon, sigmoid colon and rectum appeared normal. random biopsies were done from ascending and descending colon to rule out microscopic/collagenous colitis Retroflexion was performed in the rectum and no lesions were noted. Patient tolerated the procedure well. Impression: 1. Upper endoscopy revealed minimal antral gastritis 2. Colonoscopy revealed 2 mm cecal polyp status post cold biopsy and the rest of the colon appeared normal Recommendations: Findings of this examination were discussed with the patient as well as her family. She was advised to follow with the biopsy biopsy results. She will continue with motil 2 tablets 4 times daily. She will be seen in office in 2- 3 weeks
[2021-05-22 07:59] VITALS: RESP 16
[2021-05-22 08:16] VITALS: BP 123/74; PULSE 65
[2021-05-22] MEDS ORDERED: ONDANSETRON 4 MG/2 ML VIAL ONE (08:30)
[2021-05-22] MEDS ORDERED: ONDANSETRON 4 MG/2 ML VIAL IVP ONE (08:30)
== END 2021-05-22 09:02 | disposition home or self-care (01) ==
LOC: ORWHC2ENDO 06:50
PROVIDERS: ATTEND Internal Medicine Gastroenterology
DX: K29.70 Gastritis, unspecified, without bleeding (principal); D12.0 Benign neoplasm of cecum
CPT/HCPCS: 45380; 43239; J2250; J2405; J2001; J2704; 88305

== ENCOUNTER → 2022-01-09 | Outpatient (CLI) | payer BC ==
[2022-01-09 21:51] LABS: ALT 13 U/L (8-44); AST 14 U/L (13-35); African American GFR (CKD) 93.2 (60.0-200.0); Albumin/Globulin Ratio 1.43 (1.60-3.17); Alkaline Phosphatase 80 U/L (41-126); BUN/Creat Ratio 15.01 Ratio (12.00-20.00); Blood Urea Nitrogen 12.4 mg/dL (9.0-27.0); Calcium 9.4 mg/dL (8.7-10.3); Chloride 100 mmol/L (96-109); Chol/HDL Ratio 4.09 Ratio; Globulin 2.8 g/dL (1.6-3.3); Glucose 166 mg/dL (70-110); Non-African American GFR(CKD) 80.4 (60.0-200.0); Potassium 4.7 mmol/L (3.5-5.5); Sodium 140 mmol/L (135-145); Total Bilirubin <0.15 mg/dL (0.30-1.20); Total Protein 6.7 g/dL (6.2-8.2)
== END | disposition home or self-care (01) ==
LOC: LABWHC1 09:04
PROVIDERS: ATTEND Family Medicine
DX: E11.65 Type 2 diabetes mellitus with hyperglycemia (principal); E03.9 Hypothyroidism, unspecified; E55.9 Vitamin D deficiency, unspecified
CPT/HCPCS: 36415; 80053; 80061; 82043; 82306; 82570; 83036; 83721; 84439; 84443

== ENCOUNTER → 2022-06-04 | Outpatient (CLI) | payer OTHER ==
--- NOTE | 2022-06-04 09:32 | CTL ---
EXAMINATION TYPE: CT Low Dose Lung DATE OF EXAM ORDERED: 06/04/2022 HISTORY: Personal history tobacco use. Lung cancer screening CT DLP: 80.[address] CTDI: 2.50 mGy Automated exposure control for dose reduction was used. SCREENING VISIT: Initial COMPARISON: None TECHNIQUE: Low dose computed tomography scan was performed through the chest at 1 mm thick sections a nd reconstructed images in the coronal plane at [address] DIAGNOSTIC QUALITY: Satisfactory FINDINGS: LUNG NODULES: None. LUNGS: COPD: Severity: None Fibrosis: Severity: None Lymph nodes: None Other findings: None RIGHT PLEURAL SPACE: Effusion: None Calcification: None Thickening: None Pneumothorax: None LEFT PLEURAL SPACE: Effusion: None Calcification: None Thickening: None Pneumothorax: None HEART: Heart Size: Normal Coronary calcification: Minimal Pericardial effusion: None OTHER FINDINGS: Upper abdomen: Normal Bony thorax: Normal Supraclavicular region: Normal Other: Ascending thoracic aorta at the level the main pulmonary artery measures 2.9 cm. The main pul monary artery at the bifurcation measures 2.3 cm. IMPRESSION: 1. No suspicious changes to suggest primary or metastatic neoplasm FOLLOW UP CT CHEST RECOMMENDATION: Low-dose CT chest [address] LUNG RAD: Lung-Rad 1 Negative
== END | disposition home or self-care (01) ==
LOC: RADCTMAIN 07:42
PROVIDERS: ATTEND Internal Medicine
DX: Z87.891 Personal history of nicotine dependence (principal)
CPT/HCPCS: 71271

== ENCOUNTER → 2022-08-31 | Outpatient (CLI) | payer OTHER ==
--- NOTE | 2022-08-31 09:05 | XR ---
EXAMINATION TYPE: XR wrist complete LT DATE OF EXAM: 08/31/2022 COMPARISON: NONE HISTORY: Pain TECHNIQUE: Four views submitted. FINDINGS: The osseous structures are intact. The joint spaces are preserved and there is no acute fracture or dislocation. IMPRESSION: 1. No osseous abnormality. If concern for soft tissue abnormality correlate with ultrasound.
[2022-08-31 14:52] LABS: African American GFR (CKD) 86.1 (60.0-200.0); Albumin 3.9 g/dL (3.8-4.9); Albumin/Globulin Ratio 1.36 (1.60-3.17); Anion Gap 14.3 mmol/L (10.00-18.00); BUN/Creat Ratio 10.58 Ratio (12.00-20.00); Blood Urea Nitrogen 9.3 mg/dL (9.0-27.0); Calcium 9.2 mg/dL (8.7-10.3); Carbon Dioxide 24.1 mmol/L (20.0-27.5); Globulin 2.8 g/dL (1.6-3.3); HDL Cholesterol 33.2 mg/dL (40.00-60.00); Non-African American GFR(CKD) 74.3 (60.0-200.0); Potassium 4.5 mmol/L (3.5-5.5); T4, Free (Free Thyroxine) 1.22 ng/dL (0.800-1.800); Total Bilirubin 0.2 mg/dL (0.30-1.20); Total Protein 6.7 g/dL (6.2-8.2)
[2022-08-31 15:19] LABS: Chol/HDL Ratio 4.16 Ratio; LDL Cholesterol,Direct Reflex 32.4 mg/dL (0.00-129.00)
[2022-08-31 15:21] LABS: Basophils # (A) 0.05 X 10*3/uL (0.00-0.10); Basophils % (A) 0.6 %; Eosinophils # (A) 0.08 X 10*3/uL (0.04-0.35); HCT 33.6 % (37.2-46.3); HGB 10.5 g/dL (12.0-15.0); Immature Grans, Automated 0.4 %; Lymphocytes # (A) 1.81 X 10*3/uL (0.90-5.00); Lymphocytes % (A) 21.6 %; MCH 25.7 pg (27.0-32.0); MCHC 31.3 g/dL (32.0-37.0); MCV 82.4 fL (80.0-97.0); Mean Platelet Volume 10.8 fL (9.5-12.2); Monocytes # (A) 0.38 X 10*3/uL (0.20-1.00); Monocytes % (A) 4.5 %; NRBC Per 100 WBC 0 /100 WBCS (0.0-0.0); Neutrophils # (A) 6.02 X 10*3/uL (1.80-7.70); Neutrophils % (A) 71.9 %; Platelet Count 318 X 10*3/uL (140-440); RBC 4.08 X 10*6/uL (4.10-5.20); RDW 14.8 % (11.5-14.5); WBC 8.37 X 10*3/uL (4.50-10.00)
[2022-08-31 17:35] LABS: Digoxin 0.9 ng/mL (0.8-2.0)
== END | disposition home or self-care (01) ==
LOC: RADXRMAIN 08:15
PROVIDERS: ATTEND Family Medicine
DX: Z00.00 Encounter for general adult medical examination without abnormal findings (principal); M24.232 Disorder of ligament, left wrist; E11.9 Type 2 diabetes mellitus without complications; G90.A Postural orthostatic tachycardia syndrome [POTS]; E78.5 Hyperlipidemia, unspecified; E55.9 Vitamin D deficiency, unspecified; R63.4 Abnormal weight loss
CPT/HCPCS: 80053; 80061; 80162; 82306; 83036; 83721; 84439; 84443; 85025